=== PATIENT | female | born 1970 | race Hispanic/Latino ===

== ENCOUNTER 2018-04-17 12:53 | Inpatient (IN) | payer MEDICAID ==
[2018-04-17 13:03] VITALS: BMI 32.9
[2018-04-17] MEDS ORDERED: Albuterol-Ipratrop 3 mg / 0.5 (3 ml) UD ONE (13:12)
[2018-04-17] MEDS ORDERED: Nitroglycerin 2% 15 INCH/30 GM TUBE TOP STA (13:23)
[2018-04-17] MEDS ORDERED: Albuterol-Ipratrop 3 mg / 0.5 (3 ml) UD INH STA ×2 (13:27→17:57)
[2018-04-17] MEDS ORDERED: Nitroglycerin 2% Ointment Foilpak UD TOP ONE (13:44)
[2018-04-17 13:49] LABS: BASO # 0.1 K/uL (0.0-0.2); BASO % 0.6 % (0.0-2.0); EOS % 0.2 % (0.0-4.0); HEMOGLOBIN 12.1 g/dL (12.0-16.0); LYMPH # 2.1 K/uL (1.0-4.3); LYMPH % 19.8 % (20.0-40.0); MEAN CELL VOLUME 90.9 fl (81.0-99.0); MEAN PLATELET VOLUME 8.8 fl (7.2-11.7); MONO # 0.7 K/uL (0.0-0.8); MONO % 6.7 % (0.0-10.0); NEUT # 7.8 K/uL (1.8-7.0); NEUT % 72.7 % (50.0-75.0); NRBC % 0.1 % (0.0-0.0); RBC 4.04 Mil/uL (3.80-5.20); RED CELL DISTRIBUTION WIDTH 14.5 % (11.5-14.5); WHITE BLOOD COUNT 10.7 K/uL (4.8-10.8)
[2018-04-17 13:56] LABS: ABG ALLEN TEST YES; ARTERIAL BLOOD GAS HCO3 25.6 mmol/L (21-28); ARTERIAL BLOOD GAS HEMOGLOBIN 12.3 g/dL (11.7-17.4); ARTERIAL BLOOD GAS O2 CAPACITY 16.4 mL/dL (16-24); ARTERIAL BLOOD GAS O2 SAT 97.5 % (95-98); ARTERIAL BLOOD GAS PCO2 42 mm/Hg (35-45); ARTERIAL BLOOD GAS PO2 69 mm/Hg (80-100); ARTERIAL BLOOD GAS TCO2 27.3 mmol/L (22-28)
[2018-04-17 14:01] LABS: CALCIUM 7.7 mg/dL (8.4-10.2)
[2018-04-17] MEDS ORDERED: Nitroglycerin 2% Ointment Foilpak UD TOP STA (14:02)
--- NOTE | 2018-04-17 14:21 | ED PDOC ---
HPI: SOB/CHF/COPD Time Seen by Provider: 04/17/18 13:11 Chief Complaint (Nursing): Shortness Of Breath Chief Complaint (Provider): Shortness of breath History Per: Patient History/Exam Limitations: no limitations Onset/Duration Of Symptoms: Days (x2-3) Current Symptoms Are (Timing): Still Present Additional Complaint(s): 47 year old female presents to the ED with difficulty breathing for 2-3 days. Patient reports having chronic shortness of breath for months which has been worsening gradually. She reports having swelling in the arms and legs. She states she has to sleep head up because if she lies down, she will get short of breath. Patient indicates she was taking albuterol and lasix as needed at home but states it was not helping. PMD: Dr. Bingham Past Medical History Reviewed: Historical Data, Nursing Documentation, Vital Signs Vital Signs: Last Vital Signs Temp 98.5 F 04/17/18 13:04 Pulse 78 04/17/18 14:03 Resp 20 04/17/18 13:04 BP 147/90 04/17/18 14:03 Pulse Ox 98 04/17/18 13:04 - Medical History PMH: Asthma, CHF, Diabetes, Fractures (RIGHT FOOT), Gall Bladder Disease, Hepatitis (C), HTN, Pancreatitis Denies: Chronic Kidney Disease - Surgical History Surgical History: Cholecystectomy, Endoscopy - Family History Family History: States: Unknown Family Hx - Social History Current smoker - smoking cessation education provided: No Alcohol: None Drugs: Denies - Immunization History Hx Tetanus Toxoid Vaccination: No Hx Influenza Vaccination: Yes Hx Pneumococcal Vaccination: Yes - Home Medications Home Medications: Ambulatory Orders Medication Instructions Recorded RX: Pantoprazole Sodium [Protonix] 40 mg PO DAILY #30 ect 07/12/17 Albuterol Sulfate [Ventolin Hfa] 2 puff IH Q6 PRN 04/17/18 Cephalexin [Keflex] 500 mg PO Q12 04/17/18 Furosemide [Lasix] 80 mg PO DAILY 04/17/18 RX: Gabapentin [Neurontin] 1,600 mg PO Q8 04/17/18 RX: Insulin Glargine,Hum.rec.anlog 36 units SC HS 04/17/18 [Basaglar Kwikpen U-100] RX: Promethazine DM [Phenergan DM 10 ml PO Q6 PRN 04/17/18 Syrup] - Allergies Allergies/Adverse Reactions: Allergies Allergy/AdvReac Type Severity Reaction Status Date / Time hydromorphone [From Dilaudid] Allergy SHORTNESS Verified 04/17/18 13:02 OF BREATH lidocaine Allergy RASH Verified 04/17/18 13:02 Wells Criteria for PE - Wells Criteria for Pulmonary Embolism Clinical Signs and Symptoms of DVT: No P.E is #1 Diagnosis, or Equally Likely: No Heart Rate >100: No Immobilization at least 3 days;Surgery previous 4 weeks: No Previous, objectively diagnosed PE or DVT: No Hemoptysis: No Malignancy w/treatment within 6 months, or palliative: No Total Score: 0 Review of Systems ROS Statement: Except As Marked, All Systems Reviewed And Found Negative Respiratory: Positive for: Shortness of Breath Musculoskeletal: Positive for: Other (arms and legs swelling) Physical Exam - Reviewed Nursing Documentation Reviewed: Yes Vital Signs Reviewed: Yes - Physical Exam Appears: Positive for: Non-toxic, In Acute Distress (in respiratory distress) Head Exam: Positive for: ATRAUMATIC, NORMOCEPHALIC Skin: Positive for: Normal Color, Warm, Dry Eye Exam: Positive for: Normal appearance Neck: Positive for: Normal, Painless ROM Cardiovascular/Chest: Positive for: Regular Rate, Rhythm, Tachycardia Respiratory: Positive for: Wheezing (bilaterally), Respiratory Distress, Other (tachypneic) Gastrointestinal/Abdominal: Positive for: Normal Exam, Soft. Negative for: Tenderness, Distended Extremity: Positive for: Swelling (of the arms and legs), Other (pitting edema) Neurologic/Psych: Positive for: Alert, Oriented - Laboratory Results Result Diagrams: 04/18/18 04:30 04/18/18 04:30 - ECG O2 Sat by Pulse Oximetry: 98 (RA) Pulse Ox Interpretation: Normal - Critical Care Total Time (In Min): 60 Medical Decision Making Medical Decision Making: Initial Impression: shortness of breath and cough Differential includes CHF exacerbation, anasarca, and asthma exacerbation Initial Plan: --Arterial blood gas stat --ECG --B-type natriuretic peptide stat --BMP --TSH --Troponin stat --CBC --Chest X-ray --Albuterol 3mL INH --Lasix 80mg IV --Nitroglycerin 0.5 ea TOP --Methylprednisolone 125mg IV --Bipap procedure --Peak flow 14:58 Chest X-ray FINDINGS: LUNGS: Right lower lobe infiltrate. PLEURA: Right pleural effusion indistinguishable from right lower lobe infiltrate. CARDIOVASCULAR: No aortic atherosclerotic calcification present. Normal. OSSEOUS STRUCTURES: No significant abnormalities. VISUALIZED UPPER ABDOMEN: Normal. OTHER FINDINGS: None. IMPRESSION: Large right lower lobe infiltrate/right pleural effusion. [address] Dill who will admit for Dr Bingham. Dr Dill will consult Dr Ozuna for cards and Dr Bennett for renal. [address] Ozuna who recommends ICU. [address] Fernandez equity director for ICU evaluation. Scribe Attestation: Documented by Bradley Telles acting as a scribe for Mason Sandoval MD. Provider Scribe Attestation: All medical record entries made by the Scribe were at my direction and per sonally dictated by me. I have reviewed the chart and agree that the record accurately reflects my personal performance of the history, physical exam, medical decision making, and the department course for this patient. I have also personally directed, reviewed, and agree with the discharge instructions and disposition. Disposition - Clinical Impression Clinical Impression: CHF exacerbation, Elevated troponin, Pleural effusion, Respiratory failure, acute, ARF (acute renal failure) - Patient ED Disposition Is Patient to be Admitted: Yes Discussed With DrJuliana: Rk Dill Doctor Will See Patient In The: Hospital Counseled Patient/Family Regarding: Studies Performed, Diagnosis - Disposition Disposition Time: 15:30 Condition: CRITICAL - Pt Status Changed To: Hospital Disposition Of: Inpatient - Admit Certification Admit to Inpatient:: After my assessment, the patient will require hospitalization for at least two midnights. This is because of the severity of symptoms shown, intensity of services needed, and/or the medical risk in this patient being treated as an outpatient. - POA Present On Arrival: Poor Glycemic Control REINALDO Risk Score for UA/NSTEMI - REINALDO Risk Score Age > 64: NO 3 or more CAD Risk Factors: YES Known CAD (Stenosis greater than 50%): NO Aspirin use in past 7 days: NO Severe Angina: NO EKG ST changes greater than 0.5mm: NO Positive Cardiac Marker: YES REINALDO Score: 2 % risk at 14 days of: all cause mortality, new or recurrent [place], or severe recu rrent ischemia requiring urgen revascularization: 8%
[2018-04-17 14:38] LABS: TROPONIN I 0.876 ng/mL (0.00-0.120)
--- NOTE | 2018-04-17 14:48 | CARD ---
APPROVED REPORT Date of service: 04/17/2018 EKG Measurement Heart [id number] <Conclusion> Sinus tachycardia Low voltage QRS Possible septal infarct, age undetermined Abnormal ECG
--- NOTE | 2018-04-17 15:01 | RAD ---
Date of service: 04/17/2018 PROCEDURE: CHEST RADIOGRAPH, 1 VIEW HISTORY: dyspnea COMPARISON: 10/30/2014 FINDINGS: LUNGS: Right lower lobe infiltrate. PLEURA: Right pleural effusion indistinguishable from right lower lobe infiltrate. CARDIOVASCULAR: No aortic atherosclerotic calcification present. Normal. OSSEOUS STRUCTURES: No significant abnormalities. VISUALIZED UPPER ABDOMEN: Normal. OTHER FINDINGS: None. IMPRESSION: Large right lower lobe infiltrate/right pleural effusion.
[2018-04-17] MEDS ORDERED: Azithromycin 500 MG IV IVPB ONE (17:11)
[2018-04-17] MEDS: Azithromycin 500 MG in Sodium Chloride 0.9% 250 ML IVPB SCH (17:15)
--- NOTE | 2018-04-17 18:12 | CP.PCM.CON ---
History of Present Illness - History of Present Illness History of Present Illness: I was asked to evaluate patinet by Dr Diaz Patient seen 04/17/18 [id number] Patient 47 year old female with HTN asthma who presents with dsypnea. Symptoms have been present for the last few days. She describes associated orthopnea and PND. The patient cannot complete full sentences. CXR show pulmonary vascular congestion and right pleural effusion. Review of Systems - Constitutional Constitutional: absent: As Per HPI, Anorexia, Chills, Daytime Sleepiness, Excessive Sweating, Fatigue, Fever, Frequent Falls, Headache, Increased Appetite, Lethargy, Malaise, Night Sweats, Snoring, Sleep Apnea, Weight Gain, Weight Loss, Weakness, Other - EENT Eyes: absent: As Per HPI, Blind Spots, Blurred Vision, Change in Vision, Decreased Night Vision, Diplopia, Discharge, Dry Eye, Exophthalmos, Floaters, Irritation, Itchy Eyes, Loss of Peripheral Vision, Pain, Photophobia, Requires Corrective Lenses, Sees Flashes, Spots in Vision, Tunnel Vision, Other Visual Disturbances, Loss of Vision, Other Ears: absent: As Per HPI, Decreased Hearing, Ear Discharge, Ear Pain, Tinnitus, Abnormal Hearing, Disequilibrium, Dizziness, Other Nose/Mouth/Throat: absent: As Per HPI, Epistaxis, Nasal Congestion, Nasal Discharge, Nasal Obstruction, Nasal Trauma, Nose Pain, Post Nasal Drip, Sinus Pain, Sinus Pressure, Bleeding Gums, Change in Voice, Dental Pain, Dry Mouth, Dysphagia, Halitosis, Hoarsness, Lip Swelling, Mouth Lesions, Mouth Pain, Odynophagia, Sore Throat, Throat Swelling, Tongue Swelling, Facial Pain, Neck Pain, Neck Mass, Other - Breasts Breasts: absent: As Per HPI, Change in Shape, Mass, Pain, Nipple Discharge, Nipple Inversion, Skin Changes, Swelling, Other - Cardiovascular Cardiovascular: Dyspnea, Orthopnea - Respiratory Respiratory: Dyspnea - Gastrointestinal Gastrointestinal: absent: As Per HPI, Abdominal Pain, Belching, Bloating, Change in Bowel Habits, Change in Stool Character, Coffee Ground Emesis, Constipation, Cramping, Diarrhea, Dyspepsia, Dysphagia, Early Satiety, Excessive Flatus, Fecal Incontinence, Heartburn, Hematemesis, Hematochezia, Loose Stools, Melena, Nausea, Odynophagia, Temesmus, Vomiting, Other - Musculoskeletal Musculoskeletal: absent: As Per HPI, Abnormal Gait, Arthralgias, Atrophy, Back Pain, Deformity, Joint Swelling, Limited Range of Motion, Loss of Height, Muscle Cramps, Muscle Weakness, Myalgias, Neck Pain, Numbness, Radiating Pain into Limb, Stiffness, Tingling, Other - Integumentary Integumentary: absent: As Per HPI, Acne, Alopecia, Bleeding Lesions, Change in Hair, Change in Nails, Change in Pigmentation, Changing Lesions, Dry Skin, Erythema, Furuncle, Hirsutism, Lesions, New Lesions, Non-Healing Lesions, Photosensitivity, Pruritus, Rash, Skin Pain, Skin Ulcer, Sores, Striae, Swelling, Unusual Bruising, Wounds, Jaundice, Other - Neurological Neurological: absent: As Per HPI, Abnormal Gait, Abnormal Hearing, Abnormal Movements, Abnormal Speech, Behavioral Changes, Burning Sensations, Confusion, Convulsions, Disequilibrium, Dizziness, Numbness, Focal Weakness, Frequent Falls, Headaches, Lack of Coordination, Loss of Vision, Memory Loss, Paresth esias, Radicular Pain, Restless Legs, Sensory Deficit, Syncope, Tingling, Tremor, Vertigo, Weakness, Other Visual Disturbances, Other - Psychiatric Psychiatric: absent: As Per HPI, Abnormal Sleep Pattern, Anhedonia, Anxiety, Auditory Hallucinations, Behavioral Changes, Change in Appetite, Change in Libido, Confusion, Depression, Difficulty Concentrating, Hallucinations, Homicidal Ideation, Hopelessness, Irritability, Memory Loss, Mood Swings, Panic Attacks, Paranoia, Suicidal Ideation, Visual Hallucinations, Tactile Hallucinations, Other - Endocrine Endocrine: absent: As Per HPI, Change in Body Appearance, Change in Libido, Cold Intolorance, Deepening of Voice, Excessive Sweating, Fatigue, Flushing, Heat Intolorance, Increase in Ring/Shoe/Hat Size, Palpitations, Polydipsia, Polyphagia, Polyuria, Other - Hematologic/Lymphatic Hematologic: absent: As Per HPI, Easy Bleeding, Easy Bruising, Lymphadenopathy, Other Past Patient History - Past Medical History & Family History Past Medical History?: Yes - Past Social History Alcohol: None Drugs: Denies - CARDIAC Hx Congestive Heart Failure: Yes Hx Hypertension: Yes - PULMONARY Hx Asthma: Yes - NEUROLOGICAL Hx Neurological Disorder: Yes (NEURPOATHTY) Hx Dizziness: Yes - HEENT Hx HEENT Problems: Yes (HX RETINA BLEEDING) Other/Comment: sclera both eye slightly jaundice - RENAL Hx Chronic Kidney Disease: No - ENDOCRINE/METABOLIC Hx Endocrine Disorders: Yes Hx Diabetes Mellitus Type 2: Yes - INTEGUMENTARY Hx Dermatological Problems: Yes (SLIGHT JAUNDICE) Other/Comment: sclera both eye slightly jaundice - MUSCULOSKELETAL/RHEUMATOLOGICAL Hx Fractures: Yes (RIGHT FOOT) - GASTROINTESTINAL Hx Gall Bladder Disease: Yes Hx Pancreatitis: Yes - GENITOURINARY/GYNECOLOGICAL Hx Genitourinary Disorders: No Other/Comment: fibroids - PSYCHIATRIC Hx Psychophysiologic Disorder: No Hx Substance Use: No - SURGICAL HISTORY Hx Cholecystectomy: Yes - ANESTHESIA Hx Anesthesia: Yes Hx Anesthesia Reactions: No Hx Malignant Hyperthermia: No Meds Allergies/Adverse Reactions: Allergies Allergy/AdvReac Type Severity Reaction Status Date / Time hydromorphone [From Dilaudid] Allergy SHORTNESS Verified 04/17/18 13:02 OF BREATH lidocaine Allergy RASH Verified 04/17/18 13:02 - Medications Medications: Current Medications Albuterol/Ipratropium (Duoneb 3 Mg/0.5 Mg (3 Ml) Ud) 3 ml INH RTID KYRIE Furosemide (Lasix) 80 mg PO DAILY KYRIE Gabapentin (Neurontin) 1,600 mg PO Q8 KYRIE Azithromycin 500 mg/ Sodium (Chloride) 250 mls @ 250 mls/hr IVPB DAILY KYRIE; Protocol Last Admin: 04/17/18 17:15 Dose: 250 mls/hr Insulin Detemir (Levemir) 36 units SC HS KYRIE Pantoprazole Sodium (Protonix Ec Tab) 40 mg PO DAILY KYRIE Promethazine HCl/Dextromethorphan (Phenergan Dm Syrup) 10 ml PO Q6 PRN PRN Reason: Cough Physical Exam - Constitutional Appears: In Acute Distress - Head Exam Head Exam: NORMAL INSPECTION - Eye Exam Eye Exam: Normal appearance - ENT Exam ENT Exam: Mucous Membranes Moist - Neck Exam Neck exam: Positive for: Full Rom - Respiratory Exam Respiratory Exam: Decreased Breath Sounds - Cardiovascular Exam Cardiovascular Exam: REGULAR RHYTHM - GI/Abdominal Exam GI & Abdominal Exam: Normal Bowel Sounds - Rectal Exam Rectal Exam: Deferred - Extremities Exam Extremities exam: Positive for: pedal edema - Back Exam Back exam: NORMAL INSPECTION - Neurological Exam Neurological exam: Alert - Psychiatric Exam Psychiatric exam: Normal Affect - Skin Skin Exam: Normal Color Results - Vital Signs Recent Vital Signs: Last Vital Signs Temp 98.5 F 04/17/18 13:04 Pulse 77 04/17/18 15:03 Resp 19 04/17/18 14:00 BP 136/70 04/17/18 15:03 Pulse Ox 98 04/17/18 17:19 - Labs Result Diagrams: 04/17/18 13:40 04/17/18 13:40 Labs: Laboratory Results - last 24 hr 04/17/18 04/17/18 04/17/18 13:33 13:40 13:40 WBC 10.7 RBC 4.04 Hgb 12.1 Hct 36.7 MCV 90.9 D MCH 30.0 MCHC 33.0 RDW 14.5 Plt Count 297 MPV 8.8 Neut % (Auto) 72.7 Lymph % (Auto) 19.8 L [place] % (Auto) 6.7 Eos % (Auto) 0.2 Baso % (Auto) 0.6 Neut # (Auto) 7.8 H Lymph # (Auto) 2.1 [place] # (Auto) 0.7 Eos # (Auto) 0.0 Baso # (Auto) 0.1 pCO2 42 pO2 69 L HCO3 25.6 ABG pH 7.40 ABG Total CO2 27.3 ABG O2 Saturation 97.5 ABG O2 Content 16.0 ABG Base Excess 1.0 ABG Hemoglobin 12.3 ABG Carboxyhemoglobin 3.8 H POC ABG HHb (Measured) 2.4 ABG Methemoglobin 1.4 ABG O2 Capacity 16.4 Patel Test Yes A-a O2 Difference 592.0 Hgb O2 Saturation 92.4 L FiO2 100.0 Sodium 139 Potassium 3.4 L Chloride 106 Carbon Dioxide 24 Anion Gap 12 BUN 41 H Creatinine 2.2 H Est GFR ( Amer) 29 Est GFR (Non-Af Amer) 24 POC Glucose (mg/dL) Random Glucose 161 H Calcium 7.7 L Troponin I 0.8760 H* NT-Pro-B Natriuret Pep 61943 H TSH 3rd Generation 5.53 H 04/17/18 16:06 WBC RBC Hgb Hct MCV MCH MCHC RDW Plt Count MPV Neut % (Auto) Lymph % (Auto) [place] % (Auto) Eos % (Auto) Baso % (Auto) Neut # (Auto) Lymph # (Auto) [place] # (Auto) Eos # (Auto) Baso # (Auto) pCO2 pO2 HCO3 ABG pH ABG Total CO2 ABG O2 Saturation ABG O2 Content ABG Base Excess ABG Hemoglobin ABG Carboxyhemoglobin POC ABG HHb (Measured) ABG Methemoglobin ABG O2 Capacity Patel Test A-a O2 Difference Hgb O2 Saturation FiO2 Sodium Potassium Chloride Carbon Dioxide Anion Gap BUN Creatinine Est GFR ( Amer) Est GFR (Non-Af Amer) POC Glucose (mg/dL) 206 H Random Glucose Calcium Troponin I NT-Pro-B Natriuret Pep TSH 3rd Generation - EKG Data EKG shows normal: Sinus rhythm Assessment & Plan (1) Dyspnea Assessment and Plan: likley cardiac in origin. recommend lasix. would benefit from ICU eval. Status: Acute (2) CHF exacerbation Assessment and Plan: will need evaluation of ventricular function. low voltage EKG may suggest pericardial effusion. Status: Acute (3) Pleural effusion Assessment and Plan: consider thoracentesis Status: Acute
[2018-04-17] MEDS: Budesonide 0.25 mg/2 ml Inhal Susp UD INH SCH (21:44)
[2018-04-17] MEDS: Albuterol-Ipratrop 3 mg / 0.5 (3 ml) UD INH SCH (21:44)
[2018-04-17] MEDS: Insulin Detemir 100 Units/ml Inj SC SCH (21:46)
[2018-04-17] MEDS ORDERED: Chlorhexidine Gluconate 1 APPL/PKT TP ONE (22:44)
[2018-04-18 05:44] LABS: HEMOGLOBIN 11.1 g/dL (12.0-16.0); MEAN CELL VOLUME 90.8 fl (81.0-99.0); MEAN CORPUSCULAR HEMOGLOBIN 29.8 pg (27.0-31.0); MEAN CORPUSCULAR HGB CONC 32.9 g/dL (33.0-37.0); RBC 3.72 Mil/uL (3.80-5.20); RED CELL DISTRIBUTION WIDTH 14.5 % (11.5-14.5); WHITE BLOOD COUNT 9.6 K/uL (4.8-10.8)
[2018-04-18 05:53] LABS: ALB/GLOB RATIO 0.7 (1.0-2.1); ALBUMIN 2.2 g/dL (3.5-5.0); ALT/SGPT 40 U/L (9-52); AST/SGOT 53 U/L (14-36); BLOOD UREA NITROGEN 43 mg/dl (7-17); CALCIUM 7.5 mg/dL (8.4-10.2); GFR NON-AFRICAN AMERICAN 23
--- NOTE | 2018-04-18 06:05 | CON ---
DATE: 04/17/2018vents in the ER noted. Discussed with ER physician. HISTORY OF PRESENT ILLNESS: Ms. Magdaleno is a 47-year-old female, nonsmoker, no alcohol dependence. No recreational drug use. Lives alone with a history of diabetes mellitus type 2 with diabetic neuropathy, hypertension, and chronic systolic heart failure. The patient was admitted to [facility] in 10/2017, noted to have paroxysmal nocturnal dyspnea, orthopnea, and found to have large right pleural effusion. Thoracentesis was done. Further workup for heart failure is unclear. Denies having ischemic workup. The patient also reports that she has asthma because of the shortness of breath. The patient has been short of breath for the last couple of weeks prior to this admission. Denies fever, chills, cough nonproductive. No chest pain or palpitation. No abdominal discomfort; has swelling of her lower extremities; also complaining of weakness of lower extremities limiting her ambulation due to diabetic neuropathy. MEDICATIONS: Her medications at home include Protonix 40 mg daily, Phenergan 10 mL every 6 hours p.r.n., insulin 30/60 units at night, gabapentin 1600 mg every 8 hours, furosemide 80 mg daily, Keflex 500 mg every 12 hours for the last 10 days, albuterol inhalation every 6 hours six p.r.n. ALLERGIES: SHE IS ALLERGIC TO LIDOCAINE AND HYDROMORPHONE. PHYSICAL EXAMINATION: GENERAL: Middle-aged morbidly obese female, oriented to name, place and time; in mild to moderate respiratory distress, improved on BiPAP. VITAL SIGNS: Temperature 98.5, heart rate 78 and regular, blood pressure 147/90, respiratory rate 19, saturation 96% on BiPAP. HEAD, EYES, EARS, NOSE, AND THROAT: Pupils are reactive. Conjunctivae pink. Sclerae are white. NECK: Supple, short neck. Reduced oropharyngeal air space. CHEST: Bilateral breath sounds, diminished on right more than left. Scattered rhonchi. Fine crepitations at the bases. HEART: Rhythm regular. S1, S2 normal. S4 gallop. ABDOMEN: Bowel sounds present and soft. EXTREMITIES: 2+ edema. Dorsalis pedis palpable. No palpable cord. LABORATORY DATA: WBC 10.7, hemoglobin 12.1, hematocrit 36.7, MCV 90.9, platelet count of 297, neutrophils 72.7, lymphocytes 19.8, monocytes 6.7. ABG, pH 7.4, pCO2 of 42, pO2 of 69, oxygen saturation 97.5 on FiO2 100%. SMA-7: Sodium 139, potassium 3.4, chloride 106, CO2 of 24, blood urea nitrogen 41, creatinine 2.4, random glucose 206, calcium 7.7, troponin 0.8. ProBNP 11,800. TSH of 5.53. Microbiology pending. Chest x-ray shows large right lower lobe effusion/infiltrate. IMPRESSION: A 47-year-old female with history significant for diabetes mellitus type 2, hypertension, diabetic neuropathy, chronic systolic heart failure, presenting with progressive shortness of breath, associated with paroxysmal nocturnal dyspnea, and orthopnea. She has large right pleural effusion secondary to congestive heart failure. The patient is also on high dose Neurontin with fluid accumulation as its side effect. She also has long-term diabetes mellitus type 2 with a diabetic neuropathy. PLAN: Admit to ICU. Keep on BiPAP to reduce the work of breathing. Lasix 40 mg IV every 12 hours, albuterol/Atrovent inhalation 3 mL via nebulizer every 6 hours, azithromycin 500 mg IV daily for atypical pneumonia. Reduce the dose of gabapentin to 300 mg every 8 hours. Continue Levemir 36 units at night, Protonix 40 daily. Repeat chest x-ray, if pleural effusion persists, consider thoracentesis. Add Pulmicort 0.5 mg via nebulizer every 12 hours. Pulmonary consult for evaluation of asthma. Chapo Fernandez MD MTDD
[2018-04-18] MEDS: Pantoprazole 40 mg EC Tab PO SCH (08:26)
[2018-04-18] MEDS: Budesonide 0.25 mg/2 ml Inhal Susp UD INH SCH ×2 (08:27→19:15)
[2018-04-18] MEDS: Albuterol-Ipratrop 3 mg / 0.5 (3 ml) UD INH SCH ×3 (08:27→19:15)
[2018-04-18] MEDS ORDERED: Potassium Chloride 20 mEq ER Tab PO ONE (08:38)
[2018-04-18] MEDS ORDERED: Potassium Chloride 20 mEq 100 ML IVPB ONE ×2 (08:40)
--- NOTE | 2018-04-18 08:49 | CP.CCUPN ---
CCU Subjective - Physician Review Events Since Last Encounter (Free Text): 04/18/18 08:46 Breathing is still not back to normal but better, Off Bipap, BP stable, alert and oriented, good response to lasix IV CCU Objective - Vital Signs / Intake & Output Vital Signs (Last 4 hours): Vital Signs Temp Pulse Resp BP Pulse Ox 04/18/18 08:28 99.1 F 88 16 134/77 100 04/18/18 08:22 134/77 04/18/18 08:21 98 04/18/18 05:00 99.1 F 96 H 16 145/82 99 Intake and Output (Last 8hrs): Intake & Output 04/17/18 04/18/18 04/18/18 22:59 06:59 14:59 Intake Total 120 Output Total 1400 Balance 120 -1400 Intake: Oral 120 Output: Urine 1400 Urethral ([place]acruz) 1400 - Physical Exam Narrative Physical Exam (Free Text): 04/18/18 08:47 P/E Neck: No JVd Lungs: Rt base, decreased breath sounds, left basal crackles heart: No gallop Ext: +1 edema eat: NO gallop - Medications Active Medications: Active Medications Generic Name Dose Route Start Last Admin Trade Name Freq PRN Reason Stop Dose Admin Albuterol/Ipratropium 3 ml 04/17/18 20:00 04/18/18 08:27 Duoneb 3 Mg/0.5 Mg (3 Ml) Ud INH 3 ml RTID [facility] Administration Budesonide 0.25 mg 04/17/18 20:00 04/18/18 08:27 Pulmicort Respules INH 0.25 mg RBID [facility] Administration Furosemide 60 mg 04/17/18 21:00 04/18/18 08:22 Lasix IV 60 mg Q12 [facility] Administration Gabapentin 300 mg 04/18/18 09:00 04/18/18 08:23 Neurontin PO 300 mg TID [facility] Administration Azithromycin 500 mg/ Sodium 250 mls @ 250 mls/hr 04/17/18 16:30 04/17/18 17:15 Chloride IVPB 250 mls/hr DAILY [facility] Administration Protocol Potassium Chloride 100 mls @ 50 mls/hr 04/18/18 08:40 Potassium Chloride 20 Meq/100 Ml IVPB 04/18/18 10:39 ONCE ONE Potassium Chloride 100 mls @ 50 mls/hr 04/18/18 08:40 Potassium Chloride 20 Meq/100 Ml IVPB 04/18/18 10:39 ONCE ONE Insulin Detemir 36 units 04/17/18 22:00 04/17/18 21:46 Levemir SC 36 units HS [facility] Administration Pantoprazole Sodium 40 mg 04/18/18 09:00 04/18/18 08:26 Protonix Ec Tab PO 40 mg DAILY [facility] Administration Potassium Chloride 40 meq 04/18/18 08:38 K-Dur 20 Meq Er Tab PO 04/18/18 08:39 ONCE ONE Promethazine HCl/Dextromethorphan 10 ml 04/17/18 16:22 Phenergan Dm Syrup PO Q6 PRN Cough - Patient Studies Lab Studies: Lab Studies 04/18/18 04/18/18 04/18/18 Range/Units 05:03 04:30 04:30 WBC 9.6 (4.8-10.8) K/uL RBC 3.72 L (3.80-5.20) Mil/uL Hgb 11.1 L (12.0-16.0) g/dL Hct 33.8 L (34.0-47.0) % MCV 90.8 (81.0-99.0) fl MCH 29.8 (27.0-31.0) pg MCHC 32.9 L (33.0-37.0) g/dL RDW 14.5 (11.5-14.5) % Plt Count 262 (130-400) K/uL MPV (7.2-11.7) fl Neut % (Auto) (50.0-75.0) % Lymph % (Auto) (20.0-40.0) % [place] % (Auto) (0.0-10.0) % Eos % (Auto) (0.0-4.0) % Baso % (Auto) (0.0-2.0) % Neut # (Auto) (1.8-7.0) K/uL Lymph # (Auto) (1.0-4.3) K/uL [place] # (Auto) (0.0-0.8) K/uL Eos # (Auto) (0.0-0.7) K/uL Baso # (Auto) (0.0-0.2) K/uL pCO2 (35-45) mm/Hg pO2 (80-100) mm/Hg HCO3 (21-28) mmol/L ABG pH (7.35-7.45) ABG Total CO2 (22-28) mmol/L ABG O2 Saturation (95-98) % ABG O2 Content (15-23) ML/dL ABG Base Excess (-2.0-3.0) mmol/L ABG Hemoglobin (11.7-17.4) g/dL ABG Carboxyhemoglobin (0.5-1.5) % POC ABG HHb (Measured) (0.0-5.0) % ABG Methemoglobin (0.0-3.0) % ABG O2 Capacity (16-24) mL/dL Patel Test A-a O2 Difference mm/Hg Hgb O2 Saturation (95.0-98.0) % FiO2 % Sodium 142 (132-148) mmol/l Potassium 2.8 L (3.6-5.0) MMOL/L Chloride 108 H (98-107) mmol/L Carbon Dioxide 26 (22-30) mmol/L Anion Gap 11 (10-20) BUN 43 H (7-17) mg/dl Creatinine 2.3 H (0.7-1.2) mg/dl Est GFR ( Amer) 27 Est GFR (Non-Af Amer) 23 POC Glucose (mg/dL) 223 H (65-110) mg/dL Random Glucose 173 H (65-105) mg/dL Calcium 7.5 L (8.4-10.2) mg/dL Total Bilirubin < 0.1 L (0.2-1.3) mg/dl AST 53 H D (14-36) U/L ALT 40 (9-52) U/L Alkaline Phosphatase 86 (38-126) U/L Troponin I 0.6750 H* (0.00-0.120) ng/mL NT-Pro-B Natriuret Pep (0-450) pg/ml Total Protein 5.3 L (6.3-8.2) G/DL Albumin 2.2 L D (3.5-5.0) g/dL Globulin 3.1 (2.2-3.9) gm/dL Albumin/Globulin Ratio 0.7 L (1.0-2.1) TSH 3rd Generation 1.33 (0.46-4.68) mIU/ML 04/18/18 04/17/18 04/17/18 Range/Units 00:30 21:23 16:06 WBC (4.8-10.8) K/uL RBC (3.80-5.20) Mil/uL Hgb (12.0-16.0) g/dL Hct (34.0-47.0) % MCV (81.0-99.0) fl MCH (27.0-31.0) pg MCHC (33.0-37.0) g/dL RDW (11.5-14.5) % Plt Count (130-400) K/uL MPV (7.2-11.7) fl Neut % (Auto) (50.0-75.0) % Lymph % (Auto) (20.0-40.0) % [place] % (Auto) (0.0-10.0) % Eos % (Auto) (0.0-4.0) % Baso % (Auto) (0.0-2.0) % Neut # (Auto) (1.8-7.0) K/uL Lymph # (Auto) (1.0-4.3) K/uL [place] # (Auto) (0.0-0.8) K/uL Eos # (Auto) (0.0-0.7) K/uL Baso # (Auto) (0.0-0.2) K/uL pCO2 (35-45) mm/Hg pO2 (80-100) mm/Hg HCO3 (21-28) mmol/L ABG pH (7.35-7.45) ABG Total CO2 (22-28) mmol/L ABG O2 Saturation (95-98) % ABG O2 Content (15-23) ML/dL ABG Base Excess (-2.0-3.0) mmol/L ABG Hemoglobin (11.7-17.4) g/dL ABG Carboxyhemoglobin (0.5-1.5) % POC ABG HHb (Measured) (0.0-5.0) % ABG Methemoglobin (0.0-3.0) % ABG O2 Capacity (16-24) mL/dL Patel Test A-a O2 Difference mm/Hg Hgb O2 Saturation (95.0-98.0) % FiO2 % Sodium (132-148) mmol/l Potassium (3.6-5.0) MMOL/L Chloride (98-107) mmol/L Carbon Dioxide (22-30) mmol/L Anion Gap (10-20) BUN (7-17) mg/dl Creatinine (0.7-1.2) mg/dl Est GFR ( Amer) Est GFR (Non-Af Amer) POC Glucose (mg/dL) 310 H 206 H (65-110) mg/dL Random Glucose (65-105) mg/dL Calcium (8.4-10.2) mg/dL Total Bilirubin (0.2-1.3) mg/dl AST (14-36) U/L ALT (9-52) U/L Alkaline Phosphatase (38-126) U/L Troponin I 0.6980 H* (0.00-0.120) ng/mL NT-Pro-B Natriuret Pep (0-450) pg/ml Total Protein (6.3-8.2) G/DL Albumin (3.5-5.0) g/dL Globulin (2.2-3.9) gm/dL Albumin/Globulin Ratio (1.0-2.1) TSH 3rd Generation (0.46-4.68) mIU/ML 04/17/18 04/17/18 04/17/18 Range/Units 13:40 13:40 13:33 WBC 10.7 (4.8-10.8) K/uL RBC 4.04 (3.80-5.20) Mil/uL Hgb 12.1 (12.0-16.0) g/dL Hct 36.7 (34.0-47.0) % MCV 90.9 D (81.0-99.0) fl MCH 30.0 (27.0-31.0) pg MCHC 33.0 (33.0-37.0) g/dL RDW 14.5 (11.5-14.5) % Plt Count 297 (130-400) K/uL MPV 8.8 (7.2-11.7) fl Neut % (Auto) 72.7 (50.0-75.0) % Lymph % (Auto) 19.8 L (20.0-40.0) % [place] % (Auto) 6.7 (0.0-10.0) % Eos % (Auto) 0.2 (0.0-4.0) % Baso % (Auto) 0.6 (0.0-2.0) % Neut # (Auto) 7.8 H (1.8-7.0) K/uL Lymph # (Auto) 2.1 (1.0-4.3) K/uL [place] # (Auto) 0.7 (0.0-0.8) K/uL Eos # (Auto) 0.0 (0.0-0.7) K/uL Baso # (Auto) 0.1 (0.0-0.2) K/uL pCO2 42 (35-45) mm/Hg pO2 69 L (80-100) mm/Hg HCO3 25.6 (21-28) mmol/L ABG pH 7.40 (7.35-7.45) ABG Total CO2 27.3 (22-28) mmol/L ABG O2 Saturation 97.5 (95-98) % ABG O2 Content 16.0 (15-23) ML/dL ABG Base Excess 1.0 (-2.0-3.0) mmol/L ABG Hemoglobin 12.3 (11.7-17.4) g/dL ABG Carboxyhemoglobin 3.8 H (0.5-1.5) % POC ABG HHb (Measured) 2.4 (0.0-5.0) % ABG Methemoglobin 1.4 (0.0-3.0) % ABG O2 Capacity 16.4 (16-24) mL/dL Patel Test Yes A-a O2 Difference 592.0 mm/Hg Hgb O2 Saturation 92.4 L (95.0-98.0) % FiO2 100.0 % Sodium 139 (132-148) mmol/l Potassium 3.4 L (3.6-5.0) MMOL/L Chloride 106 (98-107) mmol/L Carbon Dioxide 24 (22-30) mmol/L Anion Gap 12 (10-20) BUN 41 H (7-17) mg/dl Creatinine 2.2 H (0.7-1.2) mg/dl Est GFR ( Amer) 29 Est GFR (Non-Af Amer) 24 POC Glucose (mg/dL) (65-110) mg/dL Random Glucose 161 H (65-105) mg/dL Calcium 7.7 L (8.4-10.2) mg/dL Total Bilirubin (0.2-1.3) mg/dl AST (14-36) U/L ALT (9-52) U/L Alkaline Phosphatase (38-126) U/L Troponin I 0.8760 H* (0.00-0.120) ng/mL NT-Pro-B Natriuret Pep 45275 H (0-450) pg/ml Total Protein (6.3-8.2) G/DL Albumin (3.5-5.0) g/dL Globulin (2.2-3.9) gm/dL Albumin/Globulin Ratio (1.0-2.1) TSH 3rd Generation 5.53 H (0.46-4.68) mIU/ML Laboratory Results - last 24 hr 04/17/18 04/17/18 04/17/18 13:33 13:40 13:40 WBC 10.7 RBC 4.04 Hgb 12.1 Hct 36.7 MCV 90.9 D MCH 30.0 MCHC 33.0 RDW 14.5 Plt Count 297 MPV 8.8 Neut % (Auto) 72.7 Lymph % (Auto) 19.8 L [place] % (Auto) 6.7 Eos % (Auto) 0.2 Baso % (Auto) 0.6 Neut # (Auto) 7.8 H Lymph # (Auto) 2.1 [place] # (Auto) 0.7 Eos # (Auto) 0.0 Baso # (Auto) 0.1 pCO2 42 pO2 69 L HCO3 25.6 ABG pH 7.40 ABG Total CO2 27.3 ABG O2 Saturation 97.5 ABG O2 Content 16.0 ABG Base Excess 1.0 ABG Hemoglobin 12.3 ABG Carboxyhemoglobin 3.8 H POC ABG HHb (Measured) 2.4 ABG Methemoglobin 1.4 ABG O2 Capacity 16.4 Patel Test Yes A-a O2 Difference 592.0 Hgb O2 Saturation 92.4 L FiO2 100.0 Sodium 139 Potassium 3.4 L Chloride 106 Carbon Dioxide 24 Anion Gap 12 BUN 41 H Creatinine 2.2 H Est GFR ( Amer) 29 Est GFR (Non-Af Amer) 24 POC Glucose (mg/dL) Random Glucose 161 H Calcium 7.7 L Total Bilirubin AST ALT Alkaline Phosphatase Troponin I 0.8760 H* NT-Pro-B Natriuret Pep 18522 H Total Protein Albumin Globulin Albumin/Globulin Ratio TSH 3rd Generation 5.53 H 04/17/18 04/17/18 04/18/18 16:06 21:23 00:30 WBC RBC Hgb Hct MCV MCH MCHC RDW Plt Count MPV Neut % (Auto) Lymph % (Auto) [place] % (Auto) Eos % (Auto) Baso % (Auto) Neut # (Auto) Lymph # (Auto) [place] # (Auto) Eos # (Auto) Baso # (Auto) pCO2 pO2 HCO3 ABG pH ABG Total CO2 ABG O2 Saturation ABG O2 Content ABG Base Excess ABG Hemoglobin ABG Carboxyhemoglobin POC ABG HHb (Measured) ABG Methemoglobin ABG O2 Capacity Patel Test A-a O2 Difference Hgb O2 Saturation FiO2 Sodium Potassium Chloride Carbon Dioxide Anion Gap BUN Creatinine Est GFR ( Amer) Est GFR (Non-Af Amer) POC Glucose (mg/dL) 206 H 310 H Random Glucose Calcium Total Bilirubin AST ALT Alkaline Phosphatase Troponin I 0.6980 H* NT-Pro-B Natriuret Pep Total Protein Albumin Globulin Albumin/Globulin Ratio TSH 3rd Generation 04/18/18 04/18/18 04/18/18 04:30 04:30 05:03 WBC 9.6 RBC 3.72 L Hgb 11.1 L Hct 33.8 L MCV 90.8 MCH 29.8 MCHC 32.9 L RDW 14.5 Plt Count 262 MPV Neut % (Auto) Lymph % (Auto) [place] % (Auto) Eos % (Auto) Baso % (Auto) Neut # (Auto) Lymph # (Auto) [place] # (Auto) Eos # (Auto) Baso # (Auto) pCO2 pO2 HCO3 ABG pH ABG Total CO2 ABG O2 Saturation ABG O2 Content ABG Base Excess ABG Hemoglobin ABG Carboxyhemoglobin POC ABG HHb (Measured) ABG Methemoglobin ABG O2 Capacity Patel Test A-a O2 Difference Hgb O2 Saturation FiO2 Sodium 142 Potassium 2.8 L Chloride 108 H Carbon Dioxide 26 Anion Gap 11 BUN 43 H Creatinine 2.3 H Est GFR ( Amer) 27 Est GFR (Non-Af Amer) 23 POC Glucose (mg/dL) 223 H Random Glucose 173 H Calcium 7.5 L Total Bilirubin < 0.1 L AST 53 H D ALT 40 Alkaline Phosphatase 86 Troponin I 0.6750 H* NT-Pro-B Natriuret Pep Total Protein 5.3 L Albumin 2.2 L D Globulin 3.1 Albumin/Globulin Ratio 0.7 L TSH 3rd Generation 1.33 Radiology Impressions: Radiology Impressions Chest X-Ray 04/17/18 13:21 IMPRESSION: Large right lower lobe infiltrate/right pleural effusion. EKG/Cardiology Studies: Cardiology / EKG Studies 04/18/18 09:00 ELECTROCARDIOGRAM DAILY Comment: Mode Of Transportation: Reason For Exam: ekg changes/elevated trop Fingerstick Blood Sugar Results: 310 Critical Care Progress Note - Nutrition Nutrition: Nutrition Category Date Time Status Diabetic [Consistent Carbohydrate] [DIET] Diets 04/18/18 Breakfast Active Assessment/Plan - Assessment and Plan (Free Text) Assessment: Resp failure; hypoxic CHF exacerbation NSTEMI Edema Hypokalemia Lupus DM HTN Anemia CKD-4 Plan: Kcl 40 meq Iv and 40 meq PO Lasix 60 mg IV q 12 H Trending TNI Cardiology f/u Off Biapap on N/C Bronchodilators CXR reviewed WIll need thoracentesis in 1-2 day if SOB did not improve,
[2018-04-18] MEDS: Azithromycin 500 MG in Sodium Chloride 0.9% 250 ML IVPB SCH (09:21)
[2018-04-18] MEDS ORDERED: methylPREDNISolone 40 MG in Sodium Chloride 0.9% 50 ML IVPB SCH (11:30)
--- NOTE | 2018-04-18 12:34 | CP.PCM.PN ---
Subjective - Date & Time of Evaluation Date of Evaluation: 04/18/18 Time of Evaluation: 12:10 - Subjective Subjective: patient has cough. less dyspnea Objective - Vital Signs/Intake and Output Vital Signs (last 24 hours): Temp Pulse Resp BP Pulse Ox 99.1 F 103 H 9 L 137/78 98 04/18/18 08:28 04/18/18 10:00 04/18/18 10:00 04/18/18 10:00 04/18/18 10:00 Intake and Output: 04/18/18 04/18/18 06:59 18:59 Intake Total 120 350 Output Total 1400 Balance -1280 350 - Medications Medications: Current Medications Albuterol/Ipratropium (Duoneb 3 Mg/0.5 Mg (3 Ml) Ud) 3 ml INH RTID [facility] Last Admin: 04/18/18 08:27 Dose: 3 ml Budesonide (Pulmicort Respules) 0.25 mg INH RBID [facility] Last Admin: 04/18/18 08:27 Dose: 0.25 mg Furosemide (Lasix) 60 mg IV Q12 [facility] Last Admin: 04/18/18 08:22 Dose: 60 mg Gabapentin (Neurontin) 300 mg PO TID [facility] Last Admin: 04/18/18 08:23 Dose: 300 mg Azithromycin 500 mg/ Sodium (Chloride) 250 mls @ 250 mls/hr IVPB DAILY [facility]; Protocol Last Admin: 04/18/18 09:21 Dose: 250 mls/hr Insulin Detemir (Levemir) 36 units SC HS [facility] Last Admin: 04/17/18 21:46 Dose: 36 units Methylprednisolone (Solu-Medrol) 40 mg IVP Q8 [facility] Pantoprazole Sodium (Protonix Ec Tab) 40 mg PO DAILY [facility] Last Admin: 04/18/18 08:26 Dose: 40 mg Promethazine HCl/Dextromethorphan (Phenergan Dm Syrup) 10 ml PO Q6 PRN PRN Reason: Cough - Labs Labs: 04/18/18 04:30 04/18/18 04:30 - Constitutional Appears: Chronically Ill - Head Exam Head Exam: NORMAL INSPECTION - Eye Exam Eye Exam: Normal appearance - ENT Exam ENT Exam: Mucous Membranes Moist - Neck Exam Neck Exam: Full ROM - Respiratory Exam Respiratory Exam: Rhonchi, Wheezes - Cardiovascular Exam Cardiovascular Exam: REGULAR RHYTHM - GI/Abdominal Exam GI & Abdominal Exam: Normal Bowel Sounds - Rectal Exam Rectal Exam: Deferred - Extremities Exam Extremities Exam: absent: Pedal Edema - Back Exam Back Exam: NORMAL INSPECTION - Neurological Exam Neurological Exam: Alert - Psychiatric Exam Psychiatric exam: Normal Affect - Skin Skin Exam: Normal Color Assessment and Plan (1) Dyspnea Assessment & Plan: echocardiogram reveals preserved left ventriuclar function. there is mild mitral regurgitation. The patient does not have CHF Status: Acute (2) CHF exacerbation Assessment & Plan: reviewed echocardogram. Patient's presentation is more pulmonary in origin. NOT CHF Status: Acute (3) Pleural effusion Assessment & Plan: consider thoracentesis Status: Acute
[2018-04-18] MEDS: Promethazine DM 6.25 mg-15 mg/5 ml Syrup PO PRN ×2 (13:26→21:30)
[2018-04-18] MEDS: MethylPREDNISolone 40 mg Vial IVP SCH (17:26)
[2018-04-18] MEDS ORDERED: Nasal Spray(Ocean spray) NAS PRN (17:31)
--- NOTE | 2018-04-18 18:17 | CP.PCM.CON ---
History of Present Illness - History of Present Illness History of Present Illness: pt is seen and examined, full consult is dictated #[id number] Past Patient History - Past Medical History & Family History Past Medical History?: Yes - Past Social History Alcohol: None Drugs: Denies - CARDIAC Hx Congestive Heart Failure: Yes Hx Hypertension: Yes - PULMONARY Hx Asthma: Yes - NEUROLOGICAL Hx Neurological Disorder: Yes (NEURPOATHTY) - HEENT Hx HEENT Problems: Yes (HX RETINA BLEEDING) - RENAL Hx Chronic Kidney Disease: No - ENDOCRINE/METABOLIC Hx Endocrine Disorders: Yes Hx Diabetes Mellitus Type 1: Yes Hx Systemic Lupus Erythematosus: Yes - INTEGUMENTARY Hx Dermatological Problems: Yes (SLIGHT JAUNDICE) - MUSCULOSKELETAL/RHEUMATOLOGICAL Hx Fractures: Yes (RIGHT FOOT) - GASTROINTESTINAL Hx Gall Bladder Disease: Yes Hx Pancreatitis: Yes - GENITOURINARY/GYNECOLOGICAL Hx Genitourinary Disorders: No - PSYCHIATRIC Hx Psychophysiologic Disorder: No Hx Substance Use: No - SURGICAL HISTORY Hx Cholecystectomy: Yes - ANESTHESIA Hx Anesthesia: Yes Hx Anesthesia Reactions: No Hx Malignant Hyperthermia: No Meds Allergies/Adverse Reactions: Allergies Allergy/AdvReac Type Severity Reaction Status Date / Time hydromorphone [From Dilaudid] Allergy SHORTNESS Verified 04/17/18 13:02 OF BREATH lidocaine Allergy RASH Verified 04/17/18 13:02 - Medications Medications: Current Medications Albuterol/Ipratropium (Duoneb 3 Mg/0.5 Mg (3 Ml) Ud) 3 ml INH RTID [facility] Last Admin: 04/18/18 13:40 Dose: 3 ml Budesonide (Pulmicort Respules) 0.25 mg INH RBID [facility] Last Admin: 04/18/18 08:27 Dose: 0.25 mg Furosemide (Lasix) 60 mg IV Q12 [facility] Last Admin: 04/18/18 08:22 Dose: 60 mg Gabapentin (Neurontin) 300 mg PO TID [facility] Last Admin: 04/18/18 17:26 Dose: 300 mg Azithromycin 500 mg/ Sodium (Chloride) 250 mls @ 250 mls/hr IVPB DAILY [facility]; Protocol Last Admin: 04/18/18 09:21 Dose: 250 mls/hr Insulin Detemir (Levemir) 36 units SC HS [facility] Last Admin: 04/17/18 21:46 Dose: 36 units Methylprednisolone (Solu-Medrol) 40 mg IVP Q8 [facility] Last Admin: 04/18/18 17:26 Dose: 40 mg Pantoprazole Sodium (Protonix Ec Tab) 40 mg PO DAILY [facility] Last Admin: 04/18/18 08:26 Dose: 40 mg Promethazine HCl/Dextromethorphan (Phenergan Dm Syrup) 10 ml PO Q6 PRN PRN Reason: Cough Last Admin: 04/18/18 13:26 Dose: 10 ml Sodium Chloride ([place] Nasal [place]) 2 sprays CASH Q4 PRN PRN Reason: Nasal congestion Results - Vital Signs Recent Vital Signs: Last Vital Signs Temp 99.3 F 04/18/18 16:00 Pulse 107 H 04/18/18 17:58 Resp 15 04/18/18 17:58 BP 168/81 H 04/18/18 17:58 Pulse Ox 98 04/18/18 17:58 - Labs Result Diagrams: 04/18/18 04:30 04/18/18 04:30 Labs: Laboratory Results - last 24 hr 04/17/18 04/18/18 04/18/18 21:23 00:30 04:30 WBC 9.6 RBC 3.72 L Hgb 11.1 L Hct 33.8 L MCV 90.8 MCH 29.8 MCHC 32.9 L RDW 14.5 Plt Count 262 Sodium Potassium Chloride Carbon Dioxide Anion Gap BUN Creatinine Est GFR ( Amer) Est GFR (Non-Af Amer) POC Glucose (mg/dL) 310 H Random Glucose Calcium Magnesium Total Bilirubin AST ALT Alkaline Phosphatase Troponin I 0.6980 H* Total Protein Albumin Globulin Albumin/Globulin Ratio TSH 3rd Generation 04/18/18 04/18/18 04/18/18 04:30 05:03 11:54 WBC RBC Hgb Hct MCV MCH MCHC RDW Plt Count Sodium 142 Potassium 2.8 L Chloride 108 H Carbon Dioxide 26 Anion Gap 11 BUN 43 H Creatinine 2.3 H Est GFR ( Amer) 27 Est GFR (Non-Af Amer) 23 POC Glucose (mg/dL) 223 H 88 Random Glucose 173 H Calcium 7.5 L Magnesium Total Bilirubin < 0.1 L AST 53 H D ALT 40 Alkaline Phosphatase 86 Troponin I 0.6750 H* Total Protein 5.3 L Albumin 2.2 L D Globulin 3.1 Albumin/Globulin Ratio 0.7 L TSH 3rd Generation 1.33 04/18/18 04/18/18 16:48 18:00 WBC RBC Hgb Hct MCV MCH MCHC RDW Plt Count Sodium Potassium Chloride Carbon Dioxide Anion Gap BUN Creatinine Est GFR ( Amer) Est GFR (Non-Af Amer) POC Glucose (mg/dL) 154 H Random Glucose Calcium Magnesium 2.2 Total Bilirubin AST ALT Alkaline Phosphatase Troponin I Total Protein Albumin Globulin Albumin/Globulin Ratio TSH 3rd Generation
[2018-04-18] MEDS: Insulin Detemir 100 Units/ml Inj SC SCH (21:42)
[2018-04-18] MEDS: Nasal Spray(Ocean spray) NAS PRN (22:00)
--- NOTE | 2018-04-18 23:23 | CARD ---
APPROVED REPORT Date of service: 04/18/2018 EXAM: Two-dimensional and M-mode echocardiogram with Doppler and color Doppler. Other Information Quality : GoodRhythm : Tachycardia INDICATION Elevated Pro BNp 2D DIMENSIONS IVSd1.07 (0.7-1.1cm)LVDd4.48 (3.9-5.9cm) LVOT Diameter1.92 (1.8-2.4cm)PWd1.02 (0.7-1.1cm) IVSs1.52 (0.8-1.2cm)LVDs2.98 (2.5-4.0cm) FS (%) 33.6 %PWs1.46 (0.8-1.2cm) M-Mode DIMENSIONS Left Atrium (MM)3.47 (2.5-4.0cm)IVSd1.05 (0.7-1.1cm) Aortic Root2.45 (2.2-3.7cm)LVDd4.99 (4.0-5.6cm) Aortic Cusp Exc.1.74 (1.5-2.0cm)PWd1.02 (0.7-1.1cm) IVSs1.35 cmFS (%) 31 % LVDs3.42 (2.0-3.8cm)PWs1.19 cm Aortic Valve AoV Peak Amdhujgt322.4cm/sAoV VTI27.7cmAO Peak GR.8mmHg LVOT Peak Xvzlcbgb73.4cm/sLVOT VTI16.29cmAO Mean GR.5mmHg AMRIT (VMAX)0.68uq8BTO (VTI)0.93cm2 Mitral Valve E/A ratio0.0 TDI E/Lateral E'0.0E/Medial E'0.0 Tricuspid Valve TR Peak [id number]/sRAP [id number] Peak Gr.32mmHg [id number] LEFT VENTRICLE The left ventricle is normal size. There is normal left ventricular wall thickness. The left ventricular systolic function is normal. The estimated ejection fraction is 55-60% No regional wall motion abnormalities noted.. Transmitral Doppler flow pattern is Grade I-abnormal relaxation pattern. No left ventricle thrombus noted on this study. There is no ventricular septal defect visualized. There is no left ventricular aneurysm. There is no mass noted in the left ventricle. RIGHT VENTRICLE The right ventricle is normal size. There is normal right ventricular wall thickness. The right ventricular systolic function is normal. ATRIA The left atrium size is normal. The right atrium size is normal. The interatrial septum is intact with no evidence for an atrial septal defect. AORTIC VALVE The aortic valve is normal in structure. No aortic regurgitation is present. There is no aortic valvular stenosis. There is no aortic valvular vegetation. MITRAL VALVE The mitral valve is normal in structure. There is no evidence of mitral valve prolapse. There is no mitral valve stenosis. There is moderate mitral valve regurgitation noted. TRICUSPID VALVE The tricuspid valve is normal in structure. There is moderate tricuspid valve regurgitation noted. RVSP is calculated at 40 mm Hg. There is no tricuspid valve prolapse or vegetation. There is no tricuspid valve stenosis. PULMONIC VALVE The pulmonary valve is normal in structure. There is no pulmonic valvular regurgitation. There is no pulmonic valvular stenosis. GREAT VESSELS The aortic root is normal in size. The ascending aorta is normal in size. The pulmonary artery is normal. The IVC is normal in size and collapses >50% with inspiration. PERICARDIAL EFFUSION There is no pericardial effusion. There is no pleural effusion. <Conclusion> The estimated ejection fraction is 55-60% Transmitral Doppler flow pattern is Grade I-abnormal relaxation pattern. The left atrium size is normal. There is moderate mitral valve regurgitation noted. There is moderate tricuspid valve regurgitation noted. RVSP is calculated at 40 mm Hg.
--- NOTE | 2018-04-18 23:39 | CP.PCM.CON ---
History of Present Illness - History of Present Illness History of Present Illness: 47 y/o female with history of severe asthma, intubated several times in past, that presents with an acute exacerbation of asthma, and URI sx. Pos wheezing, dyspnea, cough, and sputum production. PMHx: DM, Asthma, ? Lupus. CHF Current "Light" smoker. Fam Hx: some relatives with asthma. VSS Head: neg adeno pos nicky Heart RRR, NS1S2 Lungs: Course Rhonchi and exp wheezing Abdo, s, nt Pos bs Ext, no c,c, 1 plus edema of Lower ext Neuro GNF Labs as below. a/p Acute Resp Failure 2/2 acute asthma exacerbation 2/2 PNA and Acute Tracheobronchitis, CHF component. Cont supp O2 for O2 sat > 90% Cont Nebulized tx and IV steroids. Start Montelukast Cont IV abx, monitor wbc#, temp curve and stains and cultures Cont ICU care. Cont antith tussuves '= Maintain neg balance with IV diuretics. Cardiology consult and f/u. Cont CPAP as needed. Monitor peak flow rates. Advised to quit smoking. Monitor ABG's. PUD and DVT prophylaxis. Repeat x-ray in 48 hours. Samuel Santo M.D, [facility] Past Patient History - Past Medical History & Family History Past Medical History?: Yes - Past Social History Alcohol: None Drugs: Denies - CARDIAC Hx Congestive Heart Failure: Yes Hx Hypertension: Yes - PULMONARY Hx Asthma: Yes - NEUROLOGICAL Hx Neurological Disorder: Yes (NEURPOATHTY) - HEENT Hx HEENT Problems: Yes (HX RETINA BLEEDING) - RENAL Hx Chronic Kidney Disease: No - ENDOCRINE/METABOLIC Hx Endocrine Disorders: Yes Hx Diabetes Mellitus Type 1: Yes Hx Systemic Lupus Erythematosus: Yes - INTEGUMENTARY Hx Dermatological Problems: Yes (SLIGHT JAUNDICE) - MUSCULOSKELETAL/RHEUMATOLOGICAL Hx Fractures: Yes (RIGHT FOOT) - GASTROINTESTINAL Hx Gall Bladder Disease: Yes Hx Pancreatitis: Yes - GENITOURINARY/GYNECOLOGICAL Hx Genitourinary Disorders: No - PSYCHIATRIC Hx Psychophysiologic Disorder: No Hx Substance Use: No - SURGICAL HISTORY Hx Cholecystectomy: Yes - ANESTHESIA Hx Anesthesia: Yes Hx Anesthesia Reactions: No Hx Malignant Hyperthermia: No Meds Allergies/Adverse Reactions: Allergies Allergy/AdvReac Type Severity Reaction Status Date / Time hydromorphone [From Dilaudid] Allergy SHORTNESS Verified 04/17/18 13:02 OF BREATH lidocaine Allergy RASH Verified 04/17/18 13:02 - Medications Medications: Current Medications Albuterol/Ipratropium (Duoneb 3 Mg/0.5 Mg (3 Ml) Ud) 3 ml INH RTID [facility] Last Admin: 04/18/18 19:15 Dose: 3 ml Budesonide (Pulmicort Respules) 0.25 mg INH RBID [facility] Last Admin: 04/18/18 19:15 Dose: 0.25 mg Furosemide (Lasix) 60 mg IV Q12 [facility] Last Admin: 04/18/18 21:25 Dose: 60 mg Gabapentin (Neurontin) 300 mg PO TID [facility] Last Admin: 04/18/18 17:26 Dose: 300 mg Azithromycin 500 mg/ Sodium (Chloride) 250 mls @ 250 mls/hr IVPB DAILY [facility]; Protocol Last Admin: 04/18/18 09:21 Dose: 250 mls/hr Insulin Detemir (Levemir) 36 units SC HS [facility] Last Admin: 04/18/18 21:42 Dose: 36 units Methylprednisolone (Solu-Medrol) 40 mg IVP Q8 [facility] Last Admin: 04/18/18 17:26 Dose: 40 mg Pantoprazole Sodium (Protonix Ec Tab) 40 mg PO DAILY [facility] Last Admin: 04/18/18 08:26 Dose: 40 mg Promethazine HCl/Dextromethorphan (Phenergan Dm Syrup) 10 ml PO Q6 PRN PRN Reason: Cough Last Admin: 04/18/18 21:30 Dose: 10 ml Sodium Chloride ([place] Nasal [place]) 2 sprays CASH Q2H PRN PRN Reason: Nasal congestion Results - Vital Signs Recent Vital Signs: Last Vital Signs Temp 98.2 F 04/18/18 20:00 Pulse 104 H 04/18/18 22:19 Resp 16 04/18/18 22:00 BP 140/87 04/18/18 22:00 Pulse Ox 97 04/18/18 22:00 - Labs Result Diagrams: 04/18/18 04:30 04/18/18 04:30 Labs: Laboratory Results - last 24 hr 04/18/18 04/18/18 04/18/18 00:30 04:30 04:30 WBC 9.6 RBC 3.72 L Hgb 11.1 L Hct 33.8 L MCV 90.8 MCH 29.8 MCHC 32.9 L RDW 14.5 Plt Count 262 Sodium 142 Potassium 2.8 L Chloride 108 H Carbon Dioxide 26 Anion Gap 11 BUN 43 H Creatinine 2.3 H Est GFR ( Amer) 27 Est GFR (Non-Af Amer) 23 POC Glucose (mg/dL) Random Glucose 173 H Calcium 7.5 L Magnesium Total Bilirubin < 0.1 L AST 53 H D ALT 40 Alkaline Phosphatase 86 Troponin I 0.6980 H* 0.6750 H* Total Protein 5.3 L Albumin 2.2 L D Globulin 3.1 Albumin/Globulin Ratio 0.7 L TSH 3rd Generation 1.33 04/18/18 04/18/18 04/18/18 05:03 11:54 16:48 WBC RBC Hgb Hct MCV MCH MCHC RDW Plt Count Sodium Potassium Chloride Carbon Dioxide Anion Gap BUN Creatinine Est GFR ( Amer) Est GFR (Non-Af Amer) POC Glucose (mg/dL) 223 H 88 154 H Random Glucose Calcium Magnesium Total Bilirubin AST ALT Alkaline Phosphatase Troponin I Total Protein Albumin Globulin Albumin/Globulin Ratio TSH 3rd Generation 04/18/18 04/18/18 18:00 20:59 WBC RBC Hgb Hct MCV MCH MCHC RDW Plt Count Sodium Potassium Chloride Carbon Dioxide Anion Gap BUN Creatinine Est GFR ( Amer) Est GFR (Non-Af Amer) POC Glucose (mg/dL) 211 H Random Glucose Calcium Magnesium 2.2 Total Bilirubin AST ALT Alkaline Phosphatase Troponin I Total Protein Albumin Globulin Albumin/Globulin Ratio TSH 3rd Generation
[2018-04-19] MEDS: MethylPREDNISolone 40 mg Vial IVP SCH ×3 (00:09→17:09)
[2018-04-19] MEDS: Nasal Spray(Ocean spray) NAS PRN ×2 (00:48→19:36)
[2018-04-19 06:12] LABS: HEMOGLOBIN 12.1 g/dL (12.0-16.0); MEAN CELL VOLUME 90.5 fl (81.0-99.0); MEAN CORPUSCULAR HEMOGLOBIN 30.1 pg (27.0-31.0); MEAN CORPUSCULAR HGB CONC 33.2 g/dL (33.0-37.0); RBC 4.03 Mil/uL (3.80-5.20); RED CELL DISTRIBUTION WIDTH 14.5 % (11.5-14.5); WHITE BLOOD COUNT 9.6 K/uL (4.8-10.8)
[2018-04-19 06:28] LABS: BLOOD UREA NITROGEN 42 mg/dl (7-17); CALCIUM 7.5 mg/dL (8.4-10.2); GFR NON-AFRICAN AMERICAN 25
[2018-04-19] MEDS: Albuterol-Ipratrop 3 mg / 0.5 (3 ml) UD INH SCH ×3 (07:16→19:25)
[2018-04-19] MEDS: Budesonide 0.25 mg/2 ml Inhal Susp UD INH SCH ×2 (07:16→19:32)
[2018-04-19] MEDS ORDERED: Influenza Vaccine (5 YR UP)/PF 60 MCG/0.5 ML SYR IM ONE (08:00)
[2018-04-19] MEDS ORDERED: Pneumococcal 23-Valent Vaccine IM ONE (08:00)
--- NOTE | 2018-04-19 08:28 | CON ---
DATE: 04/18/2018 LOCATION: The patient is located in room 434, bed 1. REQUESTED BY: Dr. Kobi Diaz and also Dr. Shay Dill. REASON FOR RENAL CONSULTATION: Acute renal failure, nephrotic-range proteinuria for further evaluation. HISTORY OF PRESENT ILLNESS: Mrs. Magdaleno is a 47-year-old middle-aged female with a past medical history significant for diabetes since 1999, carpal tunnel syndrome, herniated disk in the neck, diabetic neuropathy, hypertension, nephrotic-range proteinuria, status post cholecystectomy for CBD stones, and history of ovarian tumor, surgery in 1995 in [facility] [place], who was recently admitted to [facility] in 09/2017. The patient had extensive workup for proteinuria. Now, the patient admitted to [facility] with cough, shortness of breath for 2 days and for acute exacerbation of asthma and CHF. The patient is very poorly compliant with medication and diet and physician followup. The patient denies any fever. Denies any nausea, vomiting, or diarrhea. Denies any abdominal pain. Denies any chest pain or palpitation. Denies any dysuria or frequency. The patient does complain of edema of the legs, now complains of [place] to the hands. PAST MEDICAL HISTORY: Significant for diabetes since 1999, carpal tunnel syndrome, herniated disk in the neck, diabetic neuropathy, hypertension, and questionable lupus versus mixed connective tissue disorder. No evidence of lupus in [facility] except CCP was positive and HEATHER was 1:60 homogenous pattern and no other evidence from serological markers for lupus. The patient also has a history of asthma. PAST SURGICAL HISTORY: Status post cholecystectomy in 2003 and also ovarian tumor removal in 1995. ALLERGIES: NO KNOWN DRUG ALLERGIES. QUESTIONABLE FOR THE LIDOCAINE AND HYDROMORPHONE PER THE EHR. SOCIAL HISTORY: The patient is a smoker, smoking for more than 28 years. Denies alcohol use. Denies any drug abuse. PERSONAL HISTORY: Her ex-boyfriend of the cirrhosis and she lives with her boyfriend. She has 4 children and 1 grandchild. FAMILY HISTORY: Not significant. REVIEW OF SYSTEMS: Significant for cough and shortness of breath for 2 days and edema of the legs for a long time. PHYSICAL EXAMINATION: VITAL SIGNS: Blood pressure 163/88, pulse 113, respirations about 18, temperature 99.3, saturation 99%, height 5 feet 2 inches, weight is 180 pounds. GENERAL: Mrs. Magdaleno is a 47-year-old middle-aged female, obese, well built, well nourished, not in distress with occasional cough. HEENT: Pupils normal, reactive to light and accommodation. Conjunctivae pink. Sclerae anicteric. Tongue is moist. Trachea is midline. LUNGS: Symmetry on both sides. Bilateral basal crackles present. Decreased breath sounds on the right base. CARDIOVASCULAR SYSTEM: [place] at the fifth intercostal space and midclavicular line. S1 and S2 are audible. No murmur or gallop. ABDOMEN: Normal in appearance. Soft, tympanitic. No guarding. No rigidity. Abdominal scar present from the previous cholecystectomy. No hepatosplenomegaly. The patient has lower abdominal mass mostly in the right side. Nontender in the pelvic region of abdomen. CENTRAL NERVOUS SYSTEM: The patient is alert, awake, and oriented x3. Nonfocal neuro examination. Cranial nerves II through XII grossly intact. Sensory and motor system is within normal limits. EXTREMITIES: No cyanosis. No clubbing. The patient has anasarca present. CURRENT MEDICATIONS: Include azithromycin 500 mg daily, DuoNeb inhaler, Lasix 60 mg IV every 12 hours, Levemir 36 units subcutaneously at bedtime, Neurontin 300 mg p.o. t.i.d., Phenergan syrup plain syrup 10 mL p.o. every 6 hours p.r.n., Protonix 40 mg p.o. daily and Solu-Medrol 40 mg IV every 8 hours. LABORATORY DATA: Include as follows: As of 04/17/2018, chest x-ray, large right lower lobe infiltrate and right pleural effusion. Other laboratory data from the previous admission, as of 09/16/2017, 24-hour urine volume was 1125 and creatinine clearance 75, 24-hour urine protein is 6.457 grams and a 24-hour urine creatinine was 1019 mg. Serum creatinine 1 on 09/16/2017 and other laboratory data, serum protein electrophoresis suggestive of acute inflammation pattern with elevation of acute-phase proteins as of 09/17/2017 and CC peptide IgG is 160 and rheumatoid arthritis panel is negative on 09/14/2017 and AMA profile positive titers 1:160 homogenous and ANCA is negative and protein S3 is negative and myeloperoxidase is negative, anti-Chris antibody is negative, [employer] PRO[employer] MA[employer]GER is negative, and double-stranded DNA antibody is negative 2 and C3 is 65 low and C4 is 9.6. Other laboratory data, as of 09/18/2017, hepatitis C IgM antibody is negative, hepatitis B surface antigen negative, hepatitis B core antibody is negative, hepatitis C antibody is negative. Hepatitis B core antibody is negative and hepatitis C antibody is reactive. Other laboratory data, alpha-fetoprotein is 1.8 and CEA is 13.3, CA 19-9 is 369, and CA-125 is 117. Other reports, CT of the abdomen and pelvis as of 09/17/2017 with impression, large pelvic dermoid and the study is otherwise unremarkable. Kidneys and ureters are unremarkable. No hydronephrosis or solid mass. There is a large fatty mass in the pelvis consistent with a dermoid. This measures 12.2 cm wide x 9.3 cm AP x 9 cm in height. Other laboratory data include as follows: As of 04/18/2018, WBC 9.6, hemoglobin 11.1, hematocrit is 33.8, platelet 262. Sodium 142, potassium 2.8, chloride 108, CO2 of 26, BUN 43, creatinine 2.3, glucose of 173, calcium 7.5. Total bilirubin 0.1, AST 53, ALT 40. Alkaline phosphatase 86, troponin 0.69 and 0.675. Total protein 5.3, abdomen is 2.2, TSH is 1.33. As of 04/17/2018, sodium 139, potassium 3.4, chloride 106, CO2 of 24, BUN 41, creatinine 2.2, glucose 161, calcium 7.7, and troponin first one is 0.876 and proBNP 11,800. TSH is on admission 5.53 and chest x-ray, large right lower lobe infiltrate and right pleural effusion. ASSESSMENT AND PLAN: In summary, Mrs. Magdaleno is a 47-year-old middle-aged female with a history of longstanding hypertension, diabetes more than 17 to 18 years, diabetic retinopathy, bilateral laser treatment, smoker, asthma, nephrotic-range proteinuria, who was admitted with cough and shortness of breath for 2 days with bilateral leg swelling and anasarca and also hepatitis C antibody was positive and CCP was positive, rheumatoid arthritis was negative. 1. Nephrotic-range proteinuria, mostly likely secondary to diabetic nephropathy, cannot rule out underlying chronic kidney disease, cannot rule out chronic glomerulonephritis. The patient had a complete workup and everything was within normal limits except CCP and hepatitis C antibody and low complement. Repeat hepatitis C antibody and also check hepatitis C viral RNA by PCR and also check cryoglobulin level. Repeat C3 and C4 levels again and check urinalysis and continue. 2. Hypertension. 3. Acute renal failure, most likely secondary to acute tubular necrosis, secondary to pneumonia, r/o acute glomerulonephritis less likely. 4. Fluid overload and congestive heart failure. 5. 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 Continue intravenous antibiotics and Lasix as per the intensive care unit team and continue antibiotics. We will check C3, C4, hepatitis C antibody again and hepatitis C viral RNA PCR in a.m. Restrict fluids to 1 litre per day and adjust Lasix as needed to keep her euvolemic and consider intravenous albumin prior to the Lasix. We will follow with you. Thank you for allowing me to participate in your patient's care. Mago Espinal MD [facility]
[2018-04-19 09:04] LABS: SQUAMOUS EPITHIAL 2 /hpf (0-5); URINE BACTERIA OCC (<OCC); URINE BILIRUBIN NEGATIVE (NEGATIVE); URINE BLOOD SMALL (NEGATIVE); URINE CLARITY CLOUDY (Clear); URINE COLOR YELLOW (YELLOW); URINE GLUCOSE (UA) >=500 mg/dL (NEGATIVE); URINE HYALINE CAST >20 /hpf (0-2); URINE LEUKOCYTE ESTERASE NEG Leu/uL (Negative); URINE PROTEIN >=500 mg/dL (NEGATIVE); URINE UROBILINOGEN 0.2-1.0 mg/dL (0.2-1.0)
--- NOTE | 2018-04-19 09:04 | CP.CCUPN ---
CCU Subjective - Physician Review Events Since Last Encounter (Free Text): 04/19/18 09:02 alert and oriented, still c/o SOB at times, has been afebrile, BP has been high at times but WNL on other times, continue to have dry cough. CCU Objective - Vital Signs / Intake & Output Vital Signs (Last 4 hours): Vital Signs Temp Pulse Resp BP Pulse Ox 04/19/18 08:00 98.1 F 101 H 13 134/79 99 04/19/18 05:57 96 H 18 167/96 H 98 Intake and Output (Last 8hrs): Intake & Output 04/18/18 04/19/18 04/19/18 22:59 06:59 14:59 Intake Total 150 150 Output Total 1300 1800 Balance -1150 -1650 Weight 217 lb 6.4 oz Intake: Oral 150 50 Tube Feeding 100 Output: Urine 1300 1800 Urethral ([place]) 1300 1800 Other: # Bowel Movements 30 50 - Physical Exam Narrative Physical Exam (Free Text): 04/19/18 09:03 P/E Neck: No JVd Lungs: bilateral ronchi, sme rt basal crackles Abdomen: soft, non-tender Ext: No edema heart; No gallop. - Medications Active Medications: Active Medications Generic Name Dose Route Start Last Admin Trade Name Freq PRN Reason Stop Dose Admin Acetaminophen 650 mg 04/19/18 00:33 04/19/18 00:47 Tylenol 325mg Tab PO 650 mg Q6 PRN Administration Pain, ALL(1-10) Albuterol/Ipratropium 3 ml 04/17/18 20:00 04/19/18 07:16 Duoneb 3 Mg/0.5 Mg (3 Ml) Ud INH 3 ml RTID [facility] Administration Budesonide 0.25 mg 04/17/18 20:00 04/19/18 07:16 Pulmicort Respules INH 0.25 mg RBID [facility] Administration Furosemide 60 mg 04/17/18 21:00 04/18/18 21:25 Lasix IV 60 mg Q12 [facility] Administration Gabapentin 300 mg 04/18/18 09:00 04/18/18 17:26 Neurontin PO 300 mg TID [facility] Administration Azithromycin 500 mg/ Sodium 250 mls @ 250 mls/hr 04/17/18 16:30 04/18/18 09:21 Chloride IVPB 250 mls/hr DAILY [facility] Administration Protocol Insulin Detemir 36 units 04/17/18 22:00 04/18/18 21:42 Levemir SC 36 units HS [facility] Administration Methylprednisolone 40 mg 04/18/18 17:00 04/19/18 00:09 Solu-Medrol IVP 40 mg Q8 [facility] Administration Pantoprazole Sodium 40 mg 04/18/18 09:00 04/18/18 08:26 Protonix Ec Tab PO 40 mg DAILY [facility] Administration Promethazine HCl/Dextromethorphan 10 ml 04/17/18 16:22 04/18/18 21:30 Phenergan Dm Syrup PO 10 ml Q6 PRN Administration Cough Sodium Chloride 2 sprays 04/18/18 22:51 04/19/18 00:48 [place] Nasal [place] CASH 2 spr Q2H PRN Administration Nasal congestion - Patient Studies Lab Studies: Microbiology Studies 04/17/18 16:30 Blood Culture - Preliminary Blood NO GROWTH AFTER 24 HOURS Lab Studies 04/19/18 04/19/18 04/19/18 Range/Units 05:18 05:00 05:00 WBC 9.6 (4.8-10.8) K/uL RBC 4.03 (3.80-5.20) Mil/uL Hgb 12.1 (12.0-16.0) g/dL Hct 36.5 (34.0-47.0) % MCV 90.5 (81.0-99.0) fl MCH 30.1 (27.0-31.0) pg MCHC 33.2 (33.0-37.0) g/dL RDW 14.5 (11.5-14.5) % Plt Count 271 (130-400) K/uL Sodium 140 (132-148) mmol/l Potassium 4.0 (3.6-5.0) MMOL/L Chloride 106 (98-107) mmol/L Carbon Dioxide 28 (22-30) mmol/L Anion Gap 10 (10-20) BUN 42 H (7-17) mg/dl Creatinine 2.1 H (0.7-1.2) mg/dl Est GFR ( Amer) 30 Est GFR (Non-Af Amer) 25 POC Glucose (mg/dL) 219 H (65-110) mg/dL Random Glucose 214 H (65-105) mg/dL Calcium 7.5 L (8.4-10.2) mg/dL Magnesium (1.6-2.3) MG/DL 04/18/18 04/18/18 04/18/18 Range/Units 20:59 18:00 16:48 WBC (4.8-10.8) K/uL RBC (3.80-5.20) Mil/uL Hgb (12.0-16.0) g/dL Hct (34.0-47.0) % MCV (81.0-99.0) fl MCH (27.0-31.0) pg MCHC (33.0-37.0) g/dL RDW (11.5-14.5) % Plt Count (130-400) K/uL Sodium (132-148) mmol/l Potassium (3.6-5.0) MMOL/L Chloride (98-107) mmol/L Carbon Dioxide (22-30) mmol/L Anion Gap (10-20) BUN (7-17) mg/dl Creatinine (0.7-1.2) mg/dl Est GFR ( Amer) Est GFR (Non-Af Amer) POC Glucose (mg/dL) 211 H 154 H (65-110) mg/dL Random Glucose (65-105) mg/dL Calcium (8.4-10.2) mg/dL Magnesium 2.2 (1.6-2.3) MG/DL 04/18/18 Range/Units 11:54 WBC (4.8-10.8) K/uL RBC (3.80-5.20) Mil/uL Hgb (12.0-16.0) g/dL Hct (34.0-47.0) % MCV (81.0-99.0) fl MCH (27.0-31.0) pg MCHC (33.0-37.0) g/dL RDW (11.5-14.5) % Plt Count (130-400) K/uL Sodium (132-148) mmol/l Potassium (3.6-5.0) MMOL/L Chloride (98-107) mmol/L Carbon Dioxide (22-30) mmol/L Anion Gap (10-20) BUN (7-17) mg/dl Creatinine (0.7-1.2) mg/dl Est GFR ( Amer) Est GFR (Non-Af Amer) POC Glucose (mg/dL) 88 (65-110) mg/dL Random Glucose (65-105) mg/dL Calcium (8.4-10.2) mg/dL Magnesium (1.6-2.3) MG/DL Laboratory Results - last 24 hr 04/18/18 04/18/18 04/18/18 11:54 16:48 18:00 WBC RBC Hgb Hct MCV MCH MCHC RDW Plt Count Sodium Potassium Chloride Carbon Dioxide Anion Gap BUN Creatinine Est GFR ( Amer) Est GFR (Non-Af Amer) POC Glucose (mg/dL) 88 154 H Random Glucose Calcium Magnesium 2.2 04/18/18 04/19/18 04/19/18 20:59 05:00 05:00 WBC 9.6 RBC 4.03 Hgb 12.1 Hct 36.5 MCV 90.5 MCH 30.1 MCHC 33.2 RDW 14.5 Plt Count 271 Sodium 140 Potassium 4.0 Chloride 106 Carbon Dioxide 28 Anion Gap 10 BUN 42 H Creatinine 2.1 H Est GFR ( Amer) 30 Est GFR (Non-Af Amer) 25 POC Glucose (mg/dL) 211 H Random Glucose 214 H Calcium 7.5 L Magnesium 04/19/18 05:18 WBC RBC Hgb Hct MCV MCH MCHC RDW Plt Count Sodium Potassium Chloride Carbon Dioxide Anion Gap BUN Creatinine Est GFR ( Amer) Est GFR (Non-Af Amer) POC Glucose (mg/dL) 219 H Random Glucose Calcium Magnesium EKG/Cardiology Studies: Cardiology / EKG Studies 04/18/18 09:00 ELECTROCARDIOGRAM DAILY Comment: Mode Of Transportation: Reason For Exam: ekg changes/elevated trop Fingerstick Blood Sugar Results: 219 Critical Care Progress Note - Nutrition Nutrition: Nutrition Category Date Time Status Diabetic [Consistent Carbohydrate] [DIET] Diets 04/18/18 Breakfast Active Assessment/Plan - Assessment and Plan (Free Text) Assessment: Assessment: Resp failure; hypoxic, Asthma/COPD CHF exacerbation : pulm congestion is better NSTEMI Edema : betetr Hypokalemia Lupus DM HTN Anemia CKD-4 Plan: labs from this moning pending, will review and replace K id needed Decreased Lasix to 40 mg IV q 12 H Trending TNI Cardiology f/u Off Biapap on N/C Bronchodilators CXR reviewed WIll need thoracentesis in 1-2 day if SOB did not improve,
[2018-04-19 09:49] LABS: ALB/GLOB RATIO 0.6 (1.0-2.1); ALBUMIN 2.2 g/dL (3.5-5.0); ALT/SGPT 32 U/L (9-52); AST/SGOT 41 U/L (14-36)
[2018-04-19] MEDS: Pantoprazole 40 mg EC Tab PO SCH (10:07)
[2018-04-19] MEDS: Azithromycin 500 MG in Sodium Chloride 0.9% 250 ML IVPB SCH (10:10)
--- NOTE | 2018-04-19 12:41 | CP.PCM.PN ---
Subjective - Date & Time of Evaluation Date of Evaluation: 04/19/18 Time of Evaluation: 12:20 - Subjective Subjective: patient is on BiPAP. no new complaints Objective - Vital Signs/Intake and Output Vital Signs (last 24 hours): Temp Pulse Resp BP Pulse Ox 97.7 F 95 H 17 151/78 H 94 L 04/19/18 12:00 04/19/18 12:00 04/19/18 12:00 04/19/18 12:00 04/19/18 12:00 Intake and Output: 04/19/18 04/19/18 06:59 18:59 Intake Total 300 250 Output Total 1800 Balance -1500 250 - Medications Medications: Current Medications Acetaminophen (Tylenol 325mg Tab) 650 mg PO Q6 PRN PRN Reason: Pain, ALL(1-10) Last Admin: 04/19/18 00:47 Dose: 650 mg Albuterol/Ipratropium (Duoneb 3 Mg/0.5 Mg (3 Ml) Ud) 3 ml INH RTID [facility] Last Admin: 04/19/18 07:16 Dose: 3 ml Budesonide (Pulmicort Respules) 0.25 mg INH RBID [facility] Last Admin: 04/19/18 07:16 Dose: 0.25 mg Furosemide (Lasix) 40 mg IVP BID [facility] Gabapentin (Neurontin) 300 mg PO TID [facility] Last Admin: 04/19/18 10:06 Dose: 300 mg Azithromycin 500 mg/ Sodium (Chloride) 250 mls @ 250 mls/hr IVPB DAILY [facility]; Protocol Last Admin: 04/19/18 10:10 Dose: 250 mls/hr Insulin Detemir (Levemir) 36 units SC HS [facility] Last Admin: 04/18/18 21:42 Dose: 36 units Methylprednisolone (Solu-Medrol) 40 mg IVP Q8 [facility] Last Admin: 04/19/18 10:07 Dose: 40 mg Pantoprazole Sodium (Protonix Ec Tab) 40 mg PO DAILY [facility] Last Admin: 04/19/18 10:07 Dose: 40 mg Promethazine HCl/Dextromethorphan (Phenergan Dm Syrup) 10 ml PO Q6 PRN PRN Reason: Cough Last Admin: 04/18/18 21:30 Dose: 10 ml Sodium Chloride ([place] Nasal [place]) 2 sprays CASH Q2H PRN PRN Reason: Nasal congestion Last Admin: 04/19/18 00:48 Dose: 2 spr - Labs Labs: 04/19/18 05:00 04/19/18 05:00 - Constitutional Appears: Non-toxic - Head Exam Head Exam: NORMAL INSPECTION - Eye Exam Eye Exam: Normal appearance - ENT Exam ENT Exam: Mucous Membranes Moist - Neck Exam Neck Exam: Full ROM - Respiratory Exam Respiratory Exam: Decreased Breath Sounds - Cardiovascular Exam Cardiovascular Exam: REGULAR RHYTHM - GI/Abdominal Exam GI & Abdominal Exam: Normal Bowel Sounds - Rectal Exam Rectal Exam: Deferred - Extremities Exam Extremities Exam: absent: Pedal Edema - Back Exam Back Exam: NORMAL INSPECTION - Neurological Exam Neurological Exam: Alert - Psychiatric Exam Psychiatric exam: Normal Affect - Skin Skin Exam: Normal Color Assessment and Plan (1) Dyspnea Assessment & Plan: likely to asthma and pleural effusion. preserved LV function on echocardiogram Status: Acute (2) Pleural effusion Assessment & Plan: consider thoracentesis Status: Acute (3) HTN (hypertension) Assessment & Plan: blood pressure control Status: Acute
[2018-04-19 12:59] LABS: COMPLEMENT C4 52.2 mg/dL (14.0-44.0)
[2018-04-19] MEDS: Insulin Detemir 100 Units/ml Inj SC SCH (22:00)
[2018-04-19] MEDS: Insulin Regular 100 units/ml SC SCH (22:38)
[2018-04-20] MEDS: MethylPREDNISolone 40 mg Vial IVP SCH ×2 (00:25→09:33)
[2018-04-20] MEDS: Nasal Spray(Ocean spray) NAS PRN (00:25)
[2018-04-20 05:33] LABS: HEMOGLOBIN 12.3 g/dL (12.0-16.0); MEAN CELL VOLUME 90.4 fl (81.0-99.0); MEAN CORPUSCULAR HEMOGLOBIN 29.3 pg (27.0-31.0); MEAN CORPUSCULAR HGB CONC 32.4 g/dL (33.0-37.0); RBC 4.19 Mil/uL (3.80-5.20); RED CELL DISTRIBUTION WIDTH 14.5 % (11.5-14.5); WHITE BLOOD COUNT 11.7 K/uL (4.8-10.8)
[2018-04-20 05:37] LABS: CALCIUM 7.5 mg/dL (8.4-10.2)
[2018-04-20] MEDS: Insulin Regular 100 units/ml SC SCH ×4 (06:54→21:44)
[2018-04-20] MEDS: Budesonide 0.25 mg/2 ml Inhal Susp UD INH SCH ×2 (07:00→19:15)
[2018-04-20] MEDS: Albuterol-Ipratrop 3 mg / 0.5 (3 ml) UD INH SCH ×3 (07:01→19:15)
[2018-04-20 08:50] LABS: HEPATITIS B SURFACE AG Negative (NEGATIVE)
[2018-04-20 08:56] LABS: HEPATITIS A IGM NEGATIVE (NEGATIVE); HEPATITIS B CORE AB NEGATIVE (NEGATIVE)
[2018-04-20] MEDS: Azithromycin 500 MG in Sodium Chloride 0.9% 250 ML IVPB SCH (09:32)
[2018-04-20] MEDS: Pantoprazole 40 mg EC Tab PO SCH (09:37)
[2018-04-20] MEDS ORDERED: Potassium Chloride 10 mEq ER Tab PO ONE (09:41)
--- NOTE | 2018-04-20 09:50 | CP.PCM.PN ---
Subjective - Date & Time of Evaluation Date of Evaluation: 04/20/18 Time of Evaluation: 09:49 - Subjective Subjective: pt is seen and examined, follow up consult is dictated #[id number] c/w lasix Objective - Vital Signs/Intake and Output Vital Signs (last 24 hours): Temp Pulse Resp BP Pulse Ox 98.1 F 98 H 23 156/85 H 98 04/20/18 08:00 04/20/18 09:33 04/20/18 08:00 04/20/18 09:36 04/20/18 08:00 Intake and Output: 04/20/18 04/20/18 06:59 18:59 Intake Total 200 Output Total 800 Balance -600 - Medications Medications: Current Medications Acetaminophen (Tylenol 325mg Tab) 650 mg PO Q6 PRN PRN Reason: Pain, ALL(1-10) Last Admin: 04/19/18 00:47 Dose: 650 mg Albuterol/Ipratropium (Duoneb 3 Mg/0.5 Mg (3 Ml) Ud) 3 ml INH RTID [facility] Last Admin: 04/20/18 07:01 Dose: 3 ml Amlodipine Besylate (Norvasc) 5 mg PO DAILY [facility] Last Admin: 04/20/18 09:33 Dose: 5 mg Budesonide (Pulmicort Respules) 0.25 mg INH RBID [facility] Last Admin: 04/20/18 07:00 Dose: 0.25 mg Furosemide (Lasix) 40 mg IVP BID [facility] Last Admin: 04/20/18 09:36 Dose: 40 mg Gabapentin (Neurontin) 300 mg PO TID [facility] Last Admin: 04/20/18 09:33 Dose: 300 mg Azithromycin 500 mg/ Sodium (Chloride) 250 mls @ 250 mls/hr IVPB DAILY [facility]; Protocol Last Admin: 04/20/18 09:32 Dose: 250 mls/hr Insulin Detemir (Levemir) 36 units SC HS [facility] Last Admin: 04/19/18 22:00 Dose: 36 units Insulin Human Regular (Humulin R) 0 units SC ACHS [facility]; Protocol Last Admin: 04/20/18 06:54 Dose: 2 units Methylprednisolone (Solu-Medrol) 40 mg IVP Q8 [facility] Last Admin: 04/20/18 09:33 Dose: 40 mg Pantoprazole Sodium (Protonix Ec Tab) 40 mg PO DAILY [facility] Last Admin: 04/20/18 09:37 Dose: 40 mg Promethazine HCl/Dextromethorphan (Phenergan Dm Syrup) 10 ml PO Q6 PRN PRN Reason: Cough Last Admin: 04/18/18 21:30 Dose: 10 ml Sodium Chloride ([place] Nasal [place]) 2 sprays CASH Q2H PRN PRN Reason: Nasal congestion Last Admin: 04/20/18 00:25 Dose: 2 spr - Labs Labs: 04/20/18 04:45 04/20/18 04:45
[2018-04-20] MEDS ORDERED: Potassium Chloride 20 mEq ER Tab PO ONE (10:00)
[2018-04-20 10:18] LABS: HEPATITIS C ANTIBODY REACTIVE (NEGATIVE)
[2018-04-20] MEDS ORDERED: Furosemide 100 MG in Sodium Chloride 0.9% 100 ML IV SCH (11:00)
--- NOTE | 2018-04-20 11:07 | CP.PCM.CON ---
History of Present Illness - History of Present Illness History of Present Illness: Psychiatry consult note CC: Depression HPI: 47 yo female w/ h/o severe asthma, admitted w/ URI symptoms and asthma exacerbation. Patient reports that she has been feeling depressed w/ poor sleep and appetite. She reports feeling lonely and abandoned by her family. She also discussed her lack of financial resources and difficulty getting around as stressors. She reports that she has been offered antidepressants in the past by her neurologist, but has not been agreeable to taking them due to concerns about adverse effects. She denies acute AH/VH/SI/HI. She denies passive or active wishes to . She continues to state that she does not want treatment with antidepressants at this time. PMHx: DM, Asthma, GERD, HTN, Chronic pain PPHx: Denies past psychiatric history ALL: Hydromorphone, Lidocaine FHx: Relatives w/ Asthma SHx: Lives alone, has 4 adult children; smokes 2 cig/day; denies drugs/etoh use MSE: A + O x 3, calm, cooperative, + mild respiratory distress, good eye contact, mood/affect- depressed, tearful at times; thought process- linear/coherent, thought content- no delusions, no AH/VH/SI/HI, fair I/J Impression: 47 yo female w/ Adjustment Disorder vs Major Depressive Disorder; patient is not agreeable to treatment with antidepressants at this time. -If patient becomes agreeable, can start Zoloft 25 mg PO Daily and titrate up to 50 mg PO Daily, as patient is concerned about potential adverse effects of medications -Recommend outpatient referral to psychiatrist for continued follow-up -No acute inpatient psychiatric admission indicated at this time -Patient may benefit from referral for home health aide Past Patient History - Past Medical History & Family History Past Medical History?: Yes - Past Social History Alcohol: None Drugs: Denies - CARDIAC Hx Congestive Heart Failure: Yes Hx Hypertension: Yes - PULMONARY Hx Asthma: Yes - NEUROLOGICAL Hx Neurological Disorder: Yes (NEURPOATHTY) - HEENT Hx HEENT Problems: Yes (HX RETINA BLEEDING) - RENAL Hx Chronic Kidney Disease: No - ENDOCRINE/METABOLIC Hx Endocrine Disorders: Yes Hx Diabetes Mellitus Type 1: Yes Hx Systemic Lupus Erythematosus: Yes - INTEGUMENTARY Hx Dermatological Problems: Yes (SLIGHT JAUNDICE) - MUSCULOSKELETAL/RHEUMATOLOGICAL Hx Fractures: Yes (RIGHT FOOT) - GASTROINTESTINAL Hx Gall Bladder Disease: Yes Hx Pancreatitis: Yes - GENITOURINARY/GYNECOLOGICAL Hx Genitourinary Disorders: No - PSYCHIATRIC Hx Psychophysiologic Disorder: No Hx Substance Use: No - SURGICAL HISTORY Hx Cholecystectomy: Yes - ANESTHESIA Hx Anesthesia: Yes Hx Anesthesia Reactions: No Hx Malignant Hyperthermia: No Meds Allergies/Adverse Reactions: Allergies Allergy/AdvReac Type Severity Reaction Status Date / Time hydromorphone [From Dilaudid] Allergy SHORTNESS Verified 04/17/18 13:02 OF BREATH lidocaine Allergy RASH Verified 04/17/18 13:02 - Medications Medications: Current Medications Acetaminophen (Tylenol 325mg Tab) 650 mg PO Q6 PRN PRN Reason: Pain, ALL(1-10) Last Admin: 04/19/18 00:47 Dose: 650 mg Albumin Human (Albumin Human 25% (12.5 Gm/50 Ml)) 12.5 gm IV Q8H KYRIE Stop: 04/22/18 11:01 Albuterol/Ipratropium (Duoneb 3 Mg/0.5 Mg (3 Ml) Ud) 3 ml INH RTID KYRIE Last Admin: 04/20/18 07:01 Dose: 3 ml Amlodipine Besylate (Norvasc) 5 mg PO DAILY KYRIE Last Admin: 04/20/18 09:33 Dose: 5 mg Budesonide (Pulmicort Respules) 0.25 mg INH RBID KYRIE Last Admin: 04/20/18 07:00 Dose: 0.25 mg Gabapentin (Neurontin) 300 mg PO TID KYRIE Last Admin: 04/20/18 09:33 Dose: 300 mg Azithromycin 500 mg/ Sodium (Chloride) 250 mls @ 250 mls/hr IVPB DAILY KYRIE; Protocol Last Admin: 04/20/18 09:32 Dose: 250 mls/hr Furosemide 100 mg/ Sodium (Chloride) 100 mls @ 10 mls/hr IV .Q10H KYRIE; Protocol Insulin Detemir (Levemir) 36 units SC HS KYRIE Last Admin: 04/19/18 22:00 Dose: 36 units Insulin Human Regular (Humulin R) 0 units SC ACHS KYRIE; Protocol Last Admin: 04/20/18 06:54 Dose: 2 units Methylprednisolone (Solu-Medrol) 40 mg IVP Q8 KYRIE Last Admin: 04/20/18 09:33 Dose: 40 mg Pantoprazole Sodium (Protonix Ec Tab) 40 mg PO DAILY KYRIE Last Admin: 04/20/18 09:37 Dose: 40 mg Promethazine HCl/Dextromethorphan (Phenergan Dm Syrup) 10 ml PO Q6 PRN PRN Reason: Cough Last Admin: 04/18/18 21:30 Dose: 10 ml Sodium Chloride ([place] Nasal [place]) 2 sprays CASH Q2H PRN PRN Reason: Nasal congestion Last Admin: 04/20/18 00:25 Dose: 2 spr Results - Vital Signs Recent Vital Signs: Last Vital Signs Temp 98.1 F 04/20/18 08:00 Pulse 101 H 04/20/18 10:00 Resp 16 04/20/18 10:00 BP 144/75 04/20/18 10:00 Pulse Ox 99 04/20/18 10:00 - Labs Result Diagrams: 04/20/18 04:45 04/20/18 04:45 Labs: Laboratory Results - last 24 hr 04/18/18 04/19/18 04/19/18 18:25 05:00 05:00 WBC RBC Hgb Hct MCV MCH MCHC RDW Plt Count Sodium Potassium Chloride Carbon Dioxide Anion Gap BUN Creatinine Est GFR ( Amer) Est GFR (Non-Af Amer) POC Glucose (mg/dL) Random Glucose Hemoglobin A1c 7.4 H Calcium Complement C3 92.0 Complement C4 52.2 H Hepatitis A IgM Ab Negative Hep Bs Antigen Negative Hep B Core IgM Ab Negative Hepatitis C Antibody Reactive 04/19/18 04/19/18 04/19/18 11:19 16:23 21:23 WBC RBC Hgb Hct MCV MCH MCHC RDW Plt Count Sodium Potassium Chloride Carbon Dioxide Anion Gap BUN Creatinine Est GFR ( Amer) Est GFR (Non-Af Amer) POC Glucose (mg/dL) 186 H 170 H 301 H Random Glucose Hemoglobin A1c Calcium Complement C3 Complement C4 Hepatitis A IgM Ab Hep Bs Antigen Hep B Core IgM Ab Hepatitis C Antibody 04/20/18 04/20/18 04/20/18 04:45 04:45 05:22 WBC 11.7 H RBC 4.19 Hgb 12.3 Hct 37.8 MCV 90.4 MCH 29.3 MCHC 32.4 L RDW 14.5 Plt Count 251 Sodium 139 Potassium 3.5 L Chloride 106 Carbon Dioxide 26 Anion Gap 11 BUN 47 H Creatinine 1.9 H Est GFR ( Amer) 34 Est GFR (Non-Af Amer) 28 POC Glucose (mg/dL) 195 H Random Glucose 212 H Hemoglobin A1c Calcium 7.5 L Complement C3 Complement C4 Hepatitis A IgM Ab Hep Bs Antigen Hep B Core IgM Ab Hepatitis C Antibody
[2018-04-20] MEDS: Albumin Human 25% (12.5 gm/50 ml) IV SCH ×2 (12:35→18:05)
--- NOTE | 2018-04-20 13:23 | RAD ---
Date of service: 04/20/2018 PROCEDURE: CHEST RADIOGRAPH, 1 VIEW HISTORY: pleural effusion COMPARISON: 04/17/2018. FINDINGS: LUNGS: Compressive atelectasis both lung bases. PLEURA: Bilateral pleural effusions. CARDIOVASCULAR: No radiographic findings to suggest acute or significant cardiovascular disease. Normal. OSSEOUS STRUCTURES: No significant abnormalities. VISUALIZED UPPER ABDOMEN: Normal. OTHER FINDINGS: None. IMPRESSION: Bilateral pleural effusions and lower lobe compressive atelectasis. Similar findings identified on the prior study right hemithorax. New findings left lung/left pleural effusion.
[2018-04-20] MEDS: Furosemide 100 MG in Sodium Chloride 0.9% 100 ML IV SCH ×2 (13:36→21:42)
--- NOTE | 2018-04-20 15:46 | US ---
Date of service: 04/20/2018 HISTORY: H/o ovarian tumor COMPARISON: CT abdomen and pelvis from 10/30/2014. TECHNIQUE: Sonographic evaluation of the abdomen. FINDINGS: LIVER: Measures 18.5 cm. There is diffuse increased echogenicity of the liver parenchyma with coarse echotexture. No mass. No intrahepatic bile duct dilatation. GALLBLADDER: Surgically absent. COMMON BILE DUCT: Measures 4.3 mm. No stones. No dilatation. PANCREAS: Unremarkable as visualized. No mass. No ductal dilatation. RIGHT KIDNEY: Measures 10.5cm. Normal echogenicity. No calculus, mass, or hydronephrosis. LEFT KIDNEY: Measures 11.4cm. Normal echogenicity. No calculus, mass, or hydronephrosis. SPLEEN: Normal in size and contour. No mass. AORTA: No aneurysmal dilatation. IVC: Unremarkable. OTHER FINDINGS: Suspect small right pleural effusion and small abdominal ascites. IMPRESSION: Mild hepatomegaly. Coarse heterogeneous echogenic liver may be related to fatty infiltration however infiltrating, infectious and inflammatory pathologic cannot be excluded. Clinical and laboratory correlation is advised. Suspect small right pleural effusion and small abdominal ascites.
--- NOTE | 2018-04-20 16:56 | CT ---
Date of service: 04/20/2018 PROCEDURE: CT Chest without contrast HISTORY: bilateral pleural effusion COMPARISON: None available. TECHNIQUE: Contiguous axial images were obtained through the chest without intravenous contrast enhancement. Sagittal and coronal reconstructions were performed. Radiation dose: Total exam DLP = 551.69 mGy-cm. This CT exam was performed using one or more of the following dose reduction techniques: Automated exposure control, adjustment of the mA and/or kV according to patient size, and/or use of iterative reconstruction technique. FINDINGS: LUNGS: Compressive atelectasis related to large bilateral pleural effusions. Additional subsegmental alveolar changes noted in both upper lobes. MEDIASTINUM: Unremarkable thoracic aorta. No aneurysm. Normal sized heart. Main pulmonary artery unremarkable. No vascular congestion. No lymphadenopathy. No aortic atherosclerotic calcification. PLEURA: No pleural fluid. No pneumothorax. BONES: No fracture. No destructive lesion. UPPER ABDOMEN: Grossly unremarkable. OTHER FINDINGS: Profound edema and anasarca. Cirrhotic appearing liver. Incompletely visualized upper abdominal ascites. IMPRESSION: Large bilateral pleural effusions resulting in compressive atelectasis both lower lobes. Unrelated subsegmental infiltrates in both upper lobes. Profound edema/anasarca.
--- NOTE | 2018-04-20 17:23 | PN ---
DATE: 04/20/2018 CRITICAL CARE PROGRESS NOTE LOCATION: ICU, Bed 434. TIME SPENT: 35 minutes. SUBJECTIVE: The patient is seen and evaluated at the bed side. Past medical, surgical, family and social history reviewed. Case discussed with facilities flight check pilot and more information is available regarding her medical history. Case was discussed in multidisciplinary ICU rounds this morning. HISTORY OF PRESENT ILLNESS: A 47-year-old female female with history significant for diabetes since 1999, carpal tunnel syndrome, herniated disk in the neck, diabetic nephropathy, diabetic neuropathy, hypertension, nephrotic range proteinuria, status post coronary cystectomy for common bile duct stones and a history of ovarian tumor status post surgery in 1995 at [facility]. The patient's recent admission at [facility] (Former[facility] on 09/2017 showed she had multiple extensive workup for proteinuria. The patient was noted to be HEATHER positive, but rest of the workup was negative including hepatitis B, C, and ANCA. CT of the abdomen and pelvis on 10/09/2017 showed a dermoid mass measuring 12.2 x 9.3 x 9 cm. The patient since admission is on IV Lasix with reduced swelling of the upper and lower extremities. Overnight afebrile, normotensive, telemetry sinus rhythm, less short of breath, still complaining of chest congestion with occasional dry cough. No chest pain, palpitation. No abdominal discomfort. No diarrhea. No dysuria. PHYSICAL EXAMINATION: VITAL SIGNS: Temperature 98.1, heart rate 97-101 regular, blood pressure 144/75, respiratory rate 16 thoracoabdominal, saturation 99% on 3 liters nasal cannula. Intake of 450, output 1700, negative balance 1250 HEAD, EYES, EARS, NOSE AND THROAT: Pupils are reactive. Conjunctivae pink. Sclerae white. NECK: Supple. Trachea is central. CHEST: Bilateral breath sounds diminished on diminished in the right. Bibasilar crackles heard. ABDOMEN: Bowel sounds present. Soft, obese, pendulous. EXTREMITIES: 2+ edema. DP palpable. NEUROLOGIC EXAMINATION: No cranial nerve deficit. No motor deficit. Reduced sensations on lower extremities below knee. SKIN: Without rash. CURRENT MEDICATIONS: Tylenol 650 every six hours p.r.n., albumin at 12.5 g IV every 8 hours, furosemide 100 mg at 10 ml/hour gabapentin 300 mg three times daily, azithromycin 500 mg IV daily, Pulmicort 0.25 mg every 12 hours., Norvasc 5 mg daily Levemir 36 units at night. Accu-Chek with regular insulin coverage, Solu-Medrol 40 mg IV every 8 hours. Sodium chloride nasal spray 2 sprays to both nostrils every 12 hours p.r.n. for nasal congestion. LABORATORY DATA WBC 11.7, hemoglobin 12.3, hematocrit 37.8, platelet count of 251. SMA-7; sodium 139, potassium 3.5, chloride 106, CO2 26, blood urea nitrogen 47, creatinine 1.9, random glucose 195, calcium 7.5. Urinalysis; RBC 27, WBC 33. Immunology C3 92, C4 52.2. Serology; hepatitis A IgM antibody negative, hepatitis B surface antigen negative, hepatitis B core IgM antibody negative, hepatitis C antibody reactive. Microbiology blood culture no growth reported. Chest x-ray done this morning; official report pending. Preliminary reading consistent with bilateral pleural effusion; more right than left. IMPRESSION: 1. Neuro: Alert and awake, follows commands appropriate. 2. Cardiac: Echocardiogram with normal left ventricular function estimated 55-60%, grade 1 abnormal relaxation pattern. Left atrium is normal. Moderate mitral valve regurgitation, moderate tricuspid valve regurgitation, possible diastolic dysfunction. Continue Lasix as recommended by Nephrology consult. 3. Pulmonary: History of asthma, currently less short of breath, bilateral pleural effusion; more on the right than the left. Repeat CT of the chest for better assessment of effusion; if persisting, will consider thoracentesis and further fluid study. No clear evidence of pneumonia. Will continue antibiotic empirically for the asthma exacerbation given history. Reduce Solu-Medrol to 10 mg IV every 8 hours. 4. Renal: Acute on chronic renal insufficiency with a nephrotic range proteinuria. Workup in 09/2017 negative. History of lupus, but unclear, given the serology. Negative for double-stranded DNA. Positive HEATHER likely nonspecific. Will recommend an outpatient followup. Glomerulonephritis less likely. Continue Lasix and albumin as per renal consult. 5. Infectious Disease: No clear evidence of infection. Empirically on azithromycin for suspected right lower lobe infiltrate; clinically less than likely. 6. Endocrinology: History of long-term diabetes with diabetic retinopathy, nephropathy and neuropathy. Continue Levemir 36 units at night. Accu-Chek with regular insulin coverage. Keep head of bed 30 degrees up. DVT prophylaxis. Heparin 5000 units subcutaneous every 12 hours. Chapo Fernandez MD
--- NOTE | 2018-04-20 18:48 | CP.PCM.HP ---
History of Present Illness - History of Present Illness History of Present Illness: 47 year old female presented to the ED with difficulty breathing x 2-3 days. Patient was noted to have GUILHERME and low voltage ekg changes and CXR notable for large right lower lobe infiltrate/right pleurl effusion as well as elevated trop . Cardio and Nephro consulted. Critical care consulted due to worsening sob. Patient was seen and examined at bedside. SOB continues, improvement noted however with lasix Patient states she feels alone. No other complaints at this time. Present on Admission - Present on Admission Any Indicators Present on Admission: No Review of Systems - Review of Systems All systems: reviewed and no additional remarkable complaints except (mentioned above) Past Patient History - Past Medical History & Family History Past Medical History?: Yes Past Family History: Reviewed and not pertinent - Past Social History Alcohol: None Drugs: Denies - CARDIAC Hx Congestive Heart Failure: Yes Hx Hypertension: Yes - PULMONARY Hx Asthma: Yes - NEUROLOGICAL Hx Neurological Disorder: Yes (NEURPOATHTY) - HEENT Hx HEENT Problems: Yes (HX RETINA BLEEDING) - RENAL Hx Chronic Kidney Disease: No - ENDOCRINE/METABOLIC Hx Endocrine Disorders: Yes Hx Diabetes Mellitus Type 1: Yes Hx Systemic Lupus Erythematosus: Yes - INTEGUMENTARY Hx Dermatological Problems: Yes (SLIGHT JAUNDICE) - MUSCULOSKELETAL/RHEUMATOLOGICAL Hx Fractures: Yes (RIGHT FOOT) - GASTROINTESTINAL Hx Gall Bladder Disease: Yes Hx Pancreatitis: Yes - GENITOURINARY/GYNECOLOGICAL Hx Genitourinary Disorders: No - PSYCHIATRIC Hx Psychophysiologic Disorder: No Hx Substance Use: No - SURGICAL HISTORY Hx Cholecystectomy: Yes - ANESTHESIA Hx Anesthesia: Yes Hx Anesthesia Reactions: No Hx Malignant Hyperthermia: No Meds Allergies/Adverse Reactions: Allergies Allergy/AdvReac Type Severity Reaction Status Date / Time hydromorphone [From Dilaudid] Allergy SHORTNESS Verified 04/17/18 13:02 OF BREATH lidocaine Allergy RASH Verified 04/17/18 13:02 Physical Exam - Constitutional Appears: Non-toxic, No Acute Distress - Head Exam Head Exam: NORMAL INSPECTION - Eye Exam Eye Exam: Normal appearance - Neck Exam Neck exam: Positive for: Normal Inspection - Respiratory Exam Respiratory Exam: Decreased Breath Sounds - Cardiovascular Exam Cardiovascular Exam: +S1, +S2 - GI/Abdominal Exam GI & Abdominal Exam: Soft - Extremities Exam Extremities exam: Positive for: pedal edema - Neurological Exam Neurological exam: Alert, Oriented x3 - Psychiatric Exam Psychiatric exam: Normal Affect, Normal Mood - Skin Skin Exam: Normal Color, Warm Results - Vital Signs Recent Vital Signs: Last Vital Signs Temp 98.7 F 04/20/18 16:00 Pulse 101 H 04/20/18 16:00 Resp 5 L 04/20/18 16:00 BP 163/93 H 04/20/18 16:00 Pulse Ox 97 04/20/18 16:00 - Labs Result Diagrams: 04/20/18 04:45 04/20/18 04:45 Labs: Laboratory Results - last 24 hr 04/19/18 04/19/18 04/20/18 05:00 21:23 04:45 WBC 11.7 H RBC 4.19 Hgb 12.3 Hct 37.8 MCV 90.4 MCH 29.3 MCHC 32.4 L RDW 14.5 Plt Count 251 Sodium Potassium Chloride Carbon Dioxide Anion Gap BUN Creatinine Est GFR ( Amer) Est GFR (Non-Af Amer) POC Glucose (mg/dL) 301 H Random Glucose Calcium CA 125 Antigen Hepatitis A IgM Ab Negative Hep Bs Antigen Negative Hep B Core IgM Ab Negative Hepatitis C Antibody Reactive 04/20/18 04/20/18 04/20/18 04:45 05:22 10:38 WBC RBC Hgb Hct MCV MCH MCHC RDW Plt Count Sodium 139 Potassium 3.5 L Chloride 106 Carbon Dioxide 26 Anion Gap 11 BUN 47 H Creatinine 1.9 H Est GFR ( Amer) 34 Est GFR (Non-Af Amer) 28 POC Glucose (mg/dL) 195 H Random Glucose 212 H Calcium 7.5 L CA 125 Antigen 746 H D Hepatitis A IgM Ab Hep Bs Antigen Hep B Core IgM Ab Hepatitis C Antibody 04/20/18 04/20/18 11:28 16:43 WBC RBC Hgb Hct MCV MCH MCHC RDW Plt Count Sodium Potassium Chloride Carbon Dioxide Anion Gap BUN Creatinine Est GFR ( Amer) Est GFR (Non-Af Amer) POC Glucose (mg/dL) 165 H 178 H Random Glucose Calcium CA 125 Antigen Hepatitis A IgM Ab Hep Bs Antigen Hep B Core IgM Ab Hepatitis C Antibody Assessment & Plan (1) Dyspnea Status: Acute (2) ARF (acute renal failure) Status: Acute (3) Elevated troponin Status: Acute - Assessment and Plan (Free Text) Assessment: available diagnostic data reviewed cardio consulted renal consulted critical care consulted c/w meds as prescribed monitor vitals/labs obtain echo c/w lasix rest of plan as ordered
[2018-04-20] MEDS: Insulin Detemir 100 Units/ml Inj SC SCH (21:44)
--- NOTE | 2018-04-20 22:28 | CP.PCM.PN ---
Subjective - Date & Time of Evaluation Date of Evaluation: 04/19/18 Time of Evaluation: 10:00 - Subjective Subjective: Subjective patient seen and examined at bedside. Interim events noted No complaints offered at this time denies cp/fever/chills. available diagnostic data reviewed Objective Vital Signs Stable - Constitutional Appears: Non-toxic, No Acute Distress - Head Exam Head Exam: NORMAL INSPECTION - Eye Exam Eye Exam: Normal appearance - Respiratory Exam Respiratory Exam: NORMAL BREATHING PATTERN, Decreased Breath Sounds - Cardiovascular Exam Cardiovascular Exam: +S1, +S2 - GI/Abdominal Exam GI & Abdominal Exam: Soft - Neurological Exam Neurological Exam: Alert, Awake - Skin Skin Exam: Normal Color, Warm Assessment and Plan monitor vitals monitor labs Cont meds Cont tx consultants appreciated input rest of plan as ordered Assessment and Plan (1) Dyspnea Status: Acute (2) ARF (acute renal failure) Status: Acute (3) Elevated troponin Status: Acute
--- NOTE | 2018-04-20 22:29 | CP.PCM.PN ---
Subjective - Date & Time of Evaluation Date of Evaluation: 04/20/18 Time of Evaluation: 10:00 - Subjective Subjective: Subjective patient seen and examined at bedside. Interim events noted No complaints offered at this time denies cp/fever/chills. available diagnostic data reviewed Objective Vital Signs Stable - Constitutional Appears: Non-toxic, No Acute Distress - Head Exam Head Exam: NORMAL INSPECTION - Eye Exam Eye Exam: Normal appearance - Respiratory Exam Respiratory Exam: NORMAL BREATHING PATTERN, Decreased Breath Sounds - Cardiovascular Exam Cardiovascular Exam: +S1, +S2 - GI/Abdominal Exam GI & Abdominal Exam: Soft - Neurological Exam Neurological Exam: Alert, Awake - Psychiatric Exam Psychiatric exam: Depressed - Skin Skin Exam: Normal Color, Warm Assessment and Plan monitor vitals monitor labs Cont meds Cont tx consultants appreciated input rest of plan as ordered Assessment and Plan (1) Dyspnea Status: Acute (2) ARF (acute renal failure) Status: Acute (3) Elevated troponin Status: Acute
[2018-04-21] MEDS: Albumin Human 25% (12.5 gm/50 ml) IV SCH ×3 (03:06→19:27)
--- NOTE | 2018-04-21 04:26 | PN ---
DATE: 04/20/2018 FOLLOWUP RENAL CONSULTATION LOCATION: The patient is located in room 434, bed 1. REQUESTED BY: Shay Dill MD REASON FOR FOLLOWUP: Acute renal failure. HISTORY OF PRESENT ILLNESS: Mrs. Magdaleno is a 47-year-old middle-aged Obese female with a past medical history significant for hypertension, diabetes, and hyperlipidemia, noncompliance with diet, medications and physician visits, and also history of dermoid cyst in the pelvis, massive proteinuria who was admitted with cough, shortness of breath, and anasarca. The patient is on IV antibiotics and also on IV Lasix with slight improvement in the edema. The patient is not in acute distress. The patient is also complaining feeling depressed and denies any chest pain or palpitation. Denies any nausea, vomiting, or diarrhea. PHYSICAL EXAMINATION: VITAL SIGNS: As follows: Blood pressure this morning 156/85, pulse 98, respiration 16, temperature 98, and saturation 100%. Height 5 feet 2 inches. Weight is 210 pounds. GENERAL: Mrs. Magdaleno is a 47-year-old middle-aged female, obese, not in acute distress. HEENT: Pupils are normal and reactive to light and accommodation. Conjunctivae pink. Sclerae nonicteric. Tongue is moist. Trachea is midline. LUNGS: Symmetry on both sides. Bilateral basal crackles present. Decreased breath sounds on the right base. CARDIOVASCULAR SYSTEM: Eyota at the fifth intercostal space, midclavicular line. S1 and S2 audible. No murmur or gallop. ABDOMEN: Normal in appearance, soft, tympanitic. No guarding. No rigidity. No hepatosplenomegaly. The patient has slight prominence in the right pelvic region. CENTRAL NERVOUS SYSTEM: The patient is alert, awake, oriented x3. Nonfocal neuro examination. EXTREMITIES: No cyanosis, no clubbing. The patient has 3+ edema in both upper and lower extremities. CURRENT MEDICATIONS: Include as follows: Albumin 25% every 8 hours for two days, DuoNeb inhaler, also subcu heparin 5000 units every 12 hours, gabapentin 300 mg p.o. t.i.d., NicoDerm patch one patch daily, amlodipine 5 mg p.o. daily, promethazine syrup 10 mL p.o. every 6 hours p.r.n., Protonix 40 mg p.o. daily, Pulmicort 0.5 mg inhaler b.i.d., and Tylenol 650 mg p.o. every 6 hours. Her intake and output as of 04/19/2018, intake is 650 mL and output is 3100 mL. In the last 12 hours, intake is 450 mL and output is 1700 mL. LABORATORY DATA: Include as follows: As of 04/20/2018: WBC 11.7, hemoglobin 12.3, hematocrit is 37.8, and platelet 251. Sodium 139, potassium 3.5, chloride 106, CO2 of 26, BUN 47, creatinine 1.9, glucose 212, and calcium 7.5. CA-125 is 746. Blood culture x1 is negative as of 04/17/2018. CT of the abdomen and pelvis comparison from 10/30/2014, impression, suspect small right pleural effusion and small abdominal ascites. Impression, mild hepatomegaly and core heterogeneous echogenic liver may be related to the fatty infiltration; however, infiltrating infectious or inflammatory pathology cannot be excluded. Clinical and . Ultrasound of the abdomen compared with CT abdomen and pelvis from the 10/30/2014. CT of the chest as of 04/20/2018, impression, large bilateral pleural effusions resulting in compressive atelectasis both lower lobes and related subsegmental infiltrate in both upper lobes for profound edema and anasarca. ASSESSMENT: In summary, Mrs. Magdaleno is a 47-year-old middle-aged obese female with hypertension, diabetes, hyperlipidemia, diabetic retinopathy, nephrotic-range proteinuria who was admitted with cough and shortness of breath and anasarca. Repeat serology hepatitis C antibody IgM negative, hepatitis B surface antigen is negative, hepatitis B core antibody is negative, and hepatitis C antibody is reactive. 1. Nonoliguric acute renal failure, most likely secondary to acute tubular necrosis, secondary to sepsis and pneumonia. 2. Anasarca. 3. Nephrotic-range proteinuria, most likely secondary to diabetic nephropathy, cannot rule out underlying chronic glomerulonephritis. PLAN: Discontinue IV Lasix and start IV Lasix drip at 10 mL per hour which is 10 mg per hour. Continue albumin 25% 50 mL every 8 hours. Continue to monitor BMP and supplement potassium as needed. Restrict fluids to 1 L and continue IV antibiotics as per ICU team. We will follow up with you. Thank you for allowing me to participate in your patient's care. Mago Espinal MD [facility] # [id number]
[2018-04-21 06:13] LABS: BASO % 0.1 % (0.0-2.0); HEMOGLOBIN 11.2 g/dL (12.0-16.0); LYMPH # 2.1 K/uL (1.0-4.3); MEAN CELL VOLUME 90.4 fl (81.0-99.0); MEAN CORPUSCULAR HEMOGLOBIN 29.7 pg (27.0-31.0); MEAN CORPUSCULAR HGB CONC 32.8 g/dL (33.0-37.0); MEAN PLATELET VOLUME 8.2 fl (7.2-11.7); MONO # 0.8 K/uL (0.0-0.8); NEUT # 7.5 K/uL (1.8-7.0); NEUT % 71.9 % (50.0-75.0); RBC 3.79 Mil/uL (3.80-5.20); RED CELL DISTRIBUTION WIDTH 14.1 % (11.5-14.5); WHITE BLOOD COUNT 10.4 K/uL (4.8-10.8)
[2018-04-21 06:51] LABS: ALB/GLOB RATIO 0.7 (1.0-2.1); ALBUMIN 2.1 g/dL (3.5-5.0); ALT/SGPT 34 U/L (9-52); AST/SGOT 43 U/L (14-36); BLOOD UREA NITROGEN 52 mg/dl (7-17); CALCIUM 7.5 mg/dL (8.4-10.2); GFR NON-AFRICAN AMERICAN 32
--- NOTE | 2018-04-21 07:41 | CP.CCUPN ---
CCU Subjective - Physician Review Events Since Last Encounter (Free Text): 04/21/18 14:59 The patient was Seen/interviewed and examined by me at the bedside during ICU round, Medical records reviewed and Management issues were discussed and formulated with the house staff. Events reviewed 47 Years old Female with no significant PMHx HTN, CHF, Diabetes, Asthma, Fractures (RIGHT FOOT),GERD, Gall Bladder Disease, Hepatitis (C), Pancreatitis, anemia, Lupus and Who presented to the Emergency department with difficulty breathing for 2-3 days. Admitted to the ICU for SOB, Hypoxic rep failure sec to CHF exacerbation and multifocal pneumonia with bilateral pleural effusion She is on Lasix drip and IV Antibiotics This morning she feels well and is hemodynamically stable Breathing unlabored, on 3L nasal cannula O2 sat 97-100%. Off BIPAP Awake, Comfortable, NAD Pt AAO x3. Alert, follows commands Denies any chest pain, SOB or Palpitations Afebrile, NSR on the monitor Last 24H I&O 650/3100 Patient scheduled for Bilateral thoracentesis and PICC Placement by IR today This morning labs revealed no Leucocytosis, improved renal function BUN/Cr 52/1.7 from 41/2.2 CCU Objective - Vital Signs / Intake & Output Vital Signs (Last 4 hours): Vital Signs Temp Pulse Resp BP Pulse Ox 04/21/18 06:00 93 H 17 148/89 100 04/21/18 04:00 97.4 F L 92 H 12 133/77 100 Intake and Output (Last 8hrs): Intake & Output 04/20/18 04/21/18 04/21/18 22:59 06:59 14:59 Weight 212 lb 3.2 oz - Physical Exam Physical Exam Limitations: Positive for: Clinical Condition Head: Positive for: Atraumatic, Normocephalic Pupils: Positive for: PERRL. Negative for: Sluggish, Non-Reactive Extroacular Muscles: Positive for: EOMI. Negative for: Gaze Palsy Conjunctiva: Positive for: Normal. Negative for: Injected, Icteric Mouth: Positive for: Moist Mucous Membranes Pharnyx: Positive for: Normal Nose (External): Negative for: Atraumatic, Abrasion, Contusion Neck: Positive for: Normal Range of Motion, Trachea Midline. Negative for: Meningeal Signs, MIDLINE TENDERNESS, Paraspinal Tenderness, JVD, Lymphadenopathy, Bruit, Other Respiratory/Chest: Positive for: Good Air Exchange, Decreased Breath Sounds, Rhonchi. Negative for: Clear to Auscultation, Respiratory Distress, Accessory Muscle Use, Wheezes, Rales, Tender to Palpation Cardiovascular: Positive for: Regular Rate and Rhythm, Normal S1, S2, Peripheal Pulses Present. Negative for: Tachycardic, Bradycardic Abdomen: Negative for: Tenderness, Distention Back: Negative for: CVA Tenderness Neurological: Positive for: GCS=15, CN II-XII Intact, Speech Normal, Motor Func Grossly Intact, Normal Sensory Function Psychiatric: Positive for: Alert, Oriented x 3, Normal Insight - Medications Active Medications: Active Medications Generic Name Dose Route Start Last Admin Trade Name Freq PRN Reason Stop Dose Admin Acetaminophen 650 mg 04/19/18 00:33 04/19/18 00:47 Tylenol 325mg Tab PO 650 mg Q6 PRN Administration Pain, ALL(1-10) Albumin Human 12.5 gm 04/20/18 11:00 04/21/18 03:06 Albumin Human 25% (12.5 Gm/50 Ml) IV 04/22/18 11:01 12.5 gm Q8H KYRIE Administration Albuterol/Ipratropium 3 ml 04/17/18 20:00 04/20/18 19:15 Duoneb 3 Mg/0.5 Mg (3 Ml) Ud INH 3 ml RTID KYRIE Administration Amlodipine Besylate 5 mg 04/19/18 18:15 04/20/18 09:33 Norvasc PO 5 mg DAILY KYRIE Administration Budesonide 0.5 mg 04/20/18 20:00 04/20/18 19:15 Pulmicort Respules INH 0.5 mg RBID KYRIE Administration Gabapentin 300 mg 04/18/18 09:00 04/20/18 17:48 Neurontin PO 300 mg TID KYRIE Administration Heparin Sodium (Porcine) 5,000 units 04/20/18 21:00 04/20/18 21:43 Heparin SC 5,000 units Q12 KYRIE Administration Protocol Furosemide 100 mg/ Sodium 100 mls @ 10 mls/hr 04/20/18 11:00 04/20/18 21:42 Chloride IV 10 mls/hr .Q10H KYRIE Administration Protocol Insulin Detemir 36 units 04/17/18 22:00 04/20/18 21:44 Levemir SC 36 units HS KYRIE Administration Insulin Human Regular 0 units 04/20/18 07:30 04/20/18 21:44 Humulin R SC 4 units ACHS KYRIE Administration Protocol Nicotine 1 patch 04/20/18 23:31 04/20/18 23:43 Nicoderm Cq TD 1 patch DAILY KYRIE Administration Pantoprazole Sodium 40 mg 04/18/18 09:00 04/20/18 09:37 Protonix Ec Tab PO 40 mg DAILY KYRIE Administration Promethazine HCl/Dextromethorphan 10 ml 04/17/18 16:22 04/18/18 21:30 Phenergan Dm Syrup PO 10 ml Q6 PRN Administration Cough Sodium Chloride 2 sprays 04/18/18 22:51 04/20/18 00:25 [place] Nasal [place] CASH 2 spr Q2H PRN Administration Nasal congestion - Patient Studies Lab Studies: Microbiology Studies 04/17/18 16:30 Blood Culture - Preliminary Blood NO GROWTH AFTER 3 DAYS Lab Studies 04/21/18 04/21/18 04/21/18 Range/Units 05:53 04:35 04:35 WBC 10.4 (4.8-10.8) K/uL RBC 3.79 L (3.80-5.20) Mil/uL Hgb 11.2 L (12.0-16.0) g/dL Hct 34.2 (34.0-47.0) % MCV 90.4 (81.0-99.0) fl MCH 29.7 (27.0-31.0) pg MCHC 32.8 L (33.0-37.0) g/dL RDW 14.1 (11.5-14.5) % Plt Count 240 (130-400) K/uL MPV 8.2 (7.2-11.7) fl Neut % (Auto) 71.9 (50.0-75.0) % Lymph % (Auto) 20.0 (20.0-40.0) % [place] % (Auto) 8.0 (0.0-10.0) % Eos % (Auto) 0.0 (0.0-4.0) % Baso % (Auto) 0.1 (0.0-2.0) % Neut # (Auto) 7.5 H (1.8-7.0) K/uL Lymph # (Auto) 2.1 (1.0-4.3) K/uL [place] # (Auto) 0.8 (0.0-0.8) K/uL Eos # (Auto) 0.0 (0.0-0.7) K/uL Baso # (Auto) 0.0 (0.0-0.2) K/uL Sodium 141 (132-148) mmol/l Potassium 3.2 L (3.6-5.0) MMOL/L Chloride 107 (98-107) mmol/L Carbon Dioxide 27 (22-30) mmol/L Anion Gap 10 (10-20) BUN 52 H (7-17) mg/dl Creatinine 1.7 H (0.7-1.2) mg/dl Est GFR ( Amer) 39 Est GFR (Non-Af Amer) 32 POC Glucose (mg/dL) 110 (65-110) mg/dL Random Glucose 134 H (65-105) mg/dL Calcium 7.5 L (8.4-10.2) mg/dL Total Bilirubin < 0.1 L (0.2-1.3) mg/dl AST 43 H (14-36) U/L ALT 34 (9-52) U/L Alkaline Phosphatase 71 (38-126) U/L Total Protein 5.0 L (6.3-8.2) G/DL Albumin 2.1 L (3.5-5.0) g/dL Globulin 2.8 (2.2-3.9) gm/dL Albumin/Globulin Ratio 0.7 L (1.0-2.1) CA 125 Antigen (0-35) U/mL Hepatitis A IgM Ab (NEGATIVE) Hep Bs Antigen (NEGATIVE) Hep B Core IgM Ab (NEGATIVE) Hepatitis C Antibody (NEGATIVE) 04/20/18 04/20/18 04/20/18 Range/Units 21:20 16:43 11:28 WBC (4.8-10.8) K/uL RBC (3.80-5.20) Mil/uL Hgb (12.0-16.0) g/dL Hct (34.0-47.0) % MCV (81.0-99.0) fl MCH (27.0-31.0) pg MCHC (33.0-37.0) g/dL RDW (11.5-14.5) % Plt Count (130-400) K/uL MPV (7.2-11.7) fl Neut % (Auto) (50.0-75.0) % Lymph % (Auto) (20.0-40.0) % [place] % (Auto) (0.0-10.0) % Eos % (Auto) (0.0-4.0) % Baso % (Auto) (0.0-2.0) % Neut # (Auto) (1.8-7.0) K/uL Lymph # (Auto) (1.0-4.3) K/uL [place] # (Auto) (0.0-0.8) K/uL Eos # (Auto) (0.0-0.7) K/uL Baso # (Auto) (0.0-0.2) K/uL Sodium (132-148) mmol/l Potassium (3.6-5.0) MMOL/L Chloride (98-107) mmol/L Carbon Dioxide (22-30) mmol/L Anion Gap (10-20) BUN (7-17) mg/dl Creatinine (0.7-1.2) mg/dl Est GFR ( Amer) Est GFR (Non-Af Amer) POC Glucose (mg/dL) 268 H 178 H 165 H (65-110) mg/dL Random Glucose (65-105) mg/dL Calcium (8.4-10.2) mg/dL Total Bilirubin (0.2-1.3) mg/dl AST (14-36) U/L ALT (9-52) U/L Alkaline Phosphatase (38-126) U/L Total Protein (6.3-8.2) G/DL Albumin (3.5-5.0) g/dL Globulin (2.2-3.9) gm/dL Albumin/Globulin Ratio (1.0-2.1) CA 125 Antigen (0-35) U/mL Hepatitis A IgM Ab (NEGATIVE) Hep Bs Antigen (NEGATIVE) Hep B Core IgM Ab (NEGATIVE) Hepatitis C Antibody (NEGATIVE) 04/20/18 04/19/18 Range/Units 10:38 05:00 WBC (4.8-10.8) K/uL RBC (3.80-5.20) Mil/uL Hgb (12.0-16.0) g/dL Hct (34.0-47.0) % MCV (81.0-99.0) fl MCH (27.0-31.0) pg MCHC (33.0-37.0) g/dL RDW (11.5-14.5) % Plt Count (130-400) K/uL MPV (7.2-11.7) fl Neut % (Auto) (50.0-75.0) % Lymph % (Auto) (20.0-40.0) % [place] % (Auto) (0.0-10.0) % Eos % (Auto) (0.0-4.0) % Baso % (Auto) (0.0-2.0) % Neut # (Auto) (1.8-7.0) K/uL Lymph # (Auto) (1.0-4.3) K/uL [place] # (Auto) (0.0-0.8) K/uL Eos # (Auto) (0.0-0.7) K/uL Baso # (Auto) (0.0-0.2) K/uL Sodium (132-148) mmol/l Potassium (3.6-5.0) MMOL/L Chloride (98-107) mmol/L Carbon Dioxide (22-30) mmol/L Anion Gap (10-20) BUN (7-17) mg/dl Creatinine (0.7-1.2) mg/dl Est GFR ( Amer) Est GFR (Non-Af Amer) POC Glucose (mg/dL) (65-110) mg/dL Random Glucose (65-105) mg/dL Calcium (8.4-10.2) mg/dL Total Bilirubin (0.2-1.3) mg/dl AST (14-36) U/L ALT (9-52) U/L Alkaline Phosphatase (38-126) U/L Total Protein (6.3-8.2) G/DL Albumin (3.5-5.0) g/dL Globulin (2.2-3.9) gm/dL Albumin/Globulin Ratio (1.0-2.1) CA 125 Antigen 746 H D (0-35) U/mL Hepatitis A IgM Ab Negative (NEGATIVE) Hep Bs Antigen Negative (NEGATIVE) Hep B Core IgM Ab Negative (NEGATIVE) Hepatitis C Antibody Reactive (NEGATIVE) Laboratory Results - last 24 hr 04/19/18 04/20/18 04/20/18 05:00 10:38 11:28 WBC RBC Hgb Hct MCV MCH MCHC RDW Plt Count MPV Neut % (Auto) Lymph % (Auto) [place] % (Auto) Eos % (Auto) Baso % (Auto) Neut # (Auto) Lymph # (Auto) [place] # (Auto) Eos # (Auto) Baso # (Auto) Sodium Potassium Chloride Carbon Dioxide Anion Gap BUN Creatinine Est GFR ( Amer) Est GFR (Non-Af Amer) POC Glucose (mg/dL) 165 H Random Glucose Calcium Total Bilirubin AST ALT Alkaline Phosphatase Total Protein Albumin Globulin Albumin/Globulin Ratio CA 125 Antigen 746 H D Hepatitis A IgM Ab Negative Hep Bs Antigen Negative Hep B Core IgM Ab Negative Hepatitis C Antibody Reactive 04/20/18 04/20/18 04/21/18 16:43 21:20 04:35 WBC 10.4 RBC 3.79 L Hgb 11.2 L Hct 34.2 MCV 90.4 MCH 29.7 MCHC 32.8 L RDW 14.1 Plt Count 240 MPV 8.2 Neut % (Auto) 71.9 Lymph % (Auto) 20.0 [place] % (Auto) 8.0 Eos % (Auto) 0.0 Baso % (Auto) 0.1 Neut # (Auto) 7.5 H Lymph # (Auto) 2.1 [place] # (Auto) 0.8 Eos # (Auto) 0.0 Baso # (Auto) 0.0 Sodium Potassium Chloride Carbon Dioxide Anion Gap BUN Creatinine Est GFR ( Amer) Est GFR (Non-Af Amer) POC Glucose (mg/dL) 178 H 268 H Random Glucose Calcium Total Bilirubin AST ALT Alkaline Phosphatase Total Protein Albumin Globulin Albumin/Globulin Ratio CA 125 Antigen Hepatitis A IgM Ab Hep Bs Antigen Hep B Core IgM Ab Hepatitis C Antibody 04/21/18 04/21/18 04:35 05:53 WBC RBC Hgb Hct MCV MCH MCHC RDW Plt Count MPV Neut % (Auto) Lymph % (Auto) [place] % (Auto) Eos % (Auto) Baso % (Auto) Neut # (Auto) Lymph # (Auto) [place] # (Auto) Eos # (Auto) Baso # (Auto) Sodium 141 Potassium 3.2 L Chloride 107 Carbon Dioxide 27 Anion Gap 10 BUN 52 H Creatinine 1.7 H Est GFR ( Amer) 39 Est GFR (Non-Af Amer) 32 POC Glucose (mg/dL) 110 Random Glucose 134 H Calcium 7.5 L Total Bilirubin < 0.1 L AST 43 H ALT 34 Alkaline Phosphatase 71 Total Protein 5.0 L Albumin 2.1 L Globulin 2.8 Albumin/Globulin Ratio 0.7 L CA 125 Antigen Hepatitis A IgM Ab Hep Bs Antigen Hep B Core IgM Ab Hepatitis C Antibody Radiology Impressions: Radiology Impressions Chest X-Ray 04/20/18 08:23 IMPRESSION: Bilateral pleural effusions and lower lobe compressive atelectasis. Similar findings identified on the prior study right hemithorax. New findings left lung/left pleural effusion. Chest CT 04/20/18 09:43 IMPRESSION: Large bilateral pleural effusions resulting in compressive atelectasis both lower lobes. Unrelated subsegmental infiltrates in both upper lobes. Profound edema/anasarca. Abdomen Ultrasound 04/20/18 10:25 IMPRESSION: Mild hepatomegaly. Coarse heterogeneous echogenic liver may be related to fatty infiltration however infiltrating, infectious and inflammatory pathologic cannot be excluded. Clinical and laboratory correlation is advised. Suspect small right pleural effusion and small abdominal ascites. Fingerstick Blood Sugar Results: 110 Review of Systems - Cardiovascular Cardiovascular: absent: As Per HPI, Acrocyanosis, Chest Pain, Chest Pain at Rest, Chest Pain with Activity, Claudication, Diaphoresis, Dyspnea, Dyspnea on Exertion, Edema, Irregular Heart Rhythm, Pain Radiating to Arm/Neck/Jaw, Leg Edema, Leg Ulcers, Lightheadedness, Orthopnea, Palpitations, Paroxysmal Nocturnal Dyspnea, Pedal Edema, Radiating Pain, Rapid Heart Rate, Slow Heart Rate, Syncope, Other, UNREMARKABLE - Respiratory Respiratory: absent: As Per HPI, Cough, Dyspnea, Hemoptysis, Dyspnea on Exertion, Wheezing, Snoring, Stridor, Pain on Inspiration, Chest Congestion, Excessive Mucous Production, Change in Mucous Color, Pain with Coughing, Other, UNREMARKABLE Critical Care Progress Note - Extremities/Vascular Does the Patient have a Central Venous Catheter?: No Does the Patient need a Central Venous Catheter?: No Does the Patient have a [place] Catheter?: No Does the Patient need a [place] Catheter?: No - Nutrition Nutrition: Nutrition Category Date Time Status Diabetic [Consistent Carbohydrate] [DIET] Diets 04/18/18 Breakfast Active Assessment/Plan (1) Respiratory failure, acute Current Visit: Yes Status: Acute Priority: High Comment: Improved respiratory status, Off BIPAP Continue diuresis, Furosemide drip @ 10 mg/h Bilateral thoracentesis today Strict I&O, daily Wt Suplemental Oxygen Bronchodilators (2) CAP (community acquired pneumonia) Current Visit: Yes Status: Acute Priority: High (3) CHF exacerbation Current Visit: Yes Status: Acute Priority: High (4) ARF (acute renal failure) Current Visit: Yes Status: Acute Priority: High (5) Pleural effusion Current Visit: Yes Status: Acute Priority: High (6) Sepsis Current Visit: Yes Status: Acute Priority: High
[2018-04-21] MEDS: Albuterol-Ipratrop 3 mg / 0.5 (3 ml) UD INH SCH ×3 (07:59→19:02)
[2018-04-21] MEDS: Budesonide 0.25 mg/2 ml Inhal Susp UD INH SCH ×2 (08:00→19:03)
[2018-04-21 09:59] LABS: INR 0.9
[2018-04-21 10:05] LABS: PROTHROMBIN TIME 9.7 Seconds (9.8-13.1)
[2018-04-21] MEDS: Furosemide 100 MG in Sodium Chloride 0.9% 100 ML IV SCH (10:50)
[2018-04-21] MEDS: Insulin Regular 100 units/ml SC SCH ×3 (11:56→21:20)
[2018-04-21] MEDS: Pantoprazole 40 mg EC Tab PO SCH (12:04)
--- NOTE | 2018-04-21 12:17 | CP.PCM.PN ---
Subjective - Date & Time of Evaluation Date of Evaluation: 04/21/18 Time of Evaluation: 09:15 - Subjective Subjective: pt is seen and examined, follow up consult is dictated #[id number] Objective - Vital Signs/Intake and Output Vital Signs (last 24 hours): Temp Pulse Resp BP Pulse Ox 97.7 F 100 H 27 H 149/89 98 04/21/18 08:00 04/21/18 10:30 04/21/18 10:00 04/21/18 10:50 04/21/18 10:00 - Medications Medications: Current Medications Acetaminophen (Tylenol 325mg Tab) 650 mg PO Q6 PRN PRN Reason: Pain, ALL(1-10) Last Admin: 04/19/18 00:47 Dose: 650 mg Albuterol/Ipratropium (Duoneb 3 Mg/0.5 Mg (3 Ml) Ud) 3 ml INH RTID [facility] Last Admin: 04/21/18 07:59 Dose: 3 ml Amlodipine Besylate (Norvasc) 5 mg PO DAILY [facility] Last Admin: 04/21/18 10:30 Dose: 5 mg Budesonide (Pulmicort Respules) 0.5 mg INH RBID [facility] Last Admin: 04/21/18 08:00 Dose: 0.5 mg Dimethicone (Proshield Plus Skin Protectant) 1 applic TOP Q8 PRN PRN Reason: Rash Gabapentin (Neurontin) 300 mg PO TID [facility] Last Admin: 04/21/18 12:04 Dose: 300 mg Heparin Sodium (Porcine) (Heparin) 5,000 units SC Q12 [facility]; Protocol Last Admin: 04/21/18 10:31 Dose: 5,000 units Furosemide 100 mg/ Sodium (Chloride) 100 mls @ 10 mls/hr IV .Q10H [facility]; Protocol Last Admin: 04/21/18 10:50 Dose: 10 mls/hr Insulin Detemir (Levemir) 36 units SC HS [facility] Last Admin: 04/20/18 21:44 Dose: 36 units Insulin Human Regular (Humulin R) 0 units SC ACHS [facility]; Protocol Last Admin: 04/21/18 11:56 Dose: Not Given Nicotine (Nicoderm Cq) 1 patch TD DAILY [facility] Last Admin: 04/21/18 10:29 Dose: 1 patch Pantoprazole Sodium (Protonix Ec Tab) 40 mg PO DAILY [facility] Last Admin: 04/21/18 12:04 Dose: 40 mg Potassium Chloride (K-Dur 20 Meq Er Tab) 40 meq PO BID [facility]RIE Stop: 04/21/18 23:59 Promethazine HCl/Dextromethorphan (Phenergan Dm Syrup) 10 ml PO Q6 PRN PRN Reason: Cough Last Admin: 04/18/18 21:30 Dose: 10 ml Sodium Chloride ([place] Nasal [place]) 2 sprays CASH Q2H PRN PRN Reason: Nasal congestion Last Admin: 04/20/18 00:25 Dose: 2 spr - Labs Labs: 04/21/18 04:35 04/21/18 04:35 PT 9.7 Seconds (9.8-13.1) L 04/21/18 09:00 INR 0.9 04/21/18 09:00
[2018-04-21] MEDS: Potassium Chloride 20 mEq ER Tab PO SCH ×2 (13:10→17:20)
[2018-04-21] MEDS ORDERED: Lidocaine 1% Inj (20ml) ONE (15:11)
--- NOTE | 2018-04-21 15:49 | PCM.SURG1 ---
Surgeon's Initial Post Op Note - Surgeon's Notes Surgeon: Anoop Elizabeth MD [employer]: NONE Type of Anesthesia: Local Pre-Operative Diagnosis: Bilateral pleural effusion, dyspnea, poor venous access Operative Findings: US showed small right effusion and moderate left pleural effusion; US showed a patent right basilic vein. Post-Operative Diagnosis: Bilateral pleural effusion, dyspnea, poor venous access Operation Performed: Bilateral thoracentesis. PICC Placement. Specimen/Specimens Removed: Right lun cc clear fluid; Left lun cc clear fluid. Estimated Blood Loss: EBL {In ML}: 2 Blood Products Given: N/A Drains Used: No Drains Post-Op Condition: Fair Date of Surgery/Procedure: 04/21/18 Time of Surgery/Procedure: 15:45
[2018-04-21 16:25] LABS: BODY FLUID TYPE PLEURAL/THORACENTESI
[2018-04-21 17:08] LABS: AMYLASE,BODY FLUID < 30 mg/dL (NONE ESTABLISHED); GLUCOSE,BODY FLUID 94 mg/dL (NONE ESTABLISHED); TOTAL PROTEIN,BODY FLUID < 2.0 g/dL (NONE ESTABLISHED)
[2018-04-21 17:18] LABS: BF GROSS APPEARANCE SL CLOUDY (CLEAR)
[2018-04-21 17:55] LABS: BODY FLUID MONO/MACROPHAGE 7 % (0-0); BODY FLUID TOTAL COUNT 100 (0-0)
[2018-04-21] MEDS: Insulin Detemir 100 Units/ml Inj SC SCH (21:07)
[2018-04-22] MEDS: Albumin Human 25% (12.5 gm/50 ml) IV SCH ×3 (01:30→17:18)
--- NOTE | 2018-04-22 01:36 | PN ---
DATE: 04/21/2018 FOLLOWUP RENAL CONSULTATION LOCATION: The patient is located in ICU room 434, bed 1. REQUESTED BY: Shay Dill MD REASON FOR FOLLOWUP: Acute renal failure, nephrotic-range proteinuria, anasarca, and pneumonia. HISTORY OF PRESENT ILLNESS: Mrs. 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 The patient is on IV antibiotics and also IV Lasix and drip. The patient is feeling slightly better today, not in acute distress. The patient was sitting at the edge of the bed this morning. No chest pain. No palpitation. No fever. No cough. PHYSICAL EXAMINATION: VITAL SIGNS: As follows: Blood pressure 162/59, pulse 97, respirations 17, temperature 97.7, saturation 100%. Height 5 feet 2 inches, weight is 212 pounds. GENERAL: Mrs. Magdaleno is a 47-year-old middle-aged obese female, well built, well nourished, not in distress. HEENT: Pupils are normal and reactive to light and accommodation. Conjunctivae pink. Sclerae anicteric. Tongue is moist, and trachea is midline. LUNGS: Symmetric on both sides. Bilateral basal crackles present. CARDIOVASCULAR SYSTEM: [place] at the fifth intercostal space and midclavicular line. S1 and S2 audible. No murmur or gallop. ABDOMEN: Normal in appearance. Distended in the lower pelvic area. Soft, nontender. No hepatosplenomegaly. CENTRAL NERVOUS SYSTEM: The patient is alert, awake, oriented x3. Nonfocal neuro examination. Cranial nerves II through XII grossly intact. Sensory and motor system is within normal limits. EXTREMITIES: No cyanosis, no clubbing. The patient has 3+ edema in both lower extremities. LABORATORY DATA: Include as follows: As of 04/21/2018, WBC 10.4, hemoglobin 11.2, hematocrit is 34.2, and platelets 240. Sodium 141, potassium 3.2, chloride 107, CO2 of 27, BUN 52, creatinine 1.7, glucose 134, and calcium 7.5. Total bili 0.1, AST 43, ALT 34, alkaline phosphatase is 71, total protein 5, albumin is 2.1. Pleural fluid analysis, slightly cloudy, wbc 240 and rbc 310 and neutrophil 60 and lymph 33 and mono 7. Glucose 94, and total protein less than 2, and LDH is 235 and amylase is less than 30. Urine beta-hCG is less than 2.39. In summary, Mrs. Magdaleno is a 47-year-old middle-aged female with a history of longstanding hypertension, diabetes, nephrotic-range proteinuria, diabetic retinopathy, was admitted with cough, shortness of breath with fluid overload, and also the patient is being treated for pneumonia due to bilateral pleural effusion and status post bilateral thoracentesis, drained about 400 mL clear fluid on the right lung and about 900 mL clear fluid from the left lung by interventional radiologist, Dr. Anoop Elizabeth. OTHER LABORATORY DATA: Her hepatitic C antibody, IgM is negative. Hepatitic B surface negative. Hepatitis B core antibody is negative. Hep C antibody is reactive. Hep C RNA-PCR less than 15. Hep C real-time PCR is less than 1.18. Echocardiogram as of 04/17/2018, estimated ejection fraction is 55-60%, left atrium size is normal, there is moderate mitral valve regurgitation, there is moderate tricuspid regurgitation, and right ventricular systolic pressure is calculated at 40 mmHg. ASSESSMENT: In summary, Mrs. Magdaleno is a 47-year-old female with hypertension, diabetes, noncompliance with medication, diabetic retinopathy, nephrotic-range proteinuria with cough, shortness of breath, and anasarca. 1. Nephrotic-range proteinuria, most likely secondary to diabetic nephropathy. All the serology workup is within normal limits except which was homogenous 162, 320 in the past with repeat normal complement levels. 2. Acute renal failure, most likely secondary to acute tubular necrosis secondary to pneumonia or sepsis. 3. Hypertension. 4. Uncontrolled diabetes. 5. Fluid overload. 6. Pneumonia. PLAN: Continue her current medications as per the ICU team. Continue IV Lasix 10 mL per hour and continue albumin. Continue DuoNeb, subcutaneous heparin, and agree with a potassium of 40 mEq p.o. b.i.d. and Neurontin and Levemir, Phenergan DM syrup, and also Protonix and Pulmicort and Tylenol and nicotine patch. Repeat labs in a.m. and continue to monitor I and Os. Thank you for allowing me to participate in your patient's care. Mago Espinal MD
[2018-04-22] MEDS: Furosemide 100 MG in Sodium Chloride 0.9% 100 ML IV SCH ×2 (03:30→17:16)
[2018-04-22 05:21] LABS: HEMOGLOBIN 10.9 g/dL (12.0-16.0); MEAN CELL VOLUME 90.9 fl (81.0-99.0); MEAN CORPUSCULAR HEMOGLOBIN 29.6 pg (27.0-31.0); MEAN CORPUSCULAR HGB CONC 32.5 g/dL (33.0-37.0); RBC 3.7 Mil/uL (3.80-5.20); RED CELL DISTRIBUTION WIDTH 14.3 % (11.5-14.5)
[2018-04-22] MEDS: Nasal Spray(Ocean spray) NAS PRN ×4 (05:33→18:17)
[2018-04-22 05:46] LABS: CALCIUM 7.6 mg/dL (8.4-10.2)
[2018-04-22] MEDS: Budesonide 0.25 mg/2 ml Inhal Susp UD INH SCH ×2 (08:00→19:08)
[2018-04-22] MEDS: Albuterol-Ipratrop 3 mg / 0.5 (3 ml) UD INH SCH ×3 (08:00→19:09)
[2018-04-22] MEDS: Pantoprazole 40 mg EC Tab PO SCH (08:51)
[2018-04-22] MEDS ORDERED: Albumin Human 25% (25 gm/100 ml) IV SCH (10:30)
[2018-04-22] MEDS: Insulin Regular 100 units/ml SC SCH ×3 (12:11→21:47)
[2018-04-22] MEDS: Proshield Plus GEL TOP PRN (12:15)
--- NOTE | 2018-04-22 13:57 | CP.CCUPN ---
CCU Subjective - Physician Review Subjective (Free Text): Awake and alert, more coherent and appropriately responsive this AM, no delusional thoughts, on Lasix drip and getting Albumin. Denies any ESPOSITO, CP at rest. Able to get OOB to chair with double nursing assistance. Rectal tube and [place] remain in place. Feels thirsty. Last pleural fluid accumulation 6 months ago and underwent thoracentesis for approx. 900ml at [facility]; no known h/o of OR, but was told she has CHF, IRDM II, HTN. Total of 1300 ml removed via thoracentesis yesterday. Other vitals and I/O's reviewed. No fever spikes, SBP 150s, HR 100s, RR 17, 98% SPO2 on NC, was on BiPAP overnight up to 60% oxygen. ROS: No other pertinent negs or positives on 10+ system review, PMSFH: All other Nursing and physician documentation reviewed to date; no new pertinent info noted relevant to current medical problems. EXAM- HEENT: no icterus, no gaze preference NECK: No JVD visible, supple, carotids equal upstroke bilat/no bruit CHEST: decreased BS at the bases, no wheezes audible bilaterally HEART: regular, distant, S1S2, no rubs or murmurs noted ABD: soft and obese, nontender, no guarding, no organomegaly, BS hypoactive. EXT: +3-4 tight edema, no calf tenderness or palpable cords, distal pulses intact and symmetrical. NEURO: no gross focal deficits. SKIN: no rashes, warm and dry LABS: WBC= 7.0 HGB= 10.9 PLTs= 195K Na= 139 K= 3.9 CL= 108 HCO3= 28 BUN/Cr= 48/1.6 BS= 131 IMPRESSION / MAJOR PROBLEMS NOW: 1. Acute Resp insuff 2 Bilateral effusions, underlying decompensated CHF versus other parapneumonic etiology: pneumonia? 2. Small NSTEMI 3. Azotemia, with h/o CKD 4 4. s/p Accelerated HTN PLAN: 1. Lasix drip has , otherwise as per Nephrology. Was on home Lasix at 80mg daily dose. 2. ECHO on 04/17/18 shows no pericardial effusion, EF 55%, some DDysfx, and moderate TR. RV fx stated as normal. 3. Duonebs (increase to q4h for now) for any bronchospasm / reactive airways disease, IV steroids if any worsening. She states she was dxed with Sleep Apnea by Dr. Del Toro in [place], but unable to get CPAP for home due to insurance issues. BiPAP support overnight. Check repeat ABG on RA. Get Pulm opinion. Will start Montelukast as recommended by Pulm on 04/18/18. Get / assess pleural fluid analysis. 4. Transfer to [facility] if no need for MV support. Critical Care Progress Note - Nutrition Nutrition: Nutrition Category Date Time Status Diabetic [Consistent Carbohydrate] [DIET] Diets 04/18/18 Breakfast Active
--- NOTE | 2018-04-22 14:31 | VASCULAR ---
PROCEDURE: Date of procedure: 04/21/2018 Procedure: 1. Placement of a right arm PICC with ultrasound and fluoroscopic guidance, CPT 51743 2. PICC tip confirmation with spot radiograph and is in the superior vena cava Medications: 1 percent lidocaine Total Fluoro time: 6.1 Seconds Radiation: 0.76 MGy EBL: 2 cc HISTORY: Infection requiring long-term IV antibiotics TECHNIQUE: Following informed consent and procedure time-out, the patient was placed supine on the interventional table and the right arm prepped and draped in the usual sterile fashion. Ultrasound showed a patent and compressible right basilic vein. After the skin was anesthetized with lidocaine, the basilic vein was accessed with micro micropuncture technique using ultrasound guidance. A guidewire was then advanced under fluoroscopic guidance into the superior vena cava. An image documenting ultrasound guidance for vascular access was permanently saved. The length of the double lumen 5 Japanese PICC was trimmed to 35 centimeters and advanced through a peel-away sheath. The PICC was position with tip of PICC confirm a spot radiograph the superior vena cava. The PICC was secured to the patient's skin. The PICC was flushed. A biopatch and sterile dressing was applied. IMPRESSION: Placement of a double lumen5 Japanese PICC trimmed to 35 centimeters via right basilic vein. The tip of the PICC is confirmed with spot radiograph and is in the superior vena cava.
--- NOTE | 2018-04-22 16:41 | CP.PCM.PN ---
Subjective - Date & Time of Evaluation Date of Evaluation: 04/22/18 Time of Evaluation: 11:00 - Subjective Subjective: patient seen and examined at bedside. Interim events noted sob at times denies cp/fever/chills. available diagnostic data reviewed Objective Vital Signs Stable - Constitutional Appears: Non-toxic, No Acute Distress - Head Exam Head Exam: NORMAL INSPECTION - Eye Exam Eye Exam: Normal appearance - Respiratory Exam Respiratory Exam: NORMAL BREATHING PATTERN, wheezing present - Cardiovascular Exam Cardiovascular Exam: +S1, +S2 - GI/Abdominal Exam GI & Abdominal Exam: Soft - Neurological Exam Neurological Exam: Alert, Awake - Psychiatric Exam Psychiatric exam: Normal Affect, Normal Mood - Skin Skin Exam: Normal Color, Warm Assessment and Plan monitor vitals monitor labs Cont meds Cont tx consultants appreciated input rest of plan as ordered Assessment and Plan (1) Dyspnea Status: Acute (2) ARF (acute renal failure) Status: Acute (3) Elevated troponin Status: Acute
--- NOTE | 2018-04-22 16:43 | CP.PCM.PN ---
Subjective - Date & Time of Evaluation Date of Evaluation: 04/21/18 Time of Evaluation: 11:00 - Subjective Subjective: patient seen and examined at bedside. Interim events noted sob at times denies cp/fever/chills. available diagnostic data reviewed Objective Vital Signs Stable - Constitutional Appears: Non-toxic, No Acute Distress - Head Exam Head Exam: NORMAL INSPECTION - Eye Exam Eye Exam: Normal appearance - Respiratory Exam Respiratory Exam: NORMAL BREATHING PATTERN, wheezing present - Cardiovascular Exam Cardiovascular Exam: +S1, +S2 - GI/Abdominal Exam GI & Abdominal Exam: Soft - Neurological Exam Neurological Exam: Alert, Awake - Psychiatric Exam Psychiatric exam: Normal Affect, Normal Mood - Skin Skin Exam: Normal Color, Warm Assessment and Plan monitor vitals monitor labs Cont meds Cont tx consultants appreciated input rest of plan as ordered Assessment and Plan (1) Dyspnea Status: Acute (2) ARF (acute renal failure) Status: Acute (3) Elevated troponin Status: Acute
[2018-04-22] MEDS: Insulin Detemir 100 Units/ml Inj SC SCH (21:39)
[2018-04-23] MEDS: Albuterol-Ipratrop 3 mg / 0.5 (3 ml) UD INH SCH ×7 (00:24→23:51)
[2018-04-23] MEDS: Albumin Human 25% (12.5 gm/50 ml) IV SCH ×3 (00:39→16:18)
[2018-04-23 05:52] LABS: HEMOGLOBIN 9.6 g/dL (12.0-16.0); MEAN CELL VOLUME 91.4 fl (81.0-99.0); MEAN CORPUSCULAR HEMOGLOBIN 29.9 pg (27.0-31.0); MEAN CORPUSCULAR HGB CONC 32.7 g/dL (33.0-37.0); RBC 3.22 Mil/uL (3.80-5.20); RED CELL DISTRIBUTION WIDTH 14.2 % (11.5-14.5); WHITE BLOOD COUNT 6.1 K/uL (4.8-10.8)
[2018-04-23 06:12] LABS: CALCIUM 7.4 mg/dL (8.4-10.2)
[2018-04-23] MEDS: Budesonide 0.25 mg/2 ml Inhal Susp UD INH SCH ×2 (08:00→19:14)
--- NOTE | 2018-04-23 08:34 | CP.PCM.PN ---
Subjective - Date & Time of Evaluation Date of Evaluation: 04/23/18 Time of Evaluation: 08:33 - Subjective Subjective: pt is seen and examined, follow up consult is dictated #[id number] Objective - Vital Signs/Intake and Output Vital Signs (last 24 hours): Temp Pulse Resp BP Pulse Ox 98.2 F 86 16 144/78 100 04/23/18 04:00 04/23/18 05:02 04/23/18 04:00 04/23/18 04:00 04/23/18 04:00 Intake and Output: 04/23/18 04/23/18 06:59 18:59 Output Total 750 Balance -750 - Medications Medications: Current Medications Acetaminophen (Tylenol 325mg Tab) 650 mg PO Q6 PRN PRN Reason: Pain, ALL(1-10) Last Admin: 04/19/18 00:47 Dose: 650 mg Albumin Human (Albumin Human 25% (12.5 Gm/50 Ml)) 12.5 gm IV Q8 [facility] Last Admin: 04/23/18 00:39 Dose: 12.5 gm Albuterol/Ipratropium (Duoneb 3 Mg/0.5 Mg (3 Ml) Ud) 3 ml INH RQ4 [facility] Last Admin: 04/23/18 08:01 Dose: 3 ml Amlodipine Besylate (Norvasc) 5 mg PO DAILY [facility] Last Admin: 04/22/18 08:50 Dose: 5 mg Budesonide (Pulmicort Respules) 0.5 mg INH RBID [facility] Last Admin: 04/23/18 08:00 Dose: 0.5 mg Clotrimazole (Mycelex Nila) 10 mg MT 5XD [facility] Last Admin: 04/23/18 05:48 Dose: 10 mg Dimethicone (Proshield Plus Skin Protectant) 1 applic TOP Q8 PRN PRN Reason: Rash Last Admin: 04/22/18 12:15 Dose: 1 applic Docusate Sodium (Colace) 100 mg PO BID [facility] Last Admin: 04/22/18 17:32 Dose: 100 mg Gabapentin (Neurontin) 300 mg PO TID [facility] Last Admin: 04/22/18 17:14 Dose: 300 mg Heparin Sodium (Porcine) (Heparin) 5,000 units SC Q12 [facility]; Protocol Last Admin: 04/22/18 21:37 Dose: 5,000 units Insulin Detemir (Levemir) 36 units SC [facility] Last Admin: 04/22/18 21:39 Dose: 36 units Insulin Human Regular (Humulin R) 0 units SC [facility]; Protocol Last Admin: 04/22/18 21:47 Dose: Not Given Montelukast Sodium (Singulair) 10 mg PO DAILY [facility] Last Admin: 04/22/18 14:55 Dose: 10 mg Nicotine (Nicoderm Cq) 1 patch TD DAILY [facility] Last Admin: 04/22/18 08:49 Dose: 1 patch Pantoprazole Sodium (Protonix Ec Tab) 40 mg PO DAILY [facility] Last Admin: 04/22/18 08:51 Dose: 40 mg Promethazine HCl/Dextromethorphan (Phenergan Dm Syrup) 10 ml PO Q6 PRN PRN Reason: Cough Last Admin: 04/18/18 21:30 Dose: 10 ml Sodium Chloride ([place] Nasal [place]) 2 sprays CASH Q2H PRN PRN Reason: Nasal congestion Last Admin: 04/22/18 18:17 Dose: 2 spr - Labs Labs: 04/23/18 04:20 04/23/18 04:20 PT 9.7 Seconds (9.8-13.1) L 04/21/18 09:00 INR 0.9 04/21/18 09:00
[2018-04-23] MEDS: Insulin Regular 100 units/ml SC SCH ×4 (08:35→21:42)
[2018-04-23] MEDS: Pantoprazole 40 mg EC Tab PO SCH (08:37)
[2018-04-23] MEDS: Furosemide 100 MG in Sodium Chloride 0.9% 100 ML IV SCH ×2 (09:52→20:38)
--- NOTE | 2018-04-23 11:40 | CP.PCM.PN ---
Subjective - Date & Time of Evaluation Date of Evaluation: 04/23/18 Time of Evaluation: 08:00 - Subjective Subjective: patient seen and examined at bedside. Interim events noted sob at times with exertion denies cp/fever/chills. available diagnostic data reviewed Objective Vital Signs Stable - Constitutional Appears: Non-toxic, No Acute Distress - Head Exam Head Exam: NORMAL INSPECTION - Eye Exam Eye Exam: Normal appearance - Respiratory Exam Respiratory Exam: NORMAL BREATHING PATTERN, wheezing improved - Cardiovascular Exam Cardiovascular Exam: +S1, +S2 - GI/Abdominal Exam GI & Abdominal Exam: Soft - Neurological Exam Neurological Exam: Alert, Awake - Psychiatric Exam Psychiatric exam: Normal Affect, Normal Mood - Skin Skin Exam: Normal Color, Warm Assessment and Plan monitor vitals monitor labs Cont meds Cont tx consultants appreciated input PT Eval rest of plan as ordered Assessment and Plan (1) Dyspnea Status: Acute (2) ARF (acute renal failure) Status: Acute (3) Elevated troponin Status: Acute
[2018-04-23] MEDS: Potassium Chloride 20 mEq ER Tab PO SCH ×2 (13:12→17:34)
--- NOTE | 2018-04-23 14:56 | US ---
PROCEDURE: Date of procedure: 04/21/2018 Procedure: 1. Ultrasound-guided Right and left thoracentesis Medications: 6cc 1% Lidocaine HISTORY: Bilateral pleural effusion, ventilatory failure TECHNIQUE: Following informed consent, limb ultrasound patient right and left chest showed a moderate right pleural effusion and a small left effusion. The patient right and left chest were marked prepped and draped in usual fashion. Procedure time-out was called. Ultrasound-guided right thoracentesis was performed followed by ultrasound-guided left thoracentesis. A total of 900 cubic centimeters of straw colored fluid removed from the right pleural space. This was followed by removal of 4 cubic centimeters of straw-colored fluid from the left pleural space. A postprocedure x-ray showed improved aeration of the lungs. No pneumothorax. A Xeroform dressing was applied. IMPRESSION: Ultrasound-guided right thoracentesis and ultrasound-guided left thoracentesis performed at bedside.
[2018-04-23] MEDS: Nasal Spray(Ocean spray) NAS PRN (15:16)
[2018-04-23] MEDS: Insulin Detemir 100 Units/ml Inj SC SCH (21:43)
--- NOTE | 2018-04-24 02:06 | PN ---
DATE: 04/23/2018 FOLLOWUP RENAL CONSULTATION LOCATION: The patient is located in ICU room 434, bed 1. REQUESTED BY: Shay Dill MD REASON FOR FOLLOWUP: Acute renal failure, nephrotic-range of proteinuria, anasarca. SUBJECTIVE: Mrs. 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 The patient is being treated for possible pneumonia and status post thoracentesis and bilaterally removal of 400 mL on one side and other side of 900 mL. The patient is feeling much better today, not in acute distress, off Lasix since yesterday. Denies any chest pain or palpitation. Denies any fever or cough. No abdominal pain. No nausea, vomiting, or diarrhea. The patient still complains of anasarca. PHYSICAL EXAMINATION: VITAL SIGNS: As follows: Blood pressure this morning 177/89, pulse 107, respirations 20, saturation 97%, and temperature is 98.1. GENERAL: Ms. Magdaleno is a 47-year-old obese middle-aged female, well built, well nourished, not in distress. HEENT: Pupils are normal and reactive to accommodation. Conjunctivae pink. Sclerae anicteric. Tongue is moist. Trachea is midline. LUNGS: Symmetric on both sides. Bilateral breath sounds present. Bilateral basilar crackles present. CARDIOVASCULAR SYSTEM: [place] at the fifth intercostal space, midclavicular line. S1 and S2 audible. No murmur or gallop. ABDOMEN: Normal in appearance, protuberance, soft, tympanitic. No guarding. No rigidity. The patient has a large right-sided pelvic mass. CENTRAL NERVOUS SYSTEM: The patient is alert, awake, and oriented x3. Nonfocal neurologic examination. Cranial nerves II through XII are grossly intact. Sensory and motor system is within normal limits. EXTREMITIES: No cyanosis, no clubbing. The patient has 3+ edema in both upper and lower extremities and also edema of the abdominal wall and sacral edema. CURRENT MEDICATIONS: Include as follows: Colace 100 mg p.o. b.i.d., DuoNeb inhaler, Lasix 120 mg IV push stat and also we will start Lasix drip 10 mg per hour, subcu heparin 5000 units every 12 hours, Humulin R per sliding scale, K-Dur 20 mEq p.o. b.i.d., Levemir 36 units subcu at bedtime, Mycelex Nila 10 mg five times a day, Neurontin 300 mg p.o. t.i.d,, NicoDerm patch, amlodipine 5 mg p.o. daily, Phenergan DM 10 mL p.o. every 6 hours, dimethicone (Proshield Plus Skin Protectant) one application topical every 8 hours, Protonix 40 mg daily, Pulmicort 0.5 mg inhaler b.i.d., Singulair 10 mg daily, and Tylenol 650 mg p.o. every 6 hours p.r.n. LABORATORY DATA: Include as follows: As of 04/23/2018: WBC 6.1, hemoglobin 9.6, hematocrit is 29.4, platelets 177. Sodium 134, potassium 3.5, chloride 104, CO2 of 31, BUN 44, creatinine 1.5, glucose 81, calcium 7.4. Intake and output as of 04/23/2018, 24 hours intake is 640 mL and output is 1950 mL. ASSESSMENT: In summary, Mrs. Magdaleno is a 47-year-old female with hypertension, diabetes, hyperlipidemia, nephrotic-range proteinuria with pelvic mass who was admitted with cough, shortness of breath, anasarca, and increase blood urea nitrogen and creatinine. 1. Acute renal failure, most likely secondary to acute tubular necrosis secondary to sepsis and pneumonia. 2. Uncontrolled hypertension. 3. Uncontrolled diabetes. 4. Anasarca. 5. Pneumonia. 6. Right pelvic mass, dermoid. PLAN: We will give Lasix 120 mg IV push this morning and then start Lasix drip again 10 mg per hour for another 24 to 48 hours. Continue albumin three times a day of 25 mg 50% and also K-Dur 20 mEq p.o. b.i.d. Continue to monitor electrolytes. We will follow with you. Thank you for allowing me to participate in your outpatient's care. Mago Espinal MD [facility] # [id number]
[2018-04-24] MEDS: Albuterol-Ipratrop 3 mg / 0.5 (3 ml) UD INH SCH ×6 (05:18→23:40)
[2018-04-24 05:45] LABS: HEMOGLOBIN 10.4 g/dL (12.0-16.0); MEAN CORPUSCULAR HEMOGLOBIN 30.2 pg (27.0-31.0); MEAN CORPUSCULAR HGB CONC 33.2 g/dL (33.0-37.0); RBC 3.46 Mil/uL (3.80-5.20); RED CELL DISTRIBUTION WIDTH 14.4 % (11.5-14.5); WHITE BLOOD COUNT 8.1 K/uL (4.8-10.8)
[2018-04-24 05:54] LABS: CALCIUM 7.9 mg/dL (8.4-10.2)
[2018-04-24] MEDS: Furosemide 100 MG in Sodium Chloride 0.9% 100 ML IV SCH (07:39)
[2018-04-24] MEDS: Budesonide 0.25 mg/2 ml Inhal Susp UD INH SCH ×2 (08:10→19:50)
[2018-04-24] MEDS: Insulin Regular 100 units/ml SC SCH ×4 (08:23→21:54)
[2018-04-24] MEDS: Potassium Chloride 20 mEq ER Tab PO SCH (08:24)
[2018-04-24] MEDS: Nasal Spray(Ocean spray) NAS PRN ×2 (08:25→20:12)
[2018-04-24] MEDS: Pantoprazole 40 mg EC Tab PO SCH (08:25)
[2018-04-24] MEDS: Insulin Detemir 100 Units/ml Inj SC SCH (21:54)
[2018-04-24] MEDS ORDERED: Promethazine DM 12.5 mg-30 mg/10 ml Syrup PO PRN (23:15)
--- NOTE | 2018-04-24 23:31 | CP.PCM.PN ---
Subjective - Date & Time of Evaluation Date of Evaluation: 04/24/18 Time of Evaluation: 09:30 - Subjective Subjective: Pt was seen and assessed, currently sitting in bedside chair. AAOx3. Appears comfortable, with no dyspnea noted. Anasarca is still present, primarily in the BLE abdomen. Currently on Lasix drip. Pt reports breathing better and states th at swelling has gone down in the past few days. Objective - Vital Signs/Intake and Output Vital Signs (last 24 hours): Temp Pulse Resp BP Pulse Ox 98.2 F 104 H 20 168/94 H 96 04/24/18 20:45 04/24/18 20:45 04/24/18 20:45 04/24/18 20:45 04/24/18 20:45 Intake and Output: 04/24/18 04/25/18 18:59 06:59 Intake Total 300 10 Output Total 1600 Balance -1300 10 - Medications Medications: Current Medications Acetaminophen (Tylenol 325mg Tab) 650 mg PO Q6 PRN PRN Reason: Pain, ALL(1-10) Last Admin: 04/24/18 20:14 Dose: 650 mg Albuterol/Ipratropium (Duoneb 3 Mg/0.5 Mg (3 Ml) Ud) 3 ml INH RQ4 [facility] Last Admin: 04/24/18 19:52 Dose: 3 ml Amlodipine Besylate (Norvasc) 5 mg PO DAILY [facility] Last Admin: 04/24/18 08:24 Dose: 5 mg Budesonide (Pulmicort Respules) 0.5 mg INH RBID [facility] Last Admin: 04/24/18 19:50 Dose: 0.5 mg Clotrimazole (Mycelex Nila) 10 mg MT 5XD [facility] Last Admin: 04/24/18 20:12 Dose: 10 mg Dimethicone (Proshield Plus Skin Protectant) 1 applic TOP Q8 PRN PRN Reason: Rash Last Admin: 04/22/18 12:15 Dose: 1 applic Docusate Sodium (Colace) 100 mg PO BID [facility] Last Admin: 04/24/18 08:22 Dose: 100 mg Gabapentin (Neurontin) 300 mg PO TID [facility] Last Admin: 04/24/18 16:39 Dose: 300 mg Heparin Sodium (Porcine) (Heparin) 5,000 units SC Q12 [facility]; Protocol Last Admin: 04/24/18 20:12 Dose: 5,000 units Furosemide 100 mg/ Sodium (Chloride) 100 mls @ 10 mls/hr IV .Q10H [facility]; Protocol Stop: 04/25/18 23:59 Last Admin: 04/24/18 07:39 Dose: 10 mls/hr Insulin Detemir (Levemir) 36 units SC HS [facility] Last Admin: 04/24/18 21:54 Dose: 36 units Insulin Human Regular (Humulin R) 0 units SC ACHS [facility]; Protocol Last Admin: 04/24/18 21:54 Dose: Not Given Montelukast Sodium (Singulair) 10 mg PO DAILY [facility] Last Admin: 04/24/18 08:25 Dose: 10 mg Nicotine (Nicoderm Cq) 1 patch TD DAILY [facility] Last Admin: 04/24/18 08:24 Dose: 1 patch Pantoprazole Sodium (Protonix Ec Tab) 40 mg PO DAILY [facility] Last Admin: 04/24/18 08:25 Dose: 40 mg Potassium Chloride (K-Dur 20 Meq Er Tab) 20 meq PO BID [facility] Last Admin: 04/24/18 08:24 Dose: 20 meq Promethazine HCl/Dextromethorphan (Phenergan Dm Syrup) 10 ml PO Q6 PRN PRN Reason: Cough Sodium Chloride ([place] Nasal [place]) 2 sprays CASH Q2H PRN PRN Reason: Nasal congestion Last Admin: 04/24/18 20:12 Dose: 2 spr - Labs Labs: 04/24/18 05:00 04/24/18 05:00 PT 9.7 Seconds (9.8-13.1) L 04/21/18 09:00 INR 0.9 04/21/18 09:00 - Constitutional Appears: Well - Head Exam Head Exam: NORMAL INSPECTION - Eye Exam Eye Exam: Normal appearance, PERRL - ENT Exam ENT Exam: Mucous Membranes Moist - Neck Exam Neck Exam: Full ROM - Respiratory Exam Respiratory Exam: Decreased Breath Sounds - Cardiovascular Exam Cardiovascular Exam: Tachycardia, REGULAR RHYTHM - GI/Abdominal Exam GI & Abdominal Exam: Distended - Extremities Exam Additional comments: bilateral lower extremities are edematous, skin taut. - Back Exam Back Exam: NORMAL INSPECTION - Neurological Exam Neurological Exam: Alert, Awake, Oriented x3 - Psychiatric Exam Psychiatric exam: Normal Affect, Normal Mood - Additional Findings Additional findings: At this time, the pt has generalized anasarca throughout the body, with edema primarily in the abdomen and lower extremities. Assessment and Plan - Assessment and Plan (Free Text) Plan: Assessment/Impression/Major problems now 1.) Acute Renal Failure/Respiratory Insufficiency/Anasarca -On Lasix drip, following recommendations of Nephrology. -Breathing better today, adequate oxygenation on 3L nasal cannula. BIPAP HS, h/o sleep apnea noted. -As per pt, BLE swelling has gone down. -Encourage ambulation; currently in bedside chair. -continue to monitor Renal function, stable for telemetry bed.
[2018-04-25] MEDS: Furosemide 100 MG in Sodium Chloride 0.9% 100 ML IV SCH (00:23)
[2018-04-25] MEDS: Albuterol-Ipratrop 3 mg / 0.5 (3 ml) UD INH SCH ×6 (04:56→23:55)
[2018-04-25] MEDS: Insulin Regular 100 units/ml SC SCH ×4 (06:47→21:57)
[2018-04-25] MEDS: Budesonide 0.25 mg/2 ml Inhal Susp UD INH SCH ×2 (07:37→19:20)
[2018-04-25] MEDS: Pantoprazole 40 mg EC Tab PO SCH (09:38)
[2018-04-25] MEDS: Potassium Chloride 20 mEq ER Tab PO SCH ×2 (09:38→16:47)
[2018-04-25] MEDS: Nasal Spray(Ocean spray) NAS PRN (09:41)
[2018-04-25 10:16] LABS: ABG ALLEN TEST YES; ARTERIAL BLOOD GAS HCO3 28.9 mmol/L (21-28); ARTERIAL BLOOD GAS HEMOGLOBIN 11.1 g/dL (11.7-17.4); ARTERIAL BLOOD GAS O2 CONTENT 13.5 ML/dL (15-23); ARTERIAL BLOOD GAS O2 SAT 90.2 % (95-98); ARTERIAL BLOOD GAS PCO2 46 mm/Hg (35-45); ARTERIAL BLOOD GAS PH 7.43 (7.35-7.45); ARTERIAL BLOOD GAS PO2 45 mm/Hg (80-100); ARTERIAL BLOOD GAS TCO2 31.9 mmol/L (22-28)
--- NOTE | 2018-04-25 10:23 | CP.PCM.PN ---
Subjective - Date & Time of Evaluation Date of Evaluation: 04/25/18 Time of Evaluation: 10:23 - Subjective Subjective: Patient feels a lot better. Has slight SOB Has less leg edema ABG's normal. Objective - Vital Signs/Intake and Output Vital Signs (last 24 hours): Temp Pulse Resp BP Pulse Ox 98 F 103 H 18 111/71 90 L 04/25/18 08:09 04/25/18 09:39 04/25/18 08:09 04/25/18 09:39 04/25/18 08:09 Intake and Output: 04/25/18 04/25/18 06:59 18:59 Intake Total 100 Output Total 1100 Balance -1000 - Medications Medications: Current Medications Acetaminophen (Tylenol 325mg Tab) 650 mg PO Q6 PRN PRN Reason: Pain, ALL(1-10) Last Admin: 04/24/18 20:14 Dose: 650 mg Albuterol/Ipratropium (Duoneb 3 Mg/0.5 Mg (3 Ml) Ud) 3 ml INH RQ4 [facility] Last Admin: 04/25/18 07:37 Dose: 3 ml Amlodipine Besylate (Norvasc) 5 mg PO DAILY [facility] Last Admin: 04/25/18 09:39 Dose: 5 mg Budesonide (Pulmicort Respules) 0.5 mg INH RBID [facility] Last Admin: 04/25/18 07:37 Dose: 0.5 mg Clotrimazole (Mycelex Nila) 10 mg MT 5XD [facility] Last Admin: 04/25/18 09:40 Dose: 10 mg Dimethicone (Proshield Plus Skin Protectant) 1 applic TOP Q8 PRN PRN Reason: Rash Last Admin: 04/22/18 12:15 Dose: 1 applic Docusate Sodium (Colace) 100 mg PO BID [facility] Last Admin: 04/25/18 09:41 Dose: 100 mg Gabapentin (Neurontin) 300 mg PO TID [facility] Last Admin: 04/25/18 09:40 Dose: 300 mg Heparin Sodium (Porcine) (Heparin) 5,000 units SC Q12 [facility]; Protocol Last Admin: 04/25/18 09:32 Dose: 5,000 units Furosemide 100 mg/ Sodium (Chloride) 100 mls @ 10 mls/hr IV .Q10H [facility]; Protocol Stop: 04/25/18 23:59 Last Admin: 04/25/18 00:23 Dose: 10 mls/hr Insulin Detemir (Levemir) 36 units SC HS [facility] Last Admin: 04/24/18 21:54 Dose: 36 units Insulin Human Regular (Humulin R) 0 units SC ACHS [facility]; Protocol Last Admin: 04/25/18 06:47 Dose: Not Given Lactic Acid (Lac-Hydrin 12% Lotion (225 G)) 1 applic TOP BID [facility] Last Admin: 04/25/18 09:35 Dose: 1 applic Montelukast Sodium (Singulair) 10 mg PO DAILY [facility] Last Admin: 04/25/18 09:38 Dose: 10 mg Nicotine (Nicoderm Cq) 1 patch TD DAILY [facility] Last Admin: 04/25/18 09:40 Dose: 1 patch Pantoprazole Sodium (Protonix Ec Tab) 40 mg PO DAILY [facility] Last Admin: 04/25/18 09:38 Dose: 40 mg Potassium Chloride (K-Dur 20 Meq Er Tab) 20 meq PO BID [facility] Last Admin: 04/25/18 09:38 Dose: 20 meq Promethazine HCl/Dextromethorphan (Phenergan Dm Syrup) 10 ml PO Q6 PRN PRN Reason: Cough Sodium Chloride ([place] Nasal [place]) 2 sprays CASH Q2H PRN PRN Reason: Nasal congestion Last Admin: 04/25/18 09:41 Dose: 1 spr - Labs Labs: 04/24/18 05:00 04/24/18 05:00 PT 9.7 Seconds (9.8-13.1) L 04/21/18 09:00 INR 0.9 04/21/18 09:00 - Head Exam Head Exam: NORMAL INSPECTION - Eye Exam Eye Exam: Normal appearance - ENT Exam ENT Exam: Mucous Membranes Moist - Respiratory Exam Respiratory Exam: Decreased Breath Sounds - GI/Abdominal Exam GI & Abdominal Exam: Normal Bowel Sounds - Neurological Exam Neurological Exam: Awake, Oriented x3 Assessment and Plan (1) CHF (congestive heart failure) Status: Acute (2) Diabetes mellitus type 2 in obese Status: Chronic (3) HTN (hypertension) Status: Acute (4) Pleural effusion Status: Acute - Assessment and Plan (Free Text) Plan: Cont meds Cont tx Fluid restriction cont Lasix
[2018-04-25 14:49] LABS: CALCIUM 7.9 mg/dL (8.4-10.2)
[2018-04-25] MEDS: guaiFENesin-DM 600-30 mg ER Tab PO SCH (16:47)
--- NOTE | 2018-04-25 21:03 | CP.PCM.PN ---
Subjective - Date & Time of Evaluation Date of Evaluation: 04/25/18 Time of Evaluation: 16:25 - Subjective Subjective: pt is seen and examined, follow up brit diaz is dictated #[id number] Objective - Vital Signs/Intake and Output Vital Signs (last 24 hours): Temp Pulse Resp BP Pulse Ox 98.2 F 106 H 20 161/91 H 97 04/25/18 20:04 04/25/18 20:04 04/25/18 20:04 04/25/18 20:04 04/25/18 20:04 - Medications Medications: Current Medications Acetaminophen (Tylenol 325mg Tab) 650 mg PO Q6 PRN PRN Reason: Pain, ALL(1-10) Last Admin: 04/24/18 20:14 Dose: 650 mg Albuterol/Ipratropium (Duoneb 3 Mg/0.5 Mg (3 Ml) Ud) 3 ml INH RQ4 [facility] Last Admin: 04/25/18 19:20 Dose: 3 ml Amlodipine Besylate (Norvasc) 5 mg PO DAILY [facility] Last Admin: 04/25/18 09:39 Dose: 5 mg Budesonide (Pulmicort Respules) 0.5 mg INH RBID [facility] Last Admin: 04/25/18 19:20 Dose: 0.5 mg Clotrimazole (Mycelex Nila) 10 mg MT 5XD [facility] Last Admin: 04/25/18 16:47 Dose: 10 mg Dimethicone (Proshield Plus Skin Protectant) 1 applic TOP Q8 PRN PRN Reason: Rash Last Admin: 04/22/18 12:15 Dose: 1 applic Docusate Sodium (Colace) 100 mg PO BID [facility] Last Admin: 04/25/18 16:46 Dose: Not Given Furosemide (Lasix) 80 mg IVP BID [facility] Last Admin: 04/25/18 16:51 Dose: 80 mg Gabapentin (Neurontin) 300 mg PO TID [facility] Last Admin: 04/25/18 16:46 Dose: 300 mg Guaifenesin/Dextromethorphan (Mucinex-Dm 600-30 Mg) 1 tab PO BID [facility] Last Admin: 04/25/18 16:47 Dose: 1 tab Heparin Sodium (Porcine) (Heparin) 5,000 units SC Q12 [facility]; Protocol Last Admin: 04/25/18 09:32 Dose: 5,000 units Insulin Detemir (Levemir) 36 units SC [facility] Last Admin: 04/24/18 21:54 Dose: 36 units Insulin Human Regular (Humulin R) 0 units SC [facility]; Protocol Last Admin: 04/25/18 16:50 Dose: Not Given Lactic Acid (Lac-Hydrin 12% Lotion (225 G)) 1 applic TOP BID [facility] Last Admin: 04/25/18 16:47 Dose: 1 applic Montelukast Sodium (Singulair) 10 mg PO DAILY [facility] Last Admin: 04/25/18 09:38 Dose: 10 mg Nicotine (Nicoderm Cq) 1 patch TD DAILY [facility] Last Admin: 04/25/18 09:40 Dose: 1 patch Pantoprazole Sodium (Protonix Ec Tab) 40 mg PO DAILY [facility] Last Admin: 04/25/18 09:38 Dose: 40 mg Potassium Chloride (K-Dur 20 Meq Er Tab) 20 meq PO BID [facility] Last Admin: 04/25/18 16:47 Dose: 20 meq Sodium Chloride ([place] Nasal [place]) 2 sprays CASH Q2H PRN PRN Reason: Nasal congestion Last Admin: 04/25/18 09:41 Dose: 1 spr - Labs Labs: 04/24/18 05:00 04/25/18 13:57 PT 9.7 Seconds (9.8-13.1) L 04/21/18 09:00 INR 0.9 04/21/18 09:00
[2018-04-25] MEDS: Insulin Detemir 100 Units/ml Inj SC SCH (21:44)
--- NOTE | 2018-04-26 03:12 | PN ---
DATE: 04/25/2018 RENAL CONSULTATION LOCATION: Patient is located in room 401, bed 2. REQUESTING PHYSICIAN: Shay Dill MD REASON FOR FOLLOWUP: Acute renal failure. Nephrotic range of proteinuria and anasarca. SUBJECTIVE: Ms. 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 Patient is feeling much better with IV Lasix. Patient has good diuresis, feeling less short of breath and leg swelling. Patient is still markedly fluid overloaded and no chest pain or palpitation. No fever. No cough. No abdominal pain. No nausea, vomiting or diarrhea. PHYSICAL EXAMINATION: VITAL SIGNS: Blood pressure this afternoon 150/82, pulse 68, respirations about 20, temperature 97.8, saturation 98%, height 5 feet, weight 207 pounds. GENERAL: Ms. Magdaleno is a 47-year-old middle-aged female well built, well nourished, not in distress. Obese. HEENT: Pupils normal and reactive to light and accommodation. Conjunctivae pink. Sclerae anicteric. Tongue is moist. Trachea is midline. LUNGS: Significant on both sides. Bilateral breath sounds present. Clear to auscultation. CVS: [place] of the fifth intercostal space and midclavicular line. S1 and S2 audible. No murmur or gallops. ABDOMEN: Protuberant, soft, tympanitic. No guarding. No rigidity. Patient has a mass in the right pelvic area. No hepatosplenomegaly. LINEN CONTROLLER: Patient is alert, awake, and oriented x3. Nonfocal. Cranial nerves II to XII are intact. NEUROLOGIC: Motor exam is within normal limits. EXTREMITIES: No cyanosis. No clubbing. Patient has 3+ edema in both upper and lower extremities. CURRENT MEDICATIONS: Colace 100 mg p.o. b.i.d., DuoNeb inhaler, subcu heparin 5000 units every12 hours, K-Dur 20 mEq p.o. b.i.d., Lac-Hydrin lotion topical b.i.d., Lasix 40 b.i.d., will increase it to 80 mg b.i.d. this afternoon, Levemir 36 units subcu at bedtime, Mucinex 600 mg one tablet p.o. b.i.d., Mycelex Nila 10 mg five times a day, Neurontin 300 mg p.o. t.i.d., Nicotine patch, amlodipine 5 mg daily, Norvasc, Protonix 40 mg p.o. daily , Pulmicort 0.5 mg inhaler b.i.d., Singulair 10 mg daily, and Tylenol 650 mg p.o. every 6 hours. Intake and output in the last 24 hours, intake is 400 and output is 2700. LABORATORY DATA: As follows as of 04/25/2018, pH 7.43, pCO2 46, pO2 45 and saturation 90.2. FiO2 32%. Sodium 141, potassium 4.4, chloride 108, CO2 32, BUN 42, creatinine 1.5, CO2 32, glucose is 65 and calcium is 67.9. Pro-BNP 6680. ASSESSMENT: In summary, Mrs. Magdaleno is a 47-year-old middle-aged female with history of hypertension, diabetes, hyperlipidemia, diabetic retinopathy, status post laser treatment, nephrotic range of proteinuria with anasarca and dermoid cyst in the pelvis. 1. Uncontrolled hypertension. 2. Uncontrolled diabetes. 3. Anasarca. 4. Acute renal failure most likely secondary to acute tubular necrosis, secondary to pneumonia and sepsis. 5. Anasarca and nephrotic range of proteinuria most likely secondary to diabetic nephropathy. Cannot rule out underlying chronic glomerulonephritis less likely. PLAN: Continue all her current medications. Amlodipine 5 mg daily and titrate as needed. Consider add hydralazine to keep the systolic blood pressure less than 120, 130 and continue Lasix 80 mg IV b.i.d. and titrate as needed. Restrict fluids 1 L per day. We will follow with you. Thank you for allowing me to participate in our patient's care. Overall prognosis is guarded. Mago Espinal MD [facility] # [phone]
[2018-04-26] MEDS: Albuterol-Ipratrop 3 mg / 0.5 (3 ml) UD INH SCH ×5 (05:09→18:59)
[2018-04-26] MEDS: Budesonide 0.25 mg/2 ml Inhal Susp UD INH SCH ×2 (08:06→18:59)
[2018-04-26] MEDS: Insulin Regular 100 units/ml SC SCH ×4 (09:48→21:45)
[2018-04-26] MEDS: Proshield Plus GEL TOP PRN ×2 (10:12→17:30)
[2018-04-26] MEDS: guaiFENesin-DM 600-30 mg ER Tab PO SCH ×2 (10:13→17:29)
[2018-04-26] MEDS: Potassium Chloride 20 mEq ER Tab PO SCH ×2 (10:15→17:29)
[2018-04-26] MEDS: Pantoprazole 40 mg EC Tab PO SCH (10:16)
[2018-04-26] MEDS ORDERED: Dextrose 50% SYRINGE Inj (50 ml) ONE (10:51)
[2018-04-26] MEDS ORDERED: Dextrose 50% SYRINGE Inj (50 ml) IVP ONE (10:55)
[2018-04-26] MEDS ORDERED: Glucagon Recombinant 1 mg Inj IM PRN (11:29)
[2018-04-26] MEDS ORDERED: Dextrose 50% SYRINGE Inj (50 ml) IV PRN (11:29)
[2018-04-26 11:40] LABS: CALCIUM 7.5 mg/dL (8.4-10.2)
[2018-04-26] MEDS ORDERED: Insulin Detemir 100 Units/ml Inj SC SCH (22:00)
[2018-04-27] MEDS: Albuterol-Ipratrop 3 mg / 0.5 (3 ml) UD INH SCH ×4 (00:01→11:59)
--- NOTE | 2018-04-27 00:43 | CP.PCM.PN ---
Subjective - Date & Time of Evaluation Date of Evaluation: 04/26/18 Time of Evaluation: 18:00 - Subjective Subjective: patient feels a lot better Noted hypoglycemia On high dose lasix and Levemir Objective - Vital Signs/Intake and Output Vital Signs (last 24 hours): Temp Pulse Resp BP Pulse Ox 99.0 F 108 H 20 172/94 H 97 04/26/18 20:29 04/26/18 21:00 04/26/18 20:29 04/26/18 20:29 04/26/18 20:29 - Medications Medications: Current Medications Acetaminophen (Tylenol 325mg Tab) 650 mg PO Q6 PRN PRN Reason: Pain, ALL(1-10) Last Admin: 04/25/18 21:06 Dose: 650 mg Albuterol/Ipratropium (Duoneb 3 Mg/0.5 Mg (3 Ml) Ud) 3 ml INH RQ4 [facility] Last Admin: 04/27/18 00:01 Dose: 3 ml Amlodipine Besylate (Norvasc) 5 mg PO DAILY [facility] Last Admin: 04/26/18 10:16 Dose: 5 mg Budesonide (Pulmicort Respules) 0.5 mg INH RBID [facility] Last Admin: 04/26/18 18:59 Dose: 0.5 mg Clotrimazole (Mycelex Nila) 10 mg MT 5XD [facility] Last Admin: 04/26/18 21:40 Dose: 10 mg Dextrose (Dextrose 50% Inj) 0 ml IV STAT PRN; Protocol PRN Reason: Hypoglycemia Protocol Dextrose (Glutose 15) 0 gm PO ONCE PRN; Protocol PRN Reason: Hypoglycemia Protocol Dimethicone (Proshield Plus Skin Protectant) 1 applic TOP Q8 PRN PRN Reason: Rash Last Admin: 04/26/18 17:30 Dose: 1 applic Docusate Sodium (Colace) 100 mg PO BID [facility] Last Admin: 04/26/18 17:30 Dose: Not Given Furosemide (Lasix) 80 mg IVP BID [facility] Last Admin: 04/26/18 17:29 Dose: 80 mg Gabapentin (Neurontin) 300 mg PO TID [facility] Last Admin: 04/26/18 17:29 Dose: 300 mg Glucagon (Glucagen Diagnostic Kit) 0 mg IM STAT PRN; Protocol PRN Reason: Hypoglycemia Protocol Guaifenesin/Dextromethorphan (Mucinex-Dm 600-30 Mg) 1 tab PO BID [facility] Last Admin: 04/26/18 17:29 Dose: 1 tab Heparin Sodium (Porcine) (Heparin) 5,000 units SC Q12 [facility]; Protocol Last Admin: 04/26/18 21:39 Dose: 5,000 units Insulin Detemir (Levemir) 20 units SC HS [facility] Last Admin: 04/26/18 21:40 Dose: 20 units Insulin Human Regular (Humulin R) 0 units SC ACHS [facility]; Protocol Last Admin: 04/26/18 21:45 Dose: Not Given Lactic Acid (Lac-Hydrin 12% Lotion (225 G)) 1 applic TOP BID [facility] Last Admin: 04/26/18 17:30 Dose: 1 applic Montelukast Sodium (Singulair) 10 mg PO DAILY [facility] Last Admin: 04/26/18 10:17 Dose: 10 mg Nicotine (Nicoderm Cq) 1 patch TD DAILY [facility] Last Admin: 04/26/18 10:16 Dose: 1 patch Pantoprazole Sodium (Protonix Ec Tab) 40 mg PO DAILY [facility] Last Admin: 04/26/18 10:16 Dose: 40 mg Potassium Chloride (K-Dur 20 Meq Er Tab) 20 meq PO BID [facility] Last Admin: 04/26/18 17:29 Dose: 20 meq Sodium Chloride ([place] Nasal [place]) 2 sprays CASH Q2H PRN PRN Reason: Nasal congestion Last Admin: 04/25/18 09:41 Dose: 1 spr - Labs Labs: 04/24/18 05:00 04/26/18 11:00 PT 9.7 Seconds (9.8-13.1) L 04/21/18 09:00 INR 0.9 04/21/18 09:00 - Head Exam Head Exam: NORMAL INSPECTION - Eye Exam Eye Exam: Normal appearance - ENT Exam ENT Exam: Mucous Membranes Moist - Respiratory Exam Respiratory Exam: Clear to Ausculation Bilateral - Cardiovascular Exam Cardiovascular Exam: REGULAR RHYTHM - GI/Abdominal Exam GI & Abdominal Exam: Normal Bowel Sounds - Neurological Exam Neurological Exam: Awake Assessment and Plan (1) CHF (congestive heart failure) Status: Acute (2) Diabetes mellitus type 2 in obese Status: Chronic (3) HTN (hypertension) Status: Acute (4) Pleural effusion Status: Acute (5) Anasarca Status: Acute - Assessment and Plan (Free Text) Plan: Cont meds ' decrease Levemir decrease Lasic to 60 mg daily start januvia 50 mg daily and metformin 50 bid
[2018-04-27 04:32] VITALS: RESP 20
[2018-04-27] MEDS: Budesonide 0.25 mg/2 ml Inhal Susp UD INH SCH (07:23)
[2018-04-27] MEDS: Insulin Regular 100 units/ml SC SCH ×2 (08:07→11:40)
[2018-04-27] MEDS: Potassium Chloride 20 mEq ER Tab PO SCH (10:02)
[2018-04-27] MEDS: Pantoprazole 40 mg EC Tab PO SCH (10:03)
[2018-04-27] MEDS: guaiFENesin-DM 600-30 mg ER Tab PO SCH (10:08)
--- NOTE | 2018-04-27 11:46 | IP.NPCORE ---
Heart Failure Core Measure ELIZA Inhibitor Prescribed: No - Follow up Will be discharged to: Home Follow Up Date (must be within 7 days from discharge): 05/04/18 (Dr Diaz )
[2018-04-27 12:03] VITALS: BP 164/92; PULSE 108; TEMP 98; O2SAT 96
[2018-04-27 12:04] LABS: CALCIUM 7.7 mg/dL (8.4-10.2)
--- NOTE | 2018-04-29 12:31 | PQF ---
PROVIDER RESPONSE TEXT: Provider was unable to determine a response for this query. REVIEWER QUERY TEXT: Conflicting Documentation Clarification Documentation of CHF exacerbation and no CHF exacerbation. Please clarify if the CHF is an acute exac erbation along with the type: Systolic, Diastolic, Both, other please specify. Pro BNP:11,800. Currently on Lasix drip. A single mention or documentation of multiple diagnoses for the same clinical presentation appears in the record. Please clarify the diagnosis/diagnoses. Please also document if the condition is: -- Confirmed and current -- Confirmed, treated and resolved -- Ruled out -- Other, please specify The patient's Clinical Indicators include: ER: CHF Exacerbation. 04/17 Cardiology: CHF exacerbation 04/18 ICU: CHF exacerbation 04/18 Cardiology: The patient does NOT HAVE CHF 04/18 Pulmonary : Asthma exacerbation, CHF component ECHO: The estimated ejection fraction is 55-60% Transmitral Doppler flow pattern is Grade I-abnormal relaxation pattern.The left atrium size is normal.There is moderate mitral valve regurgitation noted.There is mo derate tricuspid valve regurgitation noted. RVSP is calculated at 40 mm Hg. Query created by: Colette Addison on 04/21/2018 9:15 AM Electronically signed by: Rk Dill 04/29/2018 10:46 AM
--- NOTE | 2018-04-29 12:31 | PQF ---
PROVIDER RESPONSE TEXT: Provider was unable to determine a response for this query. REVIEWER QUERY TEXT: Asthma Specificity and Type Asthma exacerbation is documented in the Medical Record. Please specify the type . Such as: -- Mild intermittent -- Mild persistent -- Moderate persistent -- Severe persistent -- Exercise induced bronchospasm -- Cough variant asthma -- Other, please specify The patient's Clinical Indicators include: Admitted with SOB and swelling of the arms and legs. CXR:Large right lower lobe infiltrate/right pleural effusion. Rx: Zithromax, solumedrol, pulmicort,, Phenergan, Lasix IV BID, duonebs, bipap Query created by: Coltete Addison on 04/21/2018 9:22 AM Electronically signed by: Rk Dill 04/29/2018 10:46 AM
--- NOTE | 2018-04-29 12:31 | PQF ---
PROVIDER RESPONSE TEXT: Bacterial pneumonia, unknown organism REVIEWER QUERY TEXT: Pneumonia Specificity CAP Pneumonia is documented in the Medical Record. CAP represent the method of acquisition and not th e specific type of pneumonia. Please specify the type of pneumonia and the causative organism (includ es probable or suspected) if known Such as: Type: -- Aspiration pneumonia (please also specify the aspirate) -- Bacterial (please document suspected or probable organism) -- Bronchopneumonia (please document suspected or probable organism) -- Interstitial pneumonia -- Viral -- Other, please specify The patient's Clinical Indicators include: Admitted with SOB. CXR: Large right lower lobe infiltrate/right pleural effusion. CT:Large bilateral pleural effusions resulting in compressive atelectasis both lower lobes. Unrelated subsegmental infiltrates in both upper lobes. Profound edema/anasarca Rx: Zithromax, Solumedrol, Duonebs, Bipap Query created by: Colette Addison on 04/22/2018 9:23 AM Electronically signed by: Rk Dill 04/29/2018 10:46 AM
== END 2018-04-27 15:27 | disposition home or self-care (01) | DRG 541 ==
LOC: H.ER 12:53 → UNDOADMIN 15:56 → H.ERHOLD 15:56 → H.ICU/CCU 20:30 → H.TEL 04-24 20:44
PROVIDERS: ADMIT Family Medicine; ATTEND Family Medicine
PROC: 5A09457 Assistance with Respiratory Ventilation, 24-96 Consecutive Hours, Continuous Positive Airway Pressure (ICD-10-PCS; 2018-04-18)
PROC: 3E02340 Introduction of Influenza Vaccine into Muscle, Percutaneous Approach (ICD-10-PCS; 2018-04-19)
PROC: 0W9B3ZX Drainage of Left Pleural Cavity, Percutaneous Approach, Diagnostic (ICD-10-PCS; principal; 2018-04-20)
PROC: 0W993ZX Drainage of Right Pleural Cavity, Percutaneous Approach, Diagnostic (ICD-10-PCS; 2018-04-20)
PROC: 02HV33Z Insertion of Infusion Device into Superior Vena Cava, Percutaneous Approach (ICD-10-PCS; 2018-04-20)
PROC: B518ZZA Fluoroscopy of Superior Vena Cava, Guidance (ICD-10-PCS; 2018-04-20)
PROC: B548ZZA Ultrasonography of Superior Vena Cava, Guidance (ICD-10-PCS; 2018-04-20)
PROC: 3E04329 Introduction of Other Anti-infective into Central Vein, Percutaneous Approach (ICD-10-PCS; 2018-04-20)
DX: J15.9 Unspecified bacterial pneumonia (principal); J96.01 Acute respiratory failure with hypoxia; N17.0 Acute kidney failure with tubular necrosis; I50.23 Acute on chronic systolic (congestive) heart failure; I21.4 Non-ST elevation (NSTEMI) myocardial infarction; J91.8 Pleural effusion in other conditions classified elsewhere; E87.6 Hypokalemia; I13.0 Hypertensive heart and chronic kidney disease with heart failure and stage 1 through stage 4 chronic kidney disease, or unspecified chronic kidney disease; N18.4 Chronic kidney disease, stage 4 (severe); E11.22 Type 2 diabetes mellitus with diabetic chronic kidney disease; E11.21 Type 2 diabetes mellitus with diabetic nephropathy; E11.40 Type 2 diabetes mellitus with diabetic neuropathy, unspecified; E11.319 Type 2 diabetes mellitus with unspecified diabetic retinopathy without macular edema; M32.9 Systemic lupus erythematosus, unspecified; I08.1 Rheumatic disorders of both mitral and tricuspid valves; E11.65 Type 2 diabetes mellitus with hyperglycemia; J45.901 Unspecified asthma with (acute) exacerbation; F32.9 Major depressive disorder, single episode, unspecified; E78.5 Hyperlipidemia, unspecified; G89.29 Other chronic pain; E66.9 Obesity, unspecified; Z68.37 Body mass index [BMI] 37.0-37.9, adult; D64.9 Anemia, unspecified; Z23 Encounter for immunization; Z91.14 Patient's other noncompliance with medication regimen; Z91.11 Patient's noncompliance with dietary regimen; F17.200 Nicotine dependence, unspecified, uncomplicated; Z79.4 Long term (current) use of insulin; Z86.19 Personal history of other infectious and parasitic diseases

== ENCOUNTER 2018-05-07 07:00 | Inpatient (IN) | payer MEDICAID ==
--- NOTE | 2018-05-07 07:32 | ED PDOC ---
Hyperglycemia/Hypoglycemia Time Seen by Provider: 05/07/18 07:07 Chief Complaint (Provider): low blood sugar History Per: Patient History/Exam Limitations: no limitations Onset/Duration Of Symptoms: Hrs Causative (Exacerbating) Factor(s): Missed A Meal : The patient does not have any of the infectious symptoms listed except for those marked. Treatment Prior To Provider Evaluation: Glucagon Given Response To Treatment: Good Response Additional Complaint(s): Sofi Magdaleno is a 47 year old female, with a past medical history of IDDM, who was brought to the emergency department by EMS after patient was found to have low blood sugar of 45 mg/dL at home. Per EMS, patient was given oral Glucagon and became more awake and responsive. Patient states she took insulin this morning but did not eat breakfast. Unknown fall or injuries, she denies any chest pain, headache or focal weakness. No further medical complaints. PMD: Barbra Bingham Past Medical History Reviewed: Historical Data, Nursing Documentation, Vital Signs - Medical History PMH: Asthma, CHF, Diabetes, Fractures (RIGHT FOOT), Gall Bladder Disease, Hepatitis (C), HTN, Pancreatitis Denies: Chronic Kidney Disease - Surgical History Surgical History: Cholecystectomy, Endoscopy - Family History Family History: States: Unknown Family Hx - Immunization History Hx Tetanus Toxoid Vaccination: No Hx Influenza Vaccination: Yes Hx Pneumococcal Vaccination: Yes - Home Medications Home Medications: Ambulatory Orders Medication Instructions Recorded Pantoprazole Sodium [Protonix] 40 mg PO DAILY #30 ect 07/12/17 Albuterol Sulfate [Ventolin Hfa] 2 puff IH Q6 PRN 04/17/18 Furosemide [Lasix] 80 mg PO DAILY 04/17/18 Gabapentin [Neurontin] 1,600 mg PO Q8 04/17/18 Insulin Glargine,Hum.rec.anlog 36 units SC HS 04/17/18 [Basaglar Kwikpen U-100] Promethazine DM [Phenergan DM 10 ml PO Q6 PRN 04/17/18 Syrup] Albuterol/Ipratropium [Duoneb 3 3 ml INH RQ4 #90 neb 04/27/18 mg/0.5 mg (3 ml) UD] Montelukast [Singulair] 10 mg PO DAILY #30 tab 04/27/18 Nicotine 21 mg/24 hr [Nicoderm Cq] 1 patch TD DAILY #30 patch 04/27/18 Ibuprofen [Motrin Tab] 800 mg PO Q8 PRN 05/07/18 Insulin Degludec/Liraglutide 20 unit SC QAM 05/07/18 [Xultophy 100 Unit-3.6MG/ml Pen] amLODIPine [Norvasc] 10 mg PO DAILY 05/07/18 - Allergies Allergies/Adverse Reactions: Allergies Allergy/AdvReac Type Severity Reaction Status Date / Time hydromorphone [From Dilaudid] Allergy SHORTNESS Verified 05/07/18 07:42 OF BREATH Review of Systems ROS Statement: Except As Marked, All Systems Reviewed And Found Negative Cardiovascular: Negative for: Chest Pain Neurological: Negative for: Weakness (focal), Headache Physical Exam - Reviewed Nursing Documentation Reviewed: Yes Vital Signs Reviewed: Yes - Physical Exam Appears: Positive for: No Acute Distress Head Exam: Positive for: ATRAUMATIC, NORMAL INSPECTION, NORMOCEPHALIC Skin: Positive for: Normal Color, Warm, Dry Eye Exam: Positive for: Normal appearance, EOMI, PERRL ENT: Positive for: Normal ENT Inspection Neck: Positive for: Normal, Painless ROM, Supple Cardiovascular/Chest: Positive for: Regular Rate, Rhythm. Negative for: Murmur Respiratory: Positive for: Normal Breath Sounds. Negative for: Respiratory Distress Gastrointestinal/Abdominal: Positive for: Normal Exam, Soft. Negative for: Tenderness, Guarding, Rebound Back: Positive for: Normal Inspection. Negative for: L CVA Tenderness, R CVA Tenderness, Vertebral Tenderness Extremity: Positive for: Normal ROM (upper and lower extremities). 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 Negative for: Motor/Sensory Deficits, Aphasia, Facial Droop - Laboratory Results Result Diagrams: 05/07/18 08:46 05/07/18 08:46 Medical Decision Making Medical Decision Making: Time: 07:07 Initial Impression: Hypoglycemia possibly related to insulin administration with no oral intake. However, will r/o syncope and sepsis. Obtain CT and blood work. Initial Plan: --VBG Shock Panel --Head w/o contrast [CT] --EKG --CMP --Troponin I --Urine --Urine dipstick --CBC w/ differential --Chest Portable [RAD] --Dextrose 5%/0.45%NS 1,000 ml IV 100 mls/hr --Blood culture --Reevaluation 08:22 CXR reveals left sided pleural effusion as well as haziness to right lower lobe, unable to determine if right sided haziness is due to infiltrate. Will treat as such with IV antibiotics. 08:32 Unable to establish prophylaxis. Right external jugular access and will use for administration of medicine and blood. 08:[address] FINDINGS: HEMORRHAGE: No intracranial hemorrhage. BRAIN: No mass effect or edema. Mild scattered white matter hypodensities, which are nonspecific, but often seen with chronic microvascular ischemic disease. Please note that MRI with diffusion imaging is more sensitive in the detection of acute ischemic event. VENTRICLES: No hydrocephalus. CALVARIUM: Unremarkable. PARANASAL SINUSES: Unremarkable as visualized. No significant inflammatory changes. MASTOID AIR CELLS: Fluid within the left greater than right mastoid air cells. OTHER FINDINGS: None. IMPRESSION: Mild nonspecific white matter changes. Fluid within the left greater than right mastoid air cells. Correlate clinically for mastoiditis. 08:37 CXR FINDINGS: Examination limited by habitus. LUNGS: Moderate bilateral pleural effusions and associated consolidations. Central vascular congestion. Mild venous congestion. Please note that chest x-ray has limited sensitivity for the detection of pulmonary masses. CARDIOVASCULAR: Partially imaged cardiac silhouette appears top normal in size. No significant atherosclerotic calcification present. OSSEOUS STRUCTURES: No acute osseous abnormality identified. VISUALIZED UPPER ABDOMEN: Unremarkable. OTHER FINDINGS: None. IMPRESSION: Moderate bilateral pleural effusions and associated consolidations. Central vascular congestion. Mild venous congestion. Scribe Attestation: Documented by Han Bueno, acting as a scribe for Akshat Ospina MD Provider Scribe Attestation: All medical record entries made by the Scribe were at my direction and personally dictated by me. I have reviewed the chart and agree that the record accurately reflects my personal performance of the history, physical exam, medical decision making, and the department course for this patient. I have also personally directed, reviewed, and agree with the discharge instructions and disposition. Disposition - Clinical Impression Clinical Impression: Pleural effusion, right, Pneumonia, Sepsis, Hypoglycemia - Patient ED Disposition Is Patient to be Admitted: Yes - Disposition Disposition Time: 10:00 Condition: FAIR - Pt Status Changed To: Hospital Disposition Of: Inpatient - Admit Certification Admit to Inpatient:: After my assessment, the patient will require hospitalization for at least two midnights. This is because of the severity of symptoms shown, intensity of services needed, and/or the medical risk in this patient being treated as an outpatient. - POA Present On Arrival: None
[2018-05-07] MEDS ORDERED: Piperacillin/Tazobact 3.375 GM in Sodium Chloride 0.9% 100 ML IVPB STA (08:22)
[2018-05-07] MEDS ORDERED: Piperacillin/Tazobact 3.375 gm Inj IVPB ONE (08:27)
--- NOTE | 2018-05-07 08:38 | CT ---
Date of service: 05/07/2018 PROCEDURE: CT HEAD WITHOUT CONTRAST. HISTORY: r/o bleed COMPARISON: None available. TECHNIQUE: Axial computed tomography images were obtained through the head/brain without intravenous contrast. Radiation dose: Total exam DLP = 818.09 mGy-cm. This CT exam was performed using one or more of the following dose reduction techniques: Automated exposure control, adjustment of the mA and/or kV according to patient size, and/or use of iterative reconstruction technique. FINDINGS: HEMORRHAGE: No intracranial hemorrhage. BRAIN: No mass effect or edema. Mild scattered white matter hypodensities, which are nonspecific, but often seen with chronic microvascular ischemic disease. Please note that MRI with diffusion imaging is more sensitive in the detection of acute ischemic event. VENTRICLES: No hydrocephalus. CALVARIUM: Unremarkable. PARANASAL SINUSES: Unremarkable as visualized. No significant inflammatory changes. MASTOID AIR CELLS: Fluid within the left greater than right mastoid air cells. OTHER FINDINGS: None. IMPRESSION: Mild nonspecific white matter changes. Fluid within the left greater than right mastoid air cells. Correlate clinically for mastoiditis.
--- NOTE | 2018-05-07 08:40 | RAD ---
HISTORY: cough COMPARISON: Chest x-ray performed 04/20/18 TECHNIQUE: Chest, one view. FINDINGS: Examination limited by habitus. LUNGS: Moderate bilateral pleural effusions and associated consolidations. Central vascular congestion. Mild venous congestion. Please note that chest x-ray has limited sensitivity for the detection of pulmonary masses. CARDIOVASCULAR: Partially imaged cardiac silhouette appears top normal in size. No significant atherosclerotic calcification present. OSSEOUS STRUCTURES: No acute osseous abnormality identified. VISUALIZED UPPER ABDOMEN: Unremarkable. OTHER FINDINGS: None. IMPRESSION: Moderate bilateral pleural effusions and associated consolidations. Central vascular congestion. Mild venous congestion.
[2018-05-07] MEDS: Dextrose 5%/0.45% NS 1,000 ML IV SCH ×2 (08:44→18:55)
[2018-05-07 09:02] LABS: VENOUS BLOOD GAS BASE EXCESS -5.5 mmol/L (0.0-2.0); VENOUS BLOOD GAS PCO2 54 mmHg (40-60); VENOUS BLOOD GAS PO2 35 mm/Hg (30-55); VENOUS BLOOD PH 7.23 (7.32-7.43)
[2018-05-07 09:26] LABS: BASO # 0.1 K/uL (0.0-0.2); BASO % 0.6 % (0.0-2.0); EOS % 0.1 % (0.0-4.0); HEMOGLOBIN 10.8 g/dL (12.0-16.0); LYMPH # 0.6 K/uL (1.0-4.3); LYMPH % 6.1 % (20.0-40.0); MEAN CELL VOLUME 94.9 fl (81.0-99.0); MEAN CORPUSCULAR HEMOGLOBIN 29.8 pg (27.0-31.0); MEAN CORPUSCULAR HGB CONC 31.4 g/dL (33.0-37.0); MEAN PLATELET VOLUME 8.5 fl (7.2-11.7); MONO # 0.3 K/uL (0.0-0.8); MONO % 2.5 % (0.0-10.0); NEUT # 9.2 K/uL (1.8-7.0); NEUT % 90.7 % (50.0-75.0); NRBC % 0.1 % (0.0-0.0); PLATELET COUNT 266 K/uL (130-400); RBC 3.62 Mil/uL (3.80-5.20); RED CELL DISTRIBUTION WIDTH 15.9 % (11.5-14.5); WHITE BLOOD COUNT 10.2 K/uL (4.8-10.8)
[2018-05-07 09:42] LABS: ALB/GLOB RATIO 0.8 (1.0-2.1); ALBUMIN 2.5 g/dL (3.5-5.0); ALT/SGPT 22 U/L (9-52); AST/SGOT 32 U/L (14-36); BLOOD UREA NITROGEN 45 mg/dl (7-17); CALCIUM 8.2 mg/dL (8.4-10.2); GFR NON-AFRICAN AMERICAN 27
[2018-05-07] MEDS ORDERED: Vancomycin 1 g Inj ONE (10:00)
[2018-05-07 10:17] LABS: LYMPHOCYTE 8 % (20-50); MONOCYTE 4 % (0-10); NEUTROPHIL 88 % (42-75); TOTAL CELLS COUNTED 100
[2018-05-07 10:18] LABS: ANISOCYTOSIS SLIGHT; HYPOCHROMIC SLIGHT; PLATELET ESTIMATE NORMAL (NORMAL)
[2018-05-07 10:19] LABS: PLATELET CLUMPS PRESENT
[2018-05-07] MEDS ORDERED: Dextrose 50% SYRINGE Inj (50 ml) IVP ONE (11:22)
[2018-05-07] MEDS ORDERED: Dextrose 50% SYRINGE Inj (50 ml) ONE (11:25)
--- NOTE | 2018-05-07 13:47 | CARD ---
APPROVED REPORT Date of service: 05/07/2018 EKG Measurement Heart [id number] <Conclusion> Normal sinus rhythm Low voltage QRS Borderline ECG
[2018-05-08] MEDS ORDERED: Promethazine DM 6.25 mg-15 mg/5 ml Syrup PO PRN (00:01)
[2018-05-08] MEDS ORDERED: Promethazine DM 12.5 mg-30 mg/10 ml Syrup PO PRN (00:30)
[2018-05-08] MEDS: Dextrose 5%/0.45% NS 1,000 ML IV SCH (06:02)
[2018-05-08 06:48] LABS: HEMOGLOBIN 8.7 g/dL (12.0-16.0); MEAN CORPUSCULAR HEMOGLOBIN 30.1 pg (27.0-31.0); MEAN CORPUSCULAR HGB CONC 32.4 g/dL (33.0-37.0); RBC 2.9 Mil/uL (3.80-5.20); RED CELL DISTRIBUTION WIDTH 15.7 % (11.5-14.5); WHITE BLOOD COUNT 6.7 K/uL (4.8-10.8)
[2018-05-08 07:18] LABS: ALB/GLOB RATIO 0.7 (1.0-2.1); ALT/SGPT 19 U/L (9-52); AST/SGOT 25 U/L (14-36); BLOOD UREA NITROGEN 45 mg/dl (7-17); CALCIUM 7.5 mg/dL (8.4-10.2); GFR NON-AFRICAN AMERICAN 24
[2018-05-08] MEDS ORDERED: Albuterol-Ipratrop 3 mg / 0.5 (3 ml) UD ONE (08:25)
[2018-05-08] MEDS: Albuterol-Ipratrop 3 mg / 0.5 (3 ml) UD INH PRN ×3 (08:27→19:58)
[2018-05-08] MEDS: Pantoprazole 40 mg EC Tab PO SCH (09:04)
--- NOTE | 2018-05-08 14:07 | CP.PCM.CON ---
History of Present Illness - History of Present Illness History of Present Illness: 47 year old female, with a past medical history of IDDM, who was brought to the emergency department by EMS after patient was found to have low blood sugar of 45 mg/dL at home. Referred for ID eval of pneumonia- started on empiric IV antibiotics - Medical History PMH: Asthma, CHF, Diabetes, Fractures (RIGHT FOOT), Gall Bladder Disease, Hepatitis (C), HTN, Pancreatitis Denies: Chronic Kidney Disease Review of Systems - Review of Systems All systems: reviewed and no additional remarkable complaints except - Constitutional Constitutional: As Per HPI, Anorexia, Chills, Fever, Malaise - EENT Eyes: absent: As Per HPI, Blind Spots, Blurred Vision, Change in Vision, Decreased Night Vision, Diplopia, Discharge, Dry Eye, Exophthalmos, Floaters, Irritation, Itchy Eyes, Loss of Peripheral Vision, Pain, Photophobia, Requires Corrective Lenses, Sees Flashes, Spots in Vision, Tunnel Vision, Other Visual Disturbances, Loss of Vision, Other Ears: absent: As Per HPI, Decreased Hearing, Ear Discharge, Ear Pain, Tinnitus, Abnormal Hearing, Disequilibrium, Dizziness, Other Nose/Mouth/Throat: absent: As Per HPI, Epistaxis, Nasal Congestion, Nasal Discharge, Nasal Obstruction, Nasal Trauma, Nose Pain, Post Nasal Drip, Sinus Pain, Sinus Pressure, Bleeding Gums, Change in Voice, Dental Pain, Dry Mouth, Dysphagia, Halitosis, Hoarsness, Lip Swelling, Mouth Lesions, Mouth Pain, Odynophagia, Sore Throat, Throat Swelling, Tongue Swelling, Facial Pain, Neck Pain, Neck Mass, Other - Breasts Breasts: absent: As Per HPI, Change in Shape, Mass, Pain, Nipple Discharge, Nipple Inversion, Skin Changes, Swelling, Other - Cardiovascular Cardiovascular: absent: As Per HPI, Acrocyanosis, Chest Pain, Chest Pain at Rest, Chest Pain with Activity, Claudication, Diaphoresis, Dyspnea, Dyspnea on Exertion, Edema, Irregular Heart Rhythm, Pain Radiating to Arm/Neck/Jaw, Leg Edema, Leg Ulcers, Lightheadedness, Orthopnea, Palpitations, Paroxysmal Nocturnal Dyspnea, Pedal Edema, Radiating Pain, Rapid Heart Rate, Slow Heart Rate, Syncope, Other - Respiratory Respiratory: As Per HPI, Cough, Dyspnea. absent: Hemoptysis - Gastrointestinal Gastrointestinal: absent: As Per HPI, Abdominal Pain, Belching, Bloating, Change in Bowel Habits, Change in Stool Character, Coffee Ground Emesis, Constipation, Cramping, Diarrhea, Dyspepsia, Dysphagia, Early Satiety, Excessive Flatus, Fecal Incontinence, Heartburn, Hematemesis, Hematochezia, Loose Stools, Melena, Na usea, Odynophagia, Temesmus, Vomiting, Other - Genitourinary Genitourinary: absent: As Per HPI, Change in Urinary Stream, Difficulty Urinating, Dysuria, Flank Pain, Hematuria, Pyuria, Nocturia, Urinary Incontinence, Urinary Frequency, Urinary Hesitance, Urinary Urgency, Voiding Freq/Small Amts, Freq UTI, Hx Renal/Bladder Calculi, Hx /Renal Surgery, Bladder Distension, Other - Reproductive: Female Reproductive:Female: absent: As Per HPI, Amenorrhea, Amenorrhea/ Control, Currently Menstual, Cycle <21 Days, Cycle >35 Days, Cycle Variable, Menses 1-7 Days, Menses >/= 8 Days, Menses Variable, Cycle > 4 Weeks Between, No Menses for 6 Months, Heavy Menses, Light Menses, Normal Menses, Spotting Between Cycles, S/P Hysterectomy, Menopausal, Post Menopausal, Premenarche, Abnormal Vaginal Bleeding, Dysmenorrhea, Dyspareunia, Genital Lesions, Genital Pruritis, Pelvic Pain, Prolapse Symptoms, Sexual Dysfunction, Vaginal Discharge, Vaginal Dryness, Vaginal Odor, Vaginal Pruritis, Other - Menstruation Menstruation: absent: As Per HPI, Amenorrhea, Amenorrhea/ Control, Cu rrently Menstual, Cycle <21 Days, Cycle >35 Days, Cycle Variable, Menses 1-7 Days, Menses >/= 8 Days, Menses Variable, Cycle > 4 Weeks Between, No Menses for 6 Months, Heavy Menses, Light Menses, Normal Menses, Spotting Between Cycles, S/P Hysterectomy, Menopausal, Post Menopausal, Premenarche, Abnormal Vaginal Bleeding, Dysmenorrhea, Other - Musculoskeletal Musculoskeletal: absent: As Per HPI, Abnormal Gait, Arthralgias, Atrophy, Back Pain, Deformity, Joint Swelling, Limited Range of Motion, Loss of Height, Muscle Cramps, Muscle Weakness, Myalgias, Neck Pain, Numbness, Radiating Pain into Limb, Stiffness, Tingling, Other - Integumentary Integumentary: absent: As Per HPI, Acne, Alopecia, Bleeding Lesions, Change in Hair, Change in Nails, Change in Pigmentation, Changing Lesions, Dry Skin, Erythema, Furuncle, Hirsutism, Lesions, New Lesions, Non-Healing Lesions, Photosensitivity, Pruritus, Rash, Skin Pain, Skin Ulcer, Sores, Striae, Swelling, Unusual Bruising, Wounds, Jaundice, Other - Neurological Neurological: absent: As Per HPI, Abnormal Gait, Abnormal Hearing, Abnormal Movements, Abnormal Speech, Behavioral Changes, Burning Sensations, Confusion, Convulsions, Disequilibrium, Dizziness, Numbness, Focal Weakness, Frequent Falls, Headaches, Lack of Coordination, Loss of Vision, Memory Loss, Paresthesias, Radicular Pain, Restless Legs, Sensory Deficit, Syncope, Tingling, Tremor, Vertigo, Weakness, Other Visual Disturbances, Other - Psychiatric Psychiatric: absent: As Per HPI, Abnormal Sleep Pattern, Anhedonia, Anxiety, Auditory Hallucinations, Behavioral Changes, Change in Appetite, Change in Libido, Confusion, Depression, Difficulty Concentrating, Hallucinations, Homicidal Ideation, Hopelessness, Irritability, Memory Loss, Mood Swings, Panic Attacks, Paranoia, Suicidal Ideation, Visual Hallucinations, Tactile Bradley lucinations, Other - Endocrine Endocrine: absent: As Per HPI, Change in Body Appearance, Change in Libido, Cold Intolorance, Deepening of Voice, Excessive Sweating, Fatigue, Flushing, Heat Intolorance, Increase in Ring/Shoe/Hat Size, Palpitations, Polydipsia, P olyphagia, Polyuria, Other - Hematologic/Lymphatic Hematologic: absent: As Per HPI, Easy Bleeding, Easy Bruising, Lymphadenopathy, Other Past Patient History - Past Medical History & Family History Past Medical History?: Yes - Past Social History Smoking Status: Former Smoker - CARDIAC Hx Cardiac Disorders: Yes Hx Congestive Heart Failure: Yes Hx Hypertension: Yes - PULMONARY Hx Respiratory Disorders: Yes Hx Asthma: Yes - NEUROLOGICAL Hx Neurological Disorder: Yes (NEURPOATHTY) - HEENT Hx HEENT Problems: Yes (HX RETINA BLEEDING) - RENAL Hx Chronic Kidney Disease: No - ENDOCRINE/METABOLIC Hx Endocrine Disorders: Yes Hx Diabetes Mellitus Type 1: Yes Hx Systemic Lupus Erythematosus: Yes - HEMATOLOGICAL/ONCOLOGICAL Hx Blood Disorders: No Hx AIDS: No Hx Human Immunodeficiency Virus (HIV): No - INTEGUMENTARY Hx Dermatological Problems: Yes (SLIGHT JAUNDICE) - MUSCULOSKELETAL/RHEUMATOLOGICAL Hx Musculoskeletal Disorders: Yes Hx Falls: Yes - GASTROINTESTINAL Hx Gastrointestinal Disorders: Yes Hx Gall Bladder Disease: Yes Hx Pancreatitis: Yes - GENITOURINARY/GYNECOLOGICAL Hx Genitourinary Disorders: No - PSYCHIATRIC Hx Psychophysiologic Disorder: No Hx Substance Use: No - SURGICAL HISTORY Hx Surgeries: Yes Hx Cholecystectomy: Yes Other/Comment: Fibroid cyst removal - ANESTHESIA Hx Anesthesia: Yes Hx Anesthesia Reactions: No Hx Malignant Hyperthermia: No Meds Allergies/Adverse Reactions: Allergies Allergy/AdvReac Type Severity Reaction Status Date / Time hydromorphone [From Dilaudid] Allergy SHORTNESS Verified 05/07/18 07:42 OF BREATH - Medications Medications: Current Medications Albuterol/Ipratropium (Duoneb 3 Mg/0.5 Mg (3 Ml) Ud) 3 ml INH RQ4 PRN PRN Reason: Shortness of Breath Last Admin: 05/08/18 13:27 Dose: 3 ml Amlodipine Besylate (Norvasc) 10 mg PO DAILY [facility] Last Admin: 05/08/18 09:04 Dose: 10 mg Furosemide (Lasix) 80 mg PO DAILY [facility] Last Admin: 05/08/18 09:03 Dose: 80 mg Vancomycin HCl 1 gm/ Sodium (Chloride) 250 mls @ 166.667 mls/hr IVPB DAILY [facility]; Protocol Last Admin: 05/08/18 10:15 Dose: 166.667 mls/hr Piperacillin Sod/Tazobactam (Sod 2.25 gm/ Sodium Chloride) 100 mls @ 100 mls/hr IVPB Q8 [facility]; Protocol Last Admin: 05/08/18 09:06 Dose: 100 mls/hr Montelukast Sodium (Singulair) 10 mg PO DAILY [facility] Last Admin: 05/08/18 09:04 Dose: 10 mg Nicotine (Nicoderm Cq) 1 patch TD DAILY [facility] Last Admin: 05/08/18 09:03 Dose: 1 patch Pantoprazole Sodium (Protonix Ec Tab) 40 mg PO DAILY [facility] Last Admin: 05/08/18 09:04 Dose: 40 mg Promethazine HCl/Dextromethorphan (Phenergan Dm Syrup) 10 ml PO Q6 PRN PRN Reason: Cough Physical Exam - Constitutional Appears: Non-toxic, No Acute Distress, Chronically Ill - Head Exam Head Exam: ATRAUMATIC, NORMAL INSPECTION, NORMOCEPHALIC - Eye Exam Eye Exam: PERRL. absent: Scleral icterus - ENT Exam ENT Exam: Mucous Membranes Dry, Normal External Ear Exam. absent: Normal Oropharynx - Neck Exam Neck exam: Negative for: Lymphadenopathy, Thyromegaly - Respiratory Exam Respiratory Exam: Decreased Breath Sounds, Prolonged Expiratory Phase, Rales, Rhonchi - Cardiovascular Exam Cardiovascular Exam: REGULAR RHYTHM, +S1, +S2 - GI/Abdominal Exam GI & Abdominal Exam: Diminished Bowel Sounds, Soft. absent: Tenderness - Rectal Exam Rectal Exam: Deferred - Exam Exam: NORMAL INSPECTION - Extremities Exam Extremities exam: Positive for: pedal edema, pedal pulses present. Negative for : calf tenderness, tenderness - Back Exam Back exam: absent: CVA tenderness (L), CVA tenderness (R) - Neurological Exam Neurological exam: Alert, CN II-XII Intact, Oriented x3, Reflexes Normal - Psychiatric Exam Psychiatric exam: Depressed - Skin Skin Exam: Dry Results - Vital Signs Recent Vital Signs: Last Vital Signs Temp 98.2 F 05/08/18 12:24 Pulse 106 H 05/08/18 13:00 Resp 21 05/08/18 13:00 BP 138/79 05/08/18 13:00 Pulse Ox 95 05/08/18 13:00 - Labs Result Diagrams: 05/08/18 06:24 05/08/18 06:24 Labs: Laboratory Results - last 24 hr 05/07/18 05/07/18 05/07/18 11:45 12:18 16:56 WBC RBC Hgb Hct MCV MCH MCHC RDW Plt Count Sodium Potassium Chloride Carbon Dioxide Anion Gap BUN Creatinine Est GFR ( Amer) Est GFR (Non-Af Amer) POC Glucose (mg/dL) 88 76 Random Glucose Calcium Total Bilirubin AST ALT Alkaline Phosphatase Total Protein Albumin Globulin Albumin/Globulin Ratio Procalcitonin 2.02 H 05/07/18 05/08/18 05/08/18 20:54 06:14 06:24 WBC 6.7 RBC 2.90 L Hgb 8.7 L D Hct 26.9 L MCV 93.0 MCH 30.1 MCHC 32.4 L RDW 15.7 H Plt Count 218 Sodium Potassium Chloride Carbon Dioxide Anion Gap BUN Creatinine Est GFR ( Amer) Est GFR (Non-Af Amer) POC Glucose (mg/dL) 80 55 L Random Glucose Calcium Total Bilirubin AST ALT Alkaline Phosphatase Total Protein Albumin Globulin Albumin/Globulin Ratio Procalcitonin 05/08/18 05/08/18 05/08/18 06:24 06:54 11:22 WBC RBC Hgb Hct MCV MCH MCHC RDW Plt Count Sodium 135 Potassium 5.1 H Chloride 108 H Carbon Dioxide 24 Anion Gap 8 L BUN 45 H Creatinine 2.2 H Est GFR ( Amer) 29 Est GFR (Non-Af Amer) 24 POC Glucose (mg/dL) 64 L 96 Random Glucose 53 L Calcium 7.5 L Total Bilirubin < 0.1 L AST 25 ALT 19 Alkaline Phosphatase 55 Total Protein 4.7 L Albumin 2.0 L Globulin 2.7 Albumin/Globulin Ratio 0.7 L Procalcitonin Assessment & Plan (1) Hypoglycemia Status: Acute (2) Pleural effusion, right Status: Acute (3) Pneumonia Status: Acute (4) Sepsis Status: Acute Priority: High (5) ARF (acute renal failure) Status: Acute Priority: High (6) Anasarca Status: Acute (7) Anemia Status: Acute (8) CAP (community acquired pneumonia) Status: Acute Priority: High (9) CHF (congestive heart failure) Status: Acute (10) CHF exacerbation Status: Acute Priority: High - Assessment and Plan (Free Text) Assessment: discussed on rounds with Dr Dill await cultures cont IV antibiotics'check Vanco levels
[2018-05-08] MEDS ORDERED: Sodium Chloride 3% for Inhalation 4 ML VIAL.NEB IH PRN (18:18)
--- NOTE | 2018-05-08 22:14 | CP.PCM.HP ---
History of Present Illness - History of Present Illness History of Present Illness: 47 yo female with PMHx of DM brought to ED via EMS due to hypoglycemia. Patient stated took insulin in the morning but did not ear breakfast. Patient was evaluated by ED, noted to have pleural effusion and possible pneumonia. Patient was seen and examined at bedside. no complaints offered at this time feels better from ED. denies cp, sob, n/v/d/c meds: as per chart allergies: as per chart Present on Admission - Present on Admission Any Indicators Present on Admission: Yes History of Uncontrolled Diabetes: Yes Review of Systems - Review of Systems All systems: reviewed and no additional remarkable complaints except (mentioned above) Past Patient History - Past Medical History & Family History Past Medical History?: Yes Past Family History: Reviewed and not pertinent - Past Social History Smoking Status: Former Smoker - CARDIAC Hx Cardiac Disorders: Yes Hx Congestive Heart Failure: Yes Hx Hypertension: Yes - PULMONARY Hx Respiratory Disorders: Yes Hx Asthma: Yes - NEUROLOGICAL Hx Neurological Disorder: Yes (NEURPOATHTY) - HEENT Hx HEENT Problems: Yes (HX RETINA BLEEDING) - RENAL Hx Chronic Kidney Disease: No - ENDOCRINE/METABOLIC Hx Endocrine Disorders: Yes Hx Diabetes Mellitus Type 1: Yes Hx Systemic Lupus Erythematosus: Yes - HEMATOLOGICAL/ONCOLOGICAL Hx Blood Disorders: No Hx AIDS: No Hx Human Immunodeficiency Virus (HIV): No - INTEGUMENTARY Hx Dermatological Problems: Yes (SLIGHT JAUNDICE) - MUSCULOSKELETAL/RHEUMATOLOGICAL Hx Musculoskeletal Disorders: Yes Hx Falls: Yes - GASTROINTESTINAL Hx Gastrointestinal Disorders: Yes Hx Gall Bladder Disease: Yes Hx Pancreatitis: Yes - GENITOURINARY/GYNECOLOGICAL Hx Genitourinary Disorders: No - PSYCHIATRIC Hx Psychophysiologic Disorder: No Hx Substance Use: No - SURGICAL HISTORY Hx Surgeries: Yes Hx Cholecystectomy: Yes Other/Comment: Fibroid cyst removal - ANESTHESIA Hx Anesthesia: Yes Hx Anesthesia Reactions: No Hx Malignant Hyperthermia: No Meds Allergies/Adverse Reactions: Allergies Allergy/AdvReac Type Severity Reaction Status Date / Time hydromorphone [From Dilaudid] Allergy SHORTNESS Verified 05/07/18 07:42 OF BREATH Physical Exam - Constitutional Appears: Non-toxic, No Acute Distress - Head Exam Head Exam: NORMAL INSPECTION - Eye Exam Eye Exam: Normal appearance - Neck Exam Neck exam: Positive for: Normal Inspection - Respiratory Exam Respiratory Exam: Decreased Breath Sounds, Rhonchi - Cardiovascular Exam Cardiovascular Exam: +S1, +S2 - Extremities Exam Extremities exam: Positive for: pedal edema - Neurological Exam Neurological exam: Alert, Oriented x3 - Psychiatric Exam Psychiatric exam: Depressed - Skin Skin Exam: Normal Color, Warm Results - Vital Signs Recent Vital Signs: Last Vital Signs Temp 98.2 F 05/08/18 19:25 Pulse 101 H 05/08/18 19:36 Resp 16 05/08/18 19:25 BP 129/70 05/08/18 19:25 Pulse Ox 97 05/08/18 19:25 - Labs Result Diagrams: 05/09/18 06:15 05/09/18 06:15 Labs: Laboratory Results - last 24 hr 05/08/18 05/08/18 05/08/18 06:14 06:24 06:24 WBC 6.7 RBC 2.90 L Hgb 8.7 L D Hct 26.9 L MCV 93.0 MCH 30.1 MCHC 32.4 L RDW 15.7 H Plt Count 218 Sodium 135 Potassium 5.1 H Chloride 108 H Carbon Dioxide 24 Anion Gap 8 L BUN 45 H Creatinine 2.2 H Est GFR ( Amer) 29 Est GFR (Non-Af Amer) 24 POC Glucose (mg/dL) 55 L Random Glucose 53 L Calcium 7.5 L Total Bilirubin < 0.1 L AST 25 ALT 19 Alkaline Phosphatase 55 Total Protein 4.7 L Albumin 2.0 L Globulin 2.7 Albumin/Globulin Ratio 0.7 L 05/08/18 05/08/18 05/08/18 06:54 11:22 17:06 WBC RBC Hgb Hct MCV MCH MCHC RDW Plt Count Sodium Potassium Chloride Carbon Dioxide Anion Gap BUN Creatinine Est GFR ( Amer) Est GFR (Non-Af Amer) POC Glucose (mg/dL) 64 L 96 111 H Random Glucose Calcium Total Bilirubin AST ALT Alkaline Phosphatase Total Protein Albumin Globulin Albumin/Globulin Ratio 05/08/18 20:50 WBC RBC Hgb Hct MCV MCH MCHC RDW Plt Count Sodium Potassium Chloride Carbon Dioxide Anion Gap BUN Creatinine Est GFR ( Amer) Est GFR (Non-Af Amer) POC Glucose (mg/dL) 126 H Random Glucose Calcium Total Bilirubin AST ALT Alkaline Phosphatase Total Protein Albumin Globulin Albumin/Globulin Ratio Assessment & Plan (1) Hypoglycemia Status: Acute (2) Pneumonia Status: Acute (3) Sepsis Status: Acute (4) ARF (acute renal failure) Status: Acute (5) Pleural effusion Status: Acute (6) Diabetes mellitus Status: Chronic - Assessment and Plan (Free Text) Plan: available diagnostic data reviewed meds reconciled ID consulted pulm consulted cont IV abx monitor vitals monitor labs rest of plan as ordered
[2018-05-09] MEDS: Albuterol-Ipratrop 3 mg / 0.5 (3 ml) UD INH PRN ×6 (00:31→22:12)
[2018-05-09 07:20] LABS: BASO # 0.2 K/uL (0.0-0.2); BASO % 2.8 % (0.0-2.0); EOS # 0.1 K/uL (0.0-0.7); EOS % 2.4 % (0.0-4.0); HEMOGLOBIN 8.9 g/dL (12.0-16.0); LYMPH # 1.4 K/uL (1.0-4.3); LYMPH % 23.3 % (20.0-40.0); MEAN CELL VOLUME 95.6 fl (81.0-99.0); MEAN CORPUSCULAR HEMOGLOBIN 29.6 pg (27.0-31.0); MEAN CORPUSCULAR HGB CONC 30.9 g/dL (33.0-37.0); MEAN PLATELET VOLUME 8.2 fl (7.2-11.7); MONO # 0.6 K/uL (0.0-0.8); MONO % 9.7 % (0.0-10.0); NEUT # 3.6 K/uL (1.8-7.0); NEUT % 61.8 % (50.0-75.0); NRBC % 0.1 % (0.0-0.0); RED CELL DISTRIBUTION WIDTH 15.5 % (11.5-14.5); WHITE BLOOD COUNT 5.9 K/uL (4.8-10.8)
[2018-05-09 07:47] LABS: ALB/GLOB RATIO 0.8 (1.0-2.1); ALBUMIN 2.2 g/dL (3.5-5.0); ALT/SGPT 23 U/L (9-52); AST/SGOT 21 U/L (14-36); BLOOD UREA NITROGEN 45 mg/dl (7-17); CALCIUM 7.3 mg/dL (8.4-10.2); GFR NON-AFRICAN AMERICAN 25
[2018-05-09] MEDS: Pantoprazole 40 mg EC Tab PO SCH (10:31)
--- NOTE | 2018-05-09 14:07 | CP.PCM.PN ---
Subjective - Date & Time of Evaluation Date of Evaluation: 05/09/18 Time of Evaluation: 14:07 - Subjective Subjective: Patient feels very congested and SOB Probnp 3420 Ct Scan showed bilateral large effusions right more than left. Has no fever CBC is normal. Noted elevated FBS GFR around 25 from 40's few months ago. Objective - Vital Signs/Intake and Output Vital Signs (last 24 hours): Temp Pulse Resp BP Pulse Ox 97.8 F 105 H 18 132/70 94 L 05/09/18 12:52 05/09/18 12:52 05/09/18 12:52 05/09/18 12:52 05/09/18 12:52 Intake and Output: 05/09/18 05/09/18 06:59 18:59 Intake Total 300 Balance 300 - Medications Medications: Current Medications Albuterol/Ipratropium (Duoneb 3 Mg/0.5 Mg (3 Ml) Ud) 3 ml INH RQ4 PRN PRN Reason: Shortness of Breath Last Admin: 05/09/18 10:02 Dose: 3 ml Amlodipine Besylate (Norvasc) 10 mg PO DAILY [facility] Last Admin: 05/09/18 10:30 Dose: 10 mg Dimethicone (Proshield Plus Skin Protectant) 1 applic TOP Q8 PRN PRN Reason: Other Furosemide (Lasix) 40 mg IVP BID [facility] Last Admin: 05/09/18 10:43 Dose: 40 mg Gabapentin (Neurontin) 300 mg PO TID [facility] Last Admin: 05/09/18 09:30 Dose: 300 mg Vancomycin HCl 1 gm/ Sodium (Chloride) 250 mls @ 166.667 mls/hr IVPB DAILY [facility]; Protocol Last Admin: 05/09/18 10:33 Dose: 166.667 mls/hr Piperacillin Sod/Tazobactam (Sod 2.25 gm/ Sodium Chloride) 100 mls @ 100 mls/hr IVPB Q8 [facility]; Protocol Last Admin: 05/09/18 09:31 Dose: 100 mls/hr Montelukast Sodium (Singulair) 10 mg PO DAILY [facility] Last Admin: 05/08/18 09:04 Dose: 10 mg Nicotine (Nicoderm Cq) 1 patch TD DAILY [facility] Last Admin: 05/09/18 10:29 Dose: 1 patch Pantoprazole Sodium (Protonix Ec Tab) 40 mg PO DAILY [facility] Last Admin: 05/09/18 10:31 Dose: 40 mg Promethazine HCl/Dextromethorphan (Phenergan Dm Syrup) 10 ml PO Q6 PRN PRN Reason: Cough - Labs Labs: 05/09/18 06:15 05/09/18 06:15 - Head Exam Head Exam: NORMAL INSPECTION - Eye Exam Eye Exam: Normal appearance - ENT Exam ENT Exam: Mucous Membranes Moist - Respiratory Exam Respiratory Exam: Decreased Breath Sounds - Cardiovascular Exam Cardiovascular Exam: Tachycardia - GI/Abdominal Exam GI & Abdominal Exam: Normal Bowel Sounds - Extremities Exam Additional comments: bilateral upper and lower ext edema Assessment and Plan (1) Pleural effusion, bilateral Status: Acute (2) Diabetes mellitus type 2 in obese Status: Acute (3) Acute on chronic renal failure Status: Acute (4) Diastolic dysfunction with acute on chronic heart failure Status: Acute (5) HTN (hypertension) Status: Acute - Assessment and Plan (Free Text) Plan: Cont meds Diuretics flui restriction follow up with pulmonary and IR
--- NOTE | 2018-05-09 15:45 | CP.PCM.CON ---
History of Present Illness - History of Present Illness History of Present Illness: pt is seen and examined, full consult is dictated #[id number] 1.GUILHERME on ckd-3 2.massive proteinjuria , most likely sec to DM nephropathy can't r/o underlying ch Gn 2.anasarca 4.uncontrolled dm 5. HTN restrict fluids to 1 lit/day start iv lasix drip 10 mg/hr iv albumin 25 % 50 ml q 8 hrs will consider kidney bx if pt agrees Past Patient History - Past Medical History & Family History Past Medical History?: Yes - Past Social History Smoking Status: Former Smoker - CARDIAC Hx Cardiac Disorders: Yes Hx Congestive Heart Failure: Yes Hx Hypertension: Yes - PULMONARY Hx Respiratory Disorders: Yes Hx Asthma: Yes - NEUROLOGICAL Hx Neurological Disorder: Yes (NEURPOATHTY) - HEENT Hx HEENT Problems: Yes (HX RETINA BLEEDING) - RENAL Hx Chronic Kidney Disease: No - ENDOCRINE/METABOLIC Hx Endocrine Disorders: Yes Hx Diabetes Mellitus Type 1: Yes Hx Systemic Lupus Erythematosus: Yes - HEMATOLOGICAL/ONCOLOGICAL Hx Blood Disorders: No Hx AIDS: No Hx Human Immunodeficiency Virus (HIV): No - INTEGUMENTARY Hx Dermatological Problems: Yes (SLIGHT JAUNDICE) - MUSCULOSKELETAL/RHEUMATOLOGICAL Hx Musculoskeletal Disorders: Yes Hx Falls: Yes - GASTROINTESTINAL Hx Gastrointestinal Disorders: Yes Hx Gall Bladder Disease: Yes Hx Pancreatitis: Yes - GENITOURINARY/GYNECOLOGICAL Hx Genitourinary Disorders: No - PSYCHIATRIC Hx Psychophysiologic Disorder: No Hx Substance Use: No - SURGICAL HISTORY Hx Surgeries: Yes Hx Cholecystectomy: Yes Other/Comment: Fibroid cyst removal - ANESTHESIA Hx Anesthesia: Yes Hx Anesthesia Reactions: No Hx Malignant Hyperthermia: No Meds Allergies/Adverse Reactions: Allergies Allergy/AdvReac Type Severity Reaction Status Date / Time hydromorphone [From Dilaudid] Allergy SHORTNESS Verified 05/07/18 07:42 OF BREATH - Medications Medications: Current Medications Albumin Human (Albumin Human 25% (12.5 Gm/50 Ml)) 50 gm IV Q8 [facility] Stop: 05/12/18 17:01 Albuterol/Ipratropium (Duoneb 3 Mg/0.5 Mg (3 Ml) Ud) 3 ml INH RQ4 PRN PRN Reason: Shortness of Breath Last Admin: 05/09/18 14:32 Dose: 3 ml Amlodipine Besylate (Norvasc) 10 mg PO DAILY [facility] Last Admin: 05/09/18 10:30 Dose: 10 mg Dimethicone (Proshield Plus Skin Protectant) 1 applic TOP Q8 PRN PRN Reason: Other Gabapentin (Neurontin) 300 mg PO TID [facility] Last Admin: 05/09/18 09:30 Dose: 300 mg Vancomycin HCl 1 gm/ Sodium (Chloride) 250 mls @ 166.667 mls/hr IVPB DAILY [facility]; Protocol Last Admin: 05/09/18 10:33 Dose: 166.667 mls/hr Piperacillin Sod/Tazobactam (Sod 2.25 gm/ Sodium Chloride) 100 mls @ 100 mls/hr IVPB Q8 [facility]; Protocol Last Admin: 05/09/18 09:31 Dose: 100 mls/hr Furosemide 100 mg/ Sodium (Chloride) 100 mls @ 10 mls/hr IV .Q10H [facility]; Protocol Stop: 05/12/18 15:46 Montelukast Sodium (Singulair) 10 mg PO DAILY [facility] Last Admin: 05/08/18 09:04 Dose: 10 mg Nicotine (Nicoderm Cq) 1 patch TD DAILY [facility] Last Admin: 05/09/18 10:29 Dose: 1 patch Pantoprazole Sodium (Protonix Ec Tab) 40 mg PO DAILY [facility] Last Admin: 05/09/18 10:31 Dose: 40 mg Promethazine HCl/Dextromethorphan (Phenergan Dm Syrup) 10 ml PO Q6 PRN PRN Reason: Cough Results - Vital Signs Recent Vital Signs: Last Vital Signs Temp 97.9 F 05/09/18 15:43 Pulse 106 H 05/09/18 15:43 Resp 16 05/09/18 15:43 BP 135/81 05/09/18 15:43 Pulse Ox 95 05/09/18 15:43 - Labs Result Diagrams: 05/09/18 06:15 05/09/18 06:15 Labs: Laboratory Results - last 24 hr 05/08/18 05/08/18 05/09/18 17:06 20:50 05:21 WBC RBC Hgb Hct MCV MCH MCHC RDW Plt Count MPV Neut % (Auto) Lymph % (Auto) [place] % (Auto) Eos % (Auto) Baso % (Auto) Neut # (Auto) Lymph # (Auto) [place] # (Auto) Eos # (Auto) Baso # (Auto) Sodium Potassium Chloride Carbon Dioxide Anion Gap BUN Creatinine Est GFR ( Amer) Est GFR (Non-Af Amer) POC Glucose (mg/dL) 111 H 126 H 116 H Random Glucose Calcium Phosphorus Magnesium Total Bilirubin AST ALT Alkaline Phosphatase NT-Pro-B Natriuret Pep Total Protein Albumin Globulin Albumin/Globulin Ratio Vancomycin Trough 05/09/18 05/09/18 05/09/18 06:15 06:15 06:15 WBC 5.9 RBC 3.00 L Hgb 8.9 L Hct 28.7 L MCV 95.6 D MCH 29.6 MCHC 30.9 L RDW 15.5 H Plt Count 203 MPV 8.2 Neut % (Auto) 61.8 Lymph % (Auto) 23.3 [place] % (Auto) 9.7 Eos % (Auto) 2.4 Baso % (Auto) 2.8 H Neut # (Auto) 3.6 Lymph # (Auto) 1.4 [place] # (Auto) 0.6 Eos # (Auto) 0.1 Baso # (Auto) 0.2 Sodium 136 Potassium 4.8 Chloride 111 H Carbon Dioxide 21 L Anion Gap 9 L BUN 45 H Creatinine 2.1 H Est GFR ( Amer) 30 Est GFR (Non-Af Amer) 25 POC Glucose (mg/dL) Random Glucose 116 H Calcium 7.3 L Phosphorus 6.8 H Magnesium 2.1 Total Bilirubin < 0.1 L AST 21 ALT 23 Alkaline Phosphatase 57 NT-Pro-B Natriuret Pep Total Protein 4.9 L Albumin 2.2 L Globulin 2.7 Albumin/Globulin Ratio 0.8 L Vancomycin Trough 13.0 H 05/09/18 09:30 WBC RBC Hgb Hct MCV MCH MCHC RDW Plt Count MPV Neut % (Auto) Lymph % (Auto) [place] % (Auto) Eos % (Auto) Baso % (Auto) Neut # (Auto) Lymph # (Auto) [place] # (Auto) Eos # (Auto) Baso # (Auto) Sodium Potassium Chloride Carbon Dioxide Anion Gap BUN Creatinine Est GFR ( Amer) Est GFR (Non-Af Amer) POC Glucose (mg/dL) Random Glucose Calcium Phosphorus Magnesium Total Bilirubin AST ALT Alkaline Phosphatase NT-Pro-B Natriuret Pep 3420 H Total Protein Albumin Globulin Albumin/Globulin Ratio Vancomycin Trough
[2018-05-09] MEDS: Albumin Human 25% (12.5 gm/50 ml) IV SCH (16:54)
[2018-05-09] MEDS: Furosemide 100 MG in Sodium Chloride 0.9% 100 ML IV SCH (17:00)
[2018-05-09 17:11] VITALS: BMI 42.4
--- NOTE | 2018-05-09 18:03 | CT ---
Date of service: 05/09/2018 PROCEDURE: CT Chest without contrast HISTORY: As per MD order COMPARISON: None available. TECHNIQUE: Contiguous axial images were obtained through the chest without intravenous contrast enhancement. Sagittal and coronal reconstructions were performed. Radiation dose: Total exam DLP = 568.45 mGy-cm. This CT exam was performed using one or more of the following dose reduction techniques: Automated exposure control, adjustment of the mA and/or kV according to patient size, and/or use of iterative reconstruction technique. FINDINGS: LUNGS: Bibasilar consolidation likely due to atelectasis secondary to of large bilateral effusions (right greater than left). Mild pulmonary venous congestive changes are also felt to be present. MEDIASTINUM: Heart size within range of normal. There is a small pericardial effusion. Pulmonary artery unremarkable. No vascular congestion. No lymphadenopathy. No aortic atherosclerotic calcification. PLEURA: As above. No pneumothorax. BONES: Mild multilevel degenerative spondylosis of the thoracic spine UPPER ABDOMEN: Note made of pneumobilia likely related to prior cholecystectomy. Spleen appears mildly enlarged measuring nearly 14 cm in AP dimension. OTHER FINDINGS: Extensive and diffuse anasarca. IMPRESSION: Large bilateral effusions right greater than left with moderate bilateral lower lobe atelectasis. Pulmonary venous congestive changes are felt to be present. Small pericardial effusion. Diffuse and extensive anasarca. Splenomegaly.
--- NOTE | 2018-05-09 22:13 | CP.PCM.CON ---
History of Present Illness - History of Present Illness History of Present Illness: Bilateral Pleural Effusions: Recommend Bilateral Pigtail Insertion by IR Yeyo and send fluid for analysis Past Patient History - Past Medical History & Family History Past Medical History?: Yes Past Family History: Reviewed and not pertinent - Past Social History Smoking Status: Former Smoker - CARDIAC Hx Cardiac Disorders: Yes Hx Congestive Heart Failure: Yes Hx Hypertension: Yes - PULMONARY Hx Respiratory Disorders: Yes Hx Asthma: Yes - NEUROLOGICAL Hx Neurological Disorder: Yes (NEURPOATHTY) - HEENT Hx HEENT Problems: Yes (HX RETINA BLEEDING) - RENAL Hx Chronic Kidney Disease: No - ENDOCRINE/METABOLIC Hx Endocrine Disorders: Yes Hx Diabetes Mellitus Type 1: Yes Hx Systemic Lupus Erythematosus: Yes - HEMATOLOGICAL/ONCOLOGICAL Hx Blood Disorders: No Hx AIDS: No Hx Human Immunodeficiency Virus (HIV): No - INTEGUMENTARY Hx Dermatological Problems: Yes (SLIGHT JAUNDICE) - MUSCULOSKELETAL/RHEUMATOLOGICAL Hx Musculoskeletal Disorders: Yes Hx Falls: Yes - GASTROINTESTINAL Hx Gastrointestinal Disorders: Yes Hx Gall Bladder Disease: Yes Hx Pancreatitis: Yes - GENITOURINARY/GYNECOLOGICAL Hx Genitourinary Disorders: No - PSYCHIATRIC Hx Psychophysiologic Disorder: No Hx Substance Use: No - SURGICAL HISTORY Hx Surgeries: Yes Hx Cholecystectomy: Yes Other/Comment: Fibroid cyst removal - ANESTHESIA Hx Anesthesia: Yes Hx Anesthesia Reactions: No Hx Malignant Hyperthermia: No Meds Allergies/Adverse Reactions: Allergies Allergy/AdvReac Type Severity Reaction Status Date / Time hydromorphone [From Dilaudid] Allergy SHORTNESS Verified 05/07/18 07:42 OF BREATH - Medications Medications: Current Medications Albumin Human (Albumin Human 25% (12.5 Gm/50 Ml)) 12.5 gm IV Q8 [facility] Stop: 05/12/18 17:01 Last Admin: 05/09/18 16:54 Dose: 12.5 gm Albuterol/Ipratropium (Duoneb 3 Mg/0.5 Mg (3 Ml) Ud) 3 ml INH RQ4 PRN PRN Reason: Shortness of Breath Last Admin: 05/09/18 18:58 Dose: 3 ml Amlodipine Besylate (Norvasc) 10 mg PO DAILY [facility] Last Admin: 05/09/18 10:30 Dose: 10 mg Dimethicone (Proshield Plus Skin Protectant) 1 applic TOP Q8 PRN PRN Reason: Other Gabapentin (Neurontin) 300 mg PO TID [facility] Last Admin: 05/09/18 18:32 Dose: 300 mg Vancomycin HCl 1 gm/ Sodium (Chloride) 250 mls @ 166.667 mls/hr IVPB DAILY [facility]; Protocol Last Admin: 05/09/18 10:33 Dose: 166.667 mls/hr Piperacillin Sod/Tazobactam (Sod 2.25 gm/ Sodium Chloride) 100 mls @ 100 mls/hr IVPB Q8 [facility]; Protocol Last Admin: 05/09/18 16:49 Dose: 100 mls/hr Furosemide 100 mg/ Sodium (Chloride) 100 mls @ 10 mls/hr IV .Q10H [facility]; Protocol Stop: 05/12/18 15:46 Last Admin: 05/09/18 17:00 Dose: 10 mls/hr Montelukast Sodium (Singulair) 10 mg PO HS [facility] Last Admin: 05/09/18 21:05 Dose: 10 mg Nicotine (Nicoderm Cq) 1 patch TD DAILY [facility] Last Admin: 05/09/18 10:29 Dose: 1 patch Pantoprazole Sodium (Protonix Ec Tab) 40 mg PO DAILY [facility] Last Admin: 05/09/18 10:31 Dose: 40 mg Promethazine HCl/Dextromethorphan (Phenergan Dm Syrup) 10 ml PO Q6 PRN PRN Reason: Cough Last Admin: 05/09/18 18:32 Dose: 10 ml Results - Vital Signs Recent Vital Signs: Last Vital Signs Temp 97.9 F 05/09/18 19:59 Pulse 104 H 05/09/18 19:59 Resp 16 05/09/18 19:59 BP 143/85 05/09/18 19:59 Pulse Ox 95 05/09/18 19:59 - Labs Result Diagrams: 05/09/18 06:15 05/09/18 06:15 Labs: Laboratory Results - last 24 hr 05/09/18 05/09/18 05/09/18 05:21 06:15 06:15 WBC 5.9 RBC 3.00 L Hgb 8.9 L Hct 28.7 L MCV 95.6 D MCH 29.6 MCHC 30.9 L RDW 15.5 H Plt Count 203 MPV 8.2 Neut % (Auto) 61.8 Lymph % (Auto) 23.3 [place] % (Auto) 9.7 Eos % (Auto) 2.4 Baso % (Auto) 2.8 H Neut # (Auto) 3.6 Lymph # (Auto) 1.4 [place] # (Auto) 0.6 Eos # (Auto) 0.1 Baso # (Auto) 0.2 Sodium Potassium Chloride Carbon Dioxide Anion Gap BUN Creatinine Est GFR ( Amer) Est GFR (Non-Af Amer) POC Glucose (mg/dL) 116 H Random Glucose Calcium Phosphorus Magnesium Total Bilirubin AST ALT Alkaline Phosphatase NT-Pro-B Natriuret Pep Total Protein Albumin Globulin Albumin/Globulin Ratio Vancomycin Trough 13.0 H Ur L.pneumophila Ag 05/09/18 05/09/18 05/09/18 06:15 09:30 16:04 WBC RBC Hgb Hct MCV MCH MCHC RDW Plt Count MPV Neut % (Auto) Lymph % (Auto) [place] % (Auto) Eos % (Auto) Baso % (Auto) Neut # (Auto) Lymph # (Auto) [place] # (Auto) Eos # (Auto) Baso # (Auto) Sodium 136 Potassium 4.8 Chloride 111 H Carbon Dioxide 21 L Anion Gap 9 L BUN 45 H Creatinine 2.1 H Est GFR ( Amer) 30 Est GFR (Non-Af Amer) 25 POC Glucose (mg/dL) 129 H Random Glucose 116 H Calcium 7.3 L Phosphorus 6.8 H Magnesium 2.1 Total Bilirubin < 0.1 L AST 21 ALT 23 Alkaline Phosphatase 57 NT-Pro-B Natriuret Pep 3420 H Total Protein 4.9 L Albumin 2.2 L Globulin 2.7 Albumin/Globulin Ratio 0.8 L Vancomycin Trough Ur L.pneumophila Ag 05/09/18 05/09/18 16:52 21:27 WBC RBC Hgb Hct MCV MCH MCHC RDW Plt Count MPV Neut % (Auto) Lymph % (Auto) [place] % (Auto) Eos % (Auto) Baso % (Auto) Neut # (Auto) Lymph # (Auto) [place] # (Auto) Eos # (Auto) Baso # (Auto) Sodium Potassium Chloride Carbon Dioxide Anion Gap BUN Creatinine Est GFR ( Amer) Est GFR (Non-Af Amer) POC Glucose (mg/dL) 147 H Random Glucose Calcium Phosphorus Magnesium Total Bilirubin AST ALT Alkaline Phosphatase NT-Pro-B Natriuret Pep Total Protein Albumin Globulin Albumin/Globulin Ratio Vancomycin Trough Ur L.pneumophila Ag Negative
[2018-05-10] MEDS: Albumin Human 25% (12.5 gm/50 ml) IV SCH ×3 (00:46→16:43)
[2018-05-10] MEDS: Furosemide 100 MG in Sodium Chloride 0.9% 100 ML IV SCH ×2 (00:56→15:00)
[2018-05-10] MEDS: Albuterol-Ipratrop 3 mg / 0.5 (3 ml) UD INH PRN (02:40)
--- NOTE | 2018-05-10 07:32 | CON ---
DATE: 05/09/2018 LOCATION: The patient is located in room 410, bed 2. REQUESTED BY: Shay Dill MD REASON FOR CONSULTATION: Chronic kidney disease, nephrotic range proteinuria, edema, and hypertension for further evaluation. HISTORY OF PRESENT ILLNESS: Mrs. Magdaleno is a 47-year-old middle aged female with past medical history, significant with longstanding diabetes, hypertension, noncompliance of medication and follow up with nephrotic range of proteinuria, hyperlipidemia, diabetic retinopathy, and also questionable dermoid in the right pelvis, who was recently admitted to ICU with cough, shortness of breath, and anasarca status post thoracentesis, and also with vigorous diuresis with IV Lasix, was discharge home and now the patient was admitted back with chief complaint of symptomatic hypoglycemia with sugar of 145 mg/dL at home. As per the patient, the patient was given oral glucagon and became more awake and responsive. The patient claims that she is feeling very weak and monitoring her fluid intake. The patient took insulin on the day of admission and did not eat her breakfast, unknown fall or injuries. The patient denies any chest pain, any palpitation. Denies any headache, dizziness. Denies any focal weakness. Denies any nausea, vomiting, diarrhea. Denies any abdominal pain. The patient does complain of abdominal distention, swelling of the legs, anasarca, and also dyspnea on exertion and shortness of breath. PAST MEDICAL HISTORY: Significant for asthma, CHF, longstanding diabetes, hypertension, questionable pancreatitis, questionable hepatitis, also nephrotic range proteinuria, and dermoid on the right pelvis. PAST SURGICAL HISTORY: Endoscopy and also cholecystectomy. ALLERGIES: ALLERGIES TO HYDROMORPHONE. SOCIAL HISTORY: Denies smoking, alcohol, drugs at this time. IMMUNIZATION HISTORY: Influenza vaccine received, pneumococcal vaccine received. FAMILY HISTORY: Not significant. CURRENT MEDICATIONS: Include as follows: Albuterol with ipratropium which is DuoNeb inhaler 3 mL every 4 hours p.r.n., Neurontin 300 mg p.o. t.i.d., amlodipine 10 mg p.o. daily, Zosyn 2.25 g IV every 8 hours, PROSHIELD one application topical every 8 hours, Protonix 40 mg daily, Singulair 10 mg p.o. at bedtime, vancomycin 1 g daily, started on Lasix 10 mg per hour drip, and also albumin 25% 50 mL every 8 hours. REVIEW OF SYSTEMS: Significant for shortness of breath, symptomatic hypoglycemia, anasarca, and poor vision. All other review of systems are reviewed and are negative. PHYSICAL EXAMINATION: As follows: VITAL SIGNS: Blood pressure this afternoon 125/81, pulse 106, respirations 16, temperature 97.9, and saturation 95%. Height 5 feet 3 inches and weight is 239 pounds. GENERAL: Mrs. Magdaleno is a 47-year-old middle aged female with noncompliance, well built, well nourished, not in distress. HEENT: Pupils normal and reactive to light and accommodation. Conjunctivae pink. Sclerae anicteric. Poor vision. Tongue is moist. Trachea is midline. LUNGS: Symmetric on both sides. Bilateral breath sounds are present. Bilateral basal crackles present. CARDIOVASCULAR SYSTEM: [place] at the fifth intercostal space, midclavicular line. S1, S2 audible. No murmur and no gallop. ABDOMEN: Distended, soft. Pelvic slightly hard in consistency, no abdominal bruits. Bowel sounds present. No hepatosplenomegaly. CENTRAL NERVOUS SYSTEM: The patient is alert and awake. Oriented x3. Nonfocal neuro examination. Cranial nerves II through XII grossly intact. Sensory and motor system is within normal limits. EXTREMITIES: No cyanosis, no clubbing. The patient has 3+ edema in both upper and lower extremities and also edema of the abdominal wall and sacral edema present. LABORATORY DATA: Include as follows: As of 05/09/2018, WBC 5.9, hemoglobin 8.9, hematocrit is 28.7, and platelets 203. Sodium 136, potassium 4.8, chloride 111, CO2 of 21, BUN 45, creatinine 2.1, and GFR is 25 mL and glucose is 116. Calcium 7.3, phosphorous 6.8, magnesium 2.1. Total bili 0.1, AST 21, ALT 23, alkaline phosphatase 57. ProBNP 3420, total protein 4.9, albumin is 2.2. Vancomycin 13. Urine for Legionella antigen is negative. CT of the chest as of 05/08/2018, large bilateral effusion, right greater than the left with moderate bilateral lower lobe atelectasis, pulmonary venous congestion, two changes are referred to be present, small pericardial effusion, diffuse and extensive anasarca, splenomegaly, status post cholecystectomy. CT of the head as of 05/07/2018, impression, mild nonspecific white matter changes, fluid within the left greater than the right mastoid air cells correlate clinically for the mastoiditis. Chest x-ray as of 05/07/2018, on admission, moderate bilateral pleural effusions and associated consolidations, central vascular congestion in the mild venous congestion. Review of the labs from the previous admission; hepatitis A antibody IgM was negative as of 04/19/2018, hepatitis B surface antigen negative, core antibody is negative, hepatitis C antibody is reactive, hepatitis C PCR is less than 1.18, and hepatitis C RNA not detected. HIV antibody 1 and 2 was negative as of 07/10/2017. As of 09/18/2017, HEATHER profile positive, HEATHER 1:320, no homogeneous and C3 as of 04/19/2018 is 92 and C4 is 52.2, which is normal. As of 09/17/2017, Chris antibody was negative, [employer] was negative and double-stranded DNA was 2. Anti-mitochondrial antibody was negative as of 07/09/2017 and antismooth muscle antibody was also negative. Liver kidney microsomal antibodies are less than 20. Other reports, urine random protein 25.6 g for 1 g creatinine. Urinalysis, urine protein more than 500. Previous 24-hour urine protein was 6.4 g on 09/16/2017 with urine volume of 1125 and creatinine 1.09 g with creatinine clearance of 75 mL. Creatinine on 07/12/2017 was about 0.6. IMPRESSION: In summary, Mrs. Magdaleno is a 47-year-old elderly female with history of longstanding hypertension, diabetes, diabetic retinopathy, massive proteinuria with worsening renal function for the last 6 months with creatinine increasing from 0.62, now 1.52 to about 2.1 range with shortness of breath, bilateral pleural effusion and proteinuria. 1. Acute renal failure versus on chronic kidney disease versus progression of chronic kidney disease, rule out diabetic nephropathy versus chronic glomerulonephritis, most likely secondary to diabetic nephropathy in view of retinopathy and also longstanding diabetes and proteinuria. 2. Hypertension. 3. Uncontrolled diabetes. 4. Anasarca. PLAN: Started on IV Lasix drip 10 mg per hour with IV albumin and continue to monitor urine output and restrict fluids to 1 L per day. We will consider kidney biopsy if patient agrees to low diabetic nephropathy versus chronic GN. Overall prognosis is guarded. We will follow with you. Thank you for allowing me to participate in your patient's care. Continue current medication. Try to keep the hemoglobin A1c below 7. Continue her current blood pressure medications. We will consider ARBs once serum creatinine is stable. Mago Espinal MD
[2018-05-10] MEDS: Pantoprazole 40 mg EC Tab PO SCH (08:50)
[2018-05-10] MEDS: Proshield Plus GEL TOP PRN ×2 (08:53→17:15)
--- NOTE | 2018-05-10 10:25 | CP.PCM.CON ---
History of Present Illness - History of Present Illness History of Present Illness: I was asked to see patient by Dr Dill. Patient seen 05/10/18 1000 Patient is a 47 year old female with HTN asthma, DM who presents with hypoglycemia. She has progressive dyspnea at rest. She had a previous hospitalization a few weeks ago due to dyspnea, pneumonia and pleural effusions. Echocardiogram revealed normal left ventricular function and no valvular dysfunction. The patient has large bilateral pleural effusions on the current CT scan of the chest. Pro BNP is elevated. Review of Systems - Constitutional Constitutional: absent: As Per HPI, Anorexia, Chills, Daytime Sleepiness, Excessive Sweating, Fatigue, Fever, Frequent Falls, Headache, Increased Appetite, Lethargy, Malaise, Night Sweats, Snoring, Sleep Apnea, Weight Gain, Weight Loss, Weakness, Other - EENT Eyes: absent: As Per HPI, Blind Spots, Blurred Vision, Change in Vision, Decreased Night Vision, Diplopia, Discharge, Dry Eye, Exophthalmos, Floaters, Irritation, Itchy Eyes, Loss of Peripheral Vision, Pain, Photophobia, Requires Corrective Lenses, Sees Flashes, Spots in Vision, Tunnel Vision, Other Visual Disturbances, Loss of Vision, Other Ears: absent: As Per HPI, Decreased Hearing, Ear Discharge, Ear Pain, Tinnitus, Abnormal Hearing, Disequilibrium, Dizziness, Other Nose/Mouth/Throat: absent: As Per HPI, Epistaxis, Nasal Congestion, Nasal Discharge, Nasal Obstruction, Nasal Trauma, Nose Pain, Post Nasal Drip, Sinus Pain, Sinus Pressure, Bleeding Gums, Change in Voice, Dental Pain, Dry Mouth, Dysphagia, Halitosis, Hoarsness, Lip Swelling, Mouth Lesions, Mouth Pain, Odynophagia, Sore Throat, Throat Swelling, Tongue Swelling, Facial Pain, Neck Pain, Neck Mass, Other - Breasts Breasts: absent: As Per HPI, Change in Shape, Mass, Pain, Nipple Discharge, Nipple Inversion, Skin Changes, Swelling, Other - Cardiovascular Cardiovascular: absent: As Per HPI, Acrocyanosis, Chest Pain, Chest Pain at Rest, Chest Pain with Activity, Claudication, Diaphoresis, Dyspnea, Dyspnea on Exertion, Edema, Irregular Heart Rhythm, Pain Radiating to Arm/Neck/Jaw, Leg Edema, Leg Ulcers, Lightheadedness, Orthopnea, Palpitations, Paroxysmal Nocturnal Dyspnea, Pedal Edema, Radiating Pain, Rapid Heart Rate, Slow Heart Rat e, Syncope, Other - Respiratory Respiratory: Dyspnea, Chest Congestion - Gastrointestinal Gastrointestinal: absent: As Per HPI, Abdominal Pain, Belching, Bloating, Change in Bowel Habits, Change in Stool Character, Coffee Ground Emesis, Constipation, Cramping, Diarrhea, Dyspepsia, Dysphagia, Early Satiety, Excessive Flatus, Fecal Incontinence, Heartburn, Hematemesis, Hematochezia, Loose Stools, Melena, Nausea, Odynophagia, Temesmus, Vomiting, Other - Genitourinary Genitourinary: absent: As Per HPI, Change in Urinary Stream, Difficulty Urinating, Dysuria, Flank Pain, Hematuria, Pyuria, Nocturia, Urinary Incontinence, Urinary Frequency, Urinary Hesitance, Urinary Urgency, Voiding Freq/Small Amts, Freq UTI, Hx Renal/Bladder Calculi, Hx /Renal Surgery, Bladder Distension, Other - Musculoskeletal Musculoskeletal: absent: As Per HPI, Abnormal Gait, Arthralgias, Atrophy, Back Pain, Deformity, Joint Swelling, Limited Range of Motion, Loss of Height, Muscle Cramps, Muscle Weakness, Myalgias, Neck Pain, Numbness, Radiating Pain into Kelley b, Stiffness, Tingling, Other - Integumentary Integumentary: absent: As Per HPI, Acne, Alopecia, Bleeding Lesions, Change in Hair, Change in Nails, Change in Pigmentation, Changing Lesions, Dry Skin, Erythema, Furuncle, Hirsutism, Lesions, New Lesions, Non-Healing Lesions, Photosensitivity, Pruritus, Rash, Skin Pain, Skin Ulcer, Sores, Striae, Swelling, Unusual Bruising, Wounds, Jaundice, Other - Neurological Neurological: absent: As Per HPI, Abnormal Gait, Abnormal Hearing, Abnormal Movements, Abnormal Speech, Behavioral Changes, Burning Sensations, Confusion, Convulsions, Disequilibrium, Dizziness, Numbness, Focal Weakness, Frequent Falls, Headaches, Lack of Coordination, Loss of Vision, Memory Loss, Paresthesi as, Radicular Pain, Restless Legs, Sensory Deficit, Syncope, Tingling, Tremor, Vertigo, Weakness, Other Visual Disturbances, Other - Psychiatric Psychiatric: absent: As Per HPI, Abnormal Sleep Pattern, Anhedonia, Anxiety, Auditory Hallucinations, Behavioral Changes, Change in Appetite, Change in Libido, Confusion, Depression, Difficulty Concentrating, Hallucinations, Homicidal Ideation, Hopelessness, Irritability, Memory Loss, Mood Swings, Panic Attacks, Paranoia, Suicidal Ideation, Visual Hallucinations, Tactile Hallucinations, Other - Endocrine Endocrine: absent: As Per HPI, Change in Body Appearance, Change in Libido, Cold Intolorance, Deepening of Voice, Excessive Sweating, Fatigue, Flushing, Heat Intolorance, Increase in Ring/Shoe/Hat Size, Palpitations, Polydipsia, Polyphagia, Polyuria, Other - Hematologic/Lymphatic Hematologic: absent: As Per HPI, Easy Bleeding, Easy Bruising, Lymphadenopathy, Other Past Patient History - Past Medical History & Family History Past Medical History?: Yes - Past Social History Smoking Status: Former Smoker - CARDIAC Hx Cardiac Disorders: Yes Hx Congestive Heart Failure: Yes Hx Hypertension: Yes - PULMONARY Hx Respiratory Disorders: Yes Hx Asthma: Yes - NEUROLOGICAL Hx Neurological Disorder: Yes (NEURPOATHTY) - HEENT Hx HEENT Problems: Yes (HX RETINA BLEEDING) - RENAL Hx Chronic Kidney Disease: No - ENDOCRINE/METABOLIC Hx Endocrine Disorders: Yes Hx Diabetes Mellitus Type 1: Yes Hx Systemic Lupus Erythematosus: Yes - HEMATOLOGICAL/ONCOLOGICAL Hx Blood Disorders: No Hx AIDS: No Hx Human Immunodeficiency Virus (HIV): No - INTEGUMENTARY Hx Dermatological Problems: Yes (SLIGHT JAUNDICE) - MUSCULOSKELETAL/RHEUMATOLOGICAL Hx Musculoskeletal Disorders: Yes Hx Falls: Yes - GASTROINTESTINAL Hx Gastrointestinal Disorders: Yes Hx Gall Bladder Disease: Yes Hx Pancreatitis: Yes - GENITOURINARY/GYNECOLOGICAL Hx Genitourinary Disorders: No - PSYCHIATRIC Hx Psychophysiologic Disorder: No Hx Substance Use: No - SURGICAL HISTORY Hx Surgeries: Yes Hx Cholecystectomy: Yes Other/Comment: Fibroid cyst removal - ANESTHESIA Hx Anesthesia: Yes Hx Anesthesia Reactions: No Hx Malignant Hyperthermia: No Meds Allergies/Adverse Reactions: Allergies Allergy/AdvReac Type Severity Reaction Status Date / Time hydromorphone [From Dilaudid] Allergy SHORTNESS Verified 05/07/18 07:42 OF BREATH - Medications Medications: Current Medications Albumin Human (Albumin Human 25% (12.5 Gm/50 Ml)) 12.5 gm IV Q8 [facility] Stop: 05/12/18 17:01 Last Admin: 05/10/18 08:47 Dose: 12.5 gm Albuterol/Ipratropium (Duoneb 3 Mg/0.5 Mg (3 Ml) Ud) 3 ml INH RQ4 PRN PRN Reason: Shortness of Breath Last Admin: 05/10/18 02:40 Dose: 3 ml Amlodipine Besylate (Norvasc) 10 mg PO DAILY [facility] Last Admin: 05/10/18 08:50 Dose: 10 mg Dimethicone (Proshield Plus Skin Protectant) 1 applic TOP Q8 PRN PRN Reason: Other Last Admin: 05/10/18 08:53 Dose: 1 applic Gabapentin (Neurontin) 300 mg PO TID [facility] Last Admin: 05/10/18 08:50 Dose: 300 mg Vancomycin HCl 1 gm/ Sodium (Chloride) 250 mls @ 166.667 mls/hr IVPB DAILY [facility]; Protocol Last Admin: 05/10/18 08:48 Dose: 166.667 mls/hr Piperacillin Sod/Tazobactam (Sod 2.25 gm/ Sodium Chloride) 100 mls @ 100 mls/hr IVPB Q8 [facility]; Protocol Last Admin: 05/10/18 08:47 Dose: 100 mls/hr Furosemide 100 mg/ Sodium (Chloride) 100 mls @ 10 mls/hr IV .Q10H [facility]; Protocol Stop: 05/12/18 15:46 Last Admin: 05/10/18 00:56 Dose: 10 mls/hr Montelukast Sodium (Singulair) 10 mg PO HS [facility] Last Admin: 05/09/18 21:05 Dose: 10 mg Nicotine (Nicoderm Cq) 1 patch TD DAILY [facility] Last Admin: 05/10/18 08:49 Dose: 1 patch Pantoprazole Sodium (Protonix Ec Tab) 40 mg PO DAILY [facility] Last Admin: 05/10/18 08:50 Dose: 40 mg Promethazine HCl/Dextromethorphan (Phenergan Dm Syrup) 10 ml PO Q6 PRN PRN Reason: Cough Last Admin: 05/09/18 18:32 Dose: 10 ml Physical Exam - Constitutional Appears: Chronically Ill - Head Exam Head Exam: NORMAL INSPECTION - Eye Exam Eye Exam: Normal appearance - ENT Exam ENT Exam: Mucous Membranes Moist - Neck Exam Neck exam: Positive for: Full Rom, Normal Inspection. Negative for: Lymphadenopathy, Tenderness, Thyromegaly - Respiratory Exam Respiratory Exam: Decreased Breath Sounds - Cardiovascular Exam Cardiovascular Exam: REGULAR RHYTHM, RRR, +S1, +S2. absent: Gallop, JVD, Systolic Murmur - GI/Abdominal Exam GI & Abdominal Exam: Normal Bowel Sounds, Soft. absent: Guarding - Rectal Exam Rectal Exam: Deferred - Extremities Exam Extremities exam: Positive for: pedal edema - Back Exam Back exam: NORMAL INSPECTION - Neurological Exam Neurological exam: Alert, CN II-XII Intact, Oriented x3 - Psychiatric Exam Psychiatric exam: Normal Affect, Normal Mood - Skin Skin Exam: Dry, Intact, Normal Color Results - Vital Signs Recent Vital Signs: Last Vital Signs Temp 97.6 F 05/10/18 08:10 Pulse 94 H 05/10/18 08:50 Resp 18 05/10/18 08:10 BP 105/64 05/10/18 08:50 Pulse Ox 96 05/10/18 08:10 - Labs Result Diagrams: 05/09/18 06:15 05/09/18 06:15 Labs: Laboratory Results - last 24 hr 05/09/18 05/09/18 05/09/18 11:14 16:04 16:52 POC Glucose (mg/dL) 117 H 129 H Ur L.pneumophila Ag Negative 05/09/18 05/10/18 21:27 06:23 POC Glucose (mg/dL) 147 H 119 H Ur L.pneumophila Ag - EKG Data EKG Interpreted by: Myself EKG shows normal: Sinus rhythm Assessment & Plan (1) Diastolic dysfunction with acute on chronic heart failure Assessment and Plan: Previous echocardiogram has been reviewed. The EF is normal and there is evidence of diastolic dsyfunction. The patient has large bilateral pleural effusions which are the cause of the patient's elevated pro BNP. The patient does not have systolic dysfunction. can use diuretic therapy but ultimately likely needs thoracentesis Status: Acute (2) Pleural effusion Assessment and Plan: thoracentesis Status: Resolved
--- NOTE | 2018-05-10 12:55 | CP.PCM.PN ---
Subjective - Date & Time of Evaluation Date of Evaluation: 05/10/18 Time of Evaluation: 12:54 - Subjective Subjective: pt is seen and examined, follow up consult is dictated#[id number] will add metolazone 2.25 mg po bid check daily bmp Objective - Vital Signs/Intake and Output Vital Signs (last 24 hours): Temp Pulse Resp BP Pulse Ox 97.4 F L 100 H 18 113/71 97 05/10/18 12:26 05/10/18 12:26 05/10/18 12:26 05/10/18 12:26 05/10/18 12:26 - Medications Medications: Current Medications Albumin Human (Albumin Human 25% (12.5 Gm/50 Ml)) 12.5 gm IV Q8 [facility] Stop: 05/12/18 17:01 Last Admin: 05/10/18 08:47 Dose: 12.5 gm Albuterol/Ipratropium (Duoneb 3 Mg/0.5 Mg (3 Ml) Ud) 3 ml INH RQ4 PRN PRN Reason: Shortness of Breath Last Admin: 05/10/18 02:40 Dose: 3 ml Amlodipine Besylate (Norvasc) 10 mg PO DAILY [facility] Last Admin: 05/10/18 08:50 Dose: 10 mg Dimethicone (Proshield Plus Skin Protectant) 1 applic TOP Q8 PRN PRN Reason: Other Last Admin: 05/10/18 08:53 Dose: 1 applic Epoetin Diego (Procrit) 10,000 unit SC MWF [facility] Gabapentin (Neurontin) 300 mg PO TID [facility] Last Admin: 05/10/18 08:50 Dose: 300 mg Vancomycin HCl 1 gm/ Sodium (Chloride) 250 mls @ 166.667 mls/hr IVPB DAILY [facility]; Protocol Last Admin: 05/10/18 08:48 Dose: 166.667 mls/hr Piperacillin Sod/Tazobactam (Sod 2.25 gm/ Sodium Chloride) 100 mls @ 100 mls/hr IVPB Q8 [facility]; Protocol Last Admin: 05/10/18 08:47 Dose: 100 mls/hr Furosemide 100 mg/ Sodium (Chloride) 100 mls @ 10 mls/hr IV .Q10H [facility]; Protocol Stop: 05/12/18 15:46 Last Admin: 05/10/18 00:56 Dose: 10 mls/hr Montelukast Sodium (Singulair) 10 mg PO HS [facility] Last Admin: 05/09/18 21:05 Dose: 10 mg Nicotine (Nicoderm Cq) 1 patch TD DAILY [facility] Last Admin: 05/10/18 08:49 Dose: 1 patch Pantoprazole Sodium (Protonix Ec Tab) 40 mg PO DAILY [facility] Last Admin: 05/10/18 08:50 Dose: 40 mg Promethazine HCl/Dextromethorphan (Phenergan Dm Syrup) 10 ml PO Q6 PRN PRN Reason: Cough Last Admin: 05/09/18 18:32 Dose: 10 ml - Labs Labs: 05/09/18 06:15 05/09/18 06:15
--- NOTE | 2018-05-10 15:05 | CP.PCM.PN ---
Subjective - Date & Time of Evaluation Date of Evaluation: 05/10/18 Time of Evaluation: 08:00 - Subjective Subjective: 47 year old female, with a past medical history of IDDM, who was brought to the emergency department by EMS after patient was found to have low blood sugar of 45 mg/dL at home. Referred for ID eval of pneumonia- started on empiric IV antibiotics - Medical History PMH: Asthma, CHF, Diabetes, Fractures (RIGHT FOOT), Gall Bladder Disease, Hepatitis (C), HTN, Pancreatitis Denies: Chronic Kidney Disease Objective - Vital Signs/Intake and Output Vital Signs (last 24 hours): Temp Pulse Resp BP Pulse Ox 97.4 F L 100 H 18 113/71 97 05/10/18 12:26 05/10/18 12:26 05/10/18 12:26 05/10/18 12:26 05/10/18 12:26 - Medications Medications: Current Medications Albumin Human (Albumin Human 25% (12.5 Gm/50 Ml)) 12.5 gm IV Q8 [facility] Stop: 05/12/18 17:01 Last Admin: 05/10/18 08:47 Dose: 12.5 gm Albuterol/Ipratropium (Duoneb 3 Mg/0.5 Mg (3 Ml) Ud) 3 ml INH RQ4 PRN PRN Reason: Shortness of Breath Last Admin: 05/10/18 02:40 Dose: 3 ml Amlodipine Besylate (Norvasc) 10 mg PO DAILY [facility] Last Admin: 05/10/18 08:50 Dose: 10 mg Dimethicone (Proshield Plus Skin Protectant) 1 applic TOP Q8 PRN PRN Reason: Other Last Admin: 05/10/18 08:53 Dose: 1 applic Epoetin Diego (Procrit) 10,000 unit SC F [facility] Ferrous Gluconate (Fergon) 324 mg PO BID [facility] Gabapentin (Neurontin) 300 mg PO TID [facility] Last Admin: 05/10/18 08:50 Dose: 300 mg Vancomycin HCl 1 gm/ Sodium (Chloride) 250 mls @ 166.667 mls/hr IVPB DAILY [facility]; Protocol Last Admin: 05/10/18 08:48 Dose: 166.667 mls/hr Piperacillin Sod/Tazobactam (Sod 2.25 gm/ Sodium Chloride) 100 mls @ 100 mls/hr IVPB Q8 [facility]; Protocol Last Admin: 05/10/18 08:47 Dose: 100 mls/hr Furosemide 100 mg/ Sodium (Chloride) 100 mls @ 10 mls/hr IV .Q10H [facility]; Protocol Stop: 05/12/18 15:46 Last Admin: 05/10/18 00:56 Dose: 10 mls/hr Montelukast Sodium (Singulair) 10 mg PO HS [facility] Last Admin: 05/09/18 21:05 Dose: 10 mg Nicotine (Nicoderm Cq) 1 patch TD DAILY [facility] Last Admin: 05/10/18 08:49 Dose: 1 patch Pantoprazole Sodium (Protonix Ec Tab) 40 mg PO DAILY [facility] Last Admin: 05/10/18 08:50 Dose: 40 mg Promethazine HCl/Dextromethorphan (Phenergan Dm Syrup) 10 ml PO Q6 PRN PRN Reason: Cough Last Admin: 05/09/18 18:32 Dose: 10 ml Vitamin B Complex/Vit C/Folic Acid (Nephro-Roshan) 1 tab PO DAILY [facility] - Labs Labs: 05/09/18 06:15 05/09/18 06:15 - Constitutional Appears: Non-toxic, Chronically Ill - Head Exam Head Exam: NORMOCEPHALIC - Eye Exam Eye Exam: absent: Scleral icterus - ENT Exam ENT Exam: Mucous Membranes Dry - Neck Exam Neck Exam: absent: Lymphadenopathy - Respiratory Exam Respiratory Exam: Decreased Breath Sounds - Cardiovascular Exam Cardiovascular Exam: REGULAR RHYTHM - GI/Abdominal Exam GI & Abdominal Exam: Distended, Soft. absent: Tenderness - Rectal Exam Rectal Exam: Deferred - Exam Exam: NORMAL INSPECTION - Extremities Exam Extremities Exam: absent: Pedal Edema - Back Exam Back Exam: absent: CVA tenderness (L), CVA tenderness (R) - Neurological Exam Neurological Exam: Alert, Awake, CN II-XII Intact - Psychiatric Exam Psychiatric exam: Depressed Assessment and Plan (1) Hypoglycemia Status: Acute (2) Pleural effusion, right Status: Acute (3) Pneumonia Status: Acute (4) Sepsis Status: Acute (5) ARF (acute renal failure) Status: Acute (6) Anasarca Status: Acute (7) Anemia Status: Acute (8) CAP (community acquired pneumonia) Status: Acute (9) CHF (congestive heart failure) Status: Acute (10) CHF exacerbation Status: Acute - Assessment and Plan (Free Text) Assessment: d/c IV antibiotics for thoracentesis in AM
[2018-05-10] MEDS ORDERED: metOLazone 2.5 MG TAB PO SCH (15:15)
[2018-05-10] MEDS: Multivitamin Vitamin B Complex (Nephro-Vite) Tab PO SCH (16:40)
[2018-05-10] MEDS: Nasal Spray(Ocean spray) NAS PRN (17:15)
[2018-05-10] MEDS: Albuterol-Ipratrop 3 mg / 0.5 (3 ml) UD INH SCH ×2 (19:07→23:44)
--- NOTE | 2018-05-10 22:38 | CP.PCM.PN ---
Subjective - Date & Time of Evaluation Date of Evaluation: 05/10/18 Time of Evaluation: 14:30 - Subjective Subjective: Patient continues to have increasing SOB Review of meds showed a lot of fluid given thru iv antibiotics Ct scan was reviewed and showed pleural effusion. Discussed with Dr Diaz Noted elevated FBS GFR 25 Objective - Vital Signs/Intake and Output Vital Signs (last 24 hours): Temp Pulse Resp BP Pulse Ox 97.4 F L 101 H 20 121/62 93 L 05/10/18 19:43 05/10/18 19:43 05/10/18 19:43 05/10/18 19:43 05/10/18 19:43 Intake and Output: 05/10/18 05/11/18 18:59 06:59 Intake Total 1570 Output Total 1000 Balance 570 - Medications Medications: Current Medications Albumin Human (Albumin Human 25% (12.5 Gm/50 Ml)) 12.5 gm IV Q8 [facility] Stop: 05/12/18 17:01 Last Admin: 05/10/18 16:43 Dose: 12.5 gm Albuterol/Ipratropium (Duoneb 3 Mg/0.5 Mg (3 Ml) Ud) 3 ml INH RQ4 [facility] Last Admin: 05/10/18 19:07 Dose: 3 ml Amlodipine Besylate (Norvasc) 10 mg PO DAILY [facility] Last Admin: 05/10/18 08:50 Dose: 10 mg Dimethicone (Proshield Plus Skin Protectant) 1 applic TOP Q8 PRN PRN Reason: Other Last Admin: 05/10/18 17:15 Dose: 1 applic Epoetin Diego (Procrit) 10,000 unit SC [facility] Ferrous Gluconate (Fergon) 324 mg PO BID [facility] Last Admin: 05/10/18 16:38 Dose: 324 mg Gabapentin (Neurontin) 300 mg PO TID [facility] Last Admin: 05/10/18 16:40 Dose: 300 mg Furosemide 100 mg/ Sodium (Chloride) 100 mls @ 10 mls/hr IV .Q10H [facility]; Protocol Stop: 05/12/18 15:46 Last Admin: 05/10/18 15:00 Dose: 10 mls/hr Metolazone (Zaroxolyn) 2.5 mg PO DAILY [facility] Last Admin: 05/10/18 16:39 Dose: 2.5 mg Montelukast Sodium (Singulair) 10 mg PO HS [facility] Last Admin: 05/10/18 21:10 Dose: 10 mg Moxifloxacin HCl (Avelox) 400 mg PO DAILY [facility]; Protocol Last Admin: 05/10/18 16:39 Dose: 400 mg Nicotine (Nicoderm Cq) 1 patch TD DAILY [facility] Last Admin: 05/10/18 08:49 Dose: 1 patch Pantoprazole Sodium (Protonix Ec Tab) 40 mg PO DAILY [facility] Last Admin: 05/10/18 08:50 Dose: 40 mg Promethazine HCl/Dextromethorphan (Phenergan Dm Syrup) 10 ml PO Q6 PRN PRN Reason: Cough Last Admin: 05/09/18 18:32 Dose: 10 ml Sodium Chloride ([place] Nasal [place]) 2 sprays CASH Q4 PRN PRN Reason: Nasal congestion Last Admin: 05/10/18 17:15 Dose: 1 spr Vitamin B Complex/Vit C/Folic Acid (Nephro-Roshan) 1 tab PO DAILY [facility] Last Admin: 05/10/18 16:40 Dose: 1 tab - Labs Labs: 05/09/18 06:15 05/09/18 06:15 - Head Exam Head Exam: NORMAL INSPECTION - Eye Exam Eye Exam: Normal appearance - ENT Exam ENT Exam: Mucous Membranes Moist - Respiratory Exam Respiratory Exam: Decreased Breath Sounds - Cardiovascular Exam Cardiovascular Exam: Tachycardia - GI/Abdominal Exam GI & Abdominal Exam: Normal Bowel Sounds - Neurological Exam Neurological Exam: Awake Assessment and Plan (1) Pleural effusion, bilateral Status: Acute (2) Diabetes mellitus type 2 in obese Status: Acute (3) Acute on chronic renal failure Status: Acute (4) Diastolic dysfunction with acute on chronic heart failure Status: Acute (5) HTN (hypertension) Status: Acute - Assessment and Plan (Free Text) Plan: Discussed with Dr Santo and Dr Diaz separately Will DC all iv antibiotics schedule for bilateral pigtails tomorrow thru IR Started on Zaroxylin start Januvia 25 mg daily
[2018-05-11] MEDS: Albumin Human 25% (12.5 gm/50 ml) IV SCH ×2 (00:24→09:53)
--- NOTE | 2018-05-11 03:13 | PN ---
DATE: 05/10/2018 FOLLOWUP RENAL CONSULTATION LOCATION: The patient is located in room 410, bed 2. REQUESTED BY: Shay Dill M.D. and Kobi Diaz MD REASON FOR FOLLOWUP: Acute renal failure, nephrotic-range proteinuria, and anasarca. SUBJECTIVE: Mrs. 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 The patient was found to have anasarca and started on IV Lasix. The patient claims that she is passing more urine now. Still complains of shortness of breath. No chest pain. No palpation. No fever. No cough. No abdominal pain. No nausea, vomiting, or diarrhea. PHYSICAL EXAMINATION: VITAL SIGNS: As follows; blood pressure 117/65, pulse 100, respirations 18, temperature 97.4, and saturation 97%. Height 5 feet 3 inches. Weight is 241 pounds. GENERAL: Mrs. Magdaleno is a 47-year-old middle-aged female, well built, well nourished, with anasarca, on nasal cannula with mild distress. HEENT: Pupils are normal, reactive to light and accommodation. Conjunctivae pink. Sclerae anicteric. Tongue is moist. Trachea is midline. LUNGS: Symmetric on both sides. Bilateral breath sounds present, decreased in bases, and bilateral basal crackles present. CARDIOVASCULAR SYSTEM: [place] at the fifth intercostal space and midclavicular line. S1 and S2 audible. No murmur or gallop. ABDOMEN: Normal in appearance, distended, and edema of the abdominal wall present. Abdomen is soft, tympanitic. No guarding. No rigidity. No hepatosplenomegaly. The patient has a mass in the lower pelvis on the right side. CENTRAL NERVOUS SYSTEM: The patient is alert, awake, and oriented x3. Nonfocal neuro examination. Cranial nerves II through XII grossly intact. Sensory and motor system is within normal limits. EXTREMITIES: No cyanosis, no clubbing. The patient has 3+ edema in both upper and lower extremities. The patient also has edema of the abdominal wall and sacral edema present. CURRENT MEDICATIONS: Include as follows: Albumin 25% 50 mL every 8 hours, Avelox 400 mg p.o. daily, DuoNeb inhaler 3 mL every 4 hours, ferrous gluconate 324 mg p.o. b.i.d., Lasix 10 mg per hour, Nephro-Roshan 1 tablet daily, gabapentin 300 mg p.o. t.i.d., Nicoderm patch daily, amlodipine 10 mg p.o. daily, Procrit 10,000 units three times a week, also Protonix 40 mg p.o. daily, Singulair 10 mg p.o. daily, and Zaroxolyn 2.5 mg p.o. daily. LABORATORY DATA: No new labs available, and AccuCheks 119, 107, and 152. Urine for Legionella antigen is negative. ASSESSMENT: In summary, Mrs. Magdaleno is a 47-year-old middle-aged female with hypertension, diabetes, nephrotic-range proteinuria, diabetic retinopathy, status post laser treatment, anasarca, was admitted with shortness of breath and symptomatic hypoglycemia. 1. Acute renal failure versus chronic kidney disease secondary to diabetic nephropathy. 2. Anasarca. 3. Uncontrolled diabetes. 4. Hypertension. 5. Bilateral pleural effusion. PLAN: Continue IV fluids. Continue IV Lasix drip at 10 mL per hour, and also continue IV albumin. We will add metolazone 2.5 mg p.o. b.i.d. Continue to monitor BMP daily, and continue Epogen for anemia, Nephro-Roshan, and ferrous gluconate. Restrict fluids to 1 liter per day. We will follow up with you. Thank you for allowing me to participate in your patient's care. Mago Espinal MD
[2018-05-11] MEDS: Furosemide 100 MG in Sodium Chloride 0.9% 100 ML IV SCH ×4 (04:35→21:26)
[2018-05-11] MEDS: Albuterol-Ipratrop 3 mg / 0.5 (3 ml) UD INH SCH ×5 (04:56→19:07)
[2018-05-11 05:30] LABS: HEMOGLOBIN 8.4 g/dL (12.0-16.0); MEAN CELL VOLUME 93.5 fl (81.0-99.0); MEAN CORPUSCULAR HEMOGLOBIN 29.5 pg (27.0-31.0); MEAN CORPUSCULAR HGB CONC 31.6 g/dL (33.0-37.0); RBC 2.85 Mil/uL (3.80-5.20); RED CELL DISTRIBUTION WIDTH 15.1 % (11.5-14.5); WHITE BLOOD COUNT 5.9 K/uL (4.8-10.8)
[2018-05-11 05:40] LABS: ALBUMIN 2.5 g/dL (3.5-5.0); ALT/SGPT 22 U/L (9-52); AST/SGOT 14 U/L (14-36); BLOOD UREA NITROGEN 42 mg/dl (7-17); CALCIUM 8.2 mg/dL (8.4-10.2); GFR NON-AFRICAN AMERICAN 28
[2018-05-11 05:49] LABS: PROTHROMBIN TIME 10.9 Seconds (9.8-13.1)
[2018-05-11] MEDS: Multivitamin Vitamin B Complex (Nephro-Vite) Tab PO SCH (09:54)
[2018-05-11] MEDS: EPOETIN ALFA 10,000 UNIT/ML ML SC SCH (09:55)
[2018-05-11] MEDS: Pantoprazole 40 mg EC Tab PO SCH (09:56)
[2018-05-11] MEDS: Proshield Plus GEL TOP PRN (10:08)
[2018-05-11] MEDS: Nasal Spray(Ocean spray) NAS PRN (10:09)
--- NOTE | 2018-05-11 10:39 | CP.PCM.PN ---
Subjective - Date & Time of Evaluation Date of Evaluation: 05/11/18 Time of Evaluation: 06:00 - Subjective Subjective: afeb still edematous Objective - Vital Signs/Intake and Output Vital Signs (last 24 hours): Temp Pulse Resp BP Pulse Ox 98.3 F 98 H 20 132/76 96 05/11/18 07:56 05/11/18 09:54 05/11/18 07:56 05/11/18 09:55 05/11/18 07:56 Intake and Output: 05/11/18 05/11/18 06:59 18:59 Intake Total 2720 Output Total 2000 Balance 720 - Medications Medications: Current Medications Albumin Human (Albumin Human 25% (12.5 Gm/50 Ml)) 12.5 gm IV Q8 [facility] Stop: 05/12/18 17:01 Last Admin: 05/11/18 09:53 Dose: 12.5 gm Albuterol/Ipratropium (Duoneb 3 Mg/0.5 Mg (3 Ml) Ud) 3 ml INH RQ4 [facility] Last Admin: 05/11/18 07:55 Dose: 3 ml Amlodipine Besylate (Norvasc) 10 mg PO DAILY [facility] Last Admin: 05/11/18 09:54 Dose: 10 mg Dimethicone (Proshield Plus Skin Protectant) 1 applic TOP Q8 PRN PRN Reason: Other Last Admin: 05/11/18 10:08 Dose: 1 applic Epoetin Diego (Procrit) 10,000 unit SC MWF [facility] Last Admin: 05/11/18 09:55 Dose: 10,000 unit Ferrous Gluconate (Fergon) 324 mg PO BID [facility] Last Admin: 05/11/18 09:54 Dose: 324 mg Gabapentin (Neurontin) 300 mg PO TID [facility] Last Admin: 05/11/18 09:53 Dose: 300 mg Furosemide 100 mg/ Sodium (Chloride) 100 mls @ 10 mls/hr IV .Q10H [facility]; Protocol Stop: 05/12/18 15:46 Last Admin: 05/11/18 09:55 Dose: 10 mls/hr Metolazone (Zaroxolyn) 2.5 mg PO Q12 [facility] Montelukast Sodium (Singulair) 10 mg PO HS [facility] Last Admin: 05/10/18 21:10 Dose: 10 mg Moxifloxacin HCl (Avelox) 400 mg PO DAILY [facility]; Protocol Last Admin: 05/11/18 09:56 Dose: 400 mg Nicotine (Nicoderm Cq) 1 patch TD DAILY [facility] Last Admin: 05/11/18 09:54 Dose: 1 patch Pantoprazole Sodium (Protonix Ec Tab) 40 mg PO DAILY [facility] Last Admin: 05/11/18 09:56 Dose: 40 mg Promethazine HCl/Dextromethorphan (Phenergan Dm Syrup) 10 ml PO Q6 PRN PRN Reason: Cough Last Admin: 05/09/18 18:32 Dose: 10 ml Sitagliptin Phosphate (Januvia) 25 mg PO DAILY [facility] Last Admin: 05/11/18 09:54 Dose: 25 mg Sodium Chloride ([place] Nasal [place]) 2 sprays CASH Q4 PRN PRN Reason: Nasal congestion Last Admin: 05/11/18 10:09 Dose: 1 spr Vitamin B Complex/Vit C/Folic Acid (Nephro-Roshan) 1 tab PO DAILY [facility] Last Admin: 05/11/18 09:54 Dose: 1 tab - Labs Labs: 05/11/18 04:55 05/11/18 04:55 PT 10.9 Seconds (9.8-13.1) 05/11/18 04:55 INR 1.0 05/11/18 04:55 - Constitutional Appears: Non-toxic, Chronically Ill - Head Exam Head Exam: NORMOCEPHALIC - Eye Exam Eye Exam: absent: Scleral icterus - ENT Exam ENT Exam: Mucous Membranes Dry - Neck Exam Neck Exam: absent: Lymphadenopathy - Respiratory Exam Respiratory Exam: Decreased Breath Sounds - Cardiovascular Exam Cardiovascular Exam: REGULAR RHYTHM - GI/Abdominal Exam GI & Abdominal Exam: Distended, Soft. absent: Tenderness - Rectal Exam Rectal Exam: Deferred - Exam Exam: NORMAL INSPECTION - Extremities Exam Extremities Exam: absent: Pedal Edema - Back Exam Back Exam: absent: CVA tenderness (L), CVA tenderness (R) - Neurological Exam Neurological Exam: Alert, Awake, Oriented x3 - Psychiatric Exam Psychiatric exam: Depressed - Skin Skin Exam: Dry Assessment and Plan (1) Hypoglycemia Status: Acute (2) Pleural effusion, right Status: Acute (3) Pneumonia Status: Acute (4) Sepsis Status: Acute (5) ARF (acute renal failure) Status: Acute (6) Anasarca Status: Acute (7) Anemia Status: Acute (8) CAP (community acquired pneumonia) Status: Acute (9) CHF (congestive heart failure) Status: Acute (10) CHF exacerbation Status: Acute - Assessment and Plan (Free Text) Assessment: cont po avelox for thoracentesis
[2018-05-11] MEDS ORDERED: Lidocaine 1% Inj (20ml) ONE (11:48)
--- NOTE | 2018-05-11 12:03 | PCM.SURG1 ---
Surgeon's Initial Post Op Note - Surgeon's Notes Surgeon: Anoop Elizabeth MD Fish Stringer Assembler: NONE Type of Anesthesia: Local Pre-Operative Diagnosis: Right and left pleural effusion Operative Findings: US showed large right and left pleural effusion Post-Operative Diagnosis: Right and left pleural effusion Operation Performed: RIght and left thoracentesis Specimen/Specimens Removed: 900 cc of clear fluid from left pleural space, 1 liter of clear fluid from right pleural space Estimated Blood Loss: EBL {In ML}: 0 Blood Products Given: N/A Drains Used: No Drains Post-Op Condition: Fair Date of Surgery/Procedure: 05/11/18 Time of Surgery/Procedure: 12:00
--- NOTE | 2018-05-11 13:24 | RAD ---
Date of service: 05/11/2018 PROCEDURE: CHEST RADIOGRAPH, 1 VIEW HISTORY: Status post right and left thoracentesis. COMPARISON: 05/07/2018 single-view chest. 05/09/2018 CT thorax FINDINGS: LUNGS: Improving pulmonary vascular congestion. Improving lower lobe infiltrates PLEURA: Improving pleural effusions. CARDIOVASCULAR: No aortic atherosclerotic calcification present. Normal. OSSEOUS STRUCTURES: No significant abnormalities. VISUALIZED UPPER ABDOMEN: Normal. OTHER FINDINGS: None. IMPRESSION: Improving infiltrates and effusions.
[2018-05-11] MEDS: metOLazone 2.5 MG TAB PO SCH ×2 (15:50→21:27)
--- NOTE | 2018-05-11 19:05 | CP.PCM.PN ---
Subjective - Date & Time of Evaluation Date of Evaluation: 05/11/18 Time of Evaluation: 19:04 - Subjective Subjective: pt is seen and examined, follow up consult is dictated #[id number] Objective - Vital Signs/Intake and Output Vital Signs (last 24 hours): Temp Pulse Resp BP Pulse Ox 97.5 F L 107 H 19 125/73 92 L 05/11/18 16:26 05/11/18 16:26 05/11/18 16:26 05/11/18 18:14 05/11/18 16:26 - Medications Medications: Current Medications Albuterol/Ipratropium (Duoneb 3 Mg/0.5 Mg (3 Ml) Ud) 3 ml INH RQ4 [facility] Last Admin: 05/11/18 15:20 Dose: 3 ml Amlodipine Besylate (Norvasc) 10 mg PO DAILY [facility] Last Admin: 05/11/18 09:54 Dose: 10 mg Dimethicone (Proshield Plus Skin Protectant) 1 applic TOP Q8 PRN PRN Reason: Other Last Admin: 05/11/18 10:08 Dose: 1 applic Epoetin Diego (Procrit) 10,000 unit SC MWF [facility] Last Admin: 05/11/18 09:55 Dose: 10,000 unit Ferrous Gluconate (Fergon) 324 mg PO BID [facility] Last Admin: 05/11/18 18:15 Dose: 324 mg Gabapentin (Neurontin) 300 mg PO TID [facility] Last Admin: 05/11/18 18:14 Dose: 300 mg Furosemide 100 mg/ Sodium (Chloride) 100 mls @ 10 mls/hr IV .Q10H [facility]; Protocol Stop: 05/12/18 15:46 Last Admin: 05/11/18 18:14 Dose: 10 mls/hr Metolazone (Zaroxolyn) 2.5 mg PO Q12 [facility] Last Admin: 05/11/18 15:50 Dose: 2.5 mg Montelukast Sodium (Singulair) 10 mg PO HS [facility] Last Admin: 05/10/18 21:10 Dose: 10 mg Moxifloxacin HCl (Avelox) 400 mg PO DAILY [facility]; Protocol Last Admin: 05/11/18 09:56 Dose: 400 mg Nicotine (Nicoderm Cq) 1 patch TD DAILY [facility] Last Admin: 05/11/18 09:54 Dose: 1 patch Pantoprazole Sodium (Protonix Ec Tab) 40 mg PO DAILY [facility] Last Admin: 05/11/18 09:56 Dose: 40 mg Promethazine HCl/Dextromethorphan (Phenergan Dm Syrup) 10 ml PO Q6 PRN PRN Reason: Cough Last Admin: 05/09/18 18:32 Dose: 10 ml Sitagliptin Phosphate (Januvia) 25 mg PO DAILY [facility] Last Admin: 05/11/18 09:54 Dose: 25 mg Sodium Chloride ([place] Nasal [place]) 2 sprays CASH Q4 PRN PRN Reason: Nasal congestion Last Admin: 05/11/18 10:09 Dose: 1 spr Vitamin B Complex/Vit C/Folic Acid (Nephro-Roshan) 1 tab PO DAILY [facility] Last Admin: 05/11/18 09:54 Dose: 1 tab - Labs Labs: 05/11/18 04:55 05/11/18 04:55 PT 10.9 Seconds (9.8-13.1) 05/11/18 04:55 INR 1.0 05/11/18 04:55
[2018-05-12] MEDS: Albuterol-Ipratrop 3 mg / 0.5 (3 ml) UD INH SCH ×6 (00:43→19:15)
--- NOTE | 2018-05-12 03:57 | PN ---
DATE: 05/11/2018 FOLLOWUP RENAL CONSULTATION LOCATION: The patient is located in room 407, bed 1. REQUESTED BY: Shay Dill M.D. REASON FOR FOLLOWUP: Nephrotic-range proteinuria, acute renal failure versus chronic kidney disease. SUBJECTIVE: Mrs. Magdaleno is a 47-year-old middle-aged female with history of longstanding hypertension, diabetes, diabetic retinopathy, nephrotic-range proteinuria with worsening renal function over the last 6 months to 1 year, multiple admissions who was recently discharged after treating for pneumonia and CHF and status post thoracentesis, now the patient was admitted with symptomatic hypoglycemia, shortness of breath, difficult to ambulate. The patient was started on IV Lasix drip and also metolazone. The patient underwent thoracentesis bilateral today, removed 1 liter in the right side and 900 mL on the left side. The patient is feeling much better, not in acute distress. Denies any headache or dizziness. Denies any chest pain or palpitation. Denies any fever or cough. No abdominal pain. Complains of distention of the abdomen and abdominal wall edema. PHYSICAL EXAMINATION: VITAL SIGNS: As follows: Blood pressure 125/73, pulse 107, respirations 19, temperature 97.5, and saturation 92%. Height 5 feet 3 inches. Weight is 237 pounds. GENERAL: Mrs. Magdaleno is a 47-year-old middle-aged female, well built, well nourished, with anasarca. The patient gained more than 30 to 40 pounds of fluid. HEENT: Pupils are normal, reactive to light and accommodation. Conjunctivae pink. Sclerae anicteric. Tongue is moist. Trachea is midline. LUNGS: Symmetric on both sides. Bilateral basal crackles present. CARDIOVASCULAR SYSTEM: [place] at the fifth intercostal space and midclavicular line. S1 and S2 audible. No murmur or gallop. ABDOMEN: Distended and the patient has edema of the abdominal wall and also right pelvic mass present from the previous dermoid. No hepatosplenomegaly. No abdominal bruits. CENTRAL NERVOUS SYSTEM: The patient is alert, awake, and oriented x3. Nonfocal neuro examination. Cranial nerves II through XII grossly intact. Sensory and motor system is within normal limits. EXTREMITIES: No cyanosis, no clubbing. 3 to 4+ edema in both upper and lower extremities. CURRENT MEDICATIONS: Include as follows: Avelox 400 mg p.o. daily, DuoNeb inhaler, ferrous gluconate 324 mg p.o. b.i.d., Lasix drip 10 mg per hour, Januvia 25 mg p.o. daily, Nephro-Roshan 1 tablet daily, Neurontin 300 mg p.o. t.i.d., Nicoderm patch daily, amlodipine 10 mg daily, Phenergan DM syrup 10 mL p.o. every 6 hours p.r.n., Procrit 10,000 units three times a week, Proshield Plus skin protectant, also Protonix 40 mg p.o. daily, Singulair 10 mg p.o. daily, and metolazone 2.5 mg p.o. every 12 hours. LABORATORY DATA: Includes as follows: As of 05/11/2018, WBC 5.9, hemoglobin 8.4, hematocrit is 26.7, and platelets 205. PT 10.9, INR is 1. Sodium 135, potassium 4.3, chloride 106, CO2 of 22, BUN 42, creatinine 1.9, glucose 137, and calcium 8.2. Total bili less than 0.1, AST 14, ALT 22, alkaline phosphatase 47. Total protein 5.1, albumin is 2.5, and stool for occult blood is negative. ASSESSMENT AND PLAN: In summary, Mrs. Magdaleno is a 47-year-old elderly female with history of hypertension, diabetes, diabetic retinopathy, nephrotic-range proteinuria, anasarca with worsening renal function. 1. Chronic kidney disease most likely secondary to diabetic nephropathy, cannot rule out underlying chronic glomerulonephritis. 2. Anasarca. 3. Hypertension. 4. Diabetic nephropathy. 5. Anemia. 6. Bilateral pleural effusion, bilateral thoracentesis, this morning drained about 1 liter from the right side and 900 mL clear fluid from the left pleural space. The patient tolerated the procedure. Continue gentle dieresis, Lasix, metolazone and IV albumin. Repeat BMP in the morning. Restrict fluids to 1 liter per day. Thank you for allowing me to participate in your patient's care. Mago Espinal MD [facility] # [id number]
[2018-05-12 05:35] LABS: HEMOGLOBIN 8.5 g/dL (12.0-16.0); MEAN CELL VOLUME 91.5 fl (81.0-99.0); MEAN CORPUSCULAR HEMOGLOBIN 30.2 pg (27.0-31.0); RBC 2.8 Mil/uL (3.80-5.20); RED CELL DISTRIBUTION WIDTH 14.6 % (11.5-14.5); WHITE BLOOD COUNT 5.2 K/uL (4.8-10.8)
[2018-05-12 05:44] LABS: ALBUMIN 2.5 g/dL (3.5-5.0); ALT/SGPT 21 U/L (9-52); AST/SGOT 14 U/L (14-36); BLOOD UREA NITROGEN 42 mg/dl (7-17); CALCIUM 8.2 mg/dL (8.4-10.2); GFR NON-AFRICAN AMERICAN 27
[2018-05-12] MEDS: metOLazone 2.5 MG TAB PO SCH ×2 (09:04→20:47)
[2018-05-12] MEDS: Multivitamin Vitamin B Complex (Nephro-Vite) Tab PO SCH (09:05)
[2018-05-12] MEDS: Pantoprazole 40 mg EC Tab PO SCH (09:05)
--- NOTE | 2018-05-12 09:38 | CP.PCM.PN ---
Subjective - Date & Time of Evaluation Date of Evaluation: 05/12/18 Time of Evaluation: 09:38 - Subjective Subjective: pt is seen and examined, follow up consult is dictated #[id number] Objective - Vital Signs/Intake and Output Vital Signs (last 24 hours): Temp Pulse Resp BP Pulse Ox 98.3 F 106 H 18 122/73 95 05/12/18 08:00 05/12/18 09:04 05/12/18 08:00 05/12/18 09:04 05/12/18 08:00 Intake and Output: 05/12/18 05/12/18 06:59 18:59 Intake Total 2120 Output Total 2100 Balance 20 - Medications Medications: Current Medications Albuterol/Ipratropium (Duoneb 3 Mg/0.5 Mg (3 Ml) Ud) 3 ml INH RQ4 [facility] Last Admin: 05/12/18 07:29 Dose: 3 ml Amlodipine Besylate (Norvasc) 10 mg PO DAILY [facility] Last Admin: 05/12/18 09:04 Dose: 10 mg Dimethicone (Proshield Plus Skin Protectant) 1 applic TOP Q8 PRN PRN Reason: Other Last Admin: 05/11/18 10:08 Dose: 1 applic Epoetin Diego (Procrit) 10,000 unit SC MWF [facility] Last Admin: 05/11/18 09:55 Dose: 10,000 unit Ferrous Gluconate (Fergon) 324 mg PO BID [facility] Last Admin: 05/12/18 09:05 Dose: 324 mg Furosemide (Lasix) 120 mg PO Q12 [facility] Gabapentin (Neurontin) 300 mg PO TID [facility] Last Admin: 05/12/18 09:05 Dose: 300 mg Metolazone (Zaroxolyn) 2.5 mg PO Q12 [facility] Last Admin: 05/12/18 09:04 Dose: 2.5 mg Montelukast Sodium (Singulair) 10 mg PO HS [facility] Last Admin: 05/11/18 21:27 Dose: 10 mg Moxifloxacin HCl (Avelox) 400 mg PO DAILY [facility]; Protocol Last Admin: 05/12/18 09:07 Dose: 400 mg Nicotine (Nicoderm Cq) 1 patch TD DAILY [facility] Last Admin: 05/12/18 09:05 Dose: 1 patch Pantoprazole Sodium (Protonix Ec Tab) 40 mg PO DAILY [facility] Last Admin: 05/12/18 09:05 Dose: 40 mg Promethazine HCl/Dextromethorphan (Phenergan Dm Syrup) 10 ml PO Q6 PRN PRN Reason: Cough Last Admin: 05/09/18 18:32 Dose: 10 ml Sitagliptin Phosphate (Januvia) 25 mg PO DAILY [facility] Last Admin: 05/12/18 09:05 Dose: 25 mg Sodium Chloride ([place] Nasal [place]) 2 sprays CASH Q4 PRN PRN Reason: Nasal congestion Last Admin: 05/11/18 10:09 Dose: 1 spr Vitamin B Complex/Vit C/Folic Acid (Nephro-Roshan) 1 tab PO DAILY [facility] Last Admin: 05/12/18 09:05 Dose: 1 tab - Labs Labs: 05/12/18 04:55 05/12/18 04:55 PT 10.9 Seconds (9.8-13.1) 05/11/18 04:55 INR 1.0 05/11/18 04:55
--- NOTE | 2018-05-12 10:50 | CT ---
PROCEDURE: Date of procedure: 05/11/2018 Procedure: 1. Ultrasound-guided Right and left thoracentesis Medications: 8cc 1% Lidocaine HISTORY: Right and left pleural effusion, shortness of breath TECHNIQUE: Following informed consent, ultrasound right chest showed a large right effusion ultrasound left chest showed a large left effusion. Procedure time-out was called. After the patient's back was prepped and draped in the usual sterile fashion and skin anesthetized with 1 percent lidocaine, ultrasound-guided right thoracentesis followed by ultrasound-guided left thoracentesis performed. 900 cubic centimeters of clear fluid was removed from the right pleural space. This was followed by removal of 1 liter of clear fluid from the left pleural space. Xeroform dressings were applied. A post procedure x-ray was obtained which showed no pneumothorax. IMPRESSION: Ultrasound guided right and left thoracentesis. There were no immediate complications.
--- NOTE | 2018-05-12 11:49 | RAD ---
Date of service: 05/12/2018 HISTORY: pleural effusion Relevant interventional procedure(s): Bilateral thoracentesis performed May 11, 2018.. Summary of findings on the comparison examination: 900 cubic centimeters of clear fluid was removed from the right pleural space. This was followed by removal of 1 liter of clear fluid from the left pleural space COMPARISON: May 11, 2018. Postprocedural chest radiograph FINDINGS: LUNGS: Improving pulmonary vascular congestion. PLEURA: No significant pleural effusion identified, no pneumothorax apparent. CARDIOVASCULAR: No atherosclerotic calcification present Normal. OSSEOUS STRUCTURES: No significant abnormalities. VISUALIZED UPPER ABDOMEN: Normal. OTHER FINDINGS: None. IMPRESSION: Improving pulmonary vascular congestion.
[2018-05-13] MEDS: Albuterol-Ipratrop 3 mg / 0.5 (3 ml) UD INH SCH ×7 (00:01→23:22)
--- NOTE | 2018-05-13 00:01 | PN ---
DATE: 05/12/2018 FOLLOWUP RENAL CONSULTATION LOCATION: The patient is located in room 407, bed 1. REQUESTED BY: Shay Dill M.D. REASON FOR FOLLOWUP: Chronic kidney disease, nephrotic-range proteinuria, and anasarca. SUBJECTIVE: Mrs. Magdaleno is a 47-year-old middle-aged obese female with past medical history significant for longstanding hypertension, diabetes, diabetic retinopathy, nephrotic-range proteinuria, anasarca with worsening renal function, was admitted with symptomatic hypoglycemia and anasarca, difficult to ambulate and wheelchair bound as per the patient. The patient is started on IV Lasix drip with good diuresis and the patient accidentally pulled out IV line and unable to get any IV access this morning as per the registered nurse. The patient also underwent thoracentesis yesterday, drained about 1 liter from the right pleural space and 900 mL from the left pleural space. The patient is feeling much better, not in distress. Still complains of abdominal distention and edema of the abdominal bojorquez and the legs. PHYSICAL EXAMINATION: VITAL SIGNS: As follows: Blood pressure this morning 122/73, pulse 105, respirations 18, temperature 98.2, and saturation 96%. Height 5 feet 3 inches. Weight is 236 pounds. GENERAL: Mrs. Magdaleno is a 47-year-old middle-aged female, obese with anasarca, not in distress. HEENT: Pupils are normal, reactive to light and accommodation. Conjunctivae pink. Sclerae anicteric. Tongue is moist. Trachea is midline. LUNGS: Symmetric on both sides. Bilateral breath sounds present. Occasional basal crackles present. CARDIOVASCULAR SYSTEM: [place] at the fifth intercostal space and midclavicular line. S1 and S2 audible. No murmur or gallop. ABDOMEN: Distended with decreased edema of the abdominal wall and also nontender. Bowel sounds present. No hepatosplenomegaly. CENTRAL NERVOUS SYSTEM: The patient is alert, awake, and oriented x3. Nonfocal neuro examination. Cranial nerves II through XII grossly intact. Sensory and motor system is within normal limits. EXTREMITIES: No cyanosis, no clubbing. The patient has 3+ edema in both upper and lower extremities. CURRENT MEDICATIONS: Include as follows: Moxifloxacin 400 mg p.o. daily, DuoNeb inhaler, ferrous gluconate 324 mg p.o. b.i.d., Januvia 25 mg p.o. daily, Lasix 120 mg p.o. every 12 hours, Nephro-Roshan 1 tablet daily, gabapentin 300 mg p.o. t.i.d., Nicoderm patch, also amlodipine 10 mg p.o. daily, Phenergan DM syrup 10 mL p.o. every 6 hours, Procrit 10,000 units three times a week, Protonix 40 mg p.o. daily, Singulair 10 mg p.o. at bedtime, Zaroxolyn 2.5 mg p.o. every 12 hours, and Tylenol. LABORATORY DATA: Includes as follows: As of 05/12/2018, WBC 5.2, hemoglobin 8.5, hematocrit is 25.7, and platelets 203. Sodium 140, potassium 4.3, chloride 106, CO2 of 24, BUN 42, creatinine 2, glucose 118, and calcium 8.2. Total bili 0.1, AST 14, ALT 21, alkaline phosphatase 50. Total protein 5.1, albumin is 2.5, and procalcitonin 0.55 and proBNP is 3560. Chest x-ray as of 05/12/2018, improving pulmonary vascular congestion. ASSESSMENT AND PLAN: In summary, Mrs. Magdaleno is a 47-year-old middle-aged female with history of longstanding hypertension, diabetes, nephrotic-range proteinuria, anasarca, was admitted initially with symptomatic hypoglycemia and found to have bilateral pleural effusions, status post thoracentesis, on diuretics. 1. Chronic kidney disease most likely secondary to diabetic nephropathy, cannot rule out underlying hypertensive nephrosclerosis. 2. Anasarca, secondary to nephrotic-range proteinuria. 3. Hypertension. 4. Uncontrolled diabetes. 5. Bilateral pleural effusion, status post thoracentesis bilaterally. Continue Lasix and Zaroxolyn and restrict fluids to 1 liter per day. We will follow with you. Thank you for allowing me to participate in your patient's care. Continue her current blood pressure medicine amlodipine. Continuing Epogen, ferrous gluconate and Nephro-Roshan. Mago Espinal MD
--- NOTE | 2018-05-13 07:37 | CP.PCM.PN ---
Subjective - Date & Time of Evaluation Date of Evaluation: 05/11/18 Time of Evaluation: 10:40 - Subjective Subjective: Patient still has a lot of SOB Has no fever Noted diffused edema on both upper and lower ext Objective - Vital Signs/Intake and Output Vital Signs (last 24 hours): Temp Pulse Resp BP Pulse Ox 98.0 F 103 H 16 124/76 96 05/13/18 04:48 05/13/18 04:48 05/13/18 04:48 05/13/18 04:48 05/13/18 04:48 - Medications Medications: Current Medications Acetaminophen (Tylenol 325mg Tab) 650 mg PO Q6 PRN PRN Reason: Pain, Mild (1-3) Last Admin: 05/12/18 20:47 Dose: 650 mg Albuterol/Ipratropium (Duoneb 3 Mg/0.5 Mg (3 Ml) Ud) 3 ml INH RQ4 [facility] Last Admin: 05/13/18 04:44 Dose: 3 ml Amlodipine Besylate (Norvasc) 10 mg PO DAILY [facility] Last Admin: 05/12/18 09:04 Dose: 10 mg Dimethicone (Proshield Plus Skin Protectant) 1 applic TOP Q8 PRN PRN Reason: Other Last Admin: 05/11/18 10:08 Dose: 1 applic Epoetin Diego (Procrit) 10,000 unit SC MWF [facility] Last Admin: 05/11/18 09:55 Dose: 10,000 unit Ferrous Gluconate (Fergon) 324 mg PO BID [facility] Last Admin: 05/12/18 16:54 Dose: 324 mg Fluticasone Propionate (Flonase) 1 spr CASH BID [facility] Last Admin: 05/12/18 22:06 Dose: 1 spr Furosemide (Lasix) 120 mg PO Q12 [facility] Last Admin: 05/12/18 20:48 Dose: 120 mg Gabapentin (Neurontin) 300 mg PO TID [facility] Last Admin: 05/12/18 16:54 Dose: 300 mg Metolazone (Zaroxolyn) 2.5 mg PO Q12 [facility] Last Admin: 05/12/18 20:47 Dose: 2.5 mg Montelukast Sodium (Singulair) 10 mg PO HS [facility] Last Admin: 05/12/18 22:06 Dose: 10 mg Moxifloxacin HCl (Avelox) 400 mg PO DAILY [facility]; Protocol Last Admin: 05/12/18 09:07 Dose: 400 mg Nicotine (Nicoderm Cq) 1 patch TD DAILY [facility] Last Admin: 05/12/18 09:05 Dose: 1 patch Pantoprazole Sodium (Protonix Ec Tab) 40 mg PO DAILY [facility] Last Admin: 05/12/18 09:05 Dose: 40 mg Promethazine HCl/Dextromethorphan (Phenergan Dm Syrup) 10 ml PO Q6 PRN PRN Reason: Cough Last Admin: 05/09/18 18:32 Dose: 10 ml Sitagliptin Phosphate (Januvia) 25 mg PO DAILY [facility] Last Admin: 05/12/18 09:05 Dose: 25 mg Sodium Chloride ([place] Nasal [place]) 2 sprays CASH Q4 PRN PRN Reason: Nasal congestion Last Admin: 05/11/18 10:09 Dose: 1 spr Vitamin B Complex/Vit C/Folic Acid (Nephro-Roshan) 1 tab PO DAILY [facility] Last Admin: 05/12/18 09:05 Dose: 1 tab - Labs Labs: 05/12/18 04:55 05/12/18 04:55 PT 10.9 Seconds (9.8-13.1) 05/11/18 04:55 INR 1.0 05/11/18 04:55 - Head Exam Head Exam: NORMAL INSPECTION - Eye Exam Eye Exam: Normal appearance - Respiratory Exam Respiratory Exam: Decreased Breath Sounds - Cardiovascular Exam Cardiovascular Exam: Tachycardia - GI/Abdominal Exam GI & Abdominal Exam: Normal Bowel Sounds - Extremities Exam Additional comments: diffused edema both upper and lower ext Assessment and Plan (1) Pleural effusion, bilateral Status: Acute (2) Diabetes mellitus type 2 in obese Status: Acute (3) Acute on chronic renal failure Status: Acute (4) Diastolic dysfunction with acute on chronic heart failure Status: Acute (5) HTN (hypertension) Status: Acute - Assessment and Plan (Free Text) Plan: Cont meds Cont tx Cont diuretic
--- NOTE | 2018-05-13 07:41 | CP.PCM.PN ---
Subjective - Date & Time of Evaluation Date of Evaluation: 05/12/18 Time of Evaluation: 11:30 - Subjective Subjective: Patient remains stable Still with tachycardia Noted improved breathing CXR showed improvement of pulm congestion. Objective - Vital Signs/Intake and Output Vital Signs (last 24 hours): Temp Pulse Resp BP Pulse Ox 98.0 F 103 H 16 124/76 96 05/13/18 04:48 05/13/18 04:48 05/13/18 04:48 05/13/18 04:48 05/13/18 04:48 - Medications Medications: Current Medications Acetaminophen (Tylenol 325mg Tab) 650 mg PO Q6 PRN PRN Reason: Pain, Mild (1-3) Last Admin: 05/12/18 20:47 Dose: 650 mg Albuterol/Ipratropium (Duoneb 3 Mg/0.5 Mg (3 Ml) Ud) 3 ml INH RQ4 [facility] Last Admin: 05/13/18 04:44 Dose: 3 ml Amlodipine Besylate (Norvasc) 10 mg PO DAILY [facility] Last Admin: 05/12/18 09:04 Dose: 10 mg Dimethicone (Proshield Plus Skin Protectant) 1 applic TOP Q8 PRN PRN Reason: Other Last Admin: 05/11/18 10:08 Dose: 1 applic Epoetin Diego (Procrit) 10,000 unit SC MWF [facility] Last Admin: 05/11/18 09:55 Dose: 10,000 unit Ferrous Gluconate (Fergon) 324 mg PO BID [facility] Last Admin: 05/12/18 16:54 Dose: 324 mg Fluticasone Propionate (Flonase) 1 spr CASH BID [facility] Last Admin: 05/12/18 22:06 Dose: 1 spr Furosemide (Lasix) 120 mg PO Q12 [facility] Last Admin: 05/12/18 20:48 Dose: 120 mg Gabapentin (Neurontin) 300 mg PO TID [facility] Last Admin: 05/12/18 16:54 Dose: 300 mg Metolazone (Zaroxolyn) 2.5 mg PO Q12 [facility] Last Admin: 05/12/18 20:47 Dose: 2.5 mg Montelukast Sodium (Singulair) 10 mg PO HS [facility] Last Admin: 05/12/18 22:06 Dose: 10 mg Moxifloxacin HCl (Avelox) 400 mg PO DAILY [facility]; Protocol Last Admin: 05/12/18 09:07 Dose: 400 mg Nicotine (Nicoderm Cq) 1 patch TD DAILY [facility] Last Admin: 05/12/18 09:05 Dose: 1 patch Pantoprazole Sodium (Protonix Ec Tab) 40 mg PO DAILY [facility] Last Admin: 05/12/18 09:05 Dose: 40 mg Promethazine HCl/Dextromethorphan (Phenergan Dm Syrup) 10 ml PO Q6 PRN PRN Reason: Cough Last Admin: 05/09/18 18:32 Dose: 10 ml Sitagliptin Phosphate (Januvia) 25 mg PO DAILY [facility] Last Admin: 05/12/18 09:05 Dose: 25 mg Sodium Chloride ([place] Nasal [place]) 2 sprays CASH Q4 PRN PRN Reason: Nasal congestion Last Admin: 05/11/18 10:09 Dose: 1 spr Vitamin B Complex/Vit C/Folic Acid (Nephro-Roshan) 1 tab PO DAILY [facility] Last Admin: 05/12/18 09:05 Dose: 1 tab - Labs Labs: 05/12/18 04:55 05/12/18 04:55 PT 10.9 Seconds (9.8-13.1) 05/11/18 04:55 INR 1.0 05/11/18 04:55 - Head Exam Head Exam: NORMAL INSPECTION - Eye Exam Eye Exam: Normal appearance - ENT Exam ENT Exam: Mucous Membranes Moist - Respiratory Exam Respiratory Exam: Decreased Breath Sounds - Cardiovascular Exam Cardiovascular Exam: REGULAR RHYTHM - GI/Abdominal Exam GI & Abdominal Exam: Normal Bowel Sounds Assessment and Plan (1) Pleural effusion, bilateral Status: Acute (2) Diabetes mellitus type 2 in obese Status: Acute (3) Acute on chronic renal failure Status: Acute (4) Diastolic dysfunction with acute on chronic heart failure Status: Acute (5) HTN (hypertension) Status: Acute - Assessment and Plan (Free Text) Plan: Cont meds Cont diuretic start phys therapy
[2018-05-13] MEDS: Multivitamin Vitamin B Complex (Nephro-Vite) Tab PO SCH (11:35)
[2018-05-13] MEDS: EPOETIN ALFA 10,000 UNIT/ML ML SC SCH (11:37)
[2018-05-13] MEDS: metOLazone 2.5 MG TAB PO SCH ×2 (11:38→23:58)
[2018-05-13] MEDS: Pantoprazole 40 mg EC Tab PO SCH (11:38)
[2018-05-13] MEDS: Proshield Plus GEL TOP PRN (11:41)
--- NOTE | 2018-05-13 11:52 | CP.PCM.PN ---
Subjective - Date & Time of Evaluation Date of Evaluation: 05/13/18 Time of Evaluation: 09:00 - Subjective Subjective: less sob no fever awake and alert Objective - Vital Signs/Intake and Output Vital Signs (last 24 hours): Temp Pulse Resp BP Pulse Ox 97.9 F 69 18 122/71 95 05/13/18 08:01 05/13/18 11:39 05/13/18 08:01 05/13/18 11:39 05/13/18 08:01 - Medications Medications: Current Medications Acetaminophen (Tylenol 325mg Tab) 650 mg PO Q6 PRN PRN Reason: Pain, Mild (1-3) Last Admin: 05/13/18 11:43 Dose: 650 mg Albuterol/Ipratropium (Duoneb 3 Mg/0.5 Mg (3 Ml) Ud) 3 ml INH RQ4 [facility] Last Admin: 05/13/18 11:42 Dose: 3 ml Amlodipine Besylate (Norvasc) 10 mg PO DAILY [facility] Last Admin: 05/13/18 11:39 Dose: 10 mg Dimethicone (Proshield Plus Skin Protectant) 1 applic TOP Q8 PRN PRN Reason: Other Last Admin: 05/13/18 11:41 Dose: 1 applic Epoetin Diego (Procrit) 10,000 unit SC MWF [facility] Last Admin: 05/13/18 11:37 Dose: 10,000 unit Ferrous Gluconate (Fergon) 324 mg PO BID [facility] Last Admin: 05/13/18 11:32 Dose: 324 mg Fluticasone Propionate (Flonase) 1 spr CASH BID [facility] Last Admin: 05/13/18 11:33 Dose: 1 spr Furosemide (Lasix) 120 mg PO Q12 [facility] Last Admin: 05/13/18 11:34 Dose: 120 mg Gabapentin (Neurontin) 300 mg PO TID [facility] Last Admin: 05/13/18 11:39 Dose: 300 mg Metolazone (Zaroxolyn) 2.5 mg PO Q12 [facility] Last Admin: 05/13/18 11:38 Dose: 2.5 mg Montelukast Sodium (Singulair) 10 mg PO HS [facility] Last Admin: 05/12/18 22:06 Dose: 10 mg Moxifloxacin HCl (Avelox) 400 mg PO DAILY [facility]; Protocol Last Admin: 05/13/18 11:32 Dose: 400 mg Nicotine (Nicoderm Cq) 1 patch TD DAILY [facility] Last Admin: 05/13/18 11:36 Dose: 1 patch Pantoprazole Sodium (Protonix Ec Tab) 40 mg PO DAILY [facility] Last Admin: 05/13/18 11:38 Dose: 40 mg Promethazine HCl/Dextromethorphan (Phenergan Dm Syrup) 10 ml PO Q6 PRN PRN Reason: Cough Last Admin: 05/09/18 18:32 Dose: 10 ml Sitagliptin Phosphate (Januvia) 25 mg PO DAILY [facility] Last Admin: 05/13/18 11:34 Dose: 25 mg Sodium Chloride ([place] Nasal [place]) 2 sprays CASH Q4 PRN PRN Reason: Nasal congestion Last Admin: 05/11/18 10:09 Dose: 1 spr Vitamin B Complex/Vit C/Folic Acid (Nephro-Roshan) 1 tab PO DAILY [facility] Last Admin: 05/13/18 11:35 Dose: 1 tab - Labs Labs: 05/12/18 04:55 05/12/18 04:55 PT 10.9 Seconds (9.8-13.1) 05/11/18 04:55 INR 1.0 05/11/18 04:55 - Constitutional Appears: Non-toxic, Chronically Ill - Head Exam Head Exam: NORMOCEPHALIC - Eye Exam Eye Exam: absent: Scleral icterus - ENT Exam ENT Exam: Mucous Membranes Dry - Neck Exam Neck Exam: absent: Lymphadenopathy - Respiratory Exam Respiratory Exam: Decreased Breath Sounds - Cardiovascular Exam Cardiovascular Exam: REGULAR RHYTHM - GI/Abdominal Exam GI & Abdominal Exam: Distended, Soft - Rectal Exam Rectal Exam: Deferred - Exam Exam: NORMAL INSPECTION - Extremities Exam Extremities Exam: Pedal Edema - Back Exam Back Exam: absent: CVA tenderness (L), CVA tenderness (R) - Neurological Exam Neurological Exam: Alert, Awake, CN II-XII Intact - Psychiatric Exam Psychiatric exam: Normal Mood Assessment and Plan (1) Hypoglycemia Status: Acute (2) Pleural effusion, right Status: Acute (3) Pneumonia Status: Acute (4) Sepsis Status: Acute (5) ARF (acute renal failure) Status: Acute (6) Anasarca Status: Acute (7) Anemia Status: Acute (8) CAP (community acquired pneumonia) Status: Acute (9) CHF (congestive heart failure) Status: Acute (10) CHF exacerbation Status: Acute - Assessment and Plan (Free Text) Assessment: cont po avelox Lasix nutritional support
--- NOTE | 2018-05-13 12:07 | CP.PCM.PN ---
Subjective - Date & Time of Evaluation Date of Evaluation: 05/13/18 Time of Evaluation: 12:06 - Subjective Subjective: pt is seen and examined, follow up consult is dictated #[id number] Objective - Vital Signs/Intake and Output Vital Signs (last 24 hours): Temp Pulse Resp BP Pulse Ox 97.9 F 69 18 122/71 95 05/13/18 08:01 05/13/18 11:39 05/13/18 08:01 05/13/18 11:39 05/13/18 08:01 - Medications Medications: Current Medications Acetaminophen (Tylenol 325mg Tab) 650 mg PO Q6 PRN PRN Reason: Pain, Mild (1-3) Last Admin: 05/13/18 11:43 Dose: 650 mg Albuterol/Ipratropium (Duoneb 3 Mg/0.5 Mg (3 Ml) Ud) 3 ml INH RQ4 [facility] Last Admin: 05/13/18 11:42 Dose: 3 ml Amlodipine Besylate (Norvasc) 10 mg PO DAILY [facility] Last Admin: 05/13/18 11:39 Dose: 10 mg Dimethicone (Proshield Plus Skin Protectant) 1 applic TOP Q8 PRN PRN Reason: Other Last Admin: 05/13/18 11:41 Dose: 1 applic Epoetin Diego (Procrit) 10,000 unit SC MWF [facility] Last Admin: 05/13/18 11:37 Dose: 10,000 unit Ferrous Gluconate (Fergon) 324 mg PO BID [facility] Last Admin: 05/13/18 11:32 Dose: 324 mg Fluticasone Propionate (Flonase) 1 spr CASH BID [facility] Last Admin: 05/13/18 11:33 Dose: 1 spr Furosemide (Lasix) 120 mg PO Q12 [facility] Last Admin: 05/13/18 11:34 Dose: 120 mg Gabapentin (Neurontin) 300 mg PO TID [facility] Last Admin: 05/13/18 11:39 Dose: 300 mg Metolazone (Zaroxolyn) 2.5 mg PO Q12 [facility] Last Admin: 05/13/18 11:38 Dose: 2.5 mg Montelukast Sodium (Singulair) 10 mg PO HS [facility] Last Admin: 05/12/18 22:06 Dose: 10 mg Moxifloxacin HCl (Avelox) 400 mg PO DAILY [facility]; Protocol Last Admin: 05/13/18 11:32 Dose: 400 mg Nicotine (Nicoderm Cq) 1 patch TD DAILY [facility] Last Admin: 05/13/18 11:36 Dose: 1 patch Pantoprazole Sodium (Protonix Ec Tab) 40 mg PO DAILY [facility] Last Admin: 05/13/18 11:38 Dose: 40 mg Promethazine HCl/Dextromethorphan (Phenergan Dm Syrup) 10 ml PO Q6 PRN PRN Reason: Cough Last Admin: 05/09/18 18:32 Dose: 10 ml Sitagliptin Phosphate (Januvia) 25 mg PO DAILY [facility] Last Admin: 05/13/18 11:34 Dose: 25 mg Sodium Chloride ([place] Nasal [place]) 2 sprays CASH Q4 PRN PRN Reason: Nasal congestion Last Admin: 05/11/18 10:09 Dose: 1 spr Vitamin B Complex/Vit C/Folic Acid (Nephro-Roshan) 1 tab PO DAILY [facility] Last Admin: 05/13/18 11:35 Dose: 1 tab - Labs Labs: 05/12/18 04:55 05/12/18 04:55 PT 10.9 Seconds (9.8-13.1) 05/11/18 04:55 INR 1.0 05/11/18 04:55
[2018-05-13 12:16] LABS: HEMOGLOBIN 8.3 g/dL (12.0-16.0); MEAN CELL VOLUME 94.1 fl (81.0-99.0); MEAN CORPUSCULAR HEMOGLOBIN 29.8 pg (27.0-31.0); MEAN CORPUSCULAR HGB CONC 31.7 g/dL (33.0-37.0); RBC 2.78 Mil/uL (3.80-5.20); WHITE BLOOD COUNT 5.6 K/uL (4.8-10.8)
[2018-05-14] MEDS: Nasal Spray(Ocean spray) NAS PRN (01:39)
--- NOTE | 2018-05-14 01:40 | CP.PCM.PN ---
Subjective - Date & Time of Evaluation Date of Evaluation: 05/13/18 Time of Evaluation: 08:30 - Subjective Subjective: PICC/midline insertion procedure ongoing in patient's room. Plan of care discussed with staff; chart, meds, and labs reviewed. Pt recently underwent thoracentesis procedure on 05/12, where 900 ml of fluid was removed from the left side, and 1000 ml was removed from the right side. Objective - Vital Signs/Intake and Output Vital Signs (last 24 hours): Temp Pulse Resp BP Pulse Ox 97.5 F L 111 H 18 148/68 92 L 05/14/18 01:17 05/14/18 01:17 05/14/18 01:17 05/14/18 01:17 05/14/18 01:17 Intake and Output: 05/13/18 05/14/18 18:59 06:59 Intake Total 860 Balance 860 - Medications Medications: Current Medications Acetaminophen (Tylenol 325mg Tab) 650 mg PO Q6 PRN PRN Reason: Pain, Mild (1-3) Last Admin: 05/13/18 23:54 Dose: 650 mg Albuterol/Ipratropium (Duoneb 3 Mg/0.5 Mg (3 Ml) Ud) 3 ml INH RQ4 [facility] Last Admin: 05/13/18 23:22 Dose: 3 ml Amlodipine Besylate (Norvasc) 10 mg PO DAILY [facility] Last Admin: 05/13/18 11:39 Dose: 10 mg Dimethicone (Proshield Plus Skin Protectant) 1 applic TOP Q8 PRN PRN Reason: Other Last Admin: 05/13/18 11:41 Dose: 1 applic Epoetin Diego (Procrit) 10,000 unit SC MWF [facility] Last Admin: 05/13/18 11:37 Dose: 10,000 unit Ferrous Gluconate (Fergon) 324 mg PO BID [facility] Last Admin: 05/13/18 16:29 Dose: 324 mg Fluticasone Propionate (Flonase) 1 spr CASH BID [facility] Last Admin: 05/13/18 16:30 Dose: 1 spr Furosemide (Lasix) 120 mg IV BID [facility] Last Admin: 05/14/18 00:30 Dose: 120 mg Gabapentin (Neurontin) 300 mg PO TID [facility] Last Admin: 05/13/18 16:36 Dose: 300 mg Metolazone (Zaroxolyn) 2.5 mg PO Q12 [facility] Last Admin: 05/13/18 23:58 Dose: 2.5 mg Montelukast Sodium (Singulair) 10 mg PO HS [facility] Last Admin: 05/13/18 22:00 Dose: 10 mg Moxifloxacin HCl (Avelox) 400 mg PO DAILY [facility]; Protocol Last Admin: 05/13/18 11:32 Dose: 400 mg Nicotine (Nicoderm Cq) 1 patch TD DAILY [facility] Last Admin: 05/13/18 11:36 Dose: 1 patch Pantoprazole Sodium (Protonix Ec Tab) 40 mg PO DAILY [facility] Last Admin: 05/13/18 11:38 Dose: 40 mg Promethazine HCl/Dextromethorphan (Phenergan Dm Syrup) 10 ml PO Q6 PRN PRN Reason: Cough Last Admin: 05/09/18 18:32 Dose: 10 ml Sitagliptin Phosphate (Januvia) 25 mg PO DAILY [facility] Last Admin: 05/13/18 11:34 Dose: 25 mg Sodium Chloride ([place] Nasal [place]) 2 sprays CASH Q4 PRN PRN Reason: Nasal congestion Last Admin: 05/11/18 10:09 Dose: 1 spr Vitamin B Complex/Vit C/Folic Acid (Nephro-Roshan) 1 tab PO DAILY [facility] Last Admin: 05/13/18 11:35 Dose: 1 tab - Labs Labs: 05/13/18 12:01 05/13/18 12:01 PT 10.9 Seconds (9.8-13.1) 05/11/18 04:55 INR 1.0 05/11/18 04:55 Assessment and Plan - Assessment and Plan (Free Text) Plan: Assessment/Impression/Major Problems Now: 1.) Pleural effusion and Anasarca -Pt underwent thoracentesis on 05/12. 900 ml removed from left side, 1000 ml removed from right side. -Diuresis via lasix 120 mg BID + Zaroxolyn. -IV antibiotics have been switched to PO. -Strict fluid restriction. -Midline IV access insertion done; necessary due to widespread anasarca and no other IV access. -Management of CKD- Nephro consult appreciated, following recommendations.
--- NOTE | 2018-05-14 02:38 | PN ---
DATE: 05/13/2018 FOLLOWUP RENAL CONSULTATION LOCATION: The patient is located in room 407, bed 1. REQUESTED BY: Shay Dill M.D. SUBJECTIVE: Mrs. Magdaleno is a 47-year-old middle-aged female with a past medical history significant for longstanding hypertension, diabetes, diabetic retinopathy, nephrotic-range proteinuria, anasarca, bilateral pleural effusion, and status post thoracentesis. During the last admission, was admitted with hypoglycemic episode and anasarca. The patient was started on IV Lasix drip, responding well. The patient is feeling slightly better, not in distress. Still complains of edema of the abdominal wall, legs, and back. The patient denies drinking excess. Denies any excess water at this time. PHYSICAL EXAMINATION: VITAL SIGNS: As follows: This morning blood pressure is 117/70, pulse 69, respirations about 18, temperature 98, saturation 93% to 94%. Height 5 feet 3 inches, weight is 235 pounds. GENERAL: Mrs. Magdaleno is a 47-year-old middle-aged female well-built, well-nourished, not in distress, with anasarca. HEENT: Pupils are normal and reactive to light and accommodation. Conjunctivae pink. Sclerae anicteric. Tongue is moist. Trachea is midline. LUNGS: Symmetric on both sides. Bilateral decreased breath sounds at bases, right more than the left. CARDIOVASCULAR SYSTEM: [place] at the fifth intercostal space, midclavicular line. S1 and S2 audible. No murmur or gallop. ABDOMEN: Normal in appearance. Soft, tympanitic. No guarding. No rigidity. No hepatosplenomegaly. CENTRAL NERVOUS SYSTEM: The patient is alert, awake, oriented x3. Nonfocal neuro examination. Cranial nerves II through XII grossly intact. Sensory and motor system is within normal limits. EXTREMITIES: No cyanosis. No clubbing. The patient has 3+ edema in both upper and lower extremities. CURRENT MEDICATIONS: Include as follows: Moxifloxacin 400 mg p.o. daily, DuoNeb inhaler 3 mL every 4 hours, ferrous gluconate 324 mg p.o. b.i.d., Flonase 1 spray b.i.d., Januvia 25 mg p.o. daily, Lasix 120 mg p.o. b.i.d., Nephro-Roshan 1 tablet p.o. daily, gabapentin 300 mg p.o. t.i.d., Nicoderm patch daily, amlodipine 10 mg p.o. daily, Phenergan DM 10 mL p.o. every 6 hours p.r.n., Procrit 10,000 units three times a week, Protonix 40 mg p.o. daily, metolazone 2.5 mg p.o. every 12 hours. LABORATORY DATA: Include as follows: WBC 5.6, hemoglobin 8.3, hematocrit is 26.1, platelets 225. Sodium 140, potassium 4.3, chloride 107, CO2 of 25, BUN 44, creatinine 1.8, glucose 103, calcium is 8. ASSESSMENT AND PLAN: In summary, Mrs. Magdaleno is a 47-year-old middle-aged female with hypertension, diabetes, nephrotic-range proteinuria, anasarca, anemia, status post hypoglycemia with anasarca and asthma. 1. Chronic kidney disease, most likely secondary to diabetic nephropathy. 2. Anasarca secondary to nephrotic-range proteinuria. 3. Anemia secondary to chronic kidney disease, cannot rule out iron deficiency anemia. 4. Hypertension. 5. Uncontrolled diabetes. PLAN: We will discontinue p.o. Lasix as the patient has a midline placement yesterday. We will switch to IV Lasix 120 mg IV every 12 hours first dose now, and also, we will continue Epogen 10,000 units 3 times a week Friday, Friday, Friday. Continue Nephro-Roshan. Continue Metolazone 2.5 mg p.o. every 12 hours. We will follow with you. Thank you for allowing me to participate in your patient's care. Restrict fluids to 1 L per day. Mago Espinal MD
[2018-05-14] MEDS: Albuterol-Ipratrop 3 mg / 0.5 (3 ml) UD INH SCH ×6 (04:00→23:44)
[2018-05-14 06:09] LABS: BASO % 0.5 % (0.0-2.0); EOS # 0.2 K/uL (0.0-0.7); EOS % 3.3 % (0.0-4.0); HEMOGLOBIN 8.8 g/dL (12.0-16.0); LYMPH # 1.4 K/uL (1.0-4.3); LYMPH % 20.8 % (20.0-40.0); MEAN CELL VOLUME 92.5 fl (81.0-99.0); MEAN CORPUSCULAR HEMOGLOBIN 30.3 pg (27.0-31.0); MEAN CORPUSCULAR HGB CONC 32.8 g/dL (33.0-37.0); MEAN PLATELET VOLUME 8.8 fl (7.2-11.7); MONO # 0.8 K/uL (0.0-0.8); MONO % 11.6 % (0.0-10.0); NEUT # 4.4 K/uL (1.8-7.0); NEUT % 63.8 % (50.0-75.0); NRBC % 0.1 % (0.0-0.0); RBC 2.9 Mil/uL (3.80-5.20); RED CELL DISTRIBUTION WIDTH 15.4 % (11.5-14.5); WHITE BLOOD COUNT 6.9 K/uL (4.8-10.8)
[2018-05-14 06:54] LABS: ALB/GLOB RATIO 0.9 (1.0-2.1); ALBUMIN 2.4 g/dL (3.5-5.0); CALCIUM 8.1 mg/dL (8.4-10.2)
[2018-05-14] MEDS: metOLazone 2.5 MG TAB PO SCH ×2 (09:00→21:31)
[2018-05-14] MEDS: Multivitamin Vitamin B Complex (Nephro-Vite) Tab PO SCH (09:04)
[2018-05-14] MEDS: Pantoprazole 40 mg EC Tab PO SCH (09:05)
--- NOTE | 2018-05-14 13:45 | CP.PCM.DIS ---
Provider - Provider Date of Admission: 05/07/18 09:12 Attending physician: Rk Dill MD Consults: 05/07/18 10:45 Infectious Disease Consult Stat Comment: Consulting Provider: Perfecto Diaz Consulting Physician: Perfecto Diaz Reason for Consult: sepsis 05/08/18 09:00 Wound Care [Nursing Referral for Wound Care] Routine Comment: Physician Instructions: Reason For Exam: Sacral wound 05/08/18 10:02 Pulmonology Consult Routine Comment: Consulting Provider: Samuel Santo Consulting Physician: Samuel Santo Reason for Consult: pleural effusions, h/o severe asthma, intubations 05/09/18 09:27 Cardiology Consult Routine Comment: Consulting Provider: Jessica Ozuna Consulting Physician: Jessica Ozuna Reason for Consult: CHF Nephrology Consult Routine Comment: Consulting Provider: Mago Espinal Consulting Physician: Mago Espinal Reason for Consult: Elevated BUN/Creatinine Time Spent in preparation of Discharge (in minutes): 30 Diagnosis - Discharge Diagnosis (1) Pleural effusion, bilateral Status: Acute (2) Diabetes mellitus type 2 in obese Status: Acute (3) Acute on chronic renal failure Status: Acute (4) Diastolic dysfunction with acute on chronic heart failure Status: Acute (5) HTN (hypertension) Status: Acute Hospital Course - Lab Results Lab Results: Micro Results 05/07/18 09:10 Blood-Venous Blood Culture - Final NO GROWTH AFTER 5 DAYS 05/07/18 09:10 Blood-Venous Gram Stain - Final TEST NOT PERFORMED 05/07/18 08:46 Blood-Venous Blood Culture - Final NO GROWTH AFTER 5 DAYS 05/07/18 08:46 Blood-Venous Gram Stain - Final TEST NOT PERFORMED 05/09/18 05:00 Naris MRSA Culture (Admit) - Final MRSA NOT DETECTED Most Recent Lab Values WBC 6.9 K/uL (4.8-10.8) 05/14/18 05:05 RBC 2.90 Mil/uL (3.80-5.20) L 05/14/18 05:05 Hgb 8.8 g/dL (12.0-16.0) L 05/14/18 05:05 Hct 26.8 % (34.0-47.0) L 05/14/18 05:05 MCV 92.5 fl (81.0-99.0) 05/14/18 05:05 MCH 30.3 pg (27.0-31.0) 05/14/18 05:05 MCHC 32.8 g/dL (33.0-37.0) L 05/14/18 05:05 RDW 15.4 % (11.5-14.5) H 05/14/18 05:05 Plt Count 211 K/uL (130-400) 05/14/18 05:05 MPV 8.8 fl (7.2-11.7) 05/14/18 05:05 Neut % (Auto) 63.8 % (50.0-75.0) 05/14/18 05:05 Lymph % (Auto) 20.8 % (20.0-40.0) 05/14/18 05:05 [place] % (Auto) 11.6 % (0.0-10.0) H 05/14/18 05:05 Eos % (Auto) 3.3 % (0.0-4.0) 05/14/18 05:05 Baso % (Auto) 0.5 % (0.0-2.0) 05/14/18 05:05 Neut # (Auto) 4.4 K/uL (1.8-7.0) 05/14/18 05:05 Lymph # (Auto) 1.4 K/uL (1.0-4.3) 05/14/18 05:05 [place] # (Auto) 0.8 K/uL (0.0-0.8) 05/14/18 05:05 Eos # (Auto) 0.2 K/uL (0.0-0.7) 05/14/18 05:05 Baso # (Auto) 0.0 K/uL (0.0-0.2) 05/14/18 05:05 Neutrophils % (Manual) 88 % (42-75) H 05/07/18 08:46 Lymphocytes % (Manual) 8 % (20-50) L 05/07/18 08:46 Monocytes % (Manual) 4 % (0-10) 05/07/18 08:46 Platelet Estimate Normal (NORMAL) 05/07/18 08:46 Plt Clumps, EDTA Present 05/07/18 08:46 Hypochromasia (manual) Slight 05/07/18 08:46 Anisocytosis (manual) Slight 05/07/18 08:46 PT 10.9 Seconds (9.8-13.1) 05/11/18 04:55 INR 1.0 05/11/18 04:55 pO2 35 mm/Hg (30-55) 05/07/18 08:58 VBG pH 7.23 (7.32-7.43) L 05/07/18 08:58 VBG pCO2 54 mmHg (40-60) 05/07/18 08:58 VBG HCO3 19.5 mmol/L 05/07/18 08:58 VBG Total CO2 24.3 mmol/L (22-28) 05/07/18 08:58 VBG O2 Sat (Calc) 72.2 % (40-65) H 05/07/18 08:58 VBG Base Excess -5.5 mmol/L (0.0-2.0) L 05/07/18 08:58 VBG Potassium 5.4 mmol/L (3.6-5.2) H 05/07/18 08:58 Sodium 138.0 mmol/L (132-148) 05/07/18 08:58 Chloride 111.0 mmol/L (98-107) H 05/07/18 08:58 Glucose 47 mg/dL (65-105) L 05/07/18 08:58 Lactate 0.7 mmol/L (0.7-2.1) 05/07/18 08:58 FiO2 21.0 % 05/07/18 08:58 Sodium 140 mmol/l (132-148) 05/14/18 05:05 Potassium 4.2 MMOL/L (3.6-5.0) 05/14/18 05:05 Chloride 106 mmol/L (98-107) 05/14/18 05:05 Carbon Dioxide 26 mmol/L (22-30) 05/14/18 05:05 Anion Gap 12 (10-20) 05/14/18 05:05 BUN 46 mg/dl (7-17) H 05/14/18 05:05 Creatinine 1.7 mg/dl (0.7-1.2) H 05/14/18 05:05 Est GFR ( Amer) 39 05/14/18 05:05 Est GFR (Non-Af Amer) 32 05/14/18 05:05 POC Glucose (mg/dL) 102 mg/dL (65-110) 05/14/18 11:14 Random Glucose 106 mg/dL (65-105) H 05/14/18 05:05 Calcium 8.1 mg/dL (8.4-10.2) L 05/14/18 05:05 Phosphorus 6.8 mg/dl (2.5-4.5) H 05/09/18 06:15 Magnesium 2.1 MG/DL (1.6-2.3) 05/09/18 06:15 Total Bilirubin 0.1 mg/dl (0.2-1.3) L 05/14/18 05:05 AST 19 U/L (14-36) 05/14/18 05:05 ALT 25 U/L (9-52) 05/14/18 05:05 Alkaline Phosphatase 47 U/L (38-126) 05/14/18 05:05 Troponin I < 0.0120 ng/mL (0.00-0.120) 05/07/18 08:46 NT-Pro-B Natriuret Pep 3560 pg/ml (0-450) H 05/12/18 08:15 Total Protein 5.3 G/DL (6.3-8.2) L 05/14/18 05:05 Albumin 2.4 g/dL (3.5-5.0) L 05/14/18 05:05 Globulin 2.8 gm/dL (2.2-3.9) 05/14/18 05:05 Albumin/Globulin Ratio 0.9 (1.0-2.1) L 05/14/18 05:05 Procalcitonin 0.55 NG/ML (0.19-0.49) H 05/12/18 04:55 Venous Blood Potassium 5.4 mmol/L (3.6-5.2) H 05/07/18 08:58 Stool Occult Blood Negative (NEGATIVE) 05/11/18 11:28 Vancomycin Trough 13.0 ug/mL (5.0-10.0) H 05/09/18 06:15 Ur L.pneumophila Ag Negative (NEGATIVE) 05/09/18 16:52 - Hospital Course Hospital Course: This is a a 47 y/o female with hx of HTN, DM 2 was admitted for hypoglycemia and pulm congestion. Noted to have pleural effusion bilateral. She was seen by cardiology and was started on diuretics. and BP meds. She responded very well and was discharged in stable condition. Some of her medications for DM 2 were adjusted Discharge Exam - Head Exam Head Exam: NORMOCEPHALIC - Eye Exam Eye Exam: Normal appearance - Respiratory Exam Respiratory Exam: Decreased Breath Sounds - Cardiovascular Exam Cardiovascular Exam: REGULAR RHYTHM - GI/Abdominal Exam GI & Abdominal Exam: Normal Bowel Sounds - Extremities Exam Extremities exam: pedal edema Discharge Plan - Follow Up Plan Condition: FAIR Disposition: HOME/ ROUTINE Additional Instructions: advised to follow up in 1 week advised follow up with [facility]
--- NOTE | 2018-05-14 17:42 | CP.PCM.PN ---
Subjective - Date & Time of Evaluation Date of Evaluation: 05/14/18 Time of Evaluation: 11:00 - Subjective Subjective: patient seen and examined at bedside. Interim events noted No complaints offered at this time still edematous denies cp/sob/fever/chills. available diagnostic data reviewed Review of Systems All systems: reviewed and no additional remarkable complaints except mentioned above Objective Vital Signs Stable - Constitutional Appears: Non-toxic, No Acute Distress - Head Exam Head Exam: NORMAL INSPECTION - Eye Exam Eye Exam: Normal appearance - Respiratory Exam Respiratory Exam: NORMAL BREATHING PATTERN - Cardiovascular Exam Cardiovascular Exam: +S1, +S2 - GI/Abdominal Exam GI & Abdominal Exam: ascities, anasarca - Neurological Exam Neurological Exam: Alert, Awake - Psychiatric Exam Psychiatric exam: Normal Affect, Normal Mood - Skin Skin Exam: Normal Color, Warm Assessment and Plan monitor vitals monitor labs Cont meds Cont tx consultants appreciated input rest of plan as ordered Assessment and Plan (1) ARF (acute renal failure) Status: Acute (2) Hypoglycemia Status: Resolved (3) Pneumonia Status: Acute (4) Sepsis Status: Resolved (5) Pleural effusion Status: Acute (6) Diabetes mellitus Status: Chronic
--- NOTE | 2018-05-14 19:18 | CP.PCM.PN ---
Subjective - Date & Time of Evaluation Date of Evaluation: 05/14/18 Time of Evaluation: 19:17 - Subjective Subjective: pt is seen and examined, follow up consult is dictated #[id number] Objective - Vital Signs/Intake and Output Vital Signs (last 24 hours): Temp Pulse Resp BP Pulse Ox 98.6 F 96 H 18 120/72 97 05/14/18 16:13 05/14/18 18:45 05/14/18 18:45 05/14/18 18:45 05/14/18 18:45 Intake and Output: 05/14/18 05/15/18 18:59 06:59 Intake Total 860 Balance 860 - Medications Medications: Current Medications Acetaminophen (Tylenol 325mg Tab) 650 mg PO Q6 PRN PRN Reason: Pain, Mild (1-3) Last Admin: 05/13/18 23:54 Dose: 650 mg Albuterol/Ipratropium (Duoneb 3 Mg/0.5 Mg (3 Ml) Ud) 3 ml INH RQ4 [facility] Last Admin: 05/14/18 19:06 Dose: 3 ml Amlodipine Besylate (Norvasc) 10 mg PO DAILY [facility] Last Admin: 05/14/18 09:05 Dose: 10 mg Dimethicone (Proshield Plus Skin Protectant) 1 applic TOP Q8 PRN PRN Reason: Other Last Admin: 05/13/18 11:41 Dose: 1 applic Epoetin Diego (Procrit) 10,000 unit SC MWF [facility] Last Admin: 05/13/18 11:37 Dose: 10,000 unit Ferrous Gluconate (Fergon) 324 mg PO BID [facility] Last Admin: 05/14/18 17:04 Dose: 324 mg Fluticasone Propionate (Flonase) 1 spr CASH BID [facility] Last Admin: 05/14/18 17:03 Dose: 1 spr Furosemide (Lasix) 120 mg IV BID [facility] Last Admin: 05/14/18 17:04 Dose: 120 mg Gabapentin (Neurontin) 300 mg PO TID [facility] Last Admin: 05/14/18 17:06 Dose: 300 mg Metolazone (Zaroxolyn) 2.5 mg PO Q12 [facility] Last Admin: 05/14/18 09:00 Dose: 2.5 mg Montelukast Sodium (Singulair) 10 mg PO HS [facility] Last Admin: 05/13/18 22:00 Dose: 10 mg Moxifloxacin HCl (Avelox) 400 mg PO DAILY [facility]; Protocol Last Admin: 05/14/18 09:01 Dose: 400 mg Nicotine (Nicoderm Cq) 1 patch TD DAILY [facility] Last Admin: 05/14/18 09:04 Dose: 1 patch Pantoprazole Sodium (Protonix Ec Tab) 40 mg PO DAILY [facility] Last Admin: 05/14/18 09:05 Dose: 40 mg Promethazine HCl/Dextromethorphan (Phenergan Dm Syrup) 10 ml PO Q6 PRN PRN Reason: Cough Last Admin: 05/09/18 18:32 Dose: 10 ml Sitagliptin Phosphate (Januvia) 25 mg PO DAILY [facility] Last Admin: 05/14/18 09:02 Dose: 25 mg Sodium Chloride ([place] Nasal [place]) 2 sprays CASH Q4 PRN PRN Reason: Nasal congestion Last Admin: 05/14/18 01:39 Dose: 2 spr Trazodone HCl (Desyrel) 50 mg PO [facility] Vitamin B Complex/Vit C/Folic Acid (Nephro-Roshan) 1 tab PO DAILY [facility] Last Admin: 05/14/18 09:04 Dose: 1 tab - Labs Labs: 05/14/18 05:05 05/14/18 05:05 PT 10.9 Seconds (9.8-13.1) 05/11/18 04:55 INR 1.0 05/11/18 04:55
--- NOTE | 2018-05-14 21:55 | CP.PCM.PN ---
Subjective - Date & Time of Evaluation Date of Evaluation: 05/11/18 Time of Evaluation: 10:30 - Subjective Subjective: patient seen and examined at bedside. Interim events noted No complaints offered at this time still edematous denies cp/sob/fever/chills. available diagnostic data reviewed Review of Systems All systems: reviewed and no additional remarkable complaints except mentioned above Objective Vital Signs Stable - Constitutional Appears: Non-toxic, No Acute Distress - Head Exam Head Exam: NORMAL INSPECTION - Eye Exam Eye Exam: Normal appearance - Respiratory Exam Respiratory Exam: NORMAL BREATHING PATTERN, decreased breath sounds - Cardiovascular Exam Cardiovascular Exam: +S1, +S2 - GI/Abdominal Exam GI & Abdominal Exam: ascities, anasarca - Neurological Exam Neurological Exam: Alert, Awake - Psychiatric Exam Psychiatric exam: Normal Affect, Normal Mood - Skin Skin Exam: Normal Color, Warm Assessment and Plan monitor vitals monitor labs Cont meds Cont tx consultants appreciated input for thoracentesis today rest of plan as ordered Assessment and Plan (1) ARF (acute renal failure) Status: Acute (2) Hypoglycemia Status: Resolved (3) Pneumonia Status: Acute (4) Sepsis Status: Resolved (5) Pleural effusion Status: Acute (6) Diabetes mellitus Status: Chronic
--- NOTE | 2018-05-14 22:10 | PQF ---
PROVIDER RESPONSE TEXT: Provider was unable to determine a response for this query. REVIEWER QUERY TEXT: Pressure Ulcer Type Pressure ulcer is documented in the Medical Record. Please specify the location, present on admission status and/or stage: if in agreement versus: -- Other -- Clinically unable to determine -- Unknown Nurses Admission Physical: Skin Assessment: Decubitus: 2 ulcers noted to sacral area 05/10 Nurses Note: Pressure Ulcer Assessment: Sacrum: Partial thickness loss of dermis presenting as a shallow open ulcer Stage of each pressure ulcer (National Pressure Ulcer Advisory Panel definitions): -- Stage I: Intact skin with non-blanchable redness of a localized area -- Stage II: Partial thickness skin loss involving dermis with a shallow open ulcer or an open serum -filled blister -- Stage III: Full thickness skin loss involving damage or necrosis of subcutaneous tissue -- Stage IV: Full thickness skin loss with exposed bone, tendon or muscle -- Unstageable: Full thickness tissue loss in which the base of the ulcer is covered by slough and/o r eschar in the wound bed The patient's Clinical Indicators include: ----- Query created by: Josie Sellers on 05/11/2018 3:04 PM Electronically signed by: Rk Dill 05/14/2018 10:07 PM
--- NOTE | 2018-05-14 22:10 | PQF ---
PROVIDER RESPONSE TEXT: Diabetes Mellitus Type 2 REVIEWER QUERY TEXT: Conflicting Documentation Clarification DM Type 1 versus DM Type 2 -- Other, please specify H and P: includes; Hx Diabetes Mellitus Type 1: Yes 05/09 Attending progress note includes: DM Type 2 in obese The patient's Clinical Indicators include: ----- Query created by: Josie Sellers on 05/11/2018 3:27 PM Electronically signed by: Rk Dill 05/14/2018 10:07 PM
--- NOTE | 2018-05-14 22:10 | PQF ---
PROVIDER RESPONSE TEXT: Provider was unable to determine a response for this query. REVIEWER QUERY TEXT: Anemia Type Anemia is documented in the Medical Record. Please specify the cause (includes suspected or probable cause) if in agreement: Such as: -- Due to acute blood loss -- Due to chronic blood loss -- Due to iron deficiency -- Due to postoperative blood loss -- Due to chronic disease -- Other, please specify 05/10 Renal progress note includes: --with hypertension, diabetes, nephrotic-range proteinuria, diabet ic retinopathy, status post laser treatment, anasarca, was admitted with shortness of breath and sym ptomatic hypoglycemia. 1.Acute renal failure versus chronic kidney disease secondary to diabetic nephropathy. 2.Anasarca. 3.Uncontrolled diabetes. 4.Hypertension. 5.Bilateral pleural effusion. continue Epogen for anemia, Nephro-Roshan, and ferrous gluconate The patient's Clinical Indicators include: -- Query created by: Josie Sellers on 05/11/2018 3:22 PM Electronically signed by: Rk Dill 05/14/2018 10:07 PM
[2018-05-15 00:32] VITALS: RESP 20
--- NOTE | 2018-05-15 03:03 | PN ---
DATE: 05/14/2018 FOLLOWUP RENAL CONSULTATION LOCATION: The patient is located in room 407, bed 1. REQUESTED BY: Shya Dill MD REASON FOR FOLLOWUP: Diabetic nephropathy, chronic kidney disease, proteinuria, anasarca. SUBJECTIVE: Mrs. Magdaleno is a 47-year-old middle-aged, obese female with a history of longstanding hypertension, diabetes, nephrotic-range proteinuria, anasarca, bilateral pleural effusions, status post thoracentesis x2, the first one during her last admission and the second one during this admission, drained about 1 liter on the right side and 900 mL on the left side. The patient is on IV Lasix. The patient is feeling better, not in distress. Denies any chest pain or palpitation. Denies any fever or cough. No abdominal pain. No nausea, vomiting or diarrhea. Complains of still swelling of the legs, abdominal wall and back. PHYSICAL EXAMINATION: VITAL SIGNS: As follows: Blood pressure 153/78, pulse 99, respirations 18, temperature 98.6, saturation 97%. Height 5 feet 3 inches, weight is 223 pounds. GENERAL: Mrs. Magdaleno is a 47-year-old middle-aged female, well built, well nourished, not in acute distress, on nasal cannula. HEENT: Pupils are normal and reactive to light and accommodation. Conjunctivae pink. Sclerae anicteric. Tongue is moist. The trachea is midline. LUNGS: Symmetric on both sides. Bilateral decreased breath sounds in bases. Bilateral crackles present. CVS: [place] at the fifth intercostal space, midclavicular line. S1 and S2 audible. No murmur or gallop. ABDOMEN: Normal in appearance, soft, tympanitic. No guarding. No rigidity. No hepatosplenomegaly. The patient has extensive edema of the abdominal wall. 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 Nonfocal neuro examination. Cranial nerves II through XII grossly intact. Sensory and motor system is within normal limits. EXTREMITIES: No cyanosis, no clubbing. The patient has 3+ edema in both lower extremities and also edema of the abdominal wall and edema of the both upper extremities. CURRENT MEDICATIONS: Include as follows: Avelox 400 mg p.o. daily, trazodone 50 mg p.o. at bedtime, DuoNeb inhaler, ferrous gluconate 324 mg p.o. b.i.d., Flonase, Januvia 25 mg p.o. daily, Lasix 120 mg IV b.i.d., Nephro-Roshan one tablet daily, gabapentin 300 mg p.o. t.i.d., Nicoderm nicotine patch and also amlodipine 10 mg p.o. daily, Phenergan DM syrup 10 mL p.o. every 6 hours p.r.n., Procrit 10,000 units three times a week Friday, Friday and Friday, Protonix 40 mg p.o. daily, Singulair 10 mg p.o. at bedtime, Tylenol, and Zaroxolyn 2.5 mg p.o. every 12 hours. LABORATORY DATA: As of 05/14/2018, WBC is 6.9, hemoglobin 8.8, hematocrit is 26.8, platelets 211. Sodium 140, potassium 4.2, chloride 106, CO2 of 26, BUN 46, creatinine 1.7, glucose 106, calcium 8.1, total bilirubin 0.1, AST 19, ALT 25, alkaline phosphatase 47, total protein 5.3, albumin 2.4. ASSESSMENT AND PLAN: In summary, Mrs. Magdaleno is a 47-year-old middle-aged female with a history of longstanding hypertension, diabetes, anasarca, nephrotic-range proteinuria with increased blood urea nitrogen and creatinine, low hemoglobin and hematocrit, who was admitted with shortness of breath, status post thoracentesis two days ago. The patient is feeling much better after thoracentesis. 1. Chronic kidney disease, most likely secondary to diabetic nephropathy. 2. Nephrotic-range proteinuria. All the workup was within normal limits except antinuclear antibody in a homogeneous pattern, most likely secondary to diabetic nephropathy in view of diabetic retinopathy and laser treatment. 3. Hypertension. 4. Anasarca. 5. Anemia, most likely secondary to chronic kidney disease and iron-deficiency anemia. Continue ferrous gluconate and Epogen. Continue IV Lasix and continue the metolazone. Continue to monitor BMP. Consider physical therapy evaluation. We will follow up with you. Thank you for allowing me to participate in your patient's care. Mago Espinal MD [facility] # [id number]
[2018-05-15] MEDS: Albuterol-Ipratrop 3 mg / 0.5 (3 ml) UD INH SCH ×4 (04:10→15:18)
[2018-05-15 05:17] LABS: HEMOGLOBIN 8.3 g/dL (12.0-16.0); MEAN CELL VOLUME 92.4 fl (81.0-99.0); MEAN CORPUSCULAR HEMOGLOBIN 30.6 pg (27.0-31.0); MEAN CORPUSCULAR HGB CONC 33.2 g/dL (33.0-37.0); RBC 2.71 Mil/uL (3.80-5.20); WHITE BLOOD COUNT 6.2 K/uL (4.8-10.8)
[2018-05-15 05:27] LABS: ALB/GLOB RATIO 0.9 (1.0-2.1); ALBUMIN 2.3 g/dL (3.5-5.0); ALT/SGPT 20 U/L (9-52); AST/SGOT 17 U/L (14-36); BLOOD UREA NITROGEN 43 mg/dl (7-17); GFR NON-AFRICAN AMERICAN 25
--- NOTE | 2018-05-15 09:21 | CP.PCM.PN ---
Subjective - Date & Time of Evaluation Date of Evaluation: 05/15/18 Time of Evaluation: 09:20 - Subjective Subjective: pt is seemn and examined, follow up consult is dictated #[id number] Objective - Vital Signs/Intake and Output Vital Signs (last 24 hours): Temp Pulse Resp BP Pulse Ox 98.2 F 102 H 20 113/74 94 L 05/15/18 08:45 05/15/18 08:45 05/15/18 08:45 05/15/18 08:45 05/15/18 08:45 - Medications Medications: Current Medications Acetaminophen (Tylenol 325mg Tab) 650 mg PO Q6 PRN PRN Reason: Pain, Mild (1-3) Last Admin: 05/13/18 23:54 Dose: 650 mg Albuterol/Ipratropium (Duoneb 3 Mg/0.5 Mg (3 Ml) Ud) 3 ml INH RQ4 [facility] Last Admin: 05/15/18 07:09 Dose: 3 ml Amlodipine Besylate (Norvasc) 10 mg PO DAILY [facility] Last Admin: 05/14/18 09:05 Dose: 10 mg Dimethicone (Proshield Plus Skin Protectant) 1 applic TOP Q8 PRN PRN Reason: Other Last Admin: 05/13/18 11:41 Dose: 1 applic Epoetin Diego (Procrit) 10,000 unit SC MWF [facility] Last Admin: 05/13/18 11:37 Dose: 10,000 unit Ferrous Gluconate (Fergon) 324 mg PO BID [facility] Last Admin: 05/14/18 17:04 Dose: 324 mg Fluticasone Propionate (Flonase) 1 spr CASH BID [facility] Last Admin: 05/14/18 17:03 Dose: 1 spr Furosemide (Lasix) 120 mg IV BID [facility] Last Admin: 05/14/18 17:04 Dose: 120 mg Gabapentin (Neurontin) 300 mg PO TID [facility] Last Admin: 05/14/18 17:06 Dose: 300 mg Metolazone (Zaroxolyn) 2.5 mg PO Q12 [facility] Last Admin: 05/14/18 21:31 Dose: Not Given Montelukast Sodium (Singulair) 10 mg PO HS [facility] Last Admin: 05/14/18 21:25 Dose: 10 mg Moxifloxacin HCl (Avelox) 400 mg PO DAILY [facility]; Protocol Last Admin: 05/14/18 09:01 Dose: 400 mg Nicotine (Nicoderm Cq) 1 patch TD DAILY [facility] Last Admin: 05/14/18 09:04 Dose: 1 patch Pantoprazole Sodium (Protonix Ec Tab) 40 mg PO DAILY [facility] Last Admin: 05/14/18 09:05 Dose: 40 mg Promethazine HCl/Dextromethorphan (Phenergan Dm Syrup) 10 ml PO Q6 PRN PRN Reason: Cough Last Admin: 05/09/18 18:32 Dose: 10 ml Sitagliptin Phosphate (Januvia) 25 mg PO DAILY [facility] Last Admin: 05/14/18 09:02 Dose: 25 mg Sodium Chloride ([place] Nasal [place]) 2 sprays CASH Q4 PRN PRN Reason: Nasal congestion Last Admin: 05/14/18 01:39 Dose: 2 spr Trazodone HCl (Desyrel) 50 mg PO HS [facility] Last Admin: 05/14/18 21:25 Dose: 50 mg Vitamin B Complex/Vit C/Folic Acid (Nephro-Roshan) 1 tab PO DAILY [facility] Last Admin: 05/14/18 09:04 Dose: 1 tab - Labs Labs: 05/15/18 04:40 05/15/18 04:40 PT 10.9 Seconds (9.8-13.1) 05/11/18 04:55 INR 1.0 05/11/18 04:55
[2018-05-15] MEDS: Multivitamin Vitamin B Complex (Nephro-Vite) Tab PO SCH (10:43)
[2018-05-15] MEDS: metOLazone 2.5 MG TAB PO SCH (10:45)
[2018-05-15] MEDS: Pantoprazole 40 mg EC Tab PO SCH (10:45)
[2018-05-15] MEDS: EPOETIN ALFA 10,000 UNIT/ML ML SC SCH (10:48)
--- NOTE | 2018-05-15 13:15 | CP.PCM.PN ---
Subjective - Date & Time of Evaluation Date of Evaluation: 05/15/18 Time of Evaluation: 06:00 - Subjective Subjective: rx in progress orders renewed Objective - Vital Signs/Intake and Output Vital Signs (last 24 hours): Temp Pulse Resp BP Pulse Ox 98.2 F 102 H 20 113/62 94 L 05/15/18 08:45 05/15/18 10:46 05/15/18 08:45 05/15/18 10:46 05/15/18 08:45 - Medications Medications: Current Medications Acetaminophen (Tylenol 325mg Tab) 650 mg PO Q6 PRN PRN Reason: Pain, Mild (1-3) Last Admin: 05/13/18 23:54 Dose: 650 mg Albuterol/Ipratropium (Duoneb 3 Mg/0.5 Mg (3 Ml) Ud) 3 ml INH RQ4 [facility] Last Admin: 05/15/18 11:05 Dose: 3 ml Amlodipine Besylate (Norvasc) 10 mg PO DAILY [facility] Last Admin: 05/15/18 10:46 Dose: 10 mg Dimethicone (Proshield Plus Skin Protectant) 1 applic TOP Q8 PRN PRN Reason: Other Last Admin: 05/13/18 11:41 Dose: 1 applic Epoetin Diego (Procrit) 10,000 unit SC MWF [facility] Last Admin: 05/15/18 10:48 Dose: 10,000 unit Ferrous Gluconate (Fergon) 324 mg PO BID [facility] Last Admin: 05/15/18 10:45 Dose: 324 mg Fluticasone Propionate (Flonase) 1 spr CASH BID [facility] Last Admin: 05/15/18 10:46 Dose: 1 spr Furosemide (Lasix) 120 mg IV BID [facility] Last Admin: 05/15/18 10:44 Dose: 120 mg Gabapentin (Neurontin) 300 mg PO TID [facility] Last Admin: 05/15/18 10:43 Dose: 300 mg Metolazone (Zaroxolyn) 2.5 mg PO Q12 [facility] Last Admin: 05/15/18 10:45 Dose: 2.5 mg Montelukast Sodium (Singulair) 10 mg PO HS [facility] Last Admin: 05/14/18 21:25 Dose: 10 mg Moxifloxacin HCl (Avelox) 400 mg PO DAILY [facility]; Protocol Last Admin: 05/15/18 10:45 Dose: 400 mg Nicotine (Nicoderm Cq) 1 patch TD DAILY [facility] Last Admin: 05/15/18 10:45 Dose: 1 patch Pantoprazole Sodium (Protonix Ec Tab) 40 mg PO DAILY [facility] Last Admin: 05/15/18 10:45 Dose: 40 mg Promethazine HCl/Dextromethorphan (Phenergan Dm Syrup) 10 ml PO Q6 PRN PRN Reason: Cough Last Admin: 05/09/18 18:32 Dose: 10 ml Sitagliptin Phosphate (Januvia) 25 mg PO DAILY [facility] Last Admin: 05/15/18 10:43 Dose: 25 mg Sodium Chloride ([place] Nasal [place]) 2 sprays CASH Q4 PRN PRN Reason: Nasal congestion Last Admin: 05/14/18 01:39 Dose: 2 spr Trazodone HCl (Desyrel) 50 mg PO HS [facility] Last Admin: 05/14/18 21:25 Dose: 50 mg Vitamin B Complex/Vit C/Folic Acid (Nephro-Roshan) 1 tab PO DAILY [facility] Last Admin: 05/15/18 10:43 Dose: 1 tab - Labs Labs: 05/15/18 04:40 05/15/18 04:40 PT 10.9 Seconds (9.8-13.1) 05/11/18 04:55 INR 1.0 05/11/18 04:55 - Constitutional Appears: Non-toxic, Chronically Ill - Head Exam Head Exam: NORMOCEPHALIC - Eye Exam Eye Exam: absent: Scleral icterus - ENT Exam ENT Exam: Mucous Membranes Dry - Neck Exam Neck Exam: absent: Lymphadenopathy - Respiratory Exam Respiratory Exam: Decreased Breath Sounds - Cardiovascular Exam Cardiovascular Exam: REGULAR RHYTHM - GI/Abdominal Exam GI & Abdominal Exam: Distended, Soft - Rectal Exam Rectal Exam: Deferred - Exam Exam: NORMAL INSPECTION Assessment and Plan (1) Hypoglycemia Status: Resolved (2) Pleural effusion, right Status: Acute (3) Pneumonia Status: Acute (4) Sepsis Status: Resolved (5) ARF (acute renal failure) Status: Acute (6) Anasarca Status: Acute (7) Anemia Status: Acute (8) CAP (community acquired pneumonia) Status: Acute (9) CHF (congestive heart failure) Status: Acute (10) CHF exacerbation Status: Acute - Assessment and Plan (Free Text) Assessment: cont rx as per DR Diaz
[2018-05-15 16:24] VITALS: PULSE 101; O2SAT 95
[2018-05-15 16:27] VITALS: BP 114/69; TEMP 98.5
--- NOTE | 2018-05-18 08:12 | PN ---
DATE: 05/15/2018 FOLLOWUP RENAL CONSULTATION LOCATION: The patient is located in room 407, bed 1. REQUESTED BY: Shay Dill MD REASON FOR FOLLOWUP: Anasarca and nephrotic-range proteinuria, renal failure. SUBJECTIVE: Mrs. Magdaleno is a 47-year-old middle-aged female with a history of longstanding hypertension, diabetes, diabetic retinopathy, nephrotic-range proteinuria, now with increased BUN and creatinine, anasarca, who was initially admitted with symptomatic hypoglycemia and the patient was found to have anasarca, unable to ambulate, started on IV Lasix drip and subsequently changed it to IV Lasix 120 mg every 12 hours and metolazone. The patient is feeling much better, not in acute distress. Denies any chest pain or palpitation. Denies any fever or cough. No abdominal pain. No nausea, vomiting or diarrhea status post thoracentesis during this hospitalization, bilateral thoracentesis. PHYSICAL EXAMINATION: VITAL SIGNS: As follows: Blood pressure this morning 113/74, pulse 102, respirations about 20, temperature 98.1, saturation 95%. Height 5 feet 3 inches, weight is 215 pounds. GENERAL: Mrs. Magdaleno is a 47-year-old middle-aged female, moderately built, moderately nourished, not in distress. HEENT: Pupils are normal and reactive to light and accommodation. Conjunctivae pink. Sclerae anicteric. Tongue is moist. Trachea is midline. LUNGS: Symmetric on both sides. Occasional basal crackles present. CVS: [place] at the fifth intercostal space, midclavicular line. S1 and S2 audible. No murmur or gallop. ABDOMEN: There is edema of the abdominal wall present. Abdomen is soft and nontender. Bowel sounds are present. No hepatosplenomegaly. CENTRAL NERVOUS SYSTEM: The patient is alert, awake, oriented x3. Nonfocal neuro examination. Cranial nerves II through XII grossly intact. Sensory and motor system is within normal limits. EXTREMITIES: No cyanosis, no clubbing. The patient has got 2 to 3+ edema in both upper and lower extremities, edema of the abdominal wall and sacral edema present. CURRENT MEDICATIONS: Include as follows: Moxifloxacin 400 mg p.o. daily, trazodone 50 mg p.o. at bedtime, DuoNeb inhaler 3 mL every 4 hours, ferrous gluconate 324 mg p.o. b.i.d., Flonase, Januvia 25 mg p.o. daily, Lasix 120 mg IV b.i.d., ibuprofen 800 mg p.o. every 8 hours p.r.n., Nephro-Roshan one tablet daily, Neurontin 1600 mg p.o. every 8 hours, nicotine patch daily, amlodipine 10 mg p.o. daily, Procrit 10,000 units subcu Friday, Friday, Friday, Protonix 40 mg p.o. daily, Singulair 10 mg p.o. daily and Zaroxolyn 2.5 mg p.o. every 12 hours. LABORATORY DATA: Includes as follows: As of 05/15/2018, WBC 6.2, hemoglobin 8.3, hematocrit is 25, and platelets 228. Sodium 141, potassium 3.7, chloride 106, CO2 of 29, BUN 43, creatinine 2.1, glucose is 199, calcium is 8, and total bili 0.1. AST 17, ALT 20, alkaline phosphatase 49, total protein 4.9, and albumin is 2.3. ASSESSMENT: In summary, Mrs. Magdaleno is a 47-year-old middle-aged female with a history of hypertension, diabetes, diabetic retinopathy, nephrotic-range proteinuria, anasarca with increased BUN and creatinine, anemia, bilateral pleural effusions, status post thoracentesis. 1. Renal failure most likely secondary to diabetic nephropathy. 2. Massive proteinuria secondary to most likely diabetic nephropathy, doubt chronic glomerulonephritis, cannot rule out. 3. Anemia secondary to renal failure, cannot rule out iron-deficiency anemia. 4. Anasarca secondary to massive proteinuria and renal failure. PLAN: Continue her current medication. Continue Lasix and Protonix. Continue Epogen. Restrict fluids to 1 liter per day. Continue to monitor BMP and electrolytes. We will follow up with you. Thank you for allowing me to participate in your patient's care. Mago Espinal MD
== END 2018-05-15 16:50 | DRG 584 ==
LOC: H.ER 07:00 → H.ERHOLD 09:12 → H.ICU/CCU 14:30 → H.TEL 05-08 21:08
PROVIDERS: ADMIT Family Medicine; ATTEND Family Medicine
PROC: 0W993ZZ Drainage of Right Pleural Cavity, Percutaneous Approach (ICD-10-PCS; principal; 2018-05-10)
PROC: 0W9B3ZZ Drainage of Left Pleural Cavity, Percutaneous Approach (ICD-10-PCS; 2018-05-10)
DX: A41.9 Sepsis, unspecified organism (principal); J18.9 Pneumonia, unspecified organism; I50.33 Acute on chronic diastolic (congestive) heart failure; N17.9 Acute kidney failure, unspecified; M32.9 Systemic lupus erythematosus, unspecified; J90 Pleural effusion, not elsewhere classified; I13.0 Hypertensive heart and chronic kidney disease with heart failure and stage 1 through stage 4 chronic kidney disease, or unspecified chronic kidney disease; N18.3 Chronic kidney disease, stage 3 (moderate); E11.319 Type 2 diabetes mellitus with unspecified diabetic retinopathy without macular edema; E11.649 Type 2 diabetes mellitus with hypoglycemia without coma; E11.22 Type 2 diabetes mellitus with diabetic chronic kidney disease; E11.21 Type 2 diabetes mellitus with diabetic nephropathy; J91.8 Pleural effusion in other conditions classified elsewhere; B19.20 Unspecified viral hepatitis C without hepatic coma; D63.1 Anemia in chronic kidney disease; D50.9 Iron deficiency anemia, unspecified; E66.9 Obesity, unspecified; Z79.4 Long term (current) use of insulin; E11.65 Type 2 diabetes mellitus with hyperglycemia; J45.909 Unspecified asthma, uncomplicated; Z87.891 Personal history of nicotine dependence; Z90.49 Acquired absence of other specified parts of digestive tract; Z91.19 Patient's noncompliance with other medical treatment and regimen; Z99.3 Dependence on wheelchair; K82.9 Disease of gallbladder, unspecified; Z79.899 Other long term (current) drug therapy; R00.0 Tachycardia, unspecified

== ENCOUNTER 2018-05-15 15:16 | Inpatient (IN) | payer MEDICAID ==
[2018-05-15 17:13] VITALS: BMI 38.2
[2018-05-15] MEDS ORDERED: Promethazine DM 12.5 mg-30 mg/10 ml Syrup PO PRN (17:17)
[2018-05-15] MEDS ORDERED: Proshield Plus GEL TOP PRN (17:17)
[2018-05-15] MEDS: Albuterol-Ipratrop 3 mg / 0.5 (3 ml) UD INH SCH (19:37)
[2018-05-15] MEDS: metOLazone 2.5 MG TAB PO SCH (21:12)
[2018-05-15] MEDS: INSULIN GLARGINE HUM REC ANLOG 36 UNIT SC SCH (21:16)
[2018-05-16] MEDS: Albuterol-Ipratrop 3 mg / 0.5 (3 ml) UD INH SCH ×7 (00:42→23:48)
[2018-05-16] MEDS ORDERED: [UNRECOGNIZED DRUG - OTHER] SC SCH (09:00)
[2018-05-16] MEDS ORDERED: INSULIN DEGLUDEC SC SCH (09:00)
[2018-05-16] MEDS ORDERED: LIRAGLUTIDE SC SCH (09:00)
[2018-05-16] MEDS: Multivitamin Vitamin B Complex (Nephro-Vite) Tab PO SCH (09:01)
[2018-05-16] MEDS: Pantoprazole 40 mg EC Tab PO SCH (09:02)
[2018-05-16] MEDS: metOLazone 2.5 MG TAB PO SCH ×2 (09:02→22:56)
[2018-05-16 09:45] LABS: CALCIUM 7.8 mg/dL (8.4-10.2)
--- NOTE | 2018-05-16 14:02 | CP.PCM.PN ---
Subjective - Date & Time of Evaluation Date of Evaluation: 05/16/18 Time of Evaluation: 14:01 - Subjective Subjective: pt is seen and examined, follow up consult is dictated #[id number] c/w lasix and metolazone, restrict fluids to 1 lit/day Objective - Vital Signs/Intake and Output Vital Signs (last 24 hours): Temp Pulse Resp BP Pulse Ox 98.2 F 89 20 107/68 96 05/16/18 08:09 05/16/18 09:01 05/16/18 08:09 05/16/18 09:01 05/16/18 08:09 - Medications Medications: Current Medications Albuterol/Ipratropium (Duoneb 3 Mg/0.5 Mg (3 Ml) Ud) 3 ml INH RQ4 [facility] Last Admin: 05/16/18 11:45 Dose: 3 ml Amlodipine Besylate (Norvasc) 10 mg PO DAILY [facility] Last Admin: 05/16/18 09:01 Dose: 10 mg Dimethicone (Proshield Plus Skin Protectant) 1 applic TOP Q8 PRN PRN Reason: Other Epoetin Diego (Procrit) 10,000 unit SC MWF [facility] Ferrous Gluconate (Fergon) 324 mg PO BID [facility] Last Admin: 05/16/18 08:55 Dose: 324 mg Fluticasone Propionate (Flonase) 1 spr CASH BID [facility] Last Admin: 05/16/18 08:56 Dose: 1 spr Furosemide (Lasix) 120 mg IV BID [facility] Last Admin: 05/16/18 08:59 Dose: 120 mg Gabapentin (Neurontin) 200 mg PO Q8 [facility] Last Admin: 05/16/18 09:01 Dose: 200 mg Home Med (Insulin Degludec/Liraglutide [Xultophy 100 Unit-3.6mg/Ml Pen]) 20 unit SC QAM [facility] Home Med (Insulin Glargine,Hum.Rec.Anlog [Basaglar Kwikpen U-100]) 36 units SC HS [facility] Last Admin: 05/15/18 21:16 Dose: Not Given Ibuprofen (Motrin Tab) 800 mg PO Q8 PRN PRN Reason: Pain, moderate (4-7) Last Admin: 05/15/18 20:00 Dose: 800 mg Metolazone (Zaroxolyn) 2.5 mg PO Q12 [facility] Last Admin: 05/16/18 09:02 Dose: 2.5 mg Montelukast Sodium (Singulair) 10 mg PO DAILY [facility] Last Admin: 05/16/18 09:02 Dose: 10 mg Moxifloxacin HCl (Avelox) 400 mg PO DAILY [facility]; Protocol Last Admin: 05/16/18 08:55 Dose: 400 mg Nicotine (Nicoderm Cq) 1 patch TD DAILY [facility] Last Admin: 05/16/18 09:01 Dose: 1 patch Pantoprazole Sodium (Protonix Ec Tab) 40 mg PO DAILY [facility] Last Admin: 05/16/18 09:02 Dose: 40 mg Promethazine HCl/Dextromethorphan (Phenergan Dm Syrup) 10 ml PO Q6 PRN PRN Reason: Cough Sitagliptin Phosphate (Januvia) 25 mg PO DAILY [facility] Last Admin: 05/16/18 08:56 Dose: 25 mg Trazodone HCl (Desyrel) 50 mg PO HS [facility] Last Admin: 05/15/18 21:15 Dose: Not Given Vitamin B Complex/Vit C/Folic Acid (Nephro-Roshan) 1 tab PO DAILY [facility] Last Admin: 05/16/18 09:01 Dose: 1 tab - Labs Labs: 05/16/18 09:00
[2018-05-16] MEDS: INSULIN GLARGINE HUM REC ANLOG 36 UNIT SC SCH (22:57)
--- NOTE | 2018-05-17 03:13 | PN ---
DATE: 05/16/2018 FOLLOWUP RENAL CONSULTATION LOCATION: The patient is located in room 317, bed 1 in transitional care unit. REQUESTED BY: Shay Dill MD REASON FOR FOLLOWUP: Chronic kidney disease, nephrotic-range proteinuria, anasarca. SUBJECTIVE: Mrs. 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 The patient was started on IV Lasix drip initially in the ICU, subsequently changed to IV Lasix. The patient is feeling much better, less shortness of breath, but still the patient has anasarca. The patient is out of bed to chair and tried to ambulate with a walker with the help of physical therapist. The patient complains of dyspnea on exertion after taking few steps. No chest pain. PHYSICAL EXAMINATION: VITAL SIGNS: As follows: Blood pressure 127/74, pulse 94, respirations 20, temperature 98.3, saturation 97%. Height 5 feet 3 inches. Weight is 216 pounds. GENERAL: Mrs. Magdaleno is a 47-year-old middle-aged female, moderate built, moderate nourished, not in acute distress. HEENT: Pupils are normal and reactive to light and accommodation. Conjunctivae pink. Sclerae anicteric. Tongue is moist. Trachea is midline. LUNGS: Symmetric on both sides. Bilateral breath sounds present. Bilateral basal crackles present. CARDIOVASCULAR SYSTEM: M[place]racken at the fifth intercostal space, midclavicular line. S1 and S2 audible. No murmur or gallop. ABDOMEN: Normal in appearance, soft, tympanitic. No guarding. No rigidity. No hepatosplenomegaly. The patient has edema of the abdominal wall. CENTRAL NERVOUS SYSTEM: The patient is alert, awake, oriented x3. Nonfocal neuro examination. Cranial nerves II through XII grossly intact. Sensory and motor system is within normal limits. EXTREMITIES: No cyanosis, no clubbing. The patient has 2+ to 3+ edema in both upper and lower extremities and also sacral edema. CURRENT MEDICATIONS: Include as follows: Moxifloxacin 400 mg p.o. daily, trazodone 50 mg p.o. at bedtime, DuoNeb inhaler, ferrous gluconate, Flonase, Januvia, Lasix 120 mg IV, ibuprofen 800 mg p.o. every 8 hours p.r.n., Nephro-Roshan one tablet daily, gabapentin 200 mg p.o. every 8 hours, NicoDerm patch, also amlodipine 10 mg p.o. daily, Phenergan DM syrup 10 mL p.o. every 6 hours, Procrit 10,000 units three times a week, Protonix 40 mg p.o. daily, Singulair 10 mg p.o. daily, and Zaroxolyn 2.5 mg p.o. every 12 hours. LABORATORY DATA: As follows as of 05/16/2018: Basic metabolic panel: Sodium 139, potassium 3.9, chloride 105, CO2 of 27, BUN 45, creatinine 2.1, glucose 119, calcium 7.8. ASSESSMENT AND PLAN: In summary, Mrs. Magdaleno is a 47-year-old middle-aged female with a history of hypertension, diabetes, diabetic retinopathy, nephrotic-range proteinuria, anasarca, anemia, bilateral pleural effusion, bedridden for few months who was admitted with symptomatic hypoglycemia. Started on intravenous Lasix drip and subsequently change to intravenous Lasix and Zaroxolyn. 1. Chronic kidney disease, most likely secondary to diabetic nephropathy. 2. Nephrotic-range proteinuria, most likely secondary to diabetic nephropathy in view of diabetic retinopathy cannot rule out underlying chronic glomerulonephritis. 3. Hypertension. 4. Diabetes. 5. Anemia. 6. Bilateral pleural effusion with anasarca, status post thoracentesis. Continue diuresis with Lasix and Zaroxolyn and restrict fluids to one liter per day. Continue to monitor the electrolytes. Continue physical therapy. Thank you for allowing me to participate in your patient's care. Mago Espinal MD
[2018-05-17] MEDS: Albuterol-Ipratrop 3 mg / 0.5 (3 ml) UD INH SCH ×4 (04:58→20:00)
[2018-05-17 09:05] LABS: CALCIUM 7.9 mg/dL (8.4-10.2)
[2018-05-17] MEDS: metOLazone 2.5 MG TAB PO SCH ×2 (09:10→21:49)
[2018-05-17] MEDS: Pantoprazole 40 mg EC Tab PO SCH (09:11)
[2018-05-17] MEDS: Multivitamin Vitamin B Complex (Nephro-Vite) Tab PO SCH (09:17)
--- NOTE | 2018-05-17 13:40 | CP.PCM.CON ---
History of Present Illness - History of Present Illness History of Present Illness: I was asked to see patient by Dr Dill. Patient was seen 05/17/18 1300 Patient is a 47 year old femal ewith COPD, pleural effusions who presents for rehab. She has chronic diastolic dsyfunction and has complained of previous dsypnea. Her symptoms are improved after thoracentesis. Review of Systems - Constitutional Constitutional: absent: As Per HPI, Anorexia, Chills, Daytime Sleepiness, Excessive Sweating, Fatigue, Fever, Frequent Falls, Headache, Increased A ppetite, Lethargy, Malaise, Night Sweats, Snoring, Sleep Apnea, Weight Gain, Weight Loss, Weakness, Other - EENT Eyes: absent: As Per HPI, Blind Spots, Blurred Vision, Change in Vision, Decreased Night Vision, Diplopia, Discharge, Dry Eye, Exophthalmos, Floaters, Irritation, Itchy Eyes, Loss of Peripheral Vision, Pain, Photophobia, Requires Corrective Lenses, Sees Flashes, Spots in Vision, Tunnel Vision, Other Visual Disturbances, Loss of Vision, Other Ears: absent: As Per HPI, Decreased Hearing, Ear Discharge, Ear Pain, Tinnitus, Abnormal Hearing, Disequilibrium, Dizziness, Other Nose/Mouth/Throat: absent: As Per HPI, Epistaxis, Nasal Congestion, Nasal Discharge, Nasal Obstruction, Nasal Trauma, Nose Pain, Post Nasal Drip, Sinus Pain, Sinus Pressure, Bleeding Gums, Change in Voice, Dental Pain, Dry Mouth, Dysphagia, Halitosis, Hoarsness, Lip Swelling, Mouth Lesions, Mouth Pain, Odynophagia, Sore Throat, Throat Swelling, Tongue Swelling, Facial Pain, Neck Pain, Neck Mass, Other - Cardiovascular Cardiovascular: absent: As Per HPI, Acrocyanosis, Chest Pain, Chest Pain at Rest, Chest Pain with Activity, Claudication, Diaphoresis, Dyspnea, Dyspnea on Exertion, Edema, Irregular Heart Rhythm, Pain Radiating to Arm/Neck/Jaw, Leg Edema, Leg Ulcers, Lightheadedness, Orthopnea, Palpitations, Paroxysmal Nocturnal Dyspnea, Pedal Edema, Radiating Pain, Rapid Heart Rate, Slow Heart Rate, Syncope, Other - Respiratory Respiratory: Dyspnea - Gastrointestinal Gastrointestinal: absent: As Per HPI, Abdominal Pain, Belching, Bloating, Change in Bowel Habits, Change in Stool Character, Coffee Ground Emesis, Constipation, Cramping, Diarrhea, Dyspepsia, Dysphagia, Early Satiety, Excessive Flatus, Fecal Incontinence, Heartburn, Hematemesis, Hematochezia, Loose Stools, Melena, Nausea, Odynophagia, Temesmus, Vomiting, Other - Genitourinary Genitourinary: absent: As Per HPI, Change in Urinary Stream, Difficulty Urinating, Dysuria, Flank Pain, Hematuria, Pyuria, Nocturia, Urinary Incontinence, Urinary Frequency, Urinary Hesitance, Urinary Urgency, Voiding Freq/Small Amts, Freq UTI, Hx Renal/Bladder Calculi, Hx /Renal Surgery, Bladder Distension, Other - Musculoskeletal Musculoskeletal: absent: As Per HPI, Abnormal Gait, Arthralgias, Atrophy, Back Pain, Deformity, Joint Swelling, Limited Range of Motion, Loss of Height, Muscle Cramps, Muscle Weakness, Myalgias, Neck Pain, Numbness, Radiating Pain into Limb, Stiffness, Tingling, Other - Integumentary Integumentary: absent: As Per HPI, Acne, Alopecia, Bleeding Lesions, Change in Hair, Change in Nails, Change in Pigmentation, Changing Lesions, Dry Skin, Erythema, Furuncle, Hirsutism, Lesions, New Lesions, Non-Healing Lesions, Photosensitivity, Pruritus, Rash, Skin Pain, Skin Ulcer, Sores, Striae, Swelling, Unusual Bruising, Wounds, Jaundice, Other - Neurological Neurological: absent: As Per HPI, Abnormal Gait, Abnormal Hearing, Abnormal Movements, Abnormal Speech, Behavioral Changes, Burning Sensations, Confusion, Convulsions, Disequilibrium, Dizziness, Numbness, Focal Weakness, Frequent Falls, Headaches, Lack of Coordination, Loss of Vision, Memory Loss, Parest hesias, Radicular Pain, Restless Legs, Sensory Deficit, Syncope, Tingling, Tremor, Vertigo, Weakness, Other Visual Disturbances, Other - Psychiatric Psychiatric: absent: As Per HPI, Abnormal Sleep Pattern, Anhedonia, Anxiety, Auditory Hallucinations, Behavioral Changes, Change in Appetite, Change in Libido, Confusion, Depression, Difficulty Concentrating, Hallucinations, Homicidal Ideation, Hopelessness, Irritability, Memory Loss, Mood Swings, Panic Attacks, Paranoia, Suicidal Ideation, Visual Hallucinations, Tactile Hallucinations, Other - Endocrine Endocrine: absent: As Per HPI, Change in Body Appearance, Change in Libido, Cold Intolorance, Deepening of Voice, Excessive Sweating, Fatigue, Flushing, Heat Intolorance, Increase in Ring/Shoe/Hat Size, Palpitations, Polydipsia, Polyphagia, Polyuria, Other - Hematologic/Lymphatic Hematologic: absent: As Per HPI, Easy Bleeding, Easy Bruising, Lymphadenopathy, Other Past Patient History - Past Medical History & Family History Past Medical History?: Yes - Past Social History Smoking Status: Light Smoker < 10 Cigarettes Daily - CARDIAC Hx Pacemaker: No - PULMONARY Hx Respiratory Disorders: Yes Hx Asthma: Yes - NEUROLOGICAL Hx Neurological Disorder: Yes (NEURPOATHTY) - HEENT Hx HEENT Problems: Yes (HX RETINA BLEEDING) - RENAL Hx Chronic Kidney Disease: No - ENDOCRINE/METABOLIC Hx Endocrine Disorders: Yes Hx Diabetes Mellitus Type 1: Yes Hx Systemic Lupus Erythematosus: Yes - HEMATOLOGICAL/ONCOLOGICAL Hx AIDS: No Hx Cancer: No Hx Human Immunodeficiency Virus (HIV): No - INTEGUMENTARY Hx Dermatological Problems: Yes (SLIGHT JAUNDICE) - MUSCULOSKELETAL/RHEUMATOLOGICAL Hx Musculoskeletal Disorders: Yes Hx Falls: Yes - GASTROINTESTINAL Hx Gastrointestinal Disorders: Yes Hx Gall Bladder Disease: Yes Hx Pancreatitis: Yes - GENITOURINARY/GYNECOLOGICAL Hx Genitourinary Disorders: No - PSYCHIATRIC Hx Psychophysiologic Disorder: No Hx Substance Use: No - SURGICAL HISTORY Hx Mastectomy: No - ANESTHESIA Hx Anesthesia: Yes Hx Anesthesia Reactions: No Hx Malignant Hyperthermia: No Meds Allergies/Adverse Reactions: Allergies Allergy/AdvReac Type Severity Reaction Status Date / Time hydromorphone [From Dilaudid] Allergy SHORTNESS Verified 05/15/18 16:58 OF BREATH - Medications Medications: Current Medications Albuterol/Ipratropium (Duoneb 3 Mg/0.5 Mg (3 Ml) Ud) 3 ml INH RQ4 [facility] Last Admin: 05/17/18 08:21 Dose: 3 ml Amlodipine Besylate (Norvasc) 10 mg PO DAILY [facility] Last Admin: 05/17/18 09:13 Dose: 10 mg Dimethicone (Proshield Plus Skin Protectant) 1 applic TOP Q8 PRN PRN Reason: Other Epoetin Diego (Procrit) 10,000 unit [facility] Ferrous Gluconate (Fergon) 324 mg PO BID [facility] Last Admin: 05/17/18 09:19 Dose: 324 mg Fluticasone Propionate (Flonase) 1 spr CASH BID [facility] Last Admin: 05/17/18 09:18 Dose: 1 spr Furosemide (Lasix) 120 mg IV BID [facility] Last Admin: 05/17/18 09:17 Dose: 120 mg Gabapentin (Neurontin) 200 mg PO Q8 [facility] Last Admin: 05/17/18 09:16 Dose: 200 mg Home Med (Insulin Degludec/Liraglutide [Xultophy 100 Unit-3.6mg/Ml Pen]) 20 unit SC QAM [facility] Home Med (Insulin Glargine,Hum.Rec.Anlog [Davidaglar Kwikpen U-100]) 36 units SC HS [facility] Last Admin: 05/16/18 22:57 Dose: Not Given Ibuprofen (Motrin Tab) 800 mg PO Q8 PRN PRN Reason: Pain, moderate (4-7) Last Admin: 05/15/18 20:00 Dose: 800 mg Metolazone (Zaroxolyn) 2.5 mg PO Q12 [facility] Last Admin: 05/17/18 09:10 Dose: 2.5 mg Montelukast Sodium (Singulair) 10 mg PO DAILY [facility] Last Admin: 05/17/18 09:11 Dose: 10 mg Moxifloxacin HCl (Avelox) 400 mg PO DAILY [facility]; Protocol Last Admin: 05/17/18 09:20 Dose: 400 mg Nicotine (Nicoderm Cq) 1 patch TD DAILY [facility] Last Admin: 05/17/18 09:14 Dose: 1 patch Pantoprazole Sodium (Protonix Ec Tab) 40 mg PO DAILY [facility] Last Admin: 05/17/18 09:11 Dose: 40 mg Promethazine HCl/Dextromethorphan (Phenergan Dm Syrup) 10 ml PO Q6 PRN PRN Reason: Cough Sitagliptin Phosphate (Januvia) 25 mg PO DAILY [facility] Last Admin: 05/17/18 09:18 Dose: 25 mg Trazodone HCl (Desyrel) 50 mg PO [facility] Last Admin: 05/16/18 22:52 Dose: Not Given Vitamin B Complex/Vit C/Folic Acid (Nephro-Roshan) 1 tab PO DAILY [facility] Last Admin: 05/17/18 09:17 Dose: 1 tab Physical Exam - Constitutional Appears: Non-toxic - Head Exam Head Exam: NORMAL INSPECTION - Eye Exam Eye Exam: Normal appearance - ENT Exam ENT Exam: Mucous Membranes Moist - Neck Exam Neck exam: Positive for: Full Rom - Respiratory Exam Respiratory Exam: Decreased Breath Sounds - Cardiovascular Exam Cardiovascular Exam: Irregular Rhythm - GI/Abdominal Exam GI & Abdominal Exam: Normal Bowel Sounds - Rectal Exam Rectal Exam: Deferred - Extremities Exam Extremities exam: Negative for: pedal edema - Back Exam Back exam: NORMAL INSPECTION - Neurological Exam Neurological exam: Alert, Oriented x3 - Psychiatric Exam Psychiatric exam: Normal Affect - Skin Skin Exam: Normal Color Results - Vital Signs Recent Vital Signs: Last Vital Signs Temp 97.9 F 05/17/18 08:13 Pulse 92 H 05/17/18 09:13 Resp 18 05/17/18 08:13 BP 110/67 05/17/18 09:17 Pulse Ox 96 05/17/18 08:13 - Labs Result Diagrams: 05/17/18 08:30 Labs: Laboratory Results - last 24 hr 05/16/18 05/16/18 05/17/18 15:47 20:55 06:19 Sodium Potassium Chloride Carbon Dioxide Anion Gap BUN Creatinine Est GFR ( Amer) Est GFR (Non-Af Amer) POC Glucose (mg/dL) 111 H 123 H 110 Random Glucose Calcium 05/17/18 08:30 Sodium 143 Potassium 4.0 Chloride 105 Carbon Dioxide 27 Anion Gap 15 BUN 45 H Creatinine 2.0 H Est GFR ( Amer) 32 Est GFR (Non-Af Amer) 27 POC Glucose (mg/dL) Random Glucose 116 H Calcium 7.9 L - EKG Data EKG Interpreted by: Myself Assessment & Plan (1) Chronic congestive heart failure with left ventricular diastolic dysfunction Assessment and Plan: appears stable at present Status: Acute (2) HTN (hypertension) Assessment and Plan: continue medical therapy Status: Acute
--- NOTE | 2018-05-17 15:17 | CP.PCM.PN ---
Subjective - Date & Time of Evaluation Date of Evaluation: 05/17/18 Time of Evaluation: 15:17 - Subjective Subjective: pt is seen and examined,follow up consult is dictated #[id number] Objective - Vital Signs/Intake and Output Vital Signs (last 24 hours): Temp Pulse Resp BP Pulse Ox 97.9 F 92 H 18 110/67 96 05/17/18 08:13 05/17/18 09:13 05/17/18 08:13 05/17/18 09:17 05/17/18 08:13 - Medications Medications: Current Medications Albuterol/Ipratropium (Duoneb 3 Mg/0.5 Mg (3 Ml) Ud) 3 ml INH RQ4 [facility] Last Admin: 05/17/18 08:21 Dose: 3 ml Amlodipine Besylate (Norvasc) 10 mg PO DAILY [facility] Last Admin: 05/17/18 09:13 Dose: 10 mg Dimethicone (Proshield Plus Skin Protectant) 1 applic TOP Q8 PRN PRN Reason: Other Epoetin Diego (Procrit) 10,000 unit SC MWF [facility] Ferrous Gluconate (Fergon) 324 mg PO BID [facility] Last Admin: 05/17/18 09:19 Dose: 324 mg Fluticasone Propionate (Flonase) 1 spr CASH BID [facility] Last Admin: 05/17/18 09:18 Dose: 1 spr Furosemide (Lasix) 120 mg IV BID [facility] Last Admin: 05/17/18 09:17 Dose: 120 mg Gabapentin (Neurontin) 200 mg PO Q8 [facility] Last Admin: 05/17/18 09:16 Dose: 200 mg Home Med (Insulin Degludec/Liraglutide [Xultophy 100 Unit-3.6mg/Ml Pen]) 20 unit SC QAM [facility] Home Med (Insulin Glargine,Hum.Rec.Anlog [Basaglar Kwikpen U-100]) 36 units SC HS [facility] Last Admin: 05/16/18 22:57 Dose: Not Given Ibuprofen (Motrin Tab) 800 mg PO Q8 PRN PRN Reason: Pain, moderate (4-7) Last Admin: 05/15/18 20:00 Dose: 800 mg Metolazone (Zaroxolyn) 2.5 mg PO Q12 [facility] Last Admin: 05/17/18 09:10 Dose: 2.5 mg Montelukast Sodium (Singulair) 10 mg PO DAILY [facility] Last Admin: 05/17/18 09:11 Dose: 10 mg Moxifloxacin HCl (Avelox) 400 mg PO DAILY [facility]; Protocol Last Admin: 05/17/18 09:20 Dose: 400 mg Nicotine (Nicoderm Cq) 1 patch TD DAILY [facility] Last Admin: 05/17/18 09:14 Dose: 1 patch Pantoprazole Sodium (Protonix Ec Tab) 40 mg PO DAILY [facility] Last Admin: 05/17/18 09:11 Dose: 40 mg Promethazine HCl/Dextromethorphan (Phenergan Dm Syrup) 10 ml PO Q6 PRN PRN Reason: Cough Sitagliptin Phosphate (Januvia) 25 mg PO DAILY [facility] Last Admin: 05/17/18 09:18 Dose: 25 mg Trazodone HCl (Desyrel) 50 mg PO HS [facility] Last Admin: 05/16/18 22:52 Dose: Not Given Vitamin B Complex/Vit C/Folic Acid (Nephro-Roshan) 1 tab PO DAILY [facility] Last Admin: 05/17/18 09:17 Dose: 1 tab - Labs Labs: 05/17/18 08:30
--- NOTE | 2018-05-17 16:46 | RAD ---
HISTORY: pulm edema COMPARISON: Chest x-ray performed 05/12/18 TECHNIQUE: Chest, one view. FINDINGS: LUNGS: Moderate layering right pleural effusion. Edema or infection throughout the right hemithorax. Moderate pulmonary venous congestion. No definite pneumothorax. Please note that chest x-ray has limited sensitivity for the detection of pulmonary masses. CARDIOVASCULAR: Partially obscured cardiomegaly. OSSEOUS STRUCTURES: Degenerative changes. VISUALIZED UPPER ABDOMEN: Unremarkable. OTHER FINDINGS: None. IMPRESSION: Moderate layering right pleural effusion. Edema or infection throughout the right hemithorax. Moderate pulmonary venous congestion.
[2018-05-17] MEDS: INSULIN GLARGINE HUM REC ANLOG 36 UNIT SC SCH (21:50)
[2018-05-18] MEDS: Albuterol-Ipratrop 3 mg / 0.5 (3 ml) UD INH SCH ×7 (00:26→23:49)
--- NOTE | 2018-05-18 02:58 | PN ---
DATE: 05/17/2018 FOLLOWUP RENAL CONSULTATION LOCATION: Room 713, bed 1. REQUESTED BY: Shay Dill MD REASON FOR FOLLOWUP: Acute renal failure with proteinuria and anasarca. SUBJECTIVE: Ms. Magdaleno is a 47-year-old middle-aged female with a past medical history significant for prolonged standing hypertension, diabetes, nephrotic-range proteinuria, anasarca, bilateral pleural effusion, status post thoracentesis, was initially admitted with symptomatic hypoglycemia. The patient is now transferred [facility] for physical therapy. The patient is not in acute distress. Still complains of edema of the abdominal wall and bilateral leg swelling. Denies any chest pain or palpitations. Denies any fever or cough. No abdominal pain. No nausea, vomiting or diarrhea. PHYSICAL EXAMINATION VITAL SIGNS: Blood pressure 117/70, pulse 96, respirations 20, temperature 98.2, saturation 93%. Height 5 feet 3 inches. Weight is 216 pounds. GENERAL: Ms. Magdaleno is a 47-year-old middle-aged female, moderately built, moderately nourished, not in acute distress. HEENT: Pupils are normal and reactive to light and accommodation. Conjunctivae pink. Sclerae anicteric. Tongue is moist. Trachea is midline. LUNGS: Symmetric on both sides. Bilateral basal crackles present. CARDIOVASCULAR SYSTEM: [place] at the fifth intercostal space, midclavicular line. S1 and S2 audible. No murmur or gallop. ABDOMEN: Normal in appearance, soft, tympanitic. No guarding. No rigidity. No hepatosplenomegaly. CENTRAL NERVOUS SYSTEM: The patient is alert, awake, oriented x3. Nonfocal neuro examination. Cranial nerves II through XII grossly intact. Sensory and motor system is within normal limits. EXTREMITIES: No cyanosis. No clubbing. The patient has 2 to 3+ edema in both upper and lower extremities and also edema of the abdominal wall and sacral edema. MEDICATIONS: Moxifloxacin 400 mg p.o. daily, trazodone 50 mg p.o. at bedtime, DuoNeb inhaler, ferrous gluconate, Flonase, Januvia, Lasix 120 mg IV b.i.d., ibuprofen 800 mg p.o. every 8 hours p.r.n., Nephro-Roshan one tablet daily, gabapentin 200 mg p.o. every 8 hours, amlodipine 10 mg daily, Procrit 10,000 units three times a week, Protonix 40 mg p.o. daily, Singulair 10 mg p.o. daily, metolazone 2.5 mg p.o. every 12 hours. LABORATORY DATA: As of 05/17/2018, sodium 143, potassium 4, chloride 105, CO2 of 27, BUN 45, creatinine 2, glucose 116, calcium 7.6. ASSESSMENT: In summary, Ms. Magdaleno is a 47-year-old middle-aged female with a history of hypertension, diabetes, hyperlipidemia, nephrotic-range proteinuria, chronic kidney disease, anasarca, was initially admitted with symptomatic hypoglycemia, now transferred to transitional care unit for rehab and physical therapy. 1. Chronic kidney disease, most likely secondary to diabetic nephropathy, cannot rule out underlying hypertension, nephrosclerosis or chronic glomerulonephritis. 2. Nephrotic-range proteinuria, most likely secondary to diabetic nephropathy. 3. Anasarca. 4. Anemia. 5. Pleural effusion status post thoracentesis, continue. 6. Debility, secondary to prolonged bedridden. PLAN: Continue gentle diuresis with Lasix 120 b.i.d. and also Zaroxolyn and continue to restrict fluids at 1 liter per day and continue physical therapy as tolerated. We will follow with you. Thank you for allowing me to participate in your patient's care. Mago Espinal MD
[2018-05-18 07:38] LABS: BASO # 0.1 K/uL (0.0-0.2); BASO % 1.3 % (0.0-2.0); EOS # 0.3 K/uL (0.0-0.7); EOS % 4.7 % (0.0-4.0); HEMOGLOBIN 8.7 g/dL (12.0-16.0); LYMPH # 1.2 K/uL (1.0-4.3); LYMPH % 17.7 % (20.0-40.0); MEAN CELL VOLUME 92.5 fl (81.0-99.0); MEAN CORPUSCULAR HEMOGLOBIN 29.4 pg (27.0-31.0); MEAN CORPUSCULAR HGB CONC 31.8 g/dL (33.0-37.0); MEAN PLATELET VOLUME 8.8 fl (7.2-11.7); MONO # 0.8 K/uL (0.0-0.8); NEUT # 4.5 K/uL (1.8-7.0); NEUT % 64.3 % (50.0-75.0); NRBC % 0.1 % (0.0-0.0); RBC 2.97 Mil/uL (3.80-5.20); RED CELL DISTRIBUTION WIDTH 15.2 % (11.5-14.5)
[2018-05-18 07:50] LABS: ALB/GLOB RATIO 0.9 (1.0-2.1); ALBUMIN 2.6 g/dL (3.5-5.0); ALT/SGPT 17 U/L (9-52); AST/SGOT 18 U/L (14-36); BLOOD UREA NITROGEN 44 mg/dl (7-17); CALCIUM 8.1 mg/dL (8.4-10.2); GFR NON-AFRICAN AMERICAN 28
[2018-05-18 07:56] LABS: B-TYPE NATRIURETIC PEPTIDE 2530 pg/ml (0-450)
[2018-05-18] MEDS: Multivitamin Vitamin B Complex (Nephro-Vite) Tab PO SCH (08:31)
[2018-05-18] MEDS: Pantoprazole 40 mg EC Tab PO SCH (08:35)
[2018-05-18] MEDS: EPOETIN ALFA 10,000 UNIT/ML ML SC SCH (08:51)
--- NOTE | 2018-05-18 08:52 | CP.PCM.HP ---
History of Present Illness - History of Present Illness History of Present Illness: This is a 47 y/o female admitted form telemetry for continuation of therapy , rehab and medical mgt of diastolic heart failure and chronic pleural effusion. Medical Hx HTN DM 2 uncontrolled CHF diastolic pleural effusion Present on Admission - Present on Admission Any Indicators Present on Admission: No History of DVT/PE: No History of Uncontrolled Diabetes: No Urinary Catheter: No Decubitus Ulcer Present: No Past Patient History - Past Medical History & Family History Past Medical History?: Yes - Past Social History Smoking Status: Light Smoker < 10 Cigarettes Daily - CARDIAC Hx Pacemaker: No - PULMONARY Hx Respiratory Disorders: Yes Hx Asthma: Yes - NEUROLOGICAL Hx Neurological Disorder: Yes (NEURPOATHTY) - HEENT Hx HEENT Problems: Yes (HX RETINA BLEEDING) - RENAL Hx Chronic Kidney Disease: No - ENDOCRINE/METABOLIC Hx Endocrine Disorders: Yes Hx Diabetes Mellitus Type 1: Yes Hx Systemic Lupus Erythematosus: Yes - HEMATOLOGICAL/ONCOLOGICAL Hx AIDS: No Hx Cancer: No Hx Human Immunodeficiency Virus (HIV): No - INTEGUMENTARY Hx Dermatological Problems: Yes (SLIGHT JAUNDICE) - MUSCULOSKELETAL/RHEUMATOLOGICAL Hx Musculoskeletal Disorders: Yes Hx Falls: Yes - GASTROINTESTINAL Hx Gastrointestinal Disorders: Yes Hx Gall Bladder Disease: Yes Hx Pancreatitis: Yes - GENITOURINARY/GYNECOLOGICAL Hx Genitourinary Disorders: No - PSYCHIATRIC Hx Psychophysiologic Disorder: No Hx Substance Use: No - SURGICAL HISTORY Hx Mastectomy: No - ANESTHESIA Hx Anesthesia: Yes Hx Anesthesia Reactions: No Hx Malignant Hyperthermia: No Meds Allergies/Adverse Reactions: Allergies Allergy/AdvReac Type Severity Reaction Status Date / Time hydromorphone [From Dilaudid] Allergy SHORTNESS Verified 05/15/18 16:58 OF BREATH Physical Exam - Head Exam Head Exam: NORMAL INSPECTION - Eye Exam Eye Exam: Normal appearance - ENT Exam ENT Exam: Mucous Membranes Moist - Respiratory Exam Respiratory Exam: Decreased Breath Sounds - Cardiovascular Exam Cardiovascular Exam: REGULAR RHYTHM - GI/Abdominal Exam GI & Abdominal Exam: Normal Bowel Sounds Results - Vital Signs Recent Vital Signs: Last Vital Signs Temp 98.1 F 05/18/18 07:47 Pulse 99 H 05/18/18 07:47 Resp 18 05/18/18 07:47 BP 129/73 05/18/18 07:47 Pulse Ox 96 05/18/18 07:47 - Labs Result Diagrams: 05/18/18 07:31 05/18/18 07:31 Labs: Laboratory Results - last 24 hr 05/17/18 05/17/18 05/17/18 08:30 10:49 15:52 WBC RBC Hgb Hct MCV MCH MCHC RDW Plt Count MPV Neut % (Auto) Lymph % (Auto) [place] % (Auto) Eos % (Auto) Baso % (Auto) Neut # (Auto) Lymph # (Auto) [place] # (Auto) Eos # (Auto) Baso # (Auto) Sodium 143 Potassium 4.0 Chloride 105 Carbon Dioxide 27 Anion Gap 15 BUN 45 H Creatinine 2.0 H Est GFR ( Amer) 32 Est GFR (Non-Af Amer) 27 POC Glucose (mg/dL) 122 H 128 H Random Glucose 116 H Calcium 7.9 L Total Bilirubin AST ALT Alkaline Phosphatase NT-Pro-B Natriuret Pep Total Protein Albumin Globulin Albumin/Globulin Ratio 05/17/18 05/18/18 05/18/18 20:44 05:36 07:31 WBC 7.0 RBC 2.97 L Hgb 8.7 L Hct 27.5 L MCV 92.5 MCH 29.4 MCHC 31.8 L RDW 15.2 H Plt Count 257 MPV 8.8 Neut % (Auto) 64.3 Lymph % (Auto) 17.7 L [place] % (Auto) 12.0 H Eos % (Auto) 4.7 H Baso % (Auto) 1.3 Neut # (Auto) 4.5 Lymph # (Auto) 1.2 [place] # (Auto) 0.8 Eos # (Auto) 0.3 Baso # (Auto) 0.1 Sodium Potassium Chloride Carbon Dioxide Anion Gap BUN Creatinine Est GFR ( Amer) Est GFR (Non-Af Amer) POC Glucose (mg/dL) 148 H 108 Random Glucose Calcium Total Bilirubin AST ALT Alkaline Phosphatase NT-Pro-B Natriuret Pep Total Protein Albumin Globulin Albumin/Globulin Ratio 05/18/18 07:31 WBC RBC Hgb Hct MCV MCH MCHC RDW Plt Count MPV Neut % (Auto) Lymph % (Auto) [place] % (Auto) Eos % (Auto) Baso % (Auto) Neut # (Auto) Lymph # (Auto) [place] # (Auto) Eos # (Auto) Baso # (Auto) Sodium 142 Potassium 3.9 Chloride 103 Carbon Dioxide 28 Anion Gap 15 BUN 44 H Creatinine 1.9 H Est GFR ( Amer) 34 Est GFR (Non-Af Amer) 28 POC Glucose (mg/dL) Random Glucose 120 H Calcium 8.1 L Total Bilirubin < 0.1 L AST 18 ALT 17 Alkaline Phosphatase 60 NT-Pro-B Natriuret Pep 2530 H Total Protein 5.4 L Albumin 2.6 L Globulin 2.8 Albumin/Globulin Ratio 0.9 L Assessment & Plan (1) Chronic congestive heart failure with left ventricular diastolic dysfunction Status: Acute (2) Gait instability Status: Acute (3) Acute on chronic renal failure Status: Acute (4) Anemia Status: Acute (5) Diabetes mellitus type 2 with complications, uncontrolled Status: Acute - Assessment and Plan (Free Text) Plan: Con tmeds Cont diuresis Phsy therapy
--- NOTE | 2018-05-18 08:52 | CP.PCM.PN ---
Subjective - Date & Time of Evaluation Date of Evaluation: 05/17/18 Time of Evaluation: 14:00 - Subjective Subjective: Patient is doing well Has no chest pain or SOB Afberile. Objective - Vital Signs/Intake and Output Vital Signs (last 24 hours): Temp Pulse Resp BP Pulse Ox 98.1 F 99 H 18 129/73 96 05/18/18 07:47 05/18/18 08:31 05/18/18 07:47 05/18/18 08:33 05/18/18 07:47 - Medications Medications: Current Medications Albuterol/Ipratropium (Duoneb 3 Mg/0.5 Mg (3 Ml) Ud) 3 ml INH RQ4 [facility] Last Admin: 05/18/18 07:13 Dose: 3 ml Amlodipine Besylate (Norvasc) 10 mg PO DAILY [facility] Last Admin: 05/18/18 08:31 Dose: 10 mg Dimethicone (Proshield Plus Skin Protectant) 1 applic TOP Q8 PRN PRN Reason: Other Epoetin Diego (Procrit) 10,000 unit SC MWF [facility] Ferrous Gluconate (Fergon) 324 mg PO BID [facility] Last Admin: 05/18/18 08:31 Dose: 324 mg Fluticasone Propionate (Flonase) 1 spr CASH BID [facility] Last Admin: 05/18/18 08:33 Dose: 1 spr Furosemide (Lasix) 120 mg IV BID [facility] Last Admin: 05/18/18 08:33 Dose: 120 mg Gabapentin (Neurontin) 200 mg PO Q8 [facility] Last Admin: 05/18/18 08:30 Dose: 200 mg Home Med (Insulin Degludec/Liraglutide [Xultophy 100 Unit-3.6mg/Ml Pen]) 20 unit SC QAM [facility] Home Med (Insulin Glargine,Hum.Rec.Anlog [Basaglar Kwikpen U-100]) 36 units SC HS [facility] Last Admin: 05/17/18 21:50 Dose: Not Given Ibuprofen (Motrin Tab) 800 mg PO Q8 PRN PRN Reason: Pain, moderate (4-7) Last Admin: 05/15/18 20:00 Dose: 800 mg Metolazone (Zaroxolyn) 2.5 mg PO Q12 [facility] Last Admin: 05/17/18 21:49 Dose: 2.5 mg Montelukast Sodium (Singulair) 10 mg PO DAILY [facility] Last Admin: 05/18/18 08:31 Dose: 10 mg Moxifloxacin HCl (Avelox) 400 mg PO DAILY [facility]; Protocol Last Admin: 05/18/18 08:30 Dose: 400 mg Nicotine (Nicoderm Cq) 1 patch TD DAILY [facility] Last Admin: 05/18/18 08:32 Dose: 1 patch Pantoprazole Sodium (Protonix Ec Tab) 40 mg PO DAILY [facility] Last Admin: 05/18/18 08:35 Dose: 40 mg Promethazine HCl/Dextromethorphan (Phenergan Dm Syrup) 10 ml PO Q6 PRN PRN Reason: Cough Sitagliptin Phosphate (Januvia) 25 mg PO DAILY [facility] Last Admin: 05/18/18 08:30 Dose: 25 mg Trazodone HCl (Desyrel) 50 mg PO HS [facility] Last Admin: 05/17/18 21:52 Dose: Not Given Vitamin B Complex/Vit C/Folic Acid (Nephro-Roshan) 1 tab PO DAILY [facility] Last Admin: 05/18/18 08:31 Dose: 1 tab - Labs Labs: 05/18/18 07:31 05/18/18 07:31 - Head Exam Head Exam: NORMAL INSPECTION - Eye Exam Eye Exam: Normal appearance - ENT Exam ENT Exam: Mucous Membranes Moist - Respiratory Exam Respiratory Exam: Clear to Ausculation Bilateral - Cardiovascular Exam Cardiovascular Exam: REGULAR RHYTHM - GI/Abdominal Exam GI & Abdominal Exam: Normal Bowel Sounds - Neurological Exam Neurological Exam: Awake, Oriented x3 Assessment and Plan (1) Chronic congestive heart failure with left ventricular diastolic dysfunction Status: Acute (2) Gait instability Status: Acute (3) Acute on chronic renal failure Status: Acute (4) Diabetes mellitus type 2 with complications, uncontrolled Status: Acute - Assessment and Plan (Free Text) Plan: Cont meds Cont diuresis cont PT
[2018-05-18] MEDS: metOLazone 2.5 MG TAB PO SCH ×2 (10:30→21:16)
--- NOTE | 2018-05-18 18:22 | CP.PCM.PN ---
Subjective - Date & Time of Evaluation Date of Evaluation: 05/18/18 Time of Evaluation: 18:21 - Subjective Subjective: pt is seen and examined, follow up consult is dictated #[id number] Objective - Vital Signs/Intake and Output Vital Signs (last 24 hours): Temp Pulse Resp BP Pulse Ox 98.3 F 95 H 20 132/73 94 L 05/18/18 16:30 05/18/18 16:30 05/18/18 16:30 05/18/18 16:30 05/18/18 16:30 - Medications Medications: Current Medications Albuterol/Ipratropium (Duoneb 3 Mg/0.5 Mg (3 Ml) Ud) 3 ml INH RQ4 [facility] Last Admin: 05/18/18 15:28 Dose: 3 ml Amlodipine Besylate (Norvasc) 10 mg PO DAILY [facility] Last Admin: 05/18/18 08:31 Dose: 10 mg Dimethicone (Proshield Plus Skin Protectant) 1 applic TOP Q8 PRN PRN Reason: Other Epoetin Diego (Procrit) 10,000 unit SC MWF [facility] Last Admin: 05/18/18 08:51 Dose: 10,000 unit Ferrous Gluconate (Fergon) 324 mg PO BID [facility] Last Admin: 05/18/18 16:20 Dose: 324 mg Fluticasone Propionate (Flonase) 1 spr [facility] BID [facility] Last Admin: 05/18/18 16:22 Dose: 1 spr Furosemide (Lasix) 120 mg IV BID [facility] Last Admin: 05/18/18 16:23 Dose: 120 mg Gabapentin (Neurontin) 200 mg PO Q8 [facility] Last Admin: 05/18/18 16:21 Dose: 200 mg Home Med (Insulin Degludec/Liraglutide [Xultophy 100 Unit-3.6mg/Ml Pen]) 20 unit SC QAM [facility] Home Med (Insulin Glargine,Hum.Rec.Anlog [Davidaglgerardo Barney U-100]) 36 units SC HS [facility] Last Admin: 05/17/18 21:50 Dose: Not Given Ibuprofen (Motrin Tab) 800 mg PO Q8 PRN PRN Reason: Pain, moderate (4-7) Last Admin: 05/15/18 20:00 Dose: 800 mg Metolazone (Zaroxolyn) 2.5 mg PO Q12 [facility] Last Admin: 05/18/18 10:30 Dose: 2.5 mg Montelukast Sodium (Singulair) 10 mg PO DAILY [facility] Last Admin: 05/18/18 08:31 Dose: 10 mg Moxifloxacin HCl (Avelox) 400 mg PO DAILY [facility]; Protocol Last Admin: 05/18/18 08:30 Dose: 400 mg Nicotine (Nicoderm Cq) 1 patch TD DAILY [facility] Last Admin: 05/18/18 08:32 Dose: 1 patch Pantoprazole Sodium (Protonix Ec Tab) 40 mg PO DAILY [facility] Last Admin: 05/18/18 08:35 Dose: 40 mg Promethazine HCl/Dextromethorphan (Phenergan Dm Syrup) 10 ml PO Q6 PRN PRN Reason: Cough Sitagliptin Phosphate (Januvia) 25 mg PO DAILY [facility] Last Admin: 05/18/18 08:30 Dose: 25 mg Trazodone HCl (Desyrel) 50 mg PO HS [facility] Last Admin: 05/17/18 21:52 Dose: Not Given Vitamin B Complex/Vit C/Folic Acid (Nephro-Roshan) 1 tab PO DAILY [facility] Last Admin: 05/18/18 08:31 Dose: 1 tab - Labs Labs: 05/18/18 07:31 05/18/18 07:31
[2018-05-18] MEDS: INSULIN GLARGINE HUM REC ANLOG 36 UNIT SC SCH (21:33)
--- NOTE | 2018-05-18 21:39 | CP.PCM.PN ---
Subjective - Date & Time of Evaluation Date of Evaluation: 05/18/18 Time of Evaluation: 11:00 Objective - Vital Signs/Intake and Output Vital Signs (last 24 hours): Temp Pulse Resp BP Pulse Ox 98.3 F 101 H 20 125/67 94 L 05/18/18 20:58 05/18/18 20:58 05/18/18 20:58 05/18/18 20:58 05/18/18 20:58 - Medications Medications: Current Medications Albuterol/Ipratropium (Duoneb 3 Mg/0.5 Mg (3 Ml) Ud) 3 ml INH RQ4 [facility] Last Admin: 05/18/18 19:04 Dose: 3 ml Amlodipine Besylate (Norvasc) 10 mg PO DAILY [facility] Last Admin: 05/18/18 08:31 Dose: 10 mg Dimethicone (Proshield Plus Skin Protectant) 1 applic TOP Q8 PRN PRN Reason: Other Epoetin Diego (Procrit) 10,000 unit SC MWF [facility] Last Admin: 05/18/18 08:51 Dose: 10,000 unit Ferrous Gluconate (Fergon) 324 mg PO BID [facility] Last Admin: 05/18/18 16:20 Dose: 324 mg Fluticasone Propionate (Flonase) 1 spr CASH BID [facility] Last Admin: 05/18/18 16:22 Dose: 1 spr Furosemide (Lasix) 120 mg IV BID [facility] Last Admin: 05/18/18 16:23 Dose: 120 mg Gabapentin (Neurontin) 200 mg PO Q8 [facility] Last Admin: 05/18/18 16:21 Dose: 200 mg Home Med (Insulin Degludec/Liraglutide [Xultophy 100 Unit-3.6mg/Ml Pen]) 20 unit SC QAM [facility] Home Med (Insulin Glargine,Hum.Rec.Anlog [Basaglar Kwikpen U-100]) 36 units SC HS [facility] Last Admin: 05/18/18 21:33 Dose: Not Given Ibuprofen (Motrin Tab) 800 mg PO Q8 PRN PRN Reason: Pain, moderate (4-7) Last Admin: 05/15/18 20:00 Dose: 800 mg Metolazone (Zaroxolyn) 2.5 mg PO Q12 [facility] Last Admin: 05/18/18 21:16 Dose: 2.5 mg Montelukast Sodium (Singulair) 10 mg PO DAILY [facility] Last Admin: 05/18/18 08:31 Dose: 10 mg Moxifloxacin HCl (Avelox) 400 mg PO DAILY [facility]; Protocol Last Admin: 05/18/18 08:30 Dose: 400 mg Nicotine (Nicoderm Cq) 1 patch TD DAILY [facility] Last Admin: 05/18/18 08:32 Dose: 1 patch Nystatin (Nystop Topical Powder) 1 applic TOP TID [facility] Pantoprazole Sodium (Protonix Ec Tab) 40 mg PO DAILY [facility] Last Admin: 05/18/18 08:35 Dose: 40 mg Promethazine HCl/Dextromethorphan (Phenergan Dm Syrup) 10 ml PO Q6 PRN PRN Reason: Cough Sitagliptin Phosphate (Januvia) 25 mg PO DAILY [facility] Last Admin: 05/18/18 08:30 Dose: 25 mg Trazodone HCl (Desyrel) 50 mg PO HS [facility] Last Admin: 05/18/18 21:19 Dose: Not Given Vitamin B Complex/Vit C/Folic Acid (Nephro-Roshan) 1 tab PO DAILY [facility] Last Admin: 05/18/18 08:31 Dose: 1 tab - Labs Labs: 05/18/18 07:31 05/18/18 07:31
[2018-05-19] MEDS: Albuterol-Ipratrop 3 mg / 0.5 (3 ml) UD INH SCH ×6 (04:05→23:40)
--- NOTE | 2018-05-19 04:51 | PN ---
DATE: 05/18/2018 FOLLOWUP RENAL CONSULTATION REQUESTED BY: Dr. Rk Dill. REASON FOR FOLLOWUP: CKD, proteinuria, anasarca, for further evaluation. HISTORY OF PRESENT ILLNESS: Mrs. Magdaleno is a 47-year-old middle-aged female with a history of longstanding diabetes, hypertension, nephrotic-range proteinuria, diabetic retinopathy, anasarca, was admitted with symptomatic hypoglycemia and difficulty to ambulate and anasarca. The patient was started on IV Lasix drip and subsequently changed to IV Lasix and also p.o. Zaroxolyn. Now, the patient was transferred to the transitional care unit for physical therapy, and the patient is feeling slightly better, participating in physical therapy, out of bed to chair today as per the patient for few hours. The patient is not in distress and resting comfortably. PHYSICAL EXAMINATION: VITAL SIGNS: As follows: Blood pressure 132/73, pulse 95, respirations 20, temperature 98.3, and saturation 94%. Height 5 feet 3 inches and weight is 213 pounds. GENERAL: Mrs. Magdaleno is a 47-year-old middle-aged female, moderately built, moderately nourished, not in acute distress. HEENT: Pupils normal, reactive to light and accommodation. Conjunctivae pink. Sclerae anicteric. Tongue is moist. Trachea is midline. LUNGS: Symmetric on both sides. Bilateral basilar crackles present. CARDIOVASCULAR SYSTEM: [place] at the fifth intercostal space and midclavicular line. S1 and S2 audible. No murmur or gallop. ABDOMEN: Normal in appearance. Soft, tympanitic. No guarding. No rigidity. No hepatosplenomegaly. The patient has edema of the abdominal wall. CENTRAL NERVOUS SYSTEM: The patient is alert, awake, oriented x3. Nonfocal neuro examination. Cranial nerves II through XII grossly intact. Sensory and motor system is within normal limits. EXTREMITIES: No cyanosis. No clubbing. The patient has edema in both upper and lower extremities of 2+ to 3+ and also edema of the abdominal wall. CURRENT MEDICATIONS: Include as follows: Moxifloxacin 400 mg p.o. daily, trazodone 50 mg p.o. at bedtime, DuoNeb inhaler, ferrous gluconate 324 mg p.o. b.i.d., Flonase 1 spray nasal b.i.d., Januvia 25 mg p.o. daily, Lasix 120 mg IV b.i.d., ibuprofen 800 mg p.o. every 8 hours p.r.n., Nephro-Roshan 1 tablet daily, gabapentin 200 mg p.o. every 8 hours, Nicoderm patch daily, amlodipine 10 mg daily, nystatin topical powder, also Phenergan DM syrup 10 mL p.o. every 6 hours, Procrit 10,000 units 3 times a week, Protonix 40 mg p.o. daily, Singulair 10 mg p.o. daily, and Zaroxolyn 2.5 mg p.o. every 12 hours. LABORATORY DATA: Include as follows: As of 05/18/2018, WBC 7, hemoglobin 8.7, hematocrit is 27.5, platelets 257. Sodium 142, potassium 3.9, chloride 103, CO2 of 28, BUN 44, creatinine 1.9, glucose 120, calcium 8.1, total bili 0.1. AST 18, ALT 17, alkaline phosphatase 60, proBNP 2530, total protein 5.4, albumin is 2.6. Chest x-ray as of 05/17/2018, impression: Moderate layering right pleural effusion, edema or infection throughout the right hemithorax, moderate pulmonary venous congestion. ASSESSMENT AND PLAN: In summary Mrs. Magdaleno is a 47-year-old middle-aged female with a history of hypertension, diabetes, diabetic retinopathy, anasarca, nephrotic-range proteinuria. 1. Chronic kidney disease, most likely secondary to diabetic nephropathy, cannot rule out underlying hypertension, nephrosclerosis, or chronic glomerulonephritis. 2. Proteinuria, most likely secondary to diabetic nephropathy. 3. Anemia. 4. Bilateral pleural effusion, right more than the left. 5. Anasarca. 6. Debility. PLAN: Continue physical therapy evaluation. Continue IV Lasix and continue p.o. Zaroxolyn. Continue antihypertensive medication, Norvasc. Continue physical therapy. Restrict fluids to 1 L per day. Overall prognosis is guarded. Thank you for allowing me to participate in your patient's care. Mago Espinal MD
[2018-05-19] MEDS: metOLazone 2.5 MG TAB PO SCH ×2 (08:12→20:33)
[2018-05-19] MEDS: Multivitamin Vitamin B Complex (Nephro-Vite) Tab PO SCH (08:13)
[2018-05-19] MEDS: Pantoprazole 40 mg EC Tab PO SCH (08:13)
--- NOTE | 2018-05-19 18:42 | CP.PCM.PN ---
Subjective - Date & Time of Evaluation Date of Evaluation: 05/19/18 Time of Evaluation: 10:45 - Subjective Subjective: Patient is doing well although still has problems with balance and gait Noted decrease in weight Labs have shown improvement Has no SOB Has no chest pain Objective - Vital Signs/Intake and Output Vital Signs (last 24 hours): Temp Pulse Resp BP Pulse Ox 98.2 F 99 H 20 126/71 96 05/19/18 15:39 05/19/18 15:39 05/19/18 15:39 05/19/18 15:39 05/19/18 15:39 - Medications Medications: Current Medications Albuterol/Ipratropium (Duoneb 3 Mg/0.5 Mg (3 Ml) Ud) 3 ml INH RQ4 [facility] Last Admin: 05/19/18 15:55 Dose: 3 ml Amlodipine Besylate (Norvasc) 10 mg PO DAILY [facility] Last Admin: 05/19/18 08:13 Dose: 10 mg Dimethicone (Proshield Plus Skin Protectant) 1 applic TOP Q8 PRN PRN Reason: Other Last Admin: 05/19/18 08:09 Dose: 1 applic Epoetin Diego (Procrit) 10,000 unit SC MWF [facility] Last Admin: 05/18/18 08:51 Dose: 10,000 unit Ferrous Gluconate (Fergon) 324 mg PO BID [facility] Last Admin: 05/19/18 17:00 Dose: 324 mg Fluticasone Propionate (Flonase) 1 spr CASH BID [facility] Last Admin: 05/19/18 17:00 Dose: 1 spr Furosemide (Lasix) 120 mg IV BID@0900,2100 [facility] Gabapentin (Neurontin) 200 mg PO Q8 [facility] Last Admin: 05/19/18 17:01 Dose: 200 mg Home Med (Insulin Glargine,Hum.Rec.Anlog [Basaglar Kwikpen U-100]) 36 units SC HS [facility] Last Admin: 05/18/18 21:33 Dose: Not Given Ibuprofen (Motrin Tab) 800 mg PO Q8 PRN PRN Reason: Pain, moderate (4-7) Last Admin: 05/15/18 20:00 Dose: 800 mg Metolazone (Zaroxolyn) 2.5 mg PO Q12 [facility] Last Admin: 05/19/18 08:12 Dose: 2.5 mg Montelukast Sodium (Singulair) 10 mg PO DAILY [facility] Last Admin: 05/19/18 08:14 Dose: 10 mg Moxifloxacin HCl (Avelox) 400 mg PO DAILY [facility]; Protocol Last Admin: 05/19/18 08:13 Dose: 400 mg Nicotine (Nicoderm Cq) 1 patch TD DAILY [facility] Last Admin: 05/19/18 08:11 Dose: 1 patch Nystatin (Nystop Topical Powder) 1 applic TOP TID [facility] Last Admin: 05/19/18 17:00 Dose: 1 applic Pantoprazole Sodium (Protonix Ec Tab) 40 mg PO DAILY [facility] Last Admin: 05/19/18 08:13 Dose: 40 mg Promethazine HCl/Dextromethorphan (Phenergan Dm Syrup) 10 ml PO Q6 PRN PRN Reason: Cough Sitagliptin Phosphate (Januvia) 25 mg PO DAILY [facility] Last Admin: 05/19/18 08:13 Dose: 25 mg Trazodone HCl (Desyrel) 50 mg PO HS [facility] Last Admin: 05/18/18 21:19 Dose: Not Given Vitamin B Complex/Vit C/Folic Acid (Nephro-Roshan) 1 tab PO DAILY [facility] Last Admin: 05/19/18 08:13 Dose: 1 tab - Labs Labs: 05/18/18 07:31 05/18/18 07:31 - Head Exam Head Exam: NORMAL INSPECTION - Eye Exam Eye Exam: Normal appearance - ENT Exam ENT Exam: Mucous Membranes Moist - Respiratory Exam Respiratory Exam: Clear to Ausculation Bilateral - Cardiovascular Exam Cardiovascular Exam: REGULAR RHYTHM - GI/Abdominal Exam GI & Abdominal Exam: Normal Bowel Sounds Assessment and Plan (1) Chronic congestive heart failure with left ventricular diastolic dysfunction Status: Acute (2) Gait instability Status: Acute (3) Acute on chronic renal failure Status: Acute (4) Diabetes mellitus type 2 with complications, uncontrolled Status: Acute - Assessment and Plan (Free Text) Plan: Cont meds Cont tx Cont PT Cont diuresis
[2018-05-19] MEDS: INSULIN GLARGINE HUM REC ANLOG 36 UNIT SC SCH (22:51)
[2018-05-20] MEDS ORDERED: Nasal Spray(Ocean spray) NAS ONE (01:39)
[2018-05-20] MEDS: Albuterol-Ipratrop 3 mg / 0.5 (3 ml) UD INH SCH ×6 (03:47→23:26)
[2018-05-20] MEDS: metOLazone 2.5 MG TAB PO SCH ×2 (08:19→21:43)
[2018-05-20] MEDS: Multivitamin Vitamin B Complex (Nephro-Vite) Tab PO SCH (08:20)
[2018-05-20] MEDS: Pantoprazole 40 mg EC Tab PO SCH (08:21)
[2018-05-20] MEDS: EPOETIN ALFA 10,000 UNIT/ML ML SC SCH (08:24)
--- NOTE | 2018-05-20 09:58 | CP.PCM.PN ---
Subjective - Date & Time of Evaluation Date of Evaluation: 05/20/18 Time of Evaluation: 09:58 - Subjective Subjective: pt is seen and examined, follow up consult is dictated #[id number] Objective - Vital Signs/Intake and Output Vital Signs (last 24 hours): Temp Pulse Resp BP Pulse Ox 98.0 F 86 20 118/72 95 05/20/18 08:08 05/20/18 08:08 05/20/18 08:08 05/20/18 08:19 05/20/18 08:08 - Medications Medications: Current Medications Albuterol/Ipratropium (Duoneb 3 Mg/0.5 Mg (3 Ml) Ud) 3 ml INH RQ4 [facility] Last Admin: 05/20/18 07:45 Dose: 3 ml Amlodipine Besylate (Norvasc) 10 mg PO DAILY [facility] Last Admin: 05/20/18 08:21 Dose: 10 mg Dimethicone (Proshield Plus Skin Protectant) 1 applic TOP Q8 PRN PRN Reason: Other Last Admin: 05/19/18 08:09 Dose: 1 applic Epoetin Diego (Procrit) 10,000 unit SC MWF [facility] Last Admin: 05/20/18 08:24 Dose: 10,000 unit Ferrous Gluconate (Fergon) 324 mg PO BID [facility] Last Admin: 05/20/18 08:21 Dose: 324 mg Fluticasone Propionate (Flonase) 1 spr CASH BID [facility] Last Admin: 05/20/18 08:20 Dose: 1 spr Furosemide (Lasix) 120 mg IV BID@0900,2100 [facility] Last Admin: 05/20/18 08:19 Dose: 120 mg Gabapentin (Neurontin) 200 mg PO Q8 [facility] Last Admin: 05/20/18 08:20 Dose: 200 mg Home Med (Insulin Glargine,Hum.Rec.Anlog [Basaglar Kwikpen U-100]) 36 units SC HS [facility] Last Admin: 05/19/18 22:51 Dose: Not Given Ibuprofen (Motrin Tab) 800 mg PO Q8 PRN PRN Reason: Pain, moderate (4-7) Last Admin: 05/15/18 20:00 Dose: 800 mg Metolazone (Zaroxolyn) 2.5 mg PO Q12 [facility] Last Admin: 05/20/18 08:19 Dose: 2.5 mg Montelukast Sodium (Singulair) 10 mg PO DAILY [facility] Last Admin: 05/20/18 08:21 Dose: 10 mg Moxifloxacin HCl (Avelox) 400 mg PO DAILY [facility]; Protocol Last Admin: 05/20/18 08:21 Dose: 400 mg Nicotine (Nicoderm Cq) 1 patch TD DAILY [facility] Last Admin: 05/20/18 08:19 Dose: 1 patch Nystatin (Nystop Topical Powder) 1 applic TOP TID [facility] Last Admin: 05/20/18 08:20 Dose: 1 applic Pantoprazole Sodium (Protonix Ec Tab) 40 mg PO DAILY [facility] Last Admin: 05/20/18 08:21 Dose: 40 mg Promethazine HCl/Dextromethorphan (Phenergan Dm Syrup) 10 ml PO Q6 PRN PRN Reason: Cough Sitagliptin Phosphate (Januvia) 25 mg PO DAILY [facility] Last Admin: 05/20/18 08:19 Dose: 25 mg Trazodone HCl (Desyrel) 50 mg PO HS [facility] Last Admin: 05/19/18 22:50 Dose: Not Given Vitamin B Complex/Vit C/Folic Acid (Nephro-Roshan) 1 tab PO DAILY [facility] Last Admin: 05/20/18 08:20 Dose: 1 tab - Labs Labs: 05/18/18 07:31 05/18/18 07:31
[2018-05-20 11:59] LABS: CALCIUM 7.9 mg/dL (8.4-10.2)
[2018-05-20] MEDS: INSULIN GLARGINE HUM REC ANLOG 36 UNIT SC SCH (21:44)
--- NOTE | 2018-05-21 00:55 | PN ---
DATE: 05/20/2018 FOLLOWUP RENAL CONSULTATION LOCATION: The patient is located in room 713, bed 1. REQUESTED BY: Shay Dill MD REASON FOR FOLLOWUP: Chronic kidney disease, nephrotic-range proteinuria, anasarca. SUBJECTIVE: Mrs. Magdaleno is a 47-year-old middle-aged female with a past medical history significant for longstanding hypertension, diabetes, diabetic retinopathy, nephrotic-range proteinuria, questionable compliance with medication and physician visits who was admitted with symptomatic hypoglycemia, anasarca and unable to ambulate. The patient was started on IV Lasix drip in ICU and subsequently changed to IV Lasix two times a day and also Zaroxolyn. The patient is now in the transitional care unit for continuation of the physical therapy. The patient is feeling better and claims that she is losing weight gradually, not in distress, participating in the rehab as per the patient. The patient denies any chest pain. Denies any palpitation. Denies any nausea, vomiting or diarrhea. Denies any abdominal pain. Does complain of swelling of the abdominal wall and also bilateral leg swelling. PHYSICAL EXAMINATION: VITAL SIGNS: As follows: Blood pressure this morning 118/72, pulse 86, respirations 20, temperature 98, and saturation 95%. Height 5 feet 3 inches, and weight is 206 pounds. GENERAL: Mrs. Magdaleno is a 47-year-old middle-aged female, moderately built, moderately nourished, not in acute distress. HEENT: Pupils are normal and reactive to light and accommodation. Conjunctivae pink. Sclerae anicteric. Tongue is moist. Trachea is midline. LUNGS: Symmetric on both sides. Bilateral breath sounds present. Bilateral basilar crackles present. CARDIOVASCULAR SYSTEM: [place] at the fifth intercostal space, midclavicular line. S1 and S2 audible. No murmur or gallop. ABDOMEN: Normal in appearance. Soft, tympanitic. No guarding. No rigidity. No hepatosplenomegaly. The patient has edema of the abdominal wall. CENTRAL NERVOUS SYSTEM: The patient is alert, awake, oriented x3. Nonfocal neuro examination. Cranial nerves II through XII grossly intact. Sensory and motor system is within normal limits. EXTREMITIES: No cyanosis. No clubbing. The patient has 2 to 3+ edema in both lower extremities and also edema of the abdominal wall. CURRENT MEDICATIONS: Include as follows: Moxifloxacin 400 mg p.o. daily, trazodone 50 mg p.o. at bedtime, DuoNeb inhaler, ferrous gluconate 324 mg p.o. b.i.d., Flonase one spray b.i.d., Januvia 25 mg p.o. daily, Lasix 120 mg IV b.i.d., ibuprofen 800 mg p.o. every 8 hours p.r.n., Neurontin 200 mg p.o. every 8 hours, NicoDerm patch, amlodipine 10 mg p.o. daily, nystatin topical powder, Phenergan DM 10 mL p.o. every 6 hours, Procrit 10,000 units three times a week, Protonix 40 mg p.o. daily, Singulair 10 mg p.o. daily, and Zaroxolyn 2.5 mg p.o. every 12 hours. LABORATORY DATA: Include as follows: Sodium 141, potassium 3.6, chloride 104, CO2 of 29, BUN 40, creatinine 1.7, glucose 130, calcium 7.9. ASSESSMENT: In summary, Mrs. Magdaleno is a 47-year-old middle-aged female with hypertension, diabetes, nephrotic-range proteinuria, diabetic retinopathy, anasarca who was initially admitted with symptomatic hypoglycemia and unable to ambulate. Now, the patient was transferred to transitional care unit for continuation of the physical therapy. 1. Chronic kidney disease, most likely secondary to diabetic nephropathy. Cannot rule out underlying hypertensive nephrosclerosis or chronic glomerulonephritis. 2. Hypertension. Blood pressure is stable. 3. Proteinuria, most likely secondary to diabetic nephropathy. 4. Anemia. 5. Uncontrolled diabetes. Her sugars are improving. PLAN: Continue Lasix 120 mg IV push every 12 hours and also Zaroxolyn 2.5 mg p.o. b.i.d. half an hour before Lasix and continue monitor electrolytes. Continue physical therapy as tolerated. We will follow with you. Thank you for allowing me to participate in your patient's care. Mago Espinal MD
--- NOTE | 2018-05-21 01:04 | CP.PCM.PN ---
Subjective - Date & Time of Evaluation Date of Evaluation: 05/20/18 Time of Evaluation: 16:40 - Subjective Subjective: Pt seen and assessed at bedside. No new complaints, pt reports feeling better. Denies Chest pain, SOB, or discomfort. As per pt, she has lost > 40 lbs. Currently on lasix 120 mg BID. For possible Subacute rehab. Review of Systems - Review of Systems All systems: reviewed and no additional remarkable complaints except - Musculoskeletal Additional comments: swelling to lower abdomen and BLE. Objective - Vital Signs/Intake and Output Vital Signs (last 24 hours): Temp Pulse Resp BP Pulse Ox 98.6 F 97 H 20 119/71 92 L 05/20/18 20:06 05/20/18 20:06 05/20/18 20:06 05/20/18 21:28 05/20/18 20:06 - Medications Medications: Current Medications Albuterol/Ipratropium (Duoneb 3 Mg/0.5 Mg (3 Ml) Ud) 3 ml INH RQ4 [facility] Last Admin: 05/20/18 23:26 Dose: 3 ml Amlodipine Besylate (Norvasc) 10 mg PO DAILY [facility] Last Admin: 05/20/18 08:21 Dose: 10 mg Dimethicone (Proshield Plus Skin Protectant) 1 applic TOP Q8 PRN PRN Reason: Other Last Admin: 05/19/18 08:09 Dose: 1 applic Epoetin Diego (Procrit) 10,000 unit SC MWF [facility] Last Admin: 05/20/18 08:24 Dose: 10,000 unit Ferrous Gluconate (Fergon) 324 mg PO BID [facility] Last Admin: 05/20/18 16:46 Dose: 324 mg Fluticasone Propionate (Flonase) 1 spr CASH BID [facility] Last Admin: 05/20/18 16:45 Dose: 1 spr Furosemide (Lasix) 120 mg IV BID@0900,2100 [facility] Last Admin: 05/20/18 21:28 Dose: 120 mg Gabapentin (Neurontin) 200 mg PO Q8 [facility] Last Admin: 05/20/18 16:46 Dose: 200 mg Home Med (Insulin Glargine,Hum.Rec.Anlog [Basaglar Kwikpen U-100]) 36 units SC HS [facility] Last Admin: 05/20/18 21:44 Dose: Not Given Ibuprofen (Motrin Tab) 800 mg PO Q8 PRN PRN Reason: Pain, moderate (4-7) Last Admin: 05/15/18 20:00 Dose: 800 mg Metolazone (Zaroxolyn) 2.5 mg PO Q12 [facility] Last Admin: 05/20/18 21:43 Dose: 2.5 mg Montelukast Sodium (Singulair) 10 mg PO DAILY [facility] Last Admin: 05/20/18 08:21 Dose: 10 mg Moxifloxacin HCl (Avelox) 400 mg PO DAILY [facility]; Protocol Last Admin: 05/20/18 08:21 Dose: 400 mg Nicotine (Nicoderm Cq) 1 patch TD DAILY [facility] Last Admin: 05/20/18 08:19 Dose: 1 patch Nystatin (Nystop Topical Powder) 1 applic TOP TID [facility] Last Admin: 05/20/18 16:46 Dose: 1 applic Pantoprazole Sodium (Protonix Ec Tab) 40 mg PO DAILY [facility] Last Admin: 05/20/18 08:21 Dose: 40 mg Promethazine HCl/Dextromethorphan (Phenergan Dm Syrup) 10 ml PO Q6 PRN PRN Reason: Cough Sitagliptin Phosphate (Januvia) 25 mg PO DAILY [facility] Last Admin: 05/20/18 08:19 Dose: 25 mg Trazodone HCl (Desyrel) 50 mg PO HS [facility] Last Admin: 05/20/18 22:29 Dose: Not Given Vitamin B Complex/Vit C/Folic Acid (Nephro-Roshan) 1 tab PO DAILY [facility] Last Admin: 05/20/18 08:20 Dose: 1 tab - Labs Labs: 05/18/18 07:31 05/20/18 11:32 - Constitutional Appears: Well - Head Exam Head Exam: NORMOCEPHALIC - Eye Exam Eye Exam: EOMI, Normal appearance, PERRL Pupil Exam: PERRL - ENT Exam ENT Exam: Mucous Membranes Moist - Neck Exam Neck Exam: Full ROM - Respiratory Exam Respiratory Exam: Decreased Breath Sounds, Rales Additional comments: mild, decreased crackles at bases. - Cardiovascular Exam Cardiovascular Exam: REGULAR RHYTHM, +S1, +S2 - GI/Abdominal Exam GI & Abdominal Exam: Soft, Normal Bowel Sounds Additional comments: mild abdominal swelling - Extremities Exam Extremities Exam: Pedal Edema Additional comments: 2+ BLE edema. - Back Exam Back Exam: NORMAL INSPECTION - Neurological Exam Neurological Exam: Alert, Awake, Oriented x3 - Psychiatric Exam Psychiatric exam: Normal Affect, Normal Mood - Skin Skin Exam: Dry, Pallor Assessment and Plan - Assessment and Plan (Free Text) Assessment: Assessment/Impression/Major Problems Now: 1.) CKD, anasarca, chronic diastolic dysfunction -On lasix 120 mg BID and zaroxolyn. -closely monitor electrolyte abnormalities and assess for hypokalemia. -Nephro, cardio consults appreciated. -Underwent thoracentesis prior to TCU admission; reports breathing better since. -For possible Subacute Rehab. -Continue PT/OT recommendations.
[2018-05-21] MEDS: Albuterol-Ipratrop 3 mg / 0.5 (3 ml) UD INH SCH ×6 (03:48→23:27)
[2018-05-21] MEDS: metOLazone 2.5 MG TAB PO SCH ×2 (09:09→20:23)
[2018-05-21] MEDS: Multivitamin Vitamin B Complex (Nephro-Vite) Tab PO SCH (09:10)
[2018-05-21] MEDS: Pantoprazole 40 mg EC Tab PO SCH (09:11)
[2018-05-21] MEDS: INSULIN GLARGINE HUM REC ANLOG 36 UNIT SC SCH (21:55)
[2018-05-22] MEDS: Albuterol-Ipratrop 3 mg / 0.5 (3 ml) UD INH SCH ×4 (04:36→15:21)
[2018-05-22 08:13] VITALS: BP 114/64; PULSE 92; RESP 18; TEMP 98.4; O2SAT 96
[2018-05-22] MEDS: metOLazone 2.5 MG TAB PO SCH (09:09)
[2018-05-22] MEDS: Multivitamin Vitamin B Complex (Nephro-Vite) Tab PO SCH (09:09)
[2018-05-22] MEDS: Pantoprazole 40 mg EC Tab PO SCH (09:09)
[2018-05-22] MEDS: EPOETIN ALFA 10,000 UNIT/ML ML SC SCH (09:18)
--- NOTE | 2018-05-24 23:46 | CP.PCM.PN ---
Subjective - Date & Time of Evaluation Date of Evaluation: 05/21/18 Time of Evaluation: 10:00 - Subjective Subjective: Patient is doing a lot better Able to participate with therapy Has no SOB Still on IV Lasix. Has no fever. Has less leg edema. Objective - Vital Signs/Intake and Output Vital Signs (last 24 hours): Temp Pulse Resp BP Pulse Ox 98.4 F 92 H 18 114/64 96 05/22/18 08:12 05/22/18 08:12 05/22/18 08:12 05/22/18 10:02 05/22/18 08:12 - Labs Labs: 05/18/18 07:31 05/20/18 11:32 - Head Exam Head Exam: NORMAL INSPECTION - ENT Exam ENT Exam: Mucous Membranes Moist - Respiratory Exam Respiratory Exam: Clear to Ausculation Bilateral - Cardiovascular Exam Cardiovascular Exam: REGULAR RHYTHM - GI/Abdominal Exam GI & Abdominal Exam: Normal Bowel Sounds - Neurological Exam Neurological Exam: Awake Assessment and Plan (1) Chronic congestive heart failure with left ventricular diastolic dysfunction Status: Acute (2) Gait instability Status: Acute (3) Acute on chronic renal failure Status: Acute (4) Diabetes mellitus type 2 with complications, uncontrolled Status: Acute - Assessment and Plan (Free Text) Plan: Cont meds Cont tx Cont IV Lasix
--- NOTE | 2018-05-24 23:49 | CP.PCM.DIS ---
Provider - Provider Date of Admission: 05/15/18 17:13 Attending physician: Rk Dill MD Consults: 05/15/18 18:38 Nursing Referral for Wound Care Routine Comment: Physician Instructions: Reason For Exam: sacral wound Pastoral Care Referral Routine Comment: Physician Instructions: Reason For Exam: new pt 05/15/18 19:56 Cardiology Consult Routine Comment: Consulting Provider: Jessica Ozuna Consulting Physician: Jessica Ozuna Reason for Consult: CHF 05/15/18 19:57 Nephrology Consult Routine Comment: Consulting Provider: Mago Espinal Consulting Physician: Mago Espinal Reason for Consult: elevated Pulmonology Consult Routine Comment: Consulting Provider: Samuel Santo Consulting Physician: Samuel Santo Reason for Consult: pleural effusion Time Spent in preparation of Discharge (in minutes): 30 Diagnosis - Discharge Diagnosis (1) Chronic congestive heart failure with left ventricular diastolic dysfunction Status: Acute (2) Gait instability Status: Acute (3) Acute on chronic renal failure Status: Acute (4) Diabetes mellitus type 2 with complications, uncontrolled Status: Acute Hospital Course - Lab Results Lab Results: Most Recent Lab Values WBC 7.0 K/uL (4.8-10.8) 05/18/18 07:31 RBC 2.97 Mil/uL (3.80-5.20) L 05/18/18 07:31 Hgb 8.7 g/dL (12.0-16.0) L 05/18/18 07:31 Hct 27.5 % (34.0-47.0) L 05/18/18 07:31 MCV 92.5 fl (81.0-99.0) 05/18/18 07:31 MCH 29.4 pg (27.0-31.0) 05/18/18 07:31 MCHC 31.8 g/dL (33.0-37.0) L 05/18/18 07:31 RDW 15.2 % (11.5-14.5) H 05/18/18 07:31 Plt Count 257 K/uL (130-400) 05/18/18 07:31 MPV 8.8 fl (7.2-11.7) 05/18/18 07:31 Neut % (Auto) 64.3 % (50.0-75.0) 05/18/18 07:31 Lymph % (Auto) 17.7 % (20.0-40.0) L 05/18/18 07:31 [place]lin % (Auto) 12.0 % (0.0-10.0) H 05/18/18 07:31 Eos % (Auto) 4.7 % (0.0-4.0) H 05/18/18 07:31 Baso % (Auto) 1.3 % (0.0-2.0) 05/18/18 07:31 Neut # (Auto) 4.5 K/uL (1.8-7.0) 05/18/18 07:31 Lymph # (Auto) 1.2 K/uL (1.0-4.3) 05/18/18 07:31 [place]lin # (Auto) 0.8 K/uL (0.0-0.8) 05/18/18 07:31 Eos # (Auto) 0.3 K/uL (0.0-0.7) 05/18/18 07:31 Baso # (Auto) 0.1 K/uL (0.0-0.2) 05/18/18 07:31 Sodium 141 mmol/l (132-148) 05/20/18 11:32 Potassium 3.6 MMOL/L (3.6-5.0) 05/20/18 11:32 Chloride 104 mmol/L (98-107) 05/20/18 11:32 Carbon Dioxide 29 mmol/L (22-30) 05/20/18 11:32 Anion Gap 12 (10-20) 05/20/18 11:32 BUN 40 mg/dl (7-17) H 05/20/18 11:32 Creatinine 1.7 mg/dl (0.7-1.2) H 05/20/18 11:32 Est GFR ( Amer) 39 05/20/18 11:32 Est GFR (Non-Af Amer) 32 05/20/18 11:32 POC Glucose (mg/dL) 140 mg/dL (65-110) H 05/22/18 10:36 Random Glucose 130 mg/dL (65-105) H 05/20/18 11:32 Calcium 7.9 mg/dL (8.4-10.2) L 05/20/18 11:32 Total Bilirubin < 0.1 mg/dl (0.2-1.3) L 05/18/18 07:31 AST 18 U/L (14-36) 05/18/18 07:31 ALT 17 U/L (9-52) 05/18/18 07:31 Alkaline Phosphatase 60 U/L (38-126) 05/18/18 07:31 NT-Pro-B Natriuret Pep 2530 pg/ml (0-450) H 05/18/18 07:31 Total Protein 5.4 G/DL (6.3-8.2) L 05/18/18 07:31 Albumin 2.6 g/dL (3.5-5.0) L 05/18/18 07:31 Globulin 2.8 gm/dL (2.2-3.9) 05/18/18 07:31 Albumin/Globulin Ratio 0.9 (1.0-2.1) L 05/18/18 07:31 - Hospital Course Hospital Course: This is a 47 y/o female admitted ofr persistent pleural effusion and leg edema She was admitted form telemetry for SOB and anasarca starte don IV Lasix and did very well She was admitted for further PT her medications were continued and responded very well. She was discharged to subacute rehab Discharge Exam - Head Exam Head Exam: NORMAL INSPECTION - Eye Exam Eye Exam: Normal appearance - Respiratory Exam Respiratory Exam: Clear to PA & Lateral - Cardiovascular Exam Cardiovascular Exam: REGULAR RHYTHM - GI/Abdominal Exam GI & Abdominal Exam: Normal Bowel Sounds - Neurological Exam Neurological exam: CN II-XII Intact Discharge Plan - Follow Up Plan Condition: GOOD Disposition: TRANSF TO SNF Additional Instructions: Patient was dsicharged in stable condition to subacute rehab [facility].
== END 2018-05-22 15:53 | DRG 544 ==
LOC: H.TCU 17:13
PROVIDERS: ADMIT Family Medicine; ATTEND Family Medicine
PROC: F07Z9FZ Gait Training/Functional Ambulation Treatment using Assistive, Adaptive, Supportive or Protective Equipment (ICD-10-PCS; principal; 2018-05-15)
PROC: F08Z4FZ Home Management Treatment using Assistive, Adaptive, Supportive or Protective Equipment (ICD-10-PCS; 2018-05-15)
DX: I13.0 Hypertensive heart and chronic kidney disease with heart failure and stage 1 through stage 4 chronic kidney disease, or unspecified chronic kidney disease (principal); I50.32 Chronic diastolic (congestive) heart failure; E11.22 Type 2 diabetes mellitus with diabetic chronic kidney disease; J90 Pleural effusion, not elsewhere classified; E11.21 Type 2 diabetes mellitus with diabetic nephropathy; N18.3 Chronic kidney disease, stage 3 (moderate); M32.9 Systemic lupus erythematosus, unspecified; E11.319 Type 2 diabetes mellitus with unspecified diabetic retinopathy without macular edema; E11.65 Type 2 diabetes mellitus with hyperglycemia; E78.5 Hyperlipidemia, unspecified; D64.9 Anemia, unspecified; R26.9 Unspecified abnormalities of gait and mobility; F17.210 Nicotine dependence, cigarettes, uncomplicated; Z79.84 Long term (current) use of oral hypoglycemic drugs; Z79.4 Long term (current) use of insulin; Z74.01 Bed confinement status